=== PATIENT | female | born 1975 | race Caucasian/White ===

== ENCOUNTER 2018-06-20 10:44 | Inpatient (IN) | payer MEDICARE, MEDICAID ==
[~2018-06-20] VITALS: Ht 154.9 cm; Wt 64.7 kg
[~2018-06-20 10:44] MED LIST: AFRIN MENTHOL S15 ML NS; AMOXICILLIN 50500 MG PO; APAP500 PO; AUGMENTIN 875875 MG PO; AZITHROMYCIN 2250 MG; BACTRIM DS TAB1 EACH PO; BENTYL20 MG PO; CLEOCIN HCL300 MG PO; COLACE100 MG PO; DIFLUCAN200 MG PO; DOXYCYCLINE 10100 M1 PO; FLEXERIL PO; GAS RELIEF 8080 MG PO; MEDROL4 MG; MINOCIN100 MG PO; NORCO 5-325 TA1 EACH PO; OMNICEF; OXECTA5 MG PO; OXYBUTYNIN TRANSDERM; ROCEPHIN 11 GM/100 M IV; TUMS PO; TUMS200 MG PO; UNASYN 3 GM VIAL3 G1 IV; UNICOMPLEX M TA1 TA1 PO; VICODIN 5-5001 EACH PO; ZOFRAN4 MG PO
[2018-06-20 10:45] VITALS: BP 140/86
[2018-06-20] MEDS ORDERED: EXCEDRIN CAPLE1 EACH PO (10:51)
[2018-06-20 11:27] LABS: ABSOLUTE BASOPHILS 0.1 thou/uL (0.0-0.2); ABSOLUTE EOSINOPHILS 0.1 thou/uL (0.0-0.7); ABSOLUTE LYMPHOCYTES 2.4 thou/uL (0.8-5.3); ABSOLUTE MONOCYTES 0.4 thou/uL (0.0-1.2); ABSOLUTE NEUTROPHILS 6.2 thou/uL (1.6-8.1); BASOPHILS 1.1 %; EOSINOPHILS 0.7 %; HEMATOCRIT 38.7 % (37.0-47.0); HEMOGLOBIN 12.6 gm/dL (12.0-15.0); LYMPHOCYTES 26.2 %; MCH 25.6 pg (26.0-34.0); MCHC 32.5 g/dL (28.0-37.0); MCV 78.8 fL (80.0-100.0); MONOCYTES 4.4 %; MPV 7.3 fl. (7.2-11.1); NUCLEATED RBCS 0 /100WBC; PLATELET COUNT* 418 thou/uL (150-400); POLYS 67.6 %; RBC 4.91 mil/uL (4.20-5.00); RDW-CV 17.6 % (10.5-14.5); WBC 9.1 thou/uL (4.0-11.0)
[2018-06-20 11:36] LABS: CREATININE 0.5 mg/dL (0.6-1.3); POTASSIUM 3.7 mmol/L (3.5-5.1)
[2018-06-20 11:40] LABS: ALBUMIN 3.3 g/dL (3.4-5.0); TOTAL BILIRUBIN 0.3 mg/dL (<0.1-1.0); TOTAL PROTEIN 7.8 g/dL (6.4-8.2)
[2018-06-20 12:49] LABS: URINE BILIRUBIN NEGATIVE (Negative); URINE BLOOD 3+ (Negative); URINE CLARITY CLOUDY; URINE COLOR YELLOW; URINE GLUCOSE-RANDOM NEGATIVE (Negative); URINE KETONES NEGATIVE (Negative); URINE LEUKOCYTES 3+ (Negative); URINE NITRITE NEGATIVE (Negative); URINE PROTEIN NEGATIVE (Negative); URINE SPECIFIC GRAVITY <= 1.005 (1.005-1.030); URINE UROBILINOGEN 0.2 E.U./dl (0.2-1.0)
[2018-06-20 12:56] LABS: CASTS None Seen /LPF (None Seen); CRYSTALS None Seen /LPF (None Seen); SQUAMOUS NONE SEEN /LPF (0-3); URINE RBC >20 Many /HPF (0-2); URINE WBC >25 Many /HPF (0-5)
[2018-06-20 12:57] LABS: BACTERIA 1-9 Few /HPF (None Seen); YEAST Present (None Seen)
[2018-06-20 13:46] VITALS: BP 139/77
[2018-06-20 15:08] VITALS: BP 138/78
[2018-06-20 16:00] VITALS: BP 150/79
--- NOTE | 2018-06-20 16:19 | NUR ---
PATIENT ADMITTED FROM ER TO ROOM 103. ALERT AND ORIENTED. FAMILY AT BEDSIDE, VERY SUPPORTIVE. PHOTO TAKEN OF LEFT ISCHIUM WOUND PER PROTOCOL. PATIENT TURN Q2, WEDGES AND PILLOW UTILIZED. IVF AND SCHED ABX INFUSED ORDERED. PRN HYDROCODONE GIVEN FOR ABD PAIN, PATIENT TAKES PILLS CRUSHED. INCONTINENT OF URINE. FALL RISK PROTOCOL IN PLACE. CALL LIGHT WITHIN REACH, WILL CONTINUE TO MONITOR.
[2018-06-20 21:00] VITALS: BP 114/57
--- NOTE | 2018-06-21 05:51 | NUR ---
PATIENT SLEPT MOST OF THE NIGHT. IV FLUIDS CONTINUE TO INFUSE AT 100 ML/HR. IV VANC WAS GIVEN ORDERED. PATIENT HAS BEEN NPO SINCE MIDNIGHT FOR PROCEDURE TODAY. WILL CONTINUE TO MONITOR.
[2018-06-21 08:00] VITALS: BP 125/63
[2018-06-21 11:11] VITALS: BP 125/63
--- NOTE | 2018-06-21 11:49 | NUR ---
Nutrition: Pt assessed for pressure ulcer on Lt ischium. Pt is paraplegic, h/o pressure ulcers. Usually eats well. Currently NPO for procedure today. Admitted with UTI and renal stones. Wt in 2016 was 180#. Today's wt is 142#. Unsure of wt hx. Will follow wt trends while in hospital Labs: Na 134, BG 139, alb 3.3. Pt is at Low to Mild risk at this time.
--- NOTE | 2018-06-21 14:00 | NUR ---
VISITED WITH PT. SHE WAS ALERT AND ORIENTED. KNOWN FROM PREVIOUS ADMISSION IN 2016. SHE SAID SHE HAS NOT BEEN IN HOSPITAL SINCE THEN. SHE CONTINUES TO LIVE WITH HER MOM AND SON. THEY ARE HER CARE GIVERS. SHE WOULD QUALIFY FOR CAREGIVERS THROUGH HER MEDICAID BUT DECLINED OFFER FOR INFORMATION LAST TIME. SHE IS PARAPLEGIC FOR MANY YEARS. WAS ABLE TO TRANSFER OUT OF BED BUT FX LEG WHILE TURNING IN BED SEVERAL YEARS AGO. SAID SHE IS NOW BEDBOUND. SHE HAD A LIFT BUT SAID IT 'BENT HER IN HALF LIKE A TACO.' SEE NOTES FROM . SHE IS WANTING FULLY ELECTRIC RAEGAN LIFT. MEDICAID DOES NOT PAY FOR FULLY ELECTRIC BUT COULD RECEIVE SEMI ELECTRIC LIFT. IS ALSO WANTING A LOW AIR LOSS MATTRESS. HER WC IS 9 YRS OLD. ALSO SAID SHE NEEDS SOMETHING WRITTEN TO [facility] TRANSPORTATION TO GET QUALIFIED TO RECEIVE TRANSPORTATION TO AND FROM [facility]. HER PCP WILL NOT WRITE THIS UNLESS SHE SEES HIM IN OFFICE BUT SHE CANNOT GET TO OFFICE SHE DOES NOT HAVE TRANSPORTATION. CM WILL ATTEMPT TO ASSIST WITH SOME OF THESE ISSUES.
--- NOTE | 2018-06-21 15:20 | NUR ---
WOUND CARE NOTE: CONSULT RECEIVED FOR LEFT ISCHIUM WOUND. PATIENT CURRENTLY OFF UNIT, WILL ATTEMPT TO ASSESS TOMORROW.
[2018-06-21 16:15] VITALS: BP 127/59
--- NOTE | 2018-06-21 16:39 | NUR ---
PATIENT NPO ALL MORNING FOR CYSTO WITH RIGHT STENT PLACEMENT THIS AFTERNOON. PATIENT RETURNED TO ROOM AT 1625. VITALS STABLE. PATIENT C/O THROAT BEING VERY SORE. IVF CONTINUES INFUSING, SCHED ABX GIVEN ORDERED. REG DIET. WOUND CARE CONSULTED WILL SEE TOMORROW PATIENT WAS OFF UNIT ALL AFTERNOON. PATIENT REFUSED MRI TO BE DONE TODAY, MRI NOTIFIED AND WILL DO TOMORROW.
[2018-06-21 20:00] VITALS: BP 118/62
[2018-06-21 23:59] VITALS: BP 95/52
[2018-06-22 04:12] VITALS: BP 102/59
--- NOTE | 2018-06-22 04:57 | NUR ---
ASSESSMENT COMPLETE. PT GIVEN PRN PAIN MEDICATION ONCE WITH RELIEF REPORTED. PT ABLE TO SLEEP THROUGH THE NIGHT WITHOUT ANY CONCERNS. PT IS ON ROOM AIR WITH ADEQUATE SATS. PT REPORTS SORE THROAT, SPRAY GIVEN PRN. PT TAKES MEDS CRUSHED. PT HAS PEREZ IN PLACE. PT HAS IV FLUIDS INFUSING. DRESSING TO WOUND INTACT. PT IS Q2 TURN FOR SKIN INTEGRITY. SEE ASSESSMENT AND VITALS FOR OTHER DETAILS. CALL LIGHT WITHIN REACH, WILL CONTINUE PLAN OF CARE
--- NOTE | 2018-06-22 07:31 | OP ---
[address] [address] OPERATIVE REPORT Name: BETHEL MAHONEY Room: [address] IN .R.#: [id number] Admission: 06/20/18 Attend Phys: Isidro Roe Discharge: Date of : 71 Report #: [id number] THIS REPORT FOR: //name// CC: Alyssia Morrow DATE OF SERVICE: 06/21/2018 INDICATION FOR PROCEDURE: The patient is a 43-year-old female who is paraplegic, who was admitted through the Emergency Department with fever, chills, abdominal pain. She was diagnosed with a febrile urinary tract infection, associated with a large right ureteropelvic junction calculus. She presents today for cystoscopy with right double-J stent placement to allow drainage of her right kidney while the antibiotics are treating the infection to allow this urinary tract infection to clear. She will then require formal stone treatment at a later date. PREOPERATIVE DIAGNOSIS: Febrile urinary tract infection associated with a right ureteropelvic junction calculus. POSTOPERATIVE DIAGNOSIS: Febrile urinary tract infection associated with a right ureteropelvic junction calculus. PROCEDURE: Cystoscopy, right double-J stent placement. SURGEON: Luis Miguel Romero MD ANESTHESIA: General. COMPLICATIONS: None. ESTIMATED BLOOD LOSS: None. DESCRIPTION OF PROCEDURE: The patient was consented for the above procedure, given broad-spectrum IV antibiotics preoperatively. She was given general anesthetic, placed in the dorsal lithotomy position. She was prepped and draped in a sterile fashion over the genitalia. Upon examination, the patient had a decubitus ulcer in her right buttock. Externally, the genitalia was unremarkable. Cystoscopy was performed with the 21-Dutch sheath and 30 degree lens. This revealed a urethra that was open at rest. A moderate to severely trabeculated bladder was noted with moderate erythema on the posterior bladder wall. The ureteral orifices were in the proper position. The stone was easily seen on fluoroscopy. Based on that point, the 0.035 floppy-tipped guidewire was passed up the right ureter, past the stone and into the right renal pelvis. Next, a 4.8 x 26 double-J stent was passed over the wire with good curl noted in the renal pelvis and in the bladder after removing the wire. [place] [address] OPERATIVE REPORT Name: BETHEL MAHONEY Room: [address]#: [id number] Admission: 06/20/18 Attend Phys: Isidro Roe Discharge: Date of : 71 Report #: [id number] with fluoroscopy and cystoscopy. Once the stent was placed, the scope was removed. A Francois catheter was replaced and clear urine drained. She was awakened and sent to recovery room where she remained in stable condition. We will leave her on IV and p.o. antibiotics for 7-10 days prior to performing a stone procedure. <ELECTRONICALLY SIGNED> By: Luis Miguel Romero MD 06/22/18 0731 [id number] Mabel Romero MD /nt
[2018-06-22 08:20] LABS: HEMATOCRIT 33.3 % (37.0-47.0); HEMOGLOBIN 10.7 gm/dL (12.0-15.0); MCH 25.7 pg (26.0-34.0); MCHC 32.2 g/dL (28.0-37.0); MCV 79.7 fL (80.0-100.0); MPV 6.9 fl. (7.2-11.1); RBC 4.18 mil/uL (4.20-5.00); RDW-CV 17.2 % (10.5-14.5); WBC 6.4 thou/uL (4.0-11.0)
[2018-06-22 08:31] LABS: ALBUMIN 2.7 g/dL (3.4-5.0); CALCIUM 7.8 mg/dL (8.5-10.1); CREATININE 0.4 mg/dL (0.6-1.3); MAGNESIUM 1.8 mg/dL (1.8-2.4); PHOSPHORUS* 3.7 mg/dL (2.5-4.9); POTASSIUM 3.2 mmol/L (3.5-5.1)
[2018-06-22 08:35] VITALS: BP 114/59
--- NOTE | 2018-06-22 12:50 | CON ---
[address] [address] CONSULTATION Name: BETHEL MAHONEY Room: [address] IN .R.#: [id number] Admission: 06/20/18 Attend Phys: Isidro Roe Discharge: Date of : 71 Report #: [id number] THIS REPORT FOR: //name// CC: Alyssia Morrow DATE OF SERVICE: 06/21/2018 INFECTIOUS DISEASE CONSULTATION ATTENDING PHYSICIAN: Dr. Morrow. REASON FOR EVALUATION: Sepsis as a complication of obstructive uropathy and complicated urinary tract infection, also has chronic wound overlying the left ischial site. HISTORY OF PRESENT ILLNESS: This is a 43-year-old well known to myself. She has longstanding paraplegia as a result of spinal cord tumor who has several admissions over the years with infectious related complications, has chronic left ischial wound that tends to have a waxing and waning course and has healed at times only to break down later, generally a serosanguineous type discharge, currently sinus tract. It has been there roughly 8 months. She did present with severe nausea, abdominal pain, low back pain and pressure, had some low-grade temperature elevations as well. On evaluation, she was found to have bilateral renal stones and urinalysis suggests an overt infection. She was scheduled to undergo operative intervention with stenting, has been started on empiric antibiotics with ceftriaxone and vancomycin. She is not encephalopathic. She is in moderate distress. ALLERGIES: MORPHINE, QUINOLONES, MINOCYCLINE, TRAMADOL, UNASYN. CURRENT MEDICATIONS: Include ceftriaxone, vancomycin, hydromorphone, ondansetron, hydrocodone. PAST MEDICAL HISTORY: As described above, paraplegia secondary to spinal cord tumor, bilateral lower extremity lymphedema, previous cholecystectomy, left ankle osteomyelitis. SOCIAL HISTORY: Former smoker. No ethanol. FAMILY HISTORY: Noncontributory. REVIEW OF SYSTEMS: As above. Denies significant pulmonary-related complaints. PHYSICAL EXAMINATION: GENERAL: She appears chronically ill, undernourished[place] [address] CONSULTATION Name: MARUBETHEL F Room: [address]#: [id number] Admission: 06/20/18 Attend Phys: Isidro Roe Discharge: Date of : 71 Report #: [id number] VITAL SIGNS: Temperature 98.1, pulse 98, respirations 18, blood pressure 125/63. SKIN: Warm. SKIN: Warm and dry. HEENT: Otherwise, unremarkable. NECK: Supple. LUNGS: Diminished breath sounds. HEART: Regular. Borderline tachycardic. I do not appreciate a murmur. ABDOMEN: Soft, mild distention. There are no overt peritoneal signs. I do not appreciate any CVA tenderness. GENITOURINARY: Deferred. RECTAL: Deferred. LABORATORY DATA: Blood cultures sterile thus far. Sed rate of 30. Lactic acid 1.8. CT abdomen and pelvis, large stone in the right renal pelvis with some possible wall thickening of the pelvis and proximal ureter suggesting chronic inflammatory change. She has a stone in the calyx, left kidney shows a small mid region stone as well. CBC: White count of 9.1, H and H 12.6 and 38.7, platelets of 418. Electrolytes: Sodium 134, potassium 3.7, chloride 98, bicarbonate is 22, anion gap of 14, BUN and creatinine 5 and 0.5, with a glucose of 139. Albumin is 3.3, total protein 7.8, estimated GFR of 133. ASSESSMENT AND PLAN: Complicated urinary sepsis as a complication of urinary tract obstructive uropathy. We will continue empiric antimicrobial therapy. Agree with surgical intervention. I think this is certainly likely the source as evidenced by the chronic left ischial ulcer. The evidence is mixed about a deep infection such as osteomyelitis. We will continue wound care. We may need to have Surgery evaluate possible excision of the sinus tract pattern. Continue wound care including packing and offloading. <ELECTRONICALLY SIGNED> By: Milton Gandhi MD 06/22/18 1250 [id number] Gandhi MD /nt
[2018-06-22 16:00] VITALS: BP 133/61
--- NOTE | 2018-06-22 16:00 | NUR ---
CM SPOKE TO DR MANJARREZ AND SHE IS RECOMMENDING LTAC FOR THE PATIENT AT D/C AND WOULD LIKE TO KNOW IF SHE WOULD QUALIFY, AND PATIENT INFORMS THAT SHE IS OPEN TO THIS. CM SPOKE TO JACKIE WITH [facility] TO INFORM OF THE REFERRAL AND FAXED THE PATIENTS CLINICAL INFO. CM AWAITING A RETURN CALL TO DISCUSS IF PATIENT QUAILIFIES. CM WILL REMAIN AVAILABLE TO ASSIST AND FOLLOW NEEDED.
--- NOTE | 2018-06-22 16:12 | NUR ---
PATIENT TURNED Q2. IVF AND SCHED ABX INFUSED ORDERED. PATIENT TO HAVE ONE TIME GENTAMICIN DOSE AGAIN THIS SHIFT. PO FLUCONAZOLE STARTED THIS SHIFT. POTASSIUM REPLACED FOR LEVEL OF 3.2, REDRAW AT 1930. PATIENT HAD MRI THIS AM, DR. MANJARREZ NOTIFIED OF RESULTS, SURGERY CONSULTED AND SAW PATIENT. NO NEW ORDERS RECEIVED AT THIS TIME. WOUND CARE HERE THIS AM AND DRESSING CHANGED TO LEFT ISCHIUM.
--- NOTE | 2018-06-22 16:41 | NUR ---
WOUND CARE NOTE: CONSULT RECEIVED FOR SACRAL WOUND. PATIENT PRESENTS WITH A STAGE 4 PRESSURE ULCER TO HER LEFT ISCHIAL TUBEROSITY. WOUND MEASURES 0.8X1X3.8 WITH A TUNNEL AT 11 O'CLOCK 6.5CM. JUDD-WOUND MACERATED. CLEANSED WOUND WITH WOUND CLEANSER, PATTED DRY. WOUND IS DRAINING SEROUS DRAINAGE. WOUND BED DIFFICULT TO SEE SINCE OPENING IS FAIRLY SMALL. APPEARS THAT IT IS RED AND MOIST. PACKED WITH 1/2" RIBBON GAUZE, SKIN PREPPED. COVERED WITH BORDERED GAUZE. BELIEVE PATIENT HAS VAGINAL YEAST INFECTION. PERINEAL AREA IS RED, RAW, BLEEDING. APPLIED Z GUARD. PHYSICIAN NOTIFIED. NOTICED DRY, THICKENED, YELLOW/BLACK SKIN TO RIGHT FOOT. AFTER CLOSER INSPECTION, NOTICED DRAINAGE. CLEANSED AREA AND LARGE FLAKES OF DRY SKIN CAME OFF REVEALING A WOUND TO THE DORSAL ASPECT OF HER FOOT EXTENDING TO HER TOES. PATIENT THAT THE AREA WILL HEAL, THEN COME BACK. STATES THAT THEY LOTION HER FEET UP REALLY WELL AND THE DRY FLAKEY SKIN COMES OFF. CLEANSED WOUND. APPLIED OPTIFOAM AG AND SECURED WITH A ROLL GAUZE. NOTIFIED PHYSICIAN OF FINDINGS AND NEW ORDERS OBTAINED. EDUCATED PATIENT ON FINDINGS AND DRESSING SELECTIONS, COMMUNICATED UNDERSTANDING. EDUCATED PATIENT ON GETTING HER A MATTHIAS MATTRESS TO ASSIST WITH MOISTURE CONTROL, JUDD-WOUND, BUTTOCKS, PERINEAL AREA EXTREMELY MACERATED. I BELIEVE FROM VAGINAL AND WOUND DRAINAGE. RECOMMEND TURN Q2 HOURS, KEEP OFF WOUND LIMIT LAYERS OF LINEN UNDER PATIENT PODIATRY CONSULT-TOENAILS, FOOT WOUND
--- NOTE | 2018-06-22 17:32 | NUR ---
PT. IS MOTIVATED TO GET OOB AND INTO A W/C. WAITING ON CLEARANCE PER DR. MANJARREZ TO SEE IF PT. CAN GET OOB DUE TO PT. HAVE A STAGE FOUR ISCHIUM WOUND AND SAYS GAYLE. LE TURN PURPLE AND BLACK WHEN IN A DEPENDENT POSITION DUE TO LYMPHEDEMA. RECOMMEND THAT PT. GET A LIFT AGAIN AND HAVE TRAINING AT HOME WITH EITHER A CAREGIVER AND/OR HOME HEALTH O.T/P.T. PT. HAS LOSS STRENGTH FROM BEING BEDBOUND THE PAST 2 YEARS. ALSO PT. SAYS SHE HAS A W/C BUT IT IS FROM THE EARLY 1999'S. RECOMMEND A W/C WITH ROHO CUSHION AND ELEVATING LEG RESTS WHEN PT. IS APPROPRIATE TO SIT UP IN A W/C. PT. ALSO WOULD BENEFIT FROM A LOW AIR LOSS MATTRESS.
[2018-06-23 00:40] VITALS: BP 132/59
--- NOTE | 2018-06-23 06:27 | NUR ---
PATIENT SLEPT PART OF THE NIGHT. IV WENT BAD NURSING LEGAL ADVISER STARTED ANOTHER ONE WENT TO HOOK PATIENT BACK UP TO FLUIDS THAT IV HAD ALREADY CLOTTED OFF. PATIENT REFUSED TO HAVE ANOTHER ONE PLACED AND IS WANTING A PICC LINE. PATIENT IS ALSO REFUSING TO HAVE SURGERY TODAY AND WOULD LIKE TO TALK TO THE DOCTORS. WILL CONTINUE TO MONITOR.
[2018-06-23 09:30] VITALS: BP 128/65
[2018-06-23 12:05] LABS: HEMATOCRIT 34.3 % (37.0-47.0); HEMOGLOBIN 11.2 gm/dL (12.0-15.0); MCH 25.6 pg (26.0-34.0); MCHC 32.5 g/dL (28.0-37.0); MCV 78.8 fL (80.0-100.0); MPV 7.1 fl. (7.2-11.1); RBC 4.35 mil/uL (4.20-5.00); RDW-CV 17.1 % (10.5-14.5); WBC 8.2 thou/uL (4.0-11.0)
[2018-06-23 12:17] LABS: ALBUMIN 2.7 g/dL (3.4-5.0); CALCIUM 8.8 mg/dL (8.5-10.1); CREATININE 0.4 mg/dL (0.6-1.3); MAGNESIUM 1.9 mg/dL (1.8-2.4); POTASSIUM 3.6 mmol/L (3.5-5.1); TOTAL BILIRUBIN 0.3 mg/dL (<0.1-1.0)
--- NOTE | 2018-06-23 12:26 | NUR ---
CM SPOKE TO THE PATIENT TO DISCUSS DISCHARGE PLANNING NEEDS AND LTAC AT D/C. PATIENT INFORMS THAT SHE IS OPEN TO LTAC AT D/C, BUT IS 'CONCERNED WITH HOW FAR AWAY IT IS'. PATIENT WOULD LIKE TO SPEAK TO HER FAMILY ABOUT IT BEFORE MAKING A DECISION. CM ALSO INFORMED THE PATIENT THAT CM CONTACTED [facility] TO DISCUSS TRANSPORATION AND THEY INFOM THAT THERE IS NO ISSUE AND THE PATIENT COVERED FOR TRANSPORTATION'. CM CONTACTED [facility] TO DISCUSS DME REFERRAL FOR ELECTRIC RAEGAN LIFT AND LOW AIR LOSS MATTRESS. CM TO DISCUSS NEEDED PROGRESS NOTE FROM DR MANJARREZ TO ASSIST IN ACQUIRING DME APPROVAL. CM WILL REMAIN AVAILABLE TO ASSIST AND FOLLOW NEEDED.
--- NOTE | 2018-06-23 13:13 | NUR ---
RIGHT BASILIC VESSEL ACCESSED FOR SINGLE LUMEN PICC LINE. LINE PRE-TRIMMED TO 37CM BUT UNABLE TO CANNULATE BASILIC VESSEL. BASILIC VESSEL DEEP AND TORTUROUS WITH FIBRIN SHEATH-LIKE COATING. NEEDLE WITH DRAWN AND PRESSURE HELD FOR 3 MINUTES. RIGHT CEPHALIC VESSEL ASSESSED BUT FOUND TO BE PARTIALLY CLOTTED WITH FIBRIN-LIKE SHEATH NOTED. PROCEDURE TERMINATED AND ULTRASOUND REPOSITIONED TO LEFT SIDE. LEFT BASILIC VESSEL ACCESSED FOR SINGLE LUMEN 4 QATARI PICC LINE. LINE PRE-TRIMMED TO 41CM AND ADVANCED TO THE ZERO TERESITA WITH NO RESISTANCE MET. UPPER ARM CIRCUMFERENCE ABOVE INSERTINO STIE = 10 3/4". GOOD BRISK BLOOD RETURN NOTED, LINE FLUSHES FREELY. SHERLOCK AND 3CG CONFIRMATION OF TIP TERMINATION AT CAVOATRIAL JUNCTION. STYLET REMOVED, SITE DRESSED AND REPORT GIVEN TO HEIDI SHAW.
--- NOTE | 2018-06-23 16:36 | NUR ---
ASSUMED CARE OF PATIENT AFTER MORNING REPORT. ALERT AND ORIENTED X4. ASSESSMENT COMPLETED AND CHARTED. VSS ON ROOM AIR. PATIENT HAS HAD NO COMPLAINTS OF NAUSEA OR SOA. PAIN HAS BEEN MANAGED WITH MEDICATION. PATIENT REFUSED TO HAVE SURGERY TODAY TO DEBRIDE THE STAGE 4 ULCER ON HER LEFT ISCHIUM, STATES THAT SHE WOULD PREFER TO HAVE A FEW DAYS ON ANTIBIOTICS BEFORE HAVING THIS DONE. PATIENTS PERIPHERAL ACCESS CLOTTED OFF AT TWO SITES. PICC LINE ORDERED AND INSERTED THIS AM. FLUIDS AND ANTIBIOTICS INFUSED ORDERED. RESTING COMFORTABLY IN BED AT THIS TIME. HOURLY ROUNDS MAINTAINED, CALL LIGHT WITHIN REACH, NURSING WILL CONTINUE TO MONITOR.
[2018-06-23 18:20] VITALS: BP 134/79
[2018-06-23 21:45] VITALS: BP 135/90
[2018-06-24 05:26] LABS: HEMOGLOBIN 10.6 gm/dL (12.0-15.0); MCH 25.6 pg (26.0-34.0); MCV 79.9 fL (80.0-100.0); MPV 6.8 fl. (7.2-11.1); RBC 4.13 mil/uL (4.20-5.00); RDW-CV 17.5 % (10.5-14.5); WBC 6.5 thou/uL (4.0-11.0)
--- NOTE | 2018-06-24 05:49 | NUR ---
PATIENT HAS REMAINED ALERT AND ORIENTED X 4 THROUGHOUT THE SHIFT AND RESTING QUIETLY ON HOURLY ROUNDS. TURNED TO BACK AND TO RIGHT. DID NOT ALLOW FOR Q2H TURNS WHILE SLEEPING. WOUND CARE TO LEFT BUTTOCKS ULCER, RIGHT FOOT ULCER AND PERINEUM CARE COMPLETED AT HS. IVF'S AND ANTBIOTICS PER ORDERS. TEMP 99.2 AT HS. PHENERGAN ORDER RECEIVED FOR HEADACHE AT PATIENT REQUEST. SHE HAD RECEIVED A DOSE EARLIER IN THE DAY TO GOOD EFFECT BUT THAT HAD BEEN A ONE TIME ORDER. DID RECEIVE TWO DOSES OVERNIGHT, ALSO TO GOOD EFFECT. CONTINUE TO MONITOR.
[2018-06-24 06:25] LABS: ALBUMIN 2.4 g/dL (3.4-5.0); CALCIUM 8.3 mg/dL (8.5-10.1); CREATININE 0.4 mg/dL (0.6-1.3); MAGNESIUM 1.9 mg/dL (1.8-2.4); POTASSIUM 3.7 mmol/L (3.5-5.1); TOTAL BILIRUBIN 0.1 mg/dL (<0.1-1.0); TOTAL PROTEIN 6.4 g/dL (6.4-8.2)
[2018-06-24 09:48] VITALS: BP 130/86
[2018-06-24 16:07] VITALS: BP 140/84
--- NOTE | 2018-06-24 16:33 | NUR ---
SPOKE WITH REP AT [place] [employer]. DISCUSSED PT.HAVING TO COME TO WOUND CARE CENTER,, ETC. BY STRETCHER VAN. FORM FAXED TO . PUT ON FRONT OF CHART. TO SIGN FOR MEDICAL NECESSITY AND DOCUMENT NEED FOR STRETCHER VAN. FORM NEEDS TO BE FAXED BACK TO [place] [employer]. NUMBER ON FORM. SPOKE WITH [facility]. SHE SAID SHE DID RECEIVE ORDERS FOR LIFT AND LOW AIR LOSS MATTRESS. FAXED DOCUMENTATION FROM [facility] [employer] FOR THIS DME. TOLD [facility]NO DISCHARGE DATE UNKNOWN AT THIS TIME.
--- NOTE | 2018-06-24 17:09 | NUR ---
ASSUMED CARE OF PATIENT AFTER MORNING REPORT AT APPROX 0720. ALERT AND ORIENTED X4. ASSESSMENT COMPLETED AND CHARTED. VSS ON ROOM AIR. NO COMPLAINTS OF SOA THIS SHIFT. PAIN AND NAUSEA HAVE BEEN MANAGED WITH MEDICATION. FLUIDS AND ANTIBIOTICS IN FUSED ORDERED. PATIENT WORKED WITH OT TODAY AND DID WELL GETTING UP TO THE EDGE OF THE BED AND SITTING. Q2 TURNS MAINTAINED THROUGHOUT SHIFT. ABDOMINAL BINDER AND TUBIGRIPS APPLIED TO BILATERAL LOWER EXTRMEITIES BY OT FOR THERAPY TODAY. PATIENT RESTING COMFORTABLY IN BED AT THIS TIME. HOURLY ROUNDS MAINTAINED, CALL LIGHT WITHIN REACH, NURSING WILL CONTINUE TO MONITOR.
[2018-06-24 22:00] VITALS: BP 146/80
--- NOTE | 2018-06-25 04:41 | NUR ---
PATIENT HAS REMAINED ALERT AND ORIENTED X 4 THROUGHOUT THE SHIFT AND RESTING AT INTERVALS ON HOURLY ROUNDS. WOUND CARE COMPLETED AT HS. PATIENT TURNED SEVERAL TIMES BUT DID REFUSE Q2H TURNS. REMAINS ON SPECIALTY BED. CRITICAL VANCOMYCIN LEVEL AT HS. PHYSICIAN AND PHARMACY NOTIFIED. DOSAGE CHANGES PER PHARMACY. MEDICATED FOR VARIOUS STATED DISCOMFORTS. PHERERGAN FOR HEADACHES AND HYDROCODONE FOR BACK AND STOMACH PAIN. VITAL SIGNS STABLE. AFEBRILE. CONTINUE TO MONITOR.
[2018-06-25 06:42] LABS: URINE BILIRUBIN NEGATIVE (Negative); URINE BLOOD 2+ (Negative); URINE CLARITY CLEAR; URINE COLOR YELLOW; URINE GLUCOSE-RANDOM NEGATIVE (Negative); URINE KETONES NEGATIVE (Negative); URINE LEUKOCYTES-REFLEX 1+ (Negative); URINE NITRITE-REFLEX NEGATIVE (Negative); URINE PROTEIN NEGATIVE (Negative); URINE SPECIFIC GRAVITY 1.015 (1.005-1.030); URINE UROBILINOGEN 0.2 E.U./dl (0.2-1.0)
[2018-06-25 07:37] LABS: MUCUS 4-6 Moderate strn/LPF (None Seen); SQUAMOUS 0-3 Few /LPF (0-3); TRANSITIONAL EPITHEL CELL 4-10 Moderate /LPF (None Seen)
[2018-06-25 07:38] LABS: BACTERIA-REFLEX 1-9 Few /HPF (None Seen); CASTS None Seen /LPF (None Seen); CRYSTALS None Seen /LPF (None Seen); URINE RBC 3-10 Few /HPF (0-2); URINE WBC-REFLEX >25 Many /HPF (0-5)
[2018-06-25 08:05] VITALS: BP 139/92
[2018-06-25 17:07] VITALS: BP 139/83
--- NOTE | 2018-06-25 18:42 | NUR ---
ALERT AND ORIENTED X4. Q2 TURNS HAVE BEEN OFFERED THROUGHOUT SHIFT, WITH MULTIPLE REFUSALS. SPECIALTY BED IN PLACE. PAIN BEING MANAGED WITH PO AND IV MEDICATION. DENIES NAUSEA. IV IS PATENT AND INFUSING. DRESSINGS ON FOOT AND ISCHEUM HAVE BEEN CHANGED THIS SHIFT. C/D/I. VSS ON ROOM AIR. HOURLY ROUNDS HAVE BEEN MAINTAINED THROUGHOUT SHIFT. CALL LIGHT IS WITHIN REACH. NURSING WILL CONTINUE TO MONITOR.
[2018-06-25 19:25] VITALS: BP 132/73
[2018-06-26 01:02] VITALS: BP 148/60
--- NOTE | 2018-06-26 04:50 | NUR ---
PATIENT REMAINS ALERT AND ORIENTED X4 THROUGHOUT SHIFT. VITAL SIGNS STABLE ON ROOM AIR. SINGLE LUMEN PICC PATENT IN THE LEFT UPPER ARM INFUSING AT 100 ML/HR PER ORDERS. PAIN MANAGED WITH PO MEDICATION. NAUSEA MANAGED WITH IV MEDICATION. DRESSING TO WOUNDS CLEAN, DRY AND INTACT. PEREZ IN PLACE AND PATENT DRAINING LIGHT YELLOW URINE. PATIENT REMAINS ON BEDREST ON LOW AIRLOSS MATTRESS. ASSISTED TO REPOSITION EVERY TWO HOURS. RESTING COMFORTABLY THROUGHOUT THE NIGHT. BED ALARM IN PLACE. CALL LIGHT WITHIN REACH. WILL CALL FOR ASSISTANCE.
[2018-06-26 05:34] VITALS: BP 154/55
[2018-06-26 07:25] VITALS: BP 128/78
[2018-06-26 15:37] VITALS: BP 134/93
--- NOTE | 2018-06-26 17:10 | NUR ---
PT ALERT AND ORIENTED X 4. IVF INFUSING @ 100 MLS/HR IN SINGLE LUMEN PICC IN LEFT UPPER ARM. PT MAINTAINS ON BED REST. TURNED Q 2. PT ON ALTERNATING AIR LOSS SPECIALTY MATTRESS. PEREZ CATHETER IN PLACE DRAINING CLEAR YELLOW URINE. DR. MARTINEZ PODIATRY ADDRESSED BILAT FOOT WOUNDS @ 12:30. DRESSING ON LEFT ISCHIUM CHANGED AND PICTURES OBTAINED FOR ALL WOUNDS. JUDD-ANAL AREA RED AND EXCORIATED- Z ZACHARY BARRIER CREAM APPLIED. VS STABLE. HOURLY CHECKS MAINTAINED. CALL LIGHT WITHIN REACH. NURSING WILL CONTINUE TO MONITOR.
[2018-06-26 20:00] VITALS: BP 139/79
[2018-06-27 04:26] LABS: HEMOGLOBIN 9.7 gm/dL (12.0-15.0); MCH 25.7 pg (26.0-34.0); MCHC 32.3 g/dL (28.0-37.0); MCV 79.6 fL (80.0-100.0); MPV 7.4 fl. (7.2-11.1); RBC 3.76 mil/uL (4.20-5.00); RDW-CV 17.8 % (10.5-14.5); WBC 5.2 thou/uL (4.0-11.0)
[2018-06-27 04:40] VITALS: BP 156/53
[2018-06-27 05:27] LABS: ALBUMIN 2.3 g/dL (3.4-5.0); CALCIUM 8.4 mg/dL (8.5-10.1); CREATININE 0.5 mg/dL (0.6-1.3); MAGNESIUM 2.1 mg/dL (1.8-2.4); POTASSIUM 3.2 mmol/L (3.5-5.1); TOTAL BILIRUBIN 0.2 mg/dL (<0.1-1.0); TOTAL PROTEIN 6.2 g/dL (6.4-8.2)
--- NOTE | 2018-06-27 07:00 | NUR ---
PATIENT RESTED IN BED, NO ACUTE CHANGES. PATINET DID NOT SHOW SIGNS OF DISTRESS. PATIENT TURNED Q 2 HOURS, FALL PRECAUTIONS IN PLACE, CALL LIGHT WITH IN REACH, HOURLY ROUNDING OBSERVED, BED ALARM ON. PATIENT DRESSING IS DRY AND INTACT.
--- NOTE | 2018-06-27 07:24 | NUR ---
PATIENT HAD BOWEL MOVEMENT.
[2018-06-27 08:00] VITALS: BP 123/69
--- NOTE | 2018-06-27 15:02 | NUR ---
SPOKE WITH [facility]. PT.WOULD ONLY QUALIFY FOR LTAC IF SHE HAD 3 NIGHTS IN ICU OR TELEMETRY. ONLY LOCATION FOR [facility] IN [facility]. SHE WOULD QUALIFY FOR SNF BUT PT.WANTS TO GO HOME. SHE IS AGREEABLE TO HOME HEALTH. SHE HAS DONE IV ANTIBIOTICS BEFORE AT HOME. CM TO FOLLOW. FORM FOR MEDICA[employer] TO AUTH A STRETCHER VAN, FOR PT.TO COME TO WOUND CLINIC, IN FRONT OF CHART. NEEDS TO SIGN.
[2018-06-27 16:00] VITALS: BP 158/101
--- NOTE | 2018-06-27 18:39 | NUR ---
PATIENT HAS BEEN A/O X 4 THIS SHIFT. MEDICATED FOR PAIN X 1 WITH RELIEF NOTED. DRESSING TO LEFT ISCHIUM CHANGED THIS EVENING. DRESSING TO RIGHT FOOT INTACT. PICC LINE PATENT, IV FLUIDS CONTINUE TO INFUSE. ANTIBIOTICS CHANGED PER DR CROWDER. PEREZ CATHETER PATENT AND DRAINING. PATIENT REPOSITIONED EVERY 2 HOURS. HEELS ELEVATED. PATIENT CONTINUES ON LOW AIRLOSS MATTRESS. HOURLY ROUNDING COMPLETE. CALL LIGHT WITHIN REACH. WILL CONTINUE WITH PLAN OF CARE.
[2018-06-27 19:45] VITALS: BP 138/79
--- NOTE | 2018-06-28 04:47 | NUR ---
PATIENT REMAINS ALERT AND ORIENTED X4 THROUGHOUT SHIFT. VITAL SIGNS STABLE ON ROOM AIR. PICC LINE IN PLACE IN LEFT UPPER ARM INFUSING FLUIDS AT 100 ML/HR PER ORDERS. DRESSING TO WOUNDS C/D/I. NURSING ENCOURAGED PATIENT TO REPOSITION EVERY TWO HOURS. PATIENT DECLINES REPOSITIONING AT TIMES. TOLERATING DIET. PAIN MANAGED WITH PO MEDIATION. POTASSIUM REPLACED AND LAB REDRAWN. LEGS ELEVATED. PATIENT REQUESTS MEDICATIONS TO BE CRUSHED. HOURLY ROUNDING COMPLETE. FALL PRECAUTIONS IN PACE. NURSING WILL CONTINUE TO MONITOR.
[2018-06-28 08:45] VITALS: BP 145/82
--- NOTE | 2018-06-28 09:30 | NUR ---
PATIENT'S DRESSING TO LEFT ISCHIAL TUBEROSITY CAHNGED AT THIS TIME BY DR DAS. PATIENT INCONTINENT OF STOOL, JUDD-CARE PROVIDED AND Z GUARD APPLIED TO COCCYX. WILL CONTINUE WITH PLAN OF CARE.
--- NOTE | 2018-06-28 10:08 | NUR ---
ATTEMPTED TO SEE PT. FOR TX SESSION AT 0959 ON THIS DATE, PT. REQUESTED OT TO COME BACK IN ONE HOUR. DISCUSSED PLAN FOR TODAY'S SESSION WITH PT. AND AGREED TO RETURN IN ABOUT 1 HOUR.
--- NOTE | 2018-06-28 16:20 | NUR ---
I have reviewed the documentation by HEIDI MCMULLEN from 06/28/18 to 06/28/18 and I concur with it. ART, DANIELLE
[2018-06-28 16:30] VITALS: BP 131/70
--- NOTE | 2018-06-28 17:08 | NUR ---
PATIENT HAS BEEN A/O X 4 THIS SHIFT. MEDICATED FOR PAIN THIS AM WITH RELIEF. IV FLUIDS CONTINUE TO INFUSE VIA LEFT UPPER ARM PICC LINE. IV ANTIBIOTICS CONTINUE. SURGERY RECONSULTED AND ASSESSED PATIENT. DR DAS CHANGED LEFT ISCHIAL TUBEROSITY DRESSING THIS AM. INCONTINENT OF STOOL, JUDD-CARE PROVIDED. PEREZ PATENT AND DRAINING. RIGHT FOOT DRESSING CHANGED, HEELS ELEVATED. PATIENT REPOSITIONED EVERY 2 HOURS THIS SHIFT. PATIENT UPDATED ON PLAN OF CARE AND NEW ORDERS. HOURLY ROUNDING COMPLETED. CALL LIGHT WITHIN REACH. WILL CONTINUE WITH PLAN OF CARE.
[2018-06-28 21:30] VITALS: BP 121/61; BP 140/96
--- NOTE | 2018-06-29 04:54 | NUR ---
PATIENT HAS REMAINED ALERT AND ORIENTED X 4 THROUGHOUT THE SHIFT AND RESTING QUIETLY ON HOURLY ROUNDS. RECEIVED PAIN MEDICATION FOR LEFT BUTTOCKS DISCOMFORT TO GOOD EFFECT. TURNED Q2-3 HOURS. REMAINS ON SPECIALTY BED. DRESSING TO LEFT BUTTOCKS AND RIGHT FOOT INTACT. PERINEUM REMAINS WITH DERMATITIS. OINTMENT PROVIDED WITH PAD CHANGE AT HS. PATIENT ALSO HAS STARTED MENSES. VITAL SIGNS STABLE. CONTINUE TO MONITOR.
[2018-06-29 07:45] VITALS: BP 130/80
--- NOTE | 2018-06-29 13:04 | CON ---
[address] [address] CONSULTATION Name: BETEHL MAHONEY Room: [address] IN M.R.#: [id number] Admission: 06/20/18 Attend Phys: Isidro Roe Discharge: Date of : 71 Report #: [id number] THIS REPORT FOR: //name// CC: Alyssia Morrow DATE OF SERVICE: 06/26/2018 CHIEF COMPLAINT: The patient known to me for prior foot wounds. 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 She relates pain in the right first through fifth toes with direct pressure; otherwise, they are pain-free. She has a wound to the right dorsal foot of unknown etiology, which has demonstrated progressive wound healing. She is on parenteral vancomycin for urosepsis, status post urologic intervention. PHYSICAL EXAMINATION: Superficial ulcer to the right dorsal foot, extending from the base of the second, third and fourth toes. This demonstrated significant healing over the last several days, with nearly resolved inflammation at this point. There is no priti cellulitis or signs of soft tissue infection. The wound area roughly measures 3.0 x 2.0 cm, but there are islands of epithelialization within that wound area. There are no exposed deep structures. The foot is very edematous due to her quadriplegia. Toenails are severely dystrophic without paronychia. She has abundant dry skin to the plantar feet, without inflammation or drainage. She has faintly palpable dorsalis pedis and posterior tibial pulses bilaterally. IMPRESSION: Paraplegia from spinal cord tumor, nephrolithiasis; decubitus ulceration, left ischium and urinary tract infection. PLAN: I manually mechanically debrided her toenails x 10. I performed an open wound debridement to the right dorsal foot to remove slough from the wound bed. No bleeding was achieved. This was not an excisional wound. The level of debridement was at the dermis of the skin. The wound and feet were cleansed and Aquacel Ag was placed to the wound bed, covered with 4 x 4 and Kerlix gauze. She is on an air mattress for offloading. I will have her follow up at [facility] with another physician who can evaluate her ischial wound as well as the foot concomitantly. I have ordered right foot x-rays to evaluate for fracture or subluxation. There are no signs of gangrene or infection of the toes, so no surgical amputation or intervention [place] [address] CONSULTATION Name: BETHEL MAHONEY Room: [address] IN .R.#: [id number] Admission: 06/20/18 Attend Phys: Isidro Roe Discharge: Date of : 71 Report #: [id number] recommend just continuing offloading to the foot to minimize discomfort. No surgery is indicated. <ELECTRONICALLY SIGNED> By: Christofer Yang DPM 06/29/18 1304 1226 [id number] Yang DPM /nt
[2018-06-29 15:43] VITALS: BP 142/87
--- NOTE | 2018-06-29 15:53 | NUR ---
POLYSILICON PREPARATION WORKER SPOKE TO CONTACTED [facility] TO INFORM OF NEW REFERRAL FOR IV ABT INFUSION, AND FAXED PATIENTS CLINICAL INFO. [facility] TO F/U WITH CM TO INFORM OF COVERAGE AND BENEFITS STATUS. CM WILL REMAIN AVAILABLE TO ASSIST AND FOLLOW NEEDED.
--- NOTE | 2018-06-29 16:23 | NUR ---
FAXED MEDICAL NECESSITY FORM FOR [facility] TO [place] [employer]ICA[employer]. WAS SIGNED BY . SPOKE WITH PT. ABOUT POSSIBLE DISCHARGE SOON. SHE WAS AGREEABLE. SHE DECLINED SNF. SHE SAID SHE HAS ALWAYS GONE HOME. SHE CHOSE [facility] FOR IV ANTIBIOTICS AND [facility] FOR HH. SHE HAS USED BOTH BEFORE. CM SPOKE WITH CASSANDRA. SHE SAID DOCUMENTATION THAT WAS SENT TO THEM FROM DOES QUALIFY PT.FOR LOW AIRLOSS MATTRESS AND SEMI ELECTRIC LIFT. SHE JUST NEEDS TO KNOW THE DATE OF DISCHARGE AND SHE WILL HAVE EQUIPMENT DELIVERED.
--- NOTE | 2018-06-29 17:03 | NUR ---
PATIENT HAS BEEN A/O X 4 THIS SHIFT. MEDICATED FOR PAIN X 2 TODAY WITH PARTIAL RELIEF. PATIENT REPOSITIIONED EVERY 2 HOURS AND HEELS ELEVATED. PEREZ PATENT AND DRAINING. PATIENT CONTINUES ON IV FLUIDS AND ANTIBIOTICS. PATIENT'S DRESSING CHANGED THIS AFTERNOON TO LEFT ISCHIUM. HOURLY ROUDING COMPLETED. CALL LIGHT WITHIN REACH. WILL CONTINUE WITH PLAN OF CARE.
[2018-06-30 00:08] VITALS: BP 151/84
[2018-06-30 04:48] LABS: ABSOLUTE BASOPHILS 0.1 thou/uL (0.0-0.2); ABSOLUTE EOSINOPHILS 0.2 thou/uL (0.0-0.7); ABSOLUTE LYMPHOCYTES 1.9 thou/uL (0.8-5.3); ABSOLUTE MONOCYTES 0.4 thou/uL (0.0-1.2); ABSOLUTE NEUTROPHILS 4.5 thou/uL (1.6-8.1); BASOPHILS 0.9 %; EOSINOPHILS 3.1 %; HEMATOCRIT 31.2 % (37.0-47.0); HEMOGLOBIN 10.2 gm/dL (12.0-15.0); LYMPHOCYTES 26.4 %; MCH 25.8 pg (26.0-34.0); MCHC 32.7 g/dL (28.0-37.0); MCV 78.8 fL (80.0-100.0); MONOCYTES 5.2 %; MPV 7.1 fl. (7.2-11.1); NUCLEATED RBCS 0 /100WBC; PLATELET COUNT* 311 thou/uL (150-400); POLYS 64.4 %; RBC 3.96 mil/uL (4.20-5.00); RDW-CV 17.4 % (10.5-14.5)
[2018-06-30 05:09] LABS: ALBUMIN 2.6 g/dL (3.4-5.0); CALCIUM 8.4 mg/dL (8.5-10.1); CREATININE 0.4 mg/dL (0.6-1.3); POTASSIUM 3.9 mmol/L (3.5-5.1); TOTAL BILIRUBIN 0.1 mg/dL (<0.1-1.0); TOTAL PROTEIN 6.7 g/dL (6.4-8.2)
--- NOTE | 2018-06-30 05:34 | NUR ---
ASSESSMENT COMPLETE. PT SLEPT MOST OF THE NIGHT. PRN PAIN MEDICATION GIVEN NEEDED. PT IS ON ROOM AIR. Q2 TURN FOR WOUNDS. PT HAS IV FLUIDS INFUSING. DRESSING TO BUTTOCK WOUND CHANGED THIS MORNING. PT TAKES MEDS CRUSHED WITH WATER. PT HAS PEREZ IN PLACE. PT IS INCONT OF STOOL. SEE ASSESSMENT AND VITALS FOR OTHER DETAILS. CALL LIGHT WITHIN REACH, WILL CONTINUE PLAN OF CARE
--- NOTE | 2018-06-30 08:47 | NUR ---
PER [facility], PT.'S IV MED THAT SHE IS ON NOW WOULD BE $1.25 PER WEEK AND SUPPLIES ARE COVERED AT 100%. WILL UPDATE HIM WITH DISCHARGE DATE WHEN KNOWN AND/OR IF DRUG CHANGES. CM WILL INFORM PT.
[2018-06-30 09:00] VITALS: BP 116/69
--- NOTE | 2018-06-30 11:27 | NUR ---
SPOKE WITH CASSANDRA [phone]. ASKED FOR DELIVERY OF EQUIPMENT (LOW AIR LOSS MATTRESS AND SEMI ELECTRIC RAEGAN LIFT.) ON WEDNESDAY. SHE SAID THAT SHOULD NOT BE A PROBLEM. SHE WILL CALL PT.'S MOTHER TO DISCUSS DELIVERY TIME. PT.WAS SLEEPING WHEN CM LOOKED IN ON HER. DID NOT AWAKEN. WILL LET HER KNOW COST OF IVAB TOMORROW. TO RECONSULT UROLOGY FOR STENT REMOVAL TOMORROW.
[2018-06-30 16:00] VITALS: BP 138/86
--- NOTE | 2018-06-30 16:29 | NUR ---
PATIENT IS ALERT AND ORIENTED TODAY VERY PLEASANT. PATIENT HAS SURGERY SCHEDULED WITH DR ONEIL ON Wednesday AT 1230 TO HAVE UROLOGIC PROCEDURE. PER ID, HOSPITALIST AND UROLOGY IT IS OKAY FOR PATIENT TO DISCHARGE TO HOME TOMORROW AND COME BACK TO THE HOSPITAL ON JUL 05 FOR SURGERY.
--- NOTE | 2018-06-30 17:12 | NUR ---
PATIENT IS ALERT AND ORIENTED TODAY, VERY PLEASANT. SOME COMPLAINTS OF PAIN THIS AFTERNOON, THAT IS CONTROLLED WITH ORAL PAIN MEDICATIONS. VITAL SIGNS STABLE ON ROOM AIR. FREQUENT TURNS AND LOW AIR LOSS MATRESS IS IN PLACE. PATIENT IS READY TO BE DISCHARGED TO HOME FROM A MEDICAL STAND POINT, PATIENT IS SOMEWHAT ANXIOUS SINCE IT IS HARD FOR TRANSPORTATION. PATIENT IS SCHEDULED FOR SURGERY ON FOR A UROLOGY PROCEDURE. FAMILY HAS BEEN AT BEDSIDE THIS AFTERNOON. FLUIDS RUNNING IN PICC LINE IN LEFT UPPER ARM. DRESSING WAS CHANGED TODAY. CALL LIGHT IS IN REACH, WILL CONTINUE TO MONITOR.
[2018-06-30 20:15] VITALS: BP 149/80
--- NOTE | 2018-07-01 05:42 | NUR ---
PATIENT REMAINS ALERT AND ORIENTED X4 THROUGHOUT SHIFT. VITAL SIGNS STABLE ON ROOM AIR. PICC LINE PATENT IN THE LEFT UPPER ARM INFUSING AT 100 ML/HR PER ORDERS. PAIN MANAGED WITH PO MEDICATION. DENIES NAUSEA. ASSISTED AND ENCOURAGED TO REPOSITION EVERY TWO HOURS. DRESSING TO WOUNDS CLEAN, DRY AND INTACT. ASSESSMENT COMPLETE CHARTED. RESTING COMFORABLY THROUGHOUT SHIFT. BED ALARM IN PLACE. CALL LIGHT WITHN REACH. NURSING WILL CONTINUE TO MONITOR.
[2018-07-01 08:00] VITALS: BP 128/76
--- NOTE | 2018-07-01 15:05 | NUR ---
DISCUSSED WITH . NO DISCHARGE PLANNED FOR OVER WEEKEND. FAXED ORDERS FROM TO [facility] FOR IV ROCEPHIN/LABS WHILE ON TX. DME SHOULD BE DELIVERED TO HOME TODAY. CONTACTED [facility] (MEDICAID TRANSPORTATION) SPOKE WITH DRY MILL WORKER. SHE SAID THEY DID RECEIVE AUTH FORM FOR [facility] TRANSPORTATION. PT.AUTH'D TO GO BY [facility] NOW. TO HAVE STENT REMOVAL BY UROLOGY ON WEDNESDAY.
[2018-07-01 17:37] VITALS: BP 120/68
[2018-07-01 17:38] VITALS: BP 113/56
--- NOTE | 2018-07-01 18:57 | NUR ---
PATIENT PROGRESSING TOWARDS GOALS. TOLERATING HER DIET WELL WITHOUT NAUSEA OR VOMITING. PAIN CONTROLLED WITH PRN PAIN MEDICATIONS. WOUND DRESSINGS CHANGED. REPOSITIONED FOR COMFORT. INCONTINENT OF BOWEL X1 THIS SHIFT. PEREZ DRAINING CLEAR YELLOW URINE TO DEPENDENT DRAIN. TOLERATED THERAPY WELL THIS AFTERNOON, SHE WAS ABLE TO SIT UP THE EDGE OF THE BED WITH ASSIST. HOURLY ROUNDING CHARTED. BED ALARM ON. CALL LIGHT WITHIN REACH. WILL CONTINUE TO MONITOR.
[2018-07-01 20:00] VITALS: BP 147/68
[2018-07-02 04:00] VITALS: BP 140/71
--- NOTE | 2018-07-02 05:51 | NUR ---
ASSUMED CARE OF PATIENT AT 1900 THE PATIENT REMAINS MEDSURG STATUS NOT MONITORED ON TELEPACK O2SAT MAINTAINED ON RA CONTINUES TO BE BEDREST THE ROUTINE REGIMEN CONTINUES TO BE EFFECTIVE FOR SX MANAGEMENT PRN PAIN DURING SHIFT PATIENT REFUSING TURNS AND PERICARE INTERMITTENTLY AT 0200 AND 0400 STAATING SHE WANTED TO SLEEP THE REASON FOR THE REFUSAL SAFETY INTERVENTIONS CONTINUE BED LOWERED WHEELS LOCKED CALL LIGHT IN REACH SIDE RAILS UP REPORT TO BE GIVEN TO ONCROMMEL SHAW
[2018-07-02 07:30] VITALS: BP 138/77
--- NOTE | 2018-07-02 14:57 | NUR ---
PATIENT TRANSFERRING TO [facility] ROOM 115. REPORT GIVEN TO ZURDO SHAW. ALL THE PATIENTS BELONGINGS ARE PACKED AND TRANSFERRING WITH PATIENT.
--- NOTE | 2018-07-02 15:24 | NUR ---
PT TRASNFERRED TO [facility]. PT STATED THEY HAD PAIN RELIEF FROM THE HYDROCODONE RECEIVED BEFORE TRANSFER. PT ASSESSED AND NO NEW FINDINGS NOTED. PT HAS CALL LIGHT IN REACH AND BED ALARM ON. PT DENIED ANY NEEDS AT THIS TIME. WILL CONTINUE TO MONITOR.
[2018-07-02 16:20] VITALS: BP 133/76
--- NOTE | 2018-07-02 17:44 | NUR ---
PT TRANSFERRED TO [facility] WITH UTI AND LEFT ISHIUM WOUND. PT HAS A LEFT BUTTOCK ULCER WITH TUNNELING. AND A RIGHT FOOT ULCER. WOUND CLEANSER AND PAT DRY. PACK WITH 1/2 RIBBON GAUZE AND COVER WITH BORDER GAUZE DAILY AND PRN OF THE L ISHIUM WOUND. SILVER FOAM AND KERLEX TO THE RIGHT FOOT WOUND 3/WEEK, LAST COMPLETED 07/01/18. PT IS A Q2 TURN AND ON A SPECIAL AIR MATRESS. PT IS INCONTINENT OF STOOL, LAST BM TODAY. PEREZ CATHETER IN PLACE DUE TO RETENTION FROM PARAPLEGIA. PARAPLEGIA DUE TO ABSCESS ON SPINAL CORD. PT HAS A SINGLE LUMEN PICC IN THE LEFT UPPER ARM. FLUIDS INFUSING OVER 100ML.HR. PT HAD AN MRI COMPLETED OF THE LEFT HIP AND SHOWED OSTEOMYELITIS. PT IS SCHEDULED FOR A STENT REMOVAL AND LITHOTRIPSY ON 07/05/18. BED ALARM ON AND CALL LIGHT IN REACH. WILL CONTINUE TO MONITOR.
--- NOTE | 2018-07-02 18:03 | NUR ---
NURSING DOCUMENTATION BY ZURDO Palmer RN REVIEWED
[2018-07-02 20:30] VITALS: BP 132/81
--- NOTE | 2018-07-03 04:49 | NUR ---
PATIENT HAS REMAINED ALERT AND ORIENTED X 4 THROUGHOUT THE SHIFT AND RESTING QUIETLY ON HOURLY ROUNDS. AWAKE ON LAPTOP UNTIL 2346. AT THAT TIME AGREED TO TURN. LARGE BM WITH JUDD-CARE COMPLETED. PATIENT HAS REFUSED EACH REQUEST SINCE THAT TIME TONIGHT TO BE TURNED. DRESSING DRY AND INTACT TO LEFT BUTTOCKS AND RIGHT FOOT. VITAL SIGNS STABLE. IVF'S PER ORDERS. MEDICATED X 1 FOR PAIN TO GOOD EFFECT. REMAINS ON LOW AIR LOSS MATTRESS. CONTINUE TO MONITOR.
[2018-07-03 09:20] VITALS: BP 136/68
[2018-07-03 12:02] VITALS: BP 144/69
[2018-07-03 15:36] VITALS: BP 139/82
--- NOTE | 2018-07-03 17:08 | NUR ---
PT IS ALERT AND ORIENTED. PT C/O PAIN, HYDROCODONE GIVEN-PAIN RELIEVED. PT HAS A LEFT SINGLE LUMEN UPPER ARM PICC. FLUIDS INFUSING AND ABX ORDERED. WOUNDS OF LEFT BUTTOCKS CLEANED ORDERED, PACKED, PICTURES TAKEN, AND DRESSED ORDERED. RIGHT FOOT DRESSING CHANGED, WOUND CLEANED, AND PICTURES TAKEN. PT IS CURRENTLY ON THEIR MENSES. PT ICONTINENT OF STOOL. PEREZ CATHETER IN PLACE. CALL LIGHT IN REACH. BED ALARM ON. WILL COTNINUE TO MONITOR.
[2018-07-03 22:00] VITALS: BP 153/95
[2018-07-04 00:42] VITALS: BP 137/71
[2018-07-04 05:39] LABS: HEMATOCRIT 30.3 % (37.0-47.0); HEMOGLOBIN 9.7 gm/dL (12.0-15.0); MCH 25.6 pg (26.0-34.0); MCHC 32.1 g/dL (28.0-37.0); MCV 79.7 fL (80.0-100.0); MPV 7.5 fl. (7.2-11.1); RBC 3.8 mil/uL (4.20-5.00); RDW-CV 17.4 % (10.5-14.5); WBC 6.3 thou/uL (4.0-11.0)
[2018-07-04 05:55] LABS: APTT 24.7 Seconds (25.0-31.3); INR 0.9; PROTIME 9.4 Seconds (9.20-11.50)
[2018-07-04 06:01] LABS: ALBUMIN 2.7 g/dL (3.4-5.0); CALCIUM 8.3 mg/dL (8.5-10.1); CREATININE 0.4 mg/dL (0.6-1.3); POTASSIUM 4.1 mmol/L (3.5-5.1); TOTAL BILIRUBIN 0.1 mg/dL (<0.1-1.0); TOTAL PROTEIN 6.3 g/dL (6.4-8.2)
--- NOTE | 2018-07-04 08:08 | NUR ---
ALERT AND ORIENTED X4. PO PAIN MEDICATION GIVEN X1 AND HELPFUL FOR WOUND PAIN. DRESSING REMAIN CLEAN AND DRY ON BUTTOCK AND FOOT. PEREZ CATHETER PATENT WITH CLEAR YELLOW URINE. REMAINS ON SPECIALTY BED. CALL LIGHT WITHIN REACH
[2018-07-04 08:30] VITALS: BP 147/76
[2018-07-04 16:00] VITALS: BP 126/54
--- NOTE | 2018-07-04 19:35 | NUR ---
PT ALERT AND ORIENTED X 4. PARAPLEGIC. USES A SPECIALTY BED. RECIEVED PAIN MEDS-NORCO X 2 DOSES. DRESSING CHANGE COMPLETED. PT TURNED EVERY [address] PL[address]. IVF INFUSING @ 80 MLS/HR. PT TO BE NPO AFTER MIDNIGHT. VS STABLE. HOURLY ROUNDS MAINTAINED. CALL LIGHT WITHIN REACH. NURSING TO CONTINUE TO MONITOR.
[2018-07-04 19:48] VITALS: BP 136/67
--- NOTE | 2018-07-05 05:20 | NUR ---
ASSESSMENT COMPLETE. PT SLEPT GOOD THROUGH THE NIGHT. PRN PAIN MEDICATION GIVEN ONCE. PT TURNED FOR SKIN INTEGRITY. PT IS ON ROOM AIR WITH ADEQUATE SATS. DRESSING TO WOUNDS INTACT. PT DENIES N/V. PT HAS BEEN NPO SINCE MIDNIGHT FOR PROCEDURE TODAY. PT TAKES MEDS CRUSHED. PT HAS LEFT UPPER ARM PICC WITH FLUIDS INFUSING. PEREZ IN PLACE. PT INCONT OF STOOL ONCE DURING THE NIGHT. SEE ASSESSMENT AND VITALS FOR OTHER DETAILS. CALL LIGHT WITHIN REACH. WILL CONTINUE PLAN OF CARE
[2018-07-05 08:00] VITALS: BP 138/77
[2018-07-05 10:55] VITALS: BP 138/77
[2018-07-05 12:21] VITALS: BP 135/96
--- NOTE | 2018-07-05 18:58 | NUR ---
PT ALERT AND ORIENTED X 4. PICC LINE IN PLACE LEFT UPPER ARM. PARAPLEGIC. PT UP WITH OT TO SIT AT SIDE OF BED THIS AM. PEREZ IN PLACE. PT HAD PROCEDURE OF CYSTO-STENT. PT RECIEVED IV AND PO MEDICATION FOR PAIN RELIEF. HOURLY ROUNDS MAINTAINED. PT ENCOURAGED TO TURN Q 2. PT WILL USE CALL LIGHT FOR ASSISTANCE. CALL LIGHT WITHIN REACH. NURSING WILL CONTINUE TO MONITOR.
[2018-07-05 19:40] VITALS: BP 130/80
[2018-07-05 23:37] VITALS: BP 107/44
[2018-07-06 04:20] VITALS: BP 119/62
--- NOTE | 2018-07-06 05:11 | NUR ---
ASSESSMENT COMPLETE. PT GIVEN PRN PAIN MEDICATION ONCE OVERNIGHT. PT HAS PEREZ IN PLACE, URINE BLOOD TINGED AT THIS TIME WITH ADEQAUTE OUTPUT. DRESSINGS TO WOUNDS C/D/I. PT HAS IV FLUIDS INFUSING. PT Q2 TURN. SEE ASSESSMENT AND VITALS FOR OTHER DETAILS. CALL LIGHT WITHIN REACH, WILL CONTINUE PLAN OF CARE
[2018-07-06] MEDS ORDERED: HYDROCODON-ACE1 EAC7 PO (10:14)
[2018-07-06 11:25] VITALS: BP 119/62
--- NOTE | 2018-07-06 13:00 | NUR ---
PT.NOT WANTING TO DISCHARGE TODAY. EXPLAINED ALL DR.S ARE SIGNING OFF. SHE STILL WANTS TO SPEAK WITH . CM NOTIFIED [facility] OF DISCHARGE. FAXED ORDERS TO HIM AND TOLD HIM FIRST DOSE AT HOME DUE TOMORROW AM-0900. SPOKE WITH MANJINDER/MOHIT. PT.NEEDING RN/PT/OT/BATH AID AND SW AT HOME. FAXED H&P,OP REPORTS, ORDERS AND DISCHARGE SUMMARY TO HER. THEY WILL SEE PT.AT 0900 FOR FIRST HOME IVAB. APPT MADE AT [facility] FOR [facility].18 TO SEE AND . [facility] SPOKE WITH AND HE SAID HE WAS FINE WITH SEEING HER. MADE DISCHARGE APPT.WITH [facility]ICA[facility] FOR TODAY. THEY CAN PICK PT.UP FROM [phone]. TRIP #[id number]. ALSO MADE APPT.FOR AT 0900 FOR [facility]. PT.TO BE HERE AT 0845 FOR REGISTRATION. TRIP #[id number]. SHE CAN HAVE ONE PERSON RIDE WITH HER. [facility] TO CALL WHEN FINISHED WITH APPT.AND [facility] WILL COME TO TAKE HER HOME. ALSO GAVE INFORMATION THAT STRETCHERS HEAD WILL HEED TO BE RAISED TO FIT IN ELEVATOR. THEY WILL PICK HER UP 7:15-7:30. THEY REQUEST 24 HR NOTICE IF TIME NEEDS CHANGED OR TRIP CANCELLED.
--- NOTE | 2018-07-06 13:51 | NUR ---
ENTERED PT.'S ROOM AT 1343. PT.'S BROTHER BECAME UPSET STATING NO ONE WAS ADDRESSING HIS SISTER'S PROBLEMS. HE TOLD THIS O.T. THAT HE WAS GOING TO "FUCKING ROOSEVELT THIS PLACE AND GET HIS INCOME TAX ADVISOR" AND TO "FUCKING GO GET SOMEONE IN HERE" HE SLAMS HIS FIST REPEATEDLY IN HIS HAND. O.T. ABLE TO GET LEO, DIRECTOR TRANSLATION IN THE ROOM TO ADDRESS PT.'S CONCERNS RE: DISCHARGE TODAY.
[2018-07-06 15:40] VITALS: BP 140/68
--- NOTE | 2018-07-06 16:00 | NUR ---
CALLED [facility] TO RESCHEDULE [facility] FOR TODAY FOR DISCHARGE HOME. THEY SAID TRIP HAD NEVER BEEN CANCELLED IN SYSTEM BUT HAD TO CHANGE FIRER LOCOMOTIVE CRANE TIME TO 1730. VALERIA STARK INFORMED. ALL INFORMATION REVIEWED WITH PT.REGARDING HOME HEALTH AND UPCOMING APPTS.
[2018-07-06 17:00] VITALS: BP 119/62
[2018-07-06] MEDS ORDERED: LEVSIN0.125 MG SUBLING (17:00)
--- NOTE | 2018-07-06 17:46 | NUR ---
PATIENT HAS BEEN ALERT AND ORIENTED TODAY, PLEASANT BUT VERY ANXIOUS ABOUT GOING HOME. CASE MANAGEMENT, NURSE HYDRAULIC BILLET MAKER, PROVIDERS ALL EXPLAINED THAT PATIENT IS MEDICALLY STABLE TO GO HOME. VITAL SIGNS HAVE BEEN STABLE ON ROOM AIR. DRESSING CHANGED TODAY AND WOUND CLEANED AND REPACKED. PATIENT IS BEING DISCHARGED TO HOME, WITH MANY APPOINTMENTS AND TRANSPORTATION SET UP ALREADY. DISCHARGE INSTRUCTIONS GIVEN AND QUESTIONS ANSWERED FOR PATIENT, WAITING ON TRANPORTATION TO ARRIVE TO TAKE PATIENT HOME. WILL MONITOR UNTIL PATIENT LEAVES.
[2018-07-06 18:04] VITALS: BP 119/62
--- NOTE | 2018-07-16 12:08 | OP ---
[address] [address] OPERATIVE REPORT Name: BETHEL MAHONEY Room: [address] M.R.#: [id number] Admission: 06/20/18 Attend Phys: Isidro Roe Discharge: 07/06/18 Date of : 71 Report #: [id number] THIS REPORT FOR: //name// CC: Alyssia Morrow DATE OF SERVICE: 07/05/2018 INDICATION FOR PROCEDURE: The patient is a 43-year-old female who is paraplegic, who had a right double-J stent placed 10 days ago secondary to a large 2 cm right renal pelvic stone associated with a febrile urinary tract infection. She has a host of other medical problems as well, but she has received a full course of antibiotics. Her infection has cleared and she presents today for ureteroscopic stone extraction. PREOPERATIVE DIAGNOSIS: Large right renal pelvic calculus. POSTOPERATIVE DIAGNOSIS: Large right renal pelvic calculus. PROCEDURE: Cystoscopy, stent exchange, right ureteroscopic stone extraction with holmium laser lithotripsy (extensive) due to stone size of 2 cm. SURGEON: Luis Miguel Romero MD. ANESTHESIA: General. COMPLICATIONS: None. ESTIMATED BLOOD LOSS: Minimal. PROCEDURE IN DETAIL: The patient was consented for the above procedure. She was given broad spectrum IV antibiotics preoperatively. She was given general anesthetic, placed in the dorsal lithotomy position. She was prepped and draped in usual sterile fashion over the genitalia. Cystoscopy was performed with a 21-Thai sheath and 30-degree lens, which revealed a right double-J stent in the proper position. The stone was easily seen on fluoroscopy. grasping forceps were used to grasp the tip of the stent, which was brought out through the urethral meatus. Next, a 0.035 floppy-tipped guidewire was passed up to stent and up into the right renal pelvis under fluoroscopic guidance without difficulty. The stent was removed leaving the guidewire in place. Next, a 11/13 Thai ureteral access sheath was passed over the wire under fluoroscopic guidance up to the mid ureter without difficulty. The trocar and wire were removed leaving the sheath in place. The flexible ureteroscope was used to perform ureteroscopy without difficulty. This revealed a very large renal pelvic stone. This stone was then fragmented with a 200 micron holmium laser. This was an extensive fragmentation due to the large [place] [address] OPERATIVE REPORT Name: BETHEL MAHONEY Room: [address]#: [id number] Admission: 06/20/18 Attend Phys: Isidro Roe Discharge: 07/06/18 Date of : 71 Report #: [id number] essentially shaved away the surface of the stone to break this stone up into small fragments as possible and totally for the majority of the stone rather I was able to shave away the stone and just create small passable pieces; however, as the stone got smaller, became mobile and then I had to break it up and try up at into upper pole beto and try to break it into manageable size pieces. An extensive treatment was performed. I tried to find every large fragment that I could, but the burden of stone was so large that it was hard to say if there were any really large pieces left behind. I do not suspect that there is, but visualization was fairly poor. After completely fragmenting the stone, I elected to halt the procedure. The ureteroscope was removed leaving the access sheath in place. The guidewire was passed back up the access sheath under fluoroscopic guidance. Access sheath was removed leaving the guidewire in place. Next, a new 4.8 x 26 double-J stent was passed over the wire with a good curl noted in the renal pelvis and in the bladder after removing the wire. This was confirmed with fluoroscopy and cystoscopy. Francois catheter was replaced, bladder was drained. The patient tolerated the procedure very well, was awakened and sent to recovery room where she remained in stable condition. We will leave the stent in for several more weeks, repeat some x-rays after she has passed a large volume of fragments and see if the stent can be removed. <ELECTRONICALLY SIGNED> By: Luis Miguel Romero MD 07/16/18 1208 1502 1921Djutsine Romero MD /nt
== END 2018-07-06 18:04 | disposition home health service (06) | DRG 853 ==
LOC: M.ERS 10:44 → M.ORTHSURG 13:10 → M.TBA-ER 13:10 → M.ORTHSURG 13:26 → M.2W 06-29 18:52 → M.ORTHSURG 07-02 14:31
PROVIDERS: Internal Medicine; Specialist; ADMIT Internal Medicine
DX: A41.9 Sepsis, unspecified organism (principal); L89.224 Pressure ulcer of left hip, stage 4; L89.324 Pressure ulcer of left buttock, stage 4; G82.50 Quadriplegia, unspecified; N20.2 Calculus of kidney with calculus of ureter; N39.0 Urinary tract infection, site not specified; N13.8 Other obstructive and reflux uropathy; M86.8X8 Other osteomyelitis, other site; Z90.49 Acquired absence of other specified parts of digestive tract; Z88.6 Allergy status to analgesic agent; Z88.1 Allergy status to other antibiotic agents; Z88.8 Allergy status to other drugs, medicaments and biological substances; Z87.891 Personal history of nicotine dependence; D33.4 Benign neoplasm of spinal cord; N31.9 Neuromuscular dysfunction of bladder, unspecified; B36.8 Other specified superficial mycoses; G43.909 Migraine, unspecified, not intractable, without status migrainosus; T14.8XXA Other injury of unspecified body region, initial encounter; X58.XXXA Exposure to other specified factors, initial encounter; Y93.89 Activity, other specified; Y92.89 Other specified places as the place of occurrence of the external cause; Y99.8 Other external cause status

== ENCOUNTER 2018-07-18 17:02 | Inpatient (IN) | payer MEDICARE, MEDICAID ==
[~2018-07-18] VITALS: Ht 157.5 cm; Wt 70.8 kg
[~2018-07-18 17:02] MED LIST changes: +EXCEDRIN CAPLE1 EACH PO; +HYDROCODON-ACE1 EAC7 PO; +LEVSIN0.125 MG SUBLING
[2018-07-18 17:04] VITALS: BP 133/75
[2018-07-18] MEDS ORDERED: PEPTO-BISMOL262 M1 PO (17:11)
[2018-07-18] MEDS ORDERED: KEFLEX250 MG IVPB (17:12)
[2018-07-18 17:34] LABS: ABSOLUTE BASOPHILS 0.1 thou/uL (0.0-0.2); ABSOLUTE EOSINOPHILS 0.1 thou/uL (0.0-0.7); ABSOLUTE LYMPHOCYTES 1.5 thou/uL (0.8-5.3); ABSOLUTE MONOCYTES 0.8 thou/uL (0.0-1.2); ABSOLUTE NEUTROPHILS 8.4 thou/uL (1.6-8.1); BASOPHILS 0.8 %; EOSINOPHILS 1.2 %; HEMATOCRIT 30.4 % (37.0-47.0); HEMOGLOBIN 9.7 gm/dL (12.0-15.0); LYMPHOCYTES 14.1 %; MCH 24.1 pg (26.0-34.0); MCHC 31.8 g/dL (28.0-37.0); MCV 75.7 fL (80.0-100.0); MONOCYTES 6.9 %; MPV 7.6 fl. (7.2-11.1); NUCLEATED RBCS 0 /100WBC; PLATELET COUNT* 351 thou/uL (150-400); RBC 4.02 mil/uL (4.20-5.00); RDW-CV 16.9 % (10.5-14.5)
[2018-07-18 17:46] LABS: CALCIUM 8.5 mg/dL (8.5-10.1); CREATININE 0.6 mg/dL (0.6-1.3)
[2018-07-18 17:47] LABS: APTT 27.1 Seconds (25.0-31.3); PROTIME 10.6 Seconds (9.20-11.50)
[2018-07-18 17:48] LABS: POTASSIUM 2.7 mmol/L (3.5-5.1)
[2018-07-18 18:04] LABS: ALBUMIN 2.9 g/dL (3.4-5.0); TOTAL BILIRUBIN 0.2 mg/dL (<0.1-1.0); TOTAL PROTEIN 7.1 g/dL (6.4-8.2)
[2018-07-18 18:34] LABS: URINE BILIRUBIN NEGATIVE (Negative); URINE BLOOD 3+ (Negative); URINE CLARITY CLOUDY; URINE COLOR YELLOW; URINE GLUCOSE-RANDOM NEGATIVE (Negative); URINE KETONES NEGATIVE (Negative); URINE LEUKOCYTES-REFLEX 2+ (Negative); URINE NITRITE-REFLEX NEGATIVE (Negative); URINE PROTEIN 2+ (Negative); URINE SPECIFIC GRAVITY <= 1.005 (1.005-1.030); URINE UROBILINOGEN 0.2 E.U./dl (0.2-1.0)
[2018-07-18 18:54] LABS: URINE WBC-REFLEX >25 Many /HPF (0-5); YEAST-REFLEX Present (None Seen)
[2018-07-18 18:55] LABS: BACTERIA-REFLEX 1-9 Few /HPF (None Seen); HYALINE CASTS 0-3 Few /LPF (None Seen); MUCUS 0-3 Light strn/LPF (None Seen)
[2018-07-18 18:56] LABS: CRYSTALS None Seen /LPF (None Seen); SQUAMOUS 0-3 Few /LPF (0-3)
[2018-07-18 21:21] VITALS: BP 126/66
[2018-07-19] VITALS (7 sets, daily range): BP systolic 113–121; BP diastolic 57–64
[2018-07-19 05:38] LABS: HEMATOCRIT 27.2 % (37.0-47.0); HEMOGLOBIN 8.6 gm/dL (12.0-15.0); MCH 24.2 pg (26.0-34.0); MCHC 31.7 g/dL (28.0-37.0); MCV 76.3 fL (80.0-100.0); MPV 7.8 fl. (7.2-11.1); RBC 3.56 mil/uL (4.20-5.00); RDW-CV 17.5 % (10.5-14.5); WBC 8.7 thou/uL (4.0-11.0)
[2018-07-19 05:54] LABS: ALBUMIN 2.4 g/dL (3.4-5.0); CALCIUM 7.6 mg/dL (8.5-10.1); CREATININE 0.6 mg/dL (0.6-1.3); POTASSIUM 3.1 mmol/L (3.5-5.1); TOTAL BILIRUBIN 0.2 mg/dL (<0.1-1.0)
--- NOTE | 2018-07-19 13:03 | EKG ---
[place] [address] ELECTROCARDIOGRAM REPORT Name: BETHEL MAHONEY Room: [address] ADM IN M.R.#: [id number] Admission: 07/18/18 Attend Phys: Isidro Roe Discharge: Date of : 71 Report #: [id number] THIS REPORT FOR: //name// [facility] ED Test Date: 2018-07-18 Test Time: 17:14:38 Pat Name: BETHEL MAHONEY Department: Room: [address] Gender: F Garage Mechanic: Estela SINCLAIR : 1975 Requested By: Arline Garcia Order Number: [id number] Sterling MD: Mike Pacheco Measurements Intervals [place] Rate: 114 P: 38 FL: 152 QRS: -1 QRSD: 91 T: 15 QT: 368 QTc: 507 Interpretive Statements Sinus tachycardia Borderline T abnormalities, diffuse leads Prolonged QT interval Compared to ECG 09/27/2016 08:52:36 Prolonged QT interval now present Sinus rhythm no longer present T-wave abnormality still present Electronically Signed On 07-19-2018 13:03:18 CDT by Mike Pacheco [email or web address] <ELECTRONICALLY SIGNED> By: Mike Pacheco MD, FAC 07/19/18 1303 1714 1714 Mike Pacheco MD, FAC /EPI
[2018-07-20] VITALS: BP 127/64
[2018-07-20 04:00] VITALS: BP 118/55
[2018-07-20 05:14] LABS: HEMATOCRIT 25.2 % (37.0-47.0); MCH 24.4 pg (26.0-34.0); MCHC 31.7 g/dL (28.0-37.0); MCV 77.2 fL (80.0-100.0); MPV 8.1 fl. (7.2-11.1); RBC 3.27 mil/uL (4.20-5.00); RDW-CV 17.4 % (10.5-14.5); WBC 8.8 thou/uL (4.0-11.0)
[2018-07-20 05:28] LABS: CALCIUM 7.7 mg/dL (8.5-10.1); CREATININE 0.6 mg/dL (0.6-1.3); MAGNESIUM 1.5 mg/dL (1.8-2.4); POTASSIUM 3.6 mmol/L (3.5-5.1)
[2018-07-20 07:44] VITALS: BP 134/58
[2018-07-20 11:18] VITALS: BP 125/54
--- NOTE | 2018-07-20 11:48 | CON ---
[address] [address] CONSULTATION Name: BETHEL MAHONEY Room: [address] IN M.R.#: [id number] Admission: 07/18/18 Attend Phys: Isidro Roe Discharge: Date of : 71 Report #: [id number] THIS REPORT FOR: //name// CC: Alyssia Morrow DATE OF SERVICE: 07/19/2018 INFECTIOUS DISEASE CONSULTATION ATTENDING PHYSICIAN: Dr. Morrow. REASON FOR EVALUATION: Complicated urinary tract infection with obstructive uropathy, complicated by early sepsis. HISTORY OF PRESENT ILLNESS: Chart reviewed, the patient examined. This is a 43-year-old woman, known to myself, has paraplegia due to spinal cord tumor that has been complicated by decubitus ulcers and also current issues with infectious complications including complicated urinary tract infections. She has had obstructive uropathy due to ureterolithiasis. She was hospitalized last month and underwent ureteral stent placement and treated urinary tract infection. Also concern about osteomyelitis, although that wound has been stable. She had been discharged on antibiotics over the course of the last week or so and increasingly feeling worse, fevers. She does have abdominal-related discomfort. She describes it as band-like over the course of her lower abdomen. She presented to the Emergency Room, was noted to have temperature elevations in excess of 101 degrees Fahrenheit with chills, diffuse myalgias. CT shows ongoing issues with right-sided hydronephrosis and hydroureter, question of dysfunctional stenting on that side. There is some evidence of inflammation. Urinalysis did show marked pyuria. Lactic acid was elevated at 2.2. Initial reading of the blood cultures is sterile thus far. She is empirically placed on cefepime. She is not encephalopathic. She appears ill, but not toxic. ALLERGIES: PENICILLIN, SULFA, MORPHINE, QUINOLONES, TRAMADOL AND MINOCYCLINE. CURRENT MEDICATIONS: Include enoxaparin, cefepime, hydromorphone, p.r.n. analgesics and antiemetics. PAST MEDICAL HISTORY: As described above, history of paraplegia that has been complicated by recurrent decubitus ulcers, now currently involving the left ischial site and recurrent urinary tract infections. SOCIAL HISTORY: Former smoker. No ethanol. FAMILY HISTORY: [place] [address] CONSULTATION Name: BETHEL MAHONEY Room: [address]#: [id number] Admission: 07/18/18 Attend Phys: Isidro Roe Discharge: Date of : 71 Report #: [id number] REVIEW OF SYSTEMS: As above. PHYSICAL EXAMINATION: GENERAL: She appears ill, not overtly toxic. She is not encephalopathic. She is in moderate distress secondary to the abdominal-related pain. VITAL SIGNS: Temperature 99.1, pulse 114, respirations 16 and blood pressure 119/64. SKIN: Warm, dry. NECK: Supple. LUNGS: Diminished breath sounds. HEART: Tachycardic, regular. I do not appreciate a murmur. ABDOMEN: Soft. There are no peritoneal signs. GENITOURINARY: Deferred. RECTAL: Deferred. LABORATORY DATA: CBC: White count 11.0, H and H 9.7 and 30.4 and platelets of 351,000. Electrolytes: Sodium 137, potassium 2.7, chloride 101, bicarbonate 25, BUN and creatinine 10 and 0.6. LFTs normal. Albumin of 2.9. Total protein 7.1. Chest x-ray, no acute process. CT of abdomen and pelvis, as described above. ASSESSMENT AND PLAN: Complicated urinary tract infection with obstructive uropathy. At this point, we will continue broad-spectrum empiric therapy. Ceftin should give us reasonable coverage. She has multiple hypersensitivities and perhaps adverse drug effects of various antibiotic classes. We will have to monitor her on the cefepime, but I think ultimately will need some sort of intervention to relieve the obstruction. At this point, I think the ischial decubitus ulcer is fairly stable; certainly a difficult situation. <ELECTRONICALLY SIGNED> By: Milton Gandhi MD 07/20/18 1148 1218 [id number] Gandhi MD /nt
[2018-07-20 20:00] VITALS: BP 133/64
[2018-07-21] VITALS: BP 120/66
[2018-07-21 04:00] VITALS: BP 106/54
[2018-07-21 05:06] LABS: HEMATOCRIT 25.4 % (37.0-47.0); HEMOGLOBIN 8.1 gm/dL (12.0-15.0); MCH 24.4 pg (26.0-34.0); MCHC 31.9 g/dL (28.0-37.0); MCV 76.5 fL (80.0-100.0); MPV 8.1 fl. (7.2-11.1); RBC 3.32 mil/uL (4.20-5.00); RDW-CV 17.3 % (10.5-14.5); WBC 6.9 thou/uL (4.0-11.0)
[2018-07-21 05:35] LABS: CREATININE 0.5 mg/dL (0.6-1.3); MAGNESIUM 2.4 mg/dL (1.8-2.4); POTASSIUM 3.6 mmol/L (3.5-5.1)
[2018-07-21 07:40] VITALS: BP 118/49
[2018-07-21 12:00] VITALS: BP 120/62
[2018-07-21 16:00] VITALS: BP 116/55
[2018-07-21 19:55] VITALS: BP 120/69
[2018-07-22] VITALS: BP 131/74
[2018-07-22 04:00] VITALS: BP 131/57
[2018-07-22 04:58] LABS: CALCIUM 8.1 mg/dL (8.5-10.1); CREATININE 0.5 mg/dL (0.6-1.3); POTASSIUM 3.6 mmol/L (3.5-5.1)
[2018-07-22 08:20] VITALS: BP 115/48
[2018-07-22 11:58] VITALS: BP 123/54
[2018-07-22 15:42] VITALS: BP 114/51
[2018-07-22 19:15] VITALS: BP 113/55
[2018-07-23 00:09] VITALS: BP 132/73
[2018-07-23 04:50] VITALS: BP 131/76
[2018-07-23 07:48] VITALS: BP 133/45
[2018-07-23 12:00] VITALS: BP 127/62
[2018-07-23 15:45] VITALS: BP 122/65
[2018-07-23 20:24] VITALS: BP 138/69
[2018-07-24 00:42] VITALS: BP 126/67
[2018-07-24 04:20] VITALS: BP 130/61
[2018-07-24 04:53] LABS: HEMOGLOBIN 7.8 gm/dL (12.0-15.0); MCH 23.6 pg (26.0-34.0); MCHC 31.3 g/dL (28.0-37.0); MCV 75.4 fL (80.0-100.0); MPV 7.5 fl. (7.2-11.1); RBC 3.31 mil/uL (4.20-5.00); RDW-CV 17.8 % (10.5-14.5); WBC 6.1 thou/uL (4.0-11.0)
[2018-07-24 05:08] LABS: ALBUMIN 2.2 g/dL (3.4-5.0); CALCIUM 8.2 mg/dL (8.5-10.1); CREATININE 0.4 mg/dL (0.6-1.3); MAGNESIUM 1.9 mg/dL (1.8-2.4); POTASSIUM 3.5 mmol/L (3.5-5.1); TOTAL BILIRUBIN 0.1 mg/dL (<0.1-1.0); TOTAL PROTEIN 6.3 g/dL (6.4-8.2)
[2018-07-24 08:05] VITALS: BP 124/60
[2018-07-24 12:00] VITALS: BP 111/52
[2018-07-24 15:54] VITALS: BP 137/77
[2018-07-24 20:03] VITALS: BP 129/73
[2018-07-25] VITALS: BP 135/56
[2018-07-25 04:00] VITALS: BP 125/65
[2018-07-25 05:18] LABS: HEMATOCRIT 25.3 % (37.0-47.0); MCH 23.9 pg (26.0-34.0); MCHC 31.5 g/dL (28.0-37.0); MPV 7.4 fl. (7.2-11.1); RBC 3.33 mil/uL (4.20-5.00); RDW-CV 17.7 % (10.5-14.5); WBC 6.7 thou/uL (4.0-11.0)
[2018-07-25 05:56] LABS: ALBUMIN 2.3 g/dL (3.4-5.0); CREATININE 0.5 mg/dL (0.6-1.3); MAGNESIUM 1.8 mg/dL (1.8-2.4); POTASSIUM 3.5 mmol/L (3.5-5.1); TOTAL BILIRUBIN 0.2 mg/dL (<0.1-1.0); TOTAL PROTEIN 6.4 g/dL (6.4-8.2)
[2018-07-25 08:30] VITALS: BP 141/85
[2018-07-25 12:23] VITALS: BP 140/62
[2018-07-25 15:18] VITALS: BP 139/73
[2018-07-25 20:10] VITALS: BP 143/73
[2018-07-26] VITALS: BP 131/62
[2018-07-26 04:00] VITALS: BP 129/61
[2018-07-26 09:30] VITALS: BP 109/41
[2018-07-26 15:48] VITALS: BP 120/54
[2018-07-26 20:00] VITALS: BP 129/64
[2018-07-26 23:46] VITALS: BP 131/72
[2018-07-27 05:10] LABS: ABSOLUTE BASOPHILS 0.1 thou/uL (0.0-0.2); ABSOLUTE EOSINOPHILS 0.3 thou/uL (0.0-0.7); ABSOLUTE LYMPHOCYTES 1.6 thou/uL (0.8-5.3); ABSOLUTE MONOCYTES 0.4 thou/uL (0.0-1.2); ABSOLUTE NEUTROPHILS 3.7 thou/uL (1.6-8.1); BASOPHILS 1.2 %; EOSINOPHILS 4.2 %; HEMOGLOBIN 8.2 gm/dL (12.0-15.0); LYMPHOCYTES 26.9 %; MCHC 31.8 g/dL (28.0-37.0); MCV 75.6 fL (80.0-100.0); MONOCYTES 6.2 %; MPV 7.3 fl. (7.2-11.1); NUCLEATED RBCS 0 /100WBC; PLATELET COUNT* 399 thou/uL (150-400); POLYS 61.5 %; RBC 3.44 mil/uL (4.20-5.00); RDW-CV 18.1 % (10.5-14.5); WBC 6.1 thou/uL (4.0-11.0)
[2018-07-27 05:20] LABS: ALBUMIN 2.4 g/dL (3.4-5.0); CALCIUM 9.1 mg/dL (8.5-10.1); CREATININE 0.5 mg/dL (0.6-1.3); POTASSIUM 3.8 mmol/L (3.5-5.1); TOTAL BILIRUBIN 0.1 mg/dL (<0.1-1.0); TOTAL PROTEIN 6.6 g/dL (6.4-8.2)
[2018-07-27 08:00] VITALS: BP 131/72
[2018-07-27 15:25] VITALS: BP 134/65
[2018-07-27 20:00] VITALS: BP 130/75
[2018-07-27 23:51] VITALS: BP 133/64
[2018-07-28 08:00] VITALS: BP 131/75
[2018-07-28 11:21] VITALS: BP 131/75
[2018-07-28 12:02] VITALS: BP 125/57
[2018-07-28 13:55] VITALS: BP 135/58
[2018-07-29] VITALS: BP 137/83
[2018-07-29 04:00] VITALS: BP 121/71
[2018-07-29 04:35] LABS: ABSOLUTE LYMPHOCYTES 1.2 thou/uL (0.8-5.3); ABSOLUTE MONOCYTES 0.3 thou/uL (0.0-1.2); ABSOLUTE NEUTROPHILS 5.2 thou/uL (1.6-8.1); BASOPHILS 0.3 %; HEMATOCRIT 27.1 % (37.0-47.0); HEMOGLOBIN 8.6 gm/dL (12.0-15.0); LYMPHOCYTES 18.2 %; MCH 23.8 pg (26.0-34.0); MCHC 31.6 g/dL (28.0-37.0); MCV 75.5 fL (80.0-100.0); MONOCYTES 3.8 %; MPV 7.3 fl. (7.2-11.1); NUCLEATED RBCS 0 /100WBC; POLYS 77.7 %; RBC 3.59 mil/uL (4.20-5.00); RDW-CV 18.3 % (10.5-14.5); WBC 6.7 thou/uL (4.0-11.0)
[2018-07-29 04:53] LABS: ALBUMIN 2.7 g/dL (3.4-5.0); CALCIUM 8.3 mg/dL (8.5-10.1); CREATININE 0.4 mg/dL (0.6-1.3); POTASSIUM 4.5 mmol/L (3.5-5.1); TOTAL BILIRUBIN 0.2 mg/dL (<0.1-1.0); TOTAL PROTEIN 6.5 g/dL (6.4-8.2)
[2018-07-29 05:01] LABS: PLATELET COUNT* 492 thou/uL (150-400)
[2018-07-29 08:55] VITALS: BP 122/79
[2018-07-29 15:15] VITALS: BP 115/50
[2018-07-29 20:00] VITALS: BP 117/53
[2018-07-30 05:49] LABS: ABSOLUTE BASOPHILS 0.1 thou/uL (0.0-0.2); ABSOLUTE EOSINOPHILS 0.1 thou/uL (0.0-0.7); ABSOLUTE LYMPHOCYTES 2.5 thou/uL (0.8-5.3); ABSOLUTE MONOCYTES 0.4 thou/uL (0.0-1.2); ABSOLUTE NEUTROPHILS 3.1 thou/uL (1.6-8.1); BASOPHILS 1.1 %; HEMATOCRIT 27.2 % (37.0-47.0); HEMOGLOBIN 8.4 gm/dL (12.0-15.0); LYMPHOCYTES 41.4 %; MCV 77.2 fL (80.0-100.0); MONOCYTES 5.9 %; MPV 7.2 fl. (7.2-11.1); NUCLEATED RBCS 0 /100WBC; POLYS 50.6 %; RBC 3.52 mil/uL (4.20-5.00); RDW-CV 18.2 % (10.5-14.5)
[2018-07-30 05:50] LABS: PLATELET COUNT* 393 thou/uL (150-400)
[2018-07-30 05:57] LABS: ALBUMIN 2.6 g/dL (3.4-5.0); CALCIUM 8.7 mg/dL (8.5-10.1); CREATININE 0.5 mg/dL (0.6-1.3); TOTAL BILIRUBIN 0.1 mg/dL (<0.1-1.0); TOTAL PROTEIN 6.8 g/dL (6.4-8.2)
[2018-07-30 07:50] VITALS: BP 134/76
[2018-07-30 16:55] VITALS: BP 97/69
[2018-07-30 20:00] VITALS: BP 126/68
[2018-07-31 09:00] VITALS: BP 149/72
[2018-07-31 16:34] VITALS: BP 136/63
[2018-07-31 20:20] VITALS: BP 133/62
[2018-08-01 07:59] LABS: HEMATOCRIT 27.7 % (37.0-47.0); HEMOGLOBIN 8.7 gm/dL (12.0-15.0); MCH 23.6 pg (26.0-34.0); MCHC 31.6 g/dL (28.0-37.0); MCV 74.7 fL (80.0-100.0); MPV 7.8 fl. (7.2-11.1); RBC 3.71 mil/uL (4.20-5.00); RDW-CV 18.6 % (10.5-14.5); WBC 5.7 thou/uL (4.0-11.0)
[2018-08-01 08:00] VITALS: BP 126/62
--- NOTE | 2018-08-01 08:05 | OP ---
[address] [address] OPERATIVE REPORT Name: BETHEL MAHONEY Room: [address] IN .R.#: [id number] Admission: 07/18/18 Attend Phys: Isidro Roe Discharge: Date of : 71 Report #: [id number] THIS REPORT FOR: //name// CC: Alyssia Morrow DATE OF SERVICE: 07/28/2018 PREOPERATIVE DIAGNOSIS: Left gluteal decubitus ulcer with tracking to the bone. POSTOPERATIVE DIAGNOSIS: Left gluteal decubitus ulcer with tracking to the bone. OPERATIVE PROCEDURE: Wide local excisional debridement down to and into bone length 8 cm, width 2.8 cm and depth 4.5 cm. ANESTHESIA: General endotracheal with 0.5% Marcaine infiltrated into the wound site. OPERATIVE FINDINGS: Exposed bone with evidence of early osteomyelitis. Bone cultures were obtained. OPERATIVE PROCEDURE: The patient was placed under general endotracheal anesthesia, placed in a prone position and the patient's gluteal folds and the surrounding skin was carefully prepped and draped in a sterile fashion. A timeout was taken. Antibiotics were administered. I began by infiltrating around the operative site with 0.5% Marcaine, a total of 10 mL of Marcaine were used at the initial site. I used a lacrimal probe to see the direction of the tract of the small pores opening in the patient's left gluteal fold. Once I had marked that site using a #10 scalpel blade, I made an incision in the direction of the marking pen and used cautery to dissect down into the subcutaneous fat, fascia, muscle down to the area of the opening of the sinus tract. Using 2 rakes to expose the underlying tissues, I extended my incision approximately 2 cm medially and was able to expose the area of exposed bone. I then used a rongeur to biopsy the bone. Two pieces were sent for culture. I then took a fresh #10 scalpel blade to abrade the mucosal surface cyst that had developed along the sinus tract to get healthy bleeding. I then carefully used cautery to control the bleeding site. I then injected another 10 mL of Marcaine around the incision site and I then took a string piece of sponge back foam and a large piece of elliptical foam cut it to size of the wound, packed it into the wound and placed careful approximating tape and placed under negative pressure to 125 mmHg with the wound VAC ending the operative procedure. Estimated blood loss 10 mL. Sponge and instrument counts were correct. Specimen [place] [address] OPERATIVE REPORT Name: BETHEL MAHONEY Room: [address] IN [facility]#: [id number] Admission: 07/18/18 Attend Phys: Isidro Roe Discharge: Date of : 71 Report #: [id number] analysis. The patient was extubated, returned to the recovery room. She remained stable throughout the course of the operation. <ELECTRONICALLY SIGNED> By: Antonieta Zeng MD 08/01/18 0805 1256 [id number] Zeng MD /nt
[2018-08-01 08:12] LABS: ALBUMIN 2.7 g/dL (3.4-5.0); CALCIUM 8.4 mg/dL (8.5-10.1); CREATININE 0.4 mg/dL (0.6-1.3); MAGNESIUM 1.7 mg/dL (1.8-2.4); POTASSIUM 3.9 mmol/L (3.5-5.1); TOTAL BILIRUBIN 0.2 mg/dL (<0.1-1.0); TOTAL PROTEIN 6.9 g/dL (6.4-8.2)
[2018-08-01 16:00] VITALS: BP 128/63
[2018-08-02] VITALS: BP 136/63
[2018-08-02 08:45] VITALS: BP 136/59
[2018-08-02 15:00] VITALS: BP 123/75
[2018-08-02 23:47] VITALS: BP 116/71
[2018-08-03 08:30] VITALS: BP 142/61
[2018-08-03] MEDS ORDERED: DULCOLAX5 MG PO (11:54)
[2018-08-03] MEDS ORDERED: FLEXERIL PO (11:55)
[2018-08-03] MEDS ORDERED: LEVSIN0.125 MG SUBLING (11:55)
[2018-08-03] MEDS ORDERED: ENOXAPARIN40 MG/0.1 SUBQ (11:56)
[2018-08-03] MEDS ORDERED: MELATONIN5 M1 PO (11:57)
[2018-08-03] MEDS ORDERED: TUMS PO (11:59)
[2018-08-03] MEDS ORDERED: PERCOCET PO (11:59)
[2018-08-03] MEDS ORDERED: TYLENOL EXTRA500 MG PO (12:00)
[2018-08-03] MEDS ORDERED: ZOFRAN IV (12:01)
[2018-08-03 12:03] VITALS: BP 142/61
[2018-08-03] MEDS ORDERED: MAXIPIME 1 GM/D51 G1 IVPB (12:27)
[2018-08-03 16:00] VITALS: BP 131/65
--- NOTE | 2018-08-11 13:42 | H ---
[place] [address] HISTORY AND PHYSICAL Name: BETHEL MAHONEY Room: [address] IN .R.#: [id number] Admission: 07/18/18 Attend Phys: Isidro Roe Discharge: 08/03/18 Date of : 71 Report #: [id number] THIS REPORT FOR: //name// CC: Alyssia Morrow DATE OF SERVICE: 07/18/2018 CHIEF COMPLAINT: Left buttock pressure ulcer. HISTORY OF PRESENT ILLNESS: This is a pleasant 43-year-old woman who has been admitted for urinary tract infection with obstructive uropathy and sepsis. She has a history of paraplegia due to a spinal cord tumor. She has had a left buttock pressure ulcer for the past 8 months, she says. She says that she has been told that this should not be touched. They have been packing this wound with dry gauze. PAST MEDICAL HISTORY: Paraplegia, past history of pressure ulcers of the buttocks, urinary tract infections, nephrolithiasis. PAST SURGICAL HISTORY: She has had surgery for a spinal cord tumor. SOCIAL HISTORY: No tobacco or alcohol use. ALLERGIES: PENICILLIN, SULFA, MORPHINE. MEDICATIONS: She is currently on vancomycin, Lovenox, hydromorphone, cefepime, promethazine, Benadryl, Dulcolax, ketorolac, and hydrocodone. REVIEW OF SYSTEMS: Twelve-point review of systems negative except for as listed in HPI. PHYSICAL EXAMINATION: VITAL SIGNS: Temperature 36.6, pulse 99, blood pressure 131/57. GENERAL: She is awake, alert, in no acute distress. HEENT: Extraocular movements are intact. Sclerae without icterus. NECK: Supple. CARDIOVASCULAR: Regular rate and rhythm. CHEST: Fair movement bilaterally. ABDOMEN: Soft, nondistended. GENITOURINARY: Examination of the left buttock demonstrates a left ischial tuberosity pressure ulcer, stage 4. There is a small 0.5 cm opening. This is draining cloudy fluid. EXTREMITIES: Without clubbing or cyanosis. ASSESSMENT AND PLAN: This is a 43-year-old woman with [place] [address] HISTORY AND PHYSICAL Name: BETHEL MAHONEY Room: [address]#: [id number] Admission: 07/18/18 Attend Phys: Isidro Roe Discharge: 08/03/18 Date of : 71 Report #: [id number] ulcer of the left buttocks. CT scan of the abdomen and pelvis demonstrates underlying osteomyelitis. My recommendation is that she undergo wide debridement of this area. This wound will never heal as long as there is skin overlying the wound with a small little hole. Debridement would allow also to get bone for bone cultures to direct antibiotic therapy. She is reluctant to undergo any surgical procedures right now and would prefer to be seen at the [facility]. I think that is a reasonable option if we can get her into wound care fairly quickly. In the meantime, continue packing with gauze daily. She will see Dr. Antonieta Zeng in the [facility]. Thank you for asking me to take part in the care of this patient. <ELECTRONICALLY SIGNED> By: Juan Morillo MD 08/11/18 1342 0637 [id number] Morillo MD /nt
== END 2018-08-03 16:46 | DRG 853 ==
LOC: M.ERS 17:02 → M.2W 19:27 → M.TBA-ER 19:27 → M.2W 21:59 → M.3W 07-28 14:13
PROVIDERS: Family Medicine; Internal Medicine; Internal Medicine Gastroenterology; Nurse Practitioner Family; Personal Emergency Response Attendant; ADMIT Internal Medicine
PROC: 0TP98DZ Removal of Intraluminal Device from Ureter, Via Natural or Artificial Opening Endoscopic (ICD-10-PCS; principal; 2018-07-22)
PROC: 0QB30ZZ Excision of Left Pelvic Bone, Open Approach (ICD-10-PCS; 2018-07-28)
DX: A41.9 Sepsis, unspecified organism (principal); L89.324 Pressure ulcer of left buttock, stage 4; E43 Unspecified severe protein-calorie malnutrition; N12 Tubulo-interstitial nephritis, not specified as acute or chronic; G82.20 Paraplegia, unspecified; M86.8X8 Other osteomyelitis, other site; N20.0 Calculus of kidney; N28.89 Other specified disorders of kidney and ureter; N13.9 Obstructive and reflux uropathy, unspecified; R19.7 Diarrhea, unspecified; T36.95XA Adverse effect of unspecified systemic antibiotic, initial encounter; B37.9 Candidiasis, unspecified; F17.210 Nicotine dependence, cigarettes, uncomplicated; E87.6 Hypokalemia; Z68.28 Body mass index [BMI] 28.0-28.9, adult; Z90.49 Acquired absence of other specified parts of digestive tract; Z88.0 Allergy status to penicillin; Z88.1 Allergy status to other antibiotic agents; Z88.2 Allergy status to sulfonamides; Z88.8 Allergy status to other drugs, medicaments and biological substances; Y92.89 Other specified places as the place of occurrence of the external cause; Z88.5 Allergy status to narcotic agent; D49.9 Neoplasm of unspecified behavior of unspecified site

== ENCOUNTER → 2018-08-24 | Outpatient (CLI) | payer MEDICARE, MEDICAID ==
[~2018-08-24] MED LIST changes: +DULCOLAX5 MG PO; +ENOXAPARIN40 MG/0.1 SUBQ; +KEFLEX250 MG IVPB; +MAXIPIME 1 GM/D51 G1 IVPB; +MELATONIN5 M1 PO; +PEPTO-BISMOL262 M1 PO; +PERCOCET PO; +TYLENOL EXTRA500 MG PO; +ZOFRAN IV
== END ==
LOC: M.CT 10:33
DX: M16.11 Unilateral primary osteoarthritis, right hip (principal); M86.9 Osteomyelitis, unspecified

== ENCOUNTER 2018-09-15 23:55 | Inpatient (IN) | payer MEDICARE, MEDICAID ==
[~2018-09-15] VITALS: Ht 157.5 cm; Wt 66.7 kg
--- NOTE | ~2018-09-15 | CON ---
[address] [address] CONSULTATION Name: BETHEL MAHONEY Room: [address] IN .R.#: [id number] Admission: 09/16/18 Attend Phys: Karri Wong MD Discharge: Date of : 71 Report #: [id number] THIS REPORT FOR: //name// CC: [facility] physician/PCP Karri Wong HISTORY OF PRESENT ILLNESS: This is a pleasant 43-year-old female with past medical history significant for spinal cord tumor resulting in paraplegia, recurrent nephrolithiasis with ureteral stones, left-sided ischial wound with osteomyelitis who initially presented to the hospital for evaluation and treatment of the nephrolithiasis. The GI Service has been consulted for evaluation of chronic constipation. The patient reports she has had worsening of her baseline chronic constipation for the last four months. She reports having 1 bowel movement every 2-3 days, that after she takes MiraLax. She denies any significant abdominal pain, nausea, vomiting, diarrhea. The patient does report abdominal distention. The patient had a colonoscopy performed [address] Tyson and this colonoscopy was unremarkable. A repeat colonoscopy was recommended in 10 years' time at that time. PAST MEDICAL HISTORY: As mentioned above. The patient has a history of osteomyelitis of the left ischium. PAST SURGICAL HISTORY: The patient has history of cholecystectomy, multiple ureteral stents placed and wound debridement of the left ischial osteomyelitis. SOCIAL HISTORY: The patient denies smoking, alcohol or recreational drug use. FAMILY HISTORY: There is no family history of colorectal cancer. PHYSICAL EXAMINATION: GENERAL: The patient is alert, awake and oriented x 3. HEENT: Pupils are equal, round, reactive to light and accommodation. Mucous membranes are moist. LUNGS: Clear to auscultation. CARDIOVASCULAR: Rate and rhythm regular, S1, S2 present. ABDOMEN: Soft. Poor abdominal wall tone. No guarding or rigidity. Bowel sounds present. EXTREMITIES: Bilateral pitting edema in both lower extremities. The patient has no muscle movement below the level of abdomen. SKIN: Warm and dry. VITAL SIGNS: Temperature 36.7, pulse rate 76, respirations 19, blood pressure 106/70. DIAGNOSTIC DATA: CT abdomen and pelvis performed demonstrates prominent common bile duct with prior cholecystectomy. No focal hepatic masses, normal spleen, surgically absent gallbladder, normal pancreas, [place] [address] CONSULTATION Name: BETHEL MAHONEY Room: [address]#: [id number] Admission: 09/16/18 Attend Phys: Karri Wong MD Discharge: Date of : 71 Report #: [id number] ASSESSMENT AND PLAN: This is a pleasant 43-year-old female with history of spinal cord tumor with paraplegia, left ischial osteomyelitis and multiple ureteral stones who initially presented for evaluation and treatment of the ureteral stones. The GI Service has been consulted for management of chronic constipation. I would place the patient to start with on MiraLax daily. Obviously, we want to avoid diarrhea because there is a left ischial osteomyelitis and soiling and contamination of this area must be avoided at all costs. Since she is on narcotics, I would also recommend Movantik, but this can be done as outpatient. Since the patient had a colonoscopy [address] was relatively unremarkable, endoscopic evaluation is not warranted at this time. Small intestinal bacterial overgrowth. This is a possibility in this patient. I will place her on Flagyl 100 mg t.i.d. for 15 days for management of the above. By: 1413 [id number] Landry MD /nt
[2018-09-15 23:55] VITALS: BP 116/78
[2018-09-16 00:27] LABS: ABSOLUTE BASOPHILS 0.1 thou/uL (0.0-0.2); ABSOLUTE EOSINOPHILS 0.2 thou/uL (0.0-0.7); ABSOLUTE LYMPHOCYTES 2.4 thou/uL (0.8-5.3); ABSOLUTE MONOCYTES 0.5 thou/uL (0.0-1.2); ABSOLUTE NEUTROPHILS 6.4 thou/uL (1.6-8.1); BASOPHILS 0.7 %; EOSINOPHILS 2.5 %; HEMATOCRIT 27.9 % (37.0-47.0); HEMOGLOBIN 8.3 gm/dL (12.0-15.0); LYMPHOCYTES 25.2 %; MCH 19.4 pg (26.0-34.0); MCHC 29.8 g/dL (28.0-37.0); MCV 65.1 fL (80.0-100.0); MONOCYTES 4.9 %; MPV 7.3 fl. (7.2-11.1); NUCLEATED RBCS 0 /100WBC; PLATELET COUNT* 427 thou/uL (150-400); POLYS 66.7 %; RBC 4.28 mil/uL (4.20-5.00); RDW-CV 19.5 % (10.5-14.5); WBC 9.6 thou/uL (4.0-11.0)
[2018-09-16 00:30] LABS: ANION GAP 13 mmol/L (7-16); BUN 7 mg/dL (7-18); CALCIUM 9.8 mg/dL (8.5-10.1); CHLORIDE 100 mmol/L (98-107); CO2 25 mmol/L (21-32); CREATININE 0.4 mg/dL (0.6-1.3); GLUCOSE 162 mg/dL (70-99); POTASSIUM 3.7 mmol/L (3.5-5.1); SODIUM 138 mmol/L (136-145)
[2018-09-16 00:32] LABS: APTT 24.4 Seconds (25.0-31.3)
[2018-09-16 00:42] LABS: ALBUMIN 3.4 g/dL (3.4-5.0); ALKALINE PHOSPHATASE 110 U/L (46-116); LIPASE 139 U/L (73-393); SGOT 13 U/L (15-37); SGPT 22 U/L (30-65); TOTAL BILIRUBIN 0.2 mg/dL (<0.1-1.0); TOTAL PROTEIN 7.3 g/dL (6.4-8.2); TROPONIN-I LEVEL <0.06 ng/mL (<0.06)
[2018-09-16 01:35] LABS: URINE BILIRUBIN NEGATIVE (Negative); URINE BLOOD TRACE (Negative); URINE CLARITY CLEAR; URINE COLOR YELLOW; URINE GLUCOSE-RANDOM NEGATIVE (Negative); URINE KETONES NEGATIVE (Negative); URINE NITRITE-REFLEX NEGATIVE (Negative); URINE PROTEIN NEGATIVE (Negative); URINE UROBILINOGEN 0.2 E.U./dl (0.2-1.0)
[2018-09-16 01:36] LABS: URINE LEUKOCYTES-REFLEX 2+ (Negative)
[2018-09-16 01:46] LABS: BACTERIA-REFLEX >30 Many /HPF (None Seen); CASTS None Seen /LPF (None Seen); CRYSTALS None Seen /LPF (None Seen); MUCUS 4-6 Moderate strn/LPF (None Seen); SQUAMOUS 0-3 Few /LPF (0-3); URINE RBC 3-10 Few /HPF (0-2); URINE WBC-REFLEX >25 Many /HPF (0-5); WBC CLUMPS Few (None Seen); YEAST-REFLEX Present (None Seen)
[2018-09-16 01:48] LABS: HYPOCHROMASIA 2+; MICROCYTES 2+; POLYCHROMASIA 1+; TEARDROPS Occasional
[2018-09-16 01:49] LABS: OVALOCYTES Occasional; SCHISTOCYTES Occasional
[2018-09-16 02:36] VITALS: BP 126/59
[2018-09-16 03:30] VITALS: BP 113/58
[2018-09-16 08:12] VITALS: BP 118/58
--- NOTE | 2018-09-16 12:27 | EKG ---
[place] [address] ELECTROCARDIOGRAM REPORT Name: BETHEL MAHONEY Room: [address] ADM IN .R.#: [id number] Admission: 09/16/18 Attend Phys: Karri Wong MD Discharge: Date of : 71 Report #: [id number] THIS REPORT FOR: //name// [facility] ED Test Date: 2018-09-16 Test Time: 00:35:02 Pat Name: BETHEL MARU Department: Room: [facility] Gender: Ship'S Captain: SHAISTA : 1975 Requested By: Angel Amaro Order Number: [id number] MD: Luis Miguel Ledesma Measurements Intervals [place] Rate: 106 P: 28 [place]: 154 QRS: 5 QRSD: 85 T: 29 QT: 353 QTc: 469 Interpretive Statements Sinus tachycardia Baseline wander in lead(s) V4 Compared to ECG 07/18/2018 17:14:38 T-wave abnormality no longer present Prolonged QT interval no longer present Electronically Signed On 09-16-2018 12:27:30 ROLL MILL OPERATOR by Luis Miguel Ledesma [email or web address] <ELECTRONICALLY SIGNED> By: Luis Miguel Ledesma MD, FACC 09/16/18 1227 0035 0035 Luis Miguel Ledesma MD, [facility] /EPI
[2018-09-16 15:53] VITALS: BP 120/78
[2018-09-16 19:50] VITALS: BP 116/60
[2018-09-17 04:59] LABS: HEMATOCRIT 22.5 % (37.0-47.0); MCHC 30.7 g/dL (28.0-37.0); MCV 65.2 fL (80.0-100.0); MPV 7.4 fl. (7.2-11.1); RBC 3.44 mil/uL (4.20-5.00); RDW-CV 19.1 % (10.5-14.5); WBC 7.1 thou/uL (4.0-11.0)
[2018-09-17 05:06] LABS: HEMOGLOBIN 6.9 gm/dL (12.0-15.0)
[2018-09-17 05:08] LABS: CALCIUM 8.4 mg/dL (8.5-10.1); CREATININE 0.3 mg/dL (0.6-1.3); POTASSIUM 3.3 mmol/L (3.5-5.1)
[2018-09-17 07:53] LABS: HEMATOCRIT 24.5 % (37.0-47.0); HEMOGLOBIN 7.4 gm/dL (12.0-15.0)
[2018-09-17 16:00] VITALS: BP 116/58
[2018-09-17 21:00] VITALS: BP 115/58
[2018-09-18] VITALS: BP 131/81
[2018-09-18 04:00] VITALS: BP 114/71
[2018-09-18 08:00] VITALS: BP 112/58
[2018-09-18 10:23] LABS: HEMATOCRIT 24.3 % (37.0-47.0); HEMOGLOBIN 7.5 gm/dL (12.0-15.0); MCHC 30.7 g/dL (28.0-37.0); MCV 65.2 fL (80.0-100.0); MPV 7.2 fl. (7.2-11.1); RBC 3.73 mil/uL (4.20-5.00); RDW-CV 19.2 % (10.5-14.5); WBC 7.1 thou/uL (4.0-11.0)
[2018-09-18 10:31] LABS: CALCIUM 8.9 mg/dL (8.5-10.1); CREATININE 0.3 mg/dL (0.6-1.3); POTASSIUM 3.8 mmol/L (3.5-5.1)
[2018-09-18 16:00] VITALS: BP 113/48
[2018-09-18 22:30] VITALS: BP 115/67
[2018-09-19] VITALS (7 sets, daily range): BP systolic 109–121; BP diastolic 47–73
--- NOTE | 2018-09-19 10:27 | OP ---
[facility] [address] [place] [address] OPERATIVE REPORT Name: BETHEL MAHONEY Room: [address] IN M.R.#: [id number] Admission: 09/16/18 Attend Phys: Karri Wong MD Discharge: Date of : 71 Report #: [id number] THIS REPORT FOR: //name// CC: [facility] physician/PCP Karri Wong DATE OF SERVICE: 09/19/2018 PREOPERATIVE DIAGNOSES: Left ureteral calculus and urinary tract infection. POSTOPERATIVE DIAGNOSES: Left ureteral calculus and urinary tract infection. PROCEDURE: Cystoscopy, left retrograde pyelogram, left ureteral stent. SURGEON: Salvatore Rucker M.D. ANESTHESIA: General. ESTIMATED BLOOD LOSS: None. DRAINS: A 6 x 28 left ureteral stent, 16-Salvadorean Francois. SPECIMENS: None. COMPLICATIONS: None. INDICATIONS: This is a 43-year-old female with a left ureteral calculus that has not passed with conservative management. Cultures are preliminarily growing yeast in her urine. Alternatives for management have been discussed and I recommended that she undergo cystoscopy with left retrograde pyelogram and left ureteral stent placement with deferral of definitive stone management until her UTI has cleared. Risks of procedure were explained including but not limited to bleeding, infection, anesthesia, cardiopulmonary and vascular events, injuries to urethra, bladder, ureter, possible inability to bypass obstruction, stent discomfort. We also discussed the need for followup regarding definitive stone management after treatment of her UTI. She voices understanding of all this and wants to proceed. DESCRIPTION OF PROCEDURE: The patient was on perioperative Rocephin. She was also given a dose of Diflucan due to the yeast in the urine. After induction of general anesthesia, she was positioned, prepped and draped in the lithotomy position. A timeout procedure was performed. Fluoroscopic examination is consistent with a vague density in the expected region of the left proximal ureter compatible with her recent imaging studies. Cystourethroscopy was performed. The urethra is normal. There is mild inflammation along the posterior wall of the bladder consistent with an indwelling Francois catheter, [place] [address] OPERATIVE REPORT Name: BETHEL MAHONEY Room: [address] IN [facility].#: [id number] Admission: 09/16/18 Attend Phys: Karri Wong MD Discharge: Date of : 71 Report #: [id number] which is in place to help divert urine from a decubitus ulcer. There are no discrete bladder lesions. The ureteral orifices are orthotopic. No blood is seen from either. A 5-Salvadorean ureteral catheter was used to perform a left retrograde pyelogram, which reveals a filling defect in the proximal ureter. Contrast fills the renal pelvis nicely and it is within normal limits. A Sensor wire was advanced with fluoroscopic guidance past the stone and into the left renal pelvis. This was used for placement of a 6 x 28 left ureteral stent with good position confirmed in the renal pelvis fluoroscopically and in the bladder visually. Drainage from the stent was clear. The bladder was left partially filled and the scope was removed. Lidocaine jelly was given per urethra. A new 16-Salvadorean Francois catheter was placed. The patient tolerated the procedure well and was taken to the recovery room in stable condition. Again, plan will be to defer definitive stone management until adequate treatment of her UTI. We will request further identification of the yeast noted on culture and continue Diflucan for now. <ELECTRONICALLY SIGNED> By: Salvatore Rucker MD 09/19/18 1027 0954 [id number] Rucker MD /nt
[2018-09-19 10:40] LABS: ABSOLUTE BASOPHILS 0.1 thou/uL (0.0-0.2); ABSOLUTE EOSINOPHILS 0.3 thou/uL (0.0-0.7); ABSOLUTE LYMPHOCYTES 1.5 thou/uL (0.8-5.3); ABSOLUTE MONOCYTES 0.3 thou/uL (0.0-1.2); ABSOLUTE NEUTROPHILS 5.3 thou/uL (1.6-8.1); BASOPHILS 1.3 %; EOSINOPHILS 3.7 %; HEMATOCRIT 23.6 % (37.0-47.0); HEMOGLOBIN 7.1 gm/dL (12.0-15.0); LYMPHOCYTES 20.3 %; MCH 19.7 pg (26.0-34.0); MCHC 30.1 g/dL (28.0-37.0); MCV 65.6 fL (80.0-100.0); MONOCYTES 4.1 %; MPV 8.6 fl. (7.2-11.1); NUCLEATED RBCS 0 /100WBC; POLYS 70.6 %; RBC 3.59 mil/uL (4.20-5.00); RDW-CV 19.3 % (10.5-14.5); WBC 7.6 thou/uL (4.0-11.0)
[2018-09-19 11:04] LABS: ALBUMIN 2.8 g/dL (3.4-5.0); CALCIUM 8.6 mg/dL (8.5-10.1); CREATININE 0.2 mg/dL (0.6-1.3); POTASSIUM 3.6 mmol/L (3.5-5.1); TOTAL BILIRUBIN 0.1 mg/dL (<0.1-1.0)
[2018-09-19 11:10] LABS: PLATELET COUNT* 175 thou/uL (150-400)
[2018-09-20] VITALS: BP 119/75
[2018-09-20 08:00] VITALS: BP 115/59
[2018-09-20 16:20] VITALS: BP 118/52
[2018-09-20 21:00] VITALS: BP 128/72
[2018-09-21 06:45] LABS: HEMATOCRIT 26.7 % (37.0-47.0); HEMOGLOBIN 8.1 gm/dL (12.0-15.0); MCH 20.6 pg (26.0-34.0); MCHC 30.2 g/dL (28.0-37.0); MCV 68.3 fL (80.0-100.0); MPV 7.4 fl. (7.2-11.1); RBC 3.92 mil/uL (4.20-5.00); RDW-CV 19.5 % (10.5-14.5); WBC 7.5 thou/uL (4.0-11.0)
[2018-09-21 06:56] LABS: POTASSIUM 3.1 mmol/L (3.5-5.1)
[2018-09-21 07:05] LABS: CALCIUM 8.7 mg/dL (8.5-10.1); CREATININE 0.4 mg/dL (0.6-1.3)
[2018-09-21 07:30] VITALS: BP 118/63
[2018-09-21 15:40] VITALS: BP 119/67
[2018-09-21 20:00] VITALS: BP 120/62
[2018-09-22 08:00] VITALS: BP 120/62
[2018-09-22 10:04] LABS: CALCIUM 9.1 mg/dL (8.5-10.1); CREATININE 0.3 mg/dL (0.6-1.3); MAGNESIUM 1.9 mg/dL (1.8-2.4); POTASSIUM 3.9 mmol/L (3.5-5.1)
[2018-09-22 16:00] VITALS: BP 108/65
[2018-09-22 21:00] VITALS: BP 114/62
[2018-09-23 08:00] VITALS: BP 114/62
[2018-09-23 16:00] VITALS: BP 107/55
[2018-09-24] VITALS: BP 132/68
[2018-09-24 08:00] VITALS: BP 126/70
[2018-09-24 16:00] VITALS: BP 155/71
[2018-09-25 01:28] VITALS: BP 116/53
[2018-09-25 05:05] VITALS: BP 106/70
[2018-09-25 07:51] LABS: URINE BILIRUBIN NEGATIVE (Negative); URINE BLOOD TRACE (Negative); URINE CLARITY CLOUDY; URINE COLOR YELLOW; URINE GLUCOSE-RANDOM NEGATIVE (Negative); URINE KETONES NEGATIVE (Negative); URINE LEUKOCYTES-REFLEX 1+ (Negative); URINE NITRITE-REFLEX NEGATIVE (Negative); URINE PROTEIN TRACE (Negative); URINE UROBILINOGEN 0.2 E.U./dl (0.2-1.0)
[2018-09-25 08:00] LABS: SQUAMOUS 4-10 Moderate /LPF (0-3)
[2018-09-25 08:01] LABS: WBC CLUMPS Few (None Seen)
[2018-09-25 08:02] LABS: URINE WBC-REFLEX 6-15 Few /HPF (0-5)
[2018-09-25 08:04] LABS: URINE RBC 3-10 Few /HPF (0-2)
[2018-09-25 08:09] LABS: BACTERIA-REFLEX >30 Many /HPF (None Seen)
[2018-09-25 08:10] LABS: CASTS None Seen /LPF (None Seen); CRYSTALS None Seen /LPF (None Seen); MUCUS 0-3 Light strn/LPF (None Seen)
[2018-09-25 08:11] LABS: AMORPHOUS URATES Many /LPF (None Seen); YEAST-REFLEX Present (None Seen)
[2018-09-25 16:15] VITALS: BP 120/66
[2018-09-25 20:30] VITALS: BP 118/66
[2018-09-26 09:15] VITALS: BP 118/68
[2018-09-26 14:37] LABS: ABSOLUTE EOSINOPHILS 0.3 thou/uL (0.0-0.7); ABSOLUTE MONOCYTES 0.4 thou/uL (0.0-1.2); ABSOLUTE NEUTROPHILS 4.9 thou/uL (1.6-8.1); BASOPHILS 0.5 %; EOSINOPHILS 3.7 %; HEMATOCRIT 29.2 % (37.0-47.0); LYMPHOCYTES 26.5 %; MCH 21.6 pg (26.0-34.0); MCHC 30.8 g/dL (28.0-37.0); MCV 70.1 fL (80.0-100.0); MONOCYTES 5.5 %; MPV 7.9 fl. (7.2-11.1); NUCLEATED RBCS 0 /100WBC; PLATELET COUNT* 359 thou/uL (150-400); POLYS 63.8 %; RBC 4.17 mil/uL (4.20-5.00); RDW-CV 26.6 % (10.5-14.5); WBC 7.7 thou/uL (4.0-11.0)
[2018-09-26 14:53] LABS: ALBUMIN 3.3 g/dL (3.4-5.0); CALCIUM 9.5 mg/dL (8.5-10.1); CREATININE 0.4 mg/dL (0.6-1.3); POTASSIUM 4.6 mmol/L (3.5-5.1); TOTAL BILIRUBIN 0.2 mg/dL (<0.1-1.0); TOTAL PROTEIN 6.8 g/dL (6.4-8.2)
[2018-09-26 15:14] LABS: PLATELET ESTIMATE ADEQUATE
[2018-09-26 15:17] LABS: ANISOCYTOSIS 2+; MICROCYTES 1+
[2018-09-26 15:53] LABS: SGOT 27.6 U/L (15-37)
[2018-09-26 16:36] VITALS: BP 112/70
[2018-09-27 00:02] VITALS: BP 148/68
[2018-09-27 08:00] VITALS: BP 106/69
[2018-09-27] MEDS ORDERED: ANUSOL-HC25 MG RECTAL ×3 (15:13→15:18)
[2018-09-27] MEDS ORDERED: DIFLUCAN200 MG PO (15:23)
[2018-09-27] MEDS ORDERED: FLEXERIL PO (15:27)
[2018-09-27] MEDS ORDERED: FLOMAX0.4 MG PO (15:29)
[2018-09-27] MEDS ORDERED: LEVSIN0.125 MG SUBLING (15:32)
[2018-09-27] MEDS ORDERED: FLAGYL500 M1 PO (15:40)
[2018-09-27] MEDS ORDERED: MIRALAX17 GM PO (15:41)
[2018-09-27] MEDS ORDERED: NYSTATIN 100,0015 G1 TOP (15:46)
[2018-09-27] MEDS ORDERED: PROTONIX40 M1 PO (15:48)
[2018-09-27] MEDS ORDERED: TUMS PO (15:49)
[2018-09-27 16:14] VITALS: BP 106/69
[2018-09-27] MEDS ORDERED: OXYCODONE HCL15 MG PO ×2 (16:33→16:35)
[2018-09-27 17:00] VITALS: BP 106/69
== END 2018-09-27 16:43 | DRG 659 ==
LOC: M.ERS 23:55 → M.ORTHSURG 09-16 01:39 → M.TBA-ER 09-16 01:39 → M.ORTHSURG 09-16 02:45 → M.3W 09-21 16:34
PROVIDERS: Family Medicine; Internal Medicine; ADMIT Internal Medicine
PROC: 02HV33Z Insertion of Infusion Device into Superior Vena Cava, Percutaneous Approach (ICD-10-PCS; principal; 2018-09-16)
PROC: 0T778DZ Dilation of Left Ureter with Intraluminal Device, Via Natural or Artificial Opening Endoscopic (ICD-10-PCS; 2018-09-19)
PROC: BT1F1ZZ Fluoroscopy of Left Kidney, Ureter and Bladder using Low Osmolar Contrast (ICD-10-PCS; 2018-09-19)
DX: N13.6 Pyonephrosis (principal); L89.154 Pressure ulcer of sacral region, stage 4; E44.0 Moderate protein-calorie malnutrition; G82.20 Paraplegia, unspecified; M46.28 Osteomyelitis of vertebra, sacral and sacrococcygeal region; D50.9 Iron deficiency anemia, unspecified; E87.6 Hypokalemia; R32 Unspecified urinary incontinence; K42.9 Umbilical hernia without obstruction or gangrene; K59.09 Other constipation; Z90.49 Acquired absence of other specified parts of digestive tract; Z87.442 Personal history of urinary calculi; Z79.1 Long term (current) use of non-steroidal anti-inflammatories (NSAID); Z79.899 Other long term (current) drug therapy; Z88.2 Allergy status to sulfonamides; Z88.1 Allergy status to other antibiotic agents; Z68.26 Body mass index [BMI] 26.0-26.9, adult; Z88.0 Allergy status to penicillin; Z88.5 Allergy status to narcotic agent; Z88.8 Allergy status to other drugs, medicaments and biological substances; Z87.891 Personal history of nicotine dependence

== ENCOUNTER 2018-09-27 14:58 | Inpatient (IN) | payer MEDICARE, MEDICAID ==
[~2018-09-27] VITALS: Ht 157.5 cm; Wt 64.4 kg
[2018-09-27] MEDS ORDERED: ANUSOL-HC25 MG RECTAL ×3 (15:13→15:18)
[2018-09-27] MEDS ORDERED: DIFLUCAN200 MG PO (15:23)
[2018-09-27] MEDS ORDERED: FLEXERIL PO (15:27)
[2018-09-27] MEDS ORDERED: FLOMAX0.4 MG PO (15:29)
[2018-09-27] MEDS ORDERED: LEVSIN0.125 MG SUBLING (15:32)
[2018-09-27] MEDS ORDERED: FLAGYL500 M1 PO (15:40)
[2018-09-27] MEDS ORDERED: MIRALAX17 GM PO (15:41)
[2018-09-27] MEDS ORDERED: NYSTATIN 100,0015 G1 TOP (15:46)
[2018-09-27] MEDS ORDERED: PROTONIX40 M1 PO (15:48)
[2018-09-27] MEDS ORDERED: TUMS PO (15:49)
[2018-09-27] MEDS ORDERED: OXYCODONE HCL15 MG PO ×2 (16:33→16:35)
[2018-09-27 17:37] VITALS: BP 114/49
--- NOTE | 2018-09-28 01:25 | NUR ---
ADMITTED A 43 YEAR OLD W/ DEBILITY/PARAPHLEGIA/UTI & SEPSIS. CAME TO REHAB @ 1659 ON HER LOW AIR LOSS BED.ASSUMED CARE @ 1914-09/27-. CALLED @ THIS TIME TO ASSIST TO TURN ON HER BACK @ 1914.HOB UP.HEELS OFF BED. WOUND VAC IN PLACE & PATENT.PEREZ CATHETER DRAINING WELL.WANTS ONLY SIDERAILS X2 UP.SEE PAIN MANAGEMENTS @ 2021 & 45.REFUSED HS DOSES MIRALAX & COLACE. LAST BM 09/26-WEDNESDAY.SMALL BM ONLY.REQUESTED DUL SUP & GIVEN @ 2129.WANTS TO STAY ON HER RIGHT SIDE WHEN SUP GIVEN.ON HOURLY ROUNDS.
--- NOTE | 2018-09-28 02:09 | NUR ---
CRUSHES FLAGYL TABLET & TAKEN W/ SODA FOLLOWED W/ CHEESE CRACKERS W/ PEANUT BUTTER.PRN MYLANTA 30 ML GIVEN @ 2310-PER PT'S REQUEST FOR INDIGESTION.INC. LARGE,SOFT UNFORMED STOOLS @ 0030.JUDD CARE GIVEN 2ND TIME.PRN FLEXERIL 10 MG ORAL GIVEN @ 0043-PER PT'S REQUEST.QUIET @ 0100.UNCOMFORTABLE ON HER LOW AIR LOSS BED.PER PATIENT-YURIY STALLINGS TOLD HER IT'S HER DISCRETION IF SHE WANTS TO TRANSFER TO REGULAR BED.NURSING MANAGER DATABASE INFORMED OF PLAN. TRANSFERED TO REGULAR BED W/ 3 PERSONS.TURNED TO LEFT SIDE @ 0200.
[2018-09-28 04:15] VITALS: BP 116/63
--- NOTE | 2018-09-28 05:29 | NUR ---
SLEPT SINCE 0230.AWAKENED TO TURN @ 0400.JUDD CARE #3 GIVEN @ 0400.GROINS & LABIAS-PINK.ANTI-FUNGAL CREAM APPLIED AFTER JUDD CARE @ 0400.C/O SORE THROAT.WARM TEA GIVEN @ 0400.PICTURE TAKEN ULCER ANTERIOR RIGHT FOOT @ 0430.SEE 3RD PAIN MANAGEMENT W/ OXYIR 15 MG ORAL @ 0447 & TYLENOL 2 TABS @ 0450.TYLENOL CRUSHED & TAKEN BY PATIENT FOLLOWED W/ SODA.REFUSED HS SNACK. PICC LINE FLUSHES GOOD & HAS GOOD BLOOD RETURN.
[2018-09-28 06:41] LABS: HEMATOCRIT 29.7 % (37.0-47.0); HEMOGLOBIN 9.2 gm/dL (12.0-15.0); MCH 21.6 pg (26.0-34.0); MCHC 30.9 g/dL (28.0-37.0); MCV 70.1 fL (80.0-100.0); MPV 8.1 fl. (7.2-11.1); RBC 4.23 mil/uL (4.20-5.00); RDW-CV 27.5 % (10.5-14.5); WBC 7.3 thou/uL (4.0-11.0)
[2018-09-28 07:00] LABS: CREATININE 0.4 mg/dL (0.6-1.3)
[2018-09-28 08:00] VITALS: BP 115/62
--- NOTE | 2018-09-28 10:37 | NUR ---
WOUND CARE NOTE: CONSULT RECEIVED FOR WOUND VAC TO LEFT BUTTOX PATIENT WELL KNOWN TO ME FROM INPATIENT HOSPITAL STAY. CONTINUES TO HAVE A STAGE 4 PRESSURE ULCER TO THE LEFT ISCHIAL TUBEROSITY. WOUND MEASURES 3X1X3. FISSURES REMAIN TO DISTAL AND PROXIMAL JUDD-AREA, HEALING. JUDD-WOUND WITH MACERATION. CLEANSED WOUND, PHOTOGRAPHED WOUND. SKIN PREP APPLIED TO JUDD-WOUND. APPLIED BLACK FOAM INTO WOUND BED. DRAPED, BRIDGED TO OFFLOAD. GOOD SEAL OBTAINED AT 150MMHG. PATIENT TOLERATED DRESSING WELL. THIS AM PATIENT'S RN NOTIFIED ME THAT THE PATIENT STATED THAT SHE WAS TOLD THAT SHE COULD USE THE MATTHIAS MATTRESS AT HER DISCRESSION. SPOKE WITH PATIENT ABOUT THIS AND SHE SAID THAT THE MATTRESS KEEPS BOTTOMING OUT AND SHE IS ON THE BAR. STATES SHE HAS HAD 3 DIFFERENT MATTHIAS MATTRESSES, BUT THEY HAVE ALL DONE THE SAME THING. PATIENT IS CURRENTLY ON OUR HOSPITAL BED, BUT EDUCATE PATIENT THAT SHE WILL NEED A SPECIALTY BED TO HELP WITH THE MICROCLIMATE. PATIENT COMMUNICATES UNDERSTANDING, BUT STATES THE OTHER BED IS UNCOMFORTABLE AND SHE CANNOT SLEEP IN IT. SPOKE WITH GLEN. P500 MATTRESS IS ANOTHER OPTION. THIS WAS ORDERED IN HOPES IT WILL WORK BETTER FOR PATIENT. INQUIRED ON HOW PATIENT WAS DOING ON EATING. PATIENT STATES THERE IS SO MANY PEOPLE THAT COME IN AND OUT THAT SHE HASN'T BEEN ABLE TO EAT MUCH IN THE MORNINGS. INQUIRED IF SHE TYPICALLY STAYED UP LATE AND SLEPT IN OR GOT UP EARLY IN THE MORNINGS. PATIENT STATED SHE JUST LETS HER BODY TELL HER WHEN SHE NEEDS TO SLEEP. INFORMED PATIENT THAT ON REHAB IT WOULD BE BUSY WITH THERAPY COMING IN AND OUT. RECOMMEND WAFFLE CUSHION/ROHO CUSHION WHEN IN CHAIRS TURN Q2 HOURS-KEEP OFF WOUND MATTHIAS MATTRESS-P500 ORDERED ENCOURAGE GOOD NUTRTION/HYDRATION LIMIT HOB <30 DEGREES
--- NOTE | 2018-09-28 10:42 | NUR ---
Nutrition: Pt admitted to Rehab with debility/paraplegia. Wound VAC on Lt ischium. +BM. Ensure t.i.d. Ate 70% of dinner last NOC. Albumin 3.3, prealb 17.7. BG 206. Wt stable, 149#. Continue Ensure t.i.d. for added protein. Low risk at this time.
--- NOTE | 2018-09-28 16:16 | NUR ---
SW completed initial assessment. Pt alert, oriented. Pt lives at home with her mother and son support. Team conference held today and Dr Reveles, PAUL, and med student Jordan met with pt to review team conference summary and plan for pt to dc home on Wednesday. Pt expressed that she was upset with a plan to dc on Wednesday and wanted to have more time in therapies. Team explained to pt that pt was refusing parts of therapy and pt would not be meeting requirements to stay on rehab unit if she was not agreeing to every task presented to her during therapies; especially dressing (pt needs to bring in clothes and agree to wear clothes) and then slide board transfer with clothes on. Pt also to go to dining room for meals and be on a sitting schedule. SW mentioned family training and pt said she wanted to be able to do things on her own bc she said her family would not help her but then said that her mom would be the one using the lift to help with transfers. Pt said she would discuss with her family; SW to attempt to contact family as well. SW to begin process for custom wc and hospital bed for pt to have updated DME as needed. SW to continue to follow to assist with safe dc planning.
--- NOTE | 2018-09-28 17:59 | NUR ---
ASSUMED CARE AT 0730 PATIENT ALERT/ORIENTED, SOME RESISTANCE TO CARES TODAY, DOES NOT FULLY UNDERSTAND THE EXPECTATIONS OF REHAB, WHEN TRYING TO EXPLAIN OUR DAILY ROUTINES SHE GETS DEFENSIVE, ASKS "HOW MANY TIMES DO I HAVE TO BE JERKED AROUND IN THE LIFT?", STATES ITS HER RIGHT TO REFUSE TO GO TO THE DINING ROOM TO EAT LUNCH AND DINNER, AGAIN EXPLAINS TO HER THAT IS PART OF THERAPY SHE JUST ROLLS HER EYES AT THIS NURSE. HOURLY ROUNDING COMPLETED, BED CHAIR ALARMS IN PLACE, CALL LIGHT IN REACH. DID GO TO DINING ROOM FOR DINNER
[2018-09-28 19:50] VITALS: BP 128/65
--- NOTE | 2018-09-28 21:25 | NUR ---
IN BED VISITING WITH MOTHER AND TWO MALE VISITORS. PRN TYLENOL GIVEN FOR COMPLAINT OF PAIN RATED "8" IN ABDOMEN, RIGHT HIP AND WOUND. PATIENT TAKES MEDICATION CRUSHED. DIDN'T WANT MEDICATION MIXED WITH APPLESAUCE. FUSSY, MANIPULATIVE AND CHILDISH BEHAVIOR EXHIBITED AT TIMES. PEREZ TO DEPENDENT DRAINAGE WITH YELLOW URINE. WOUND VAC TO LEFT BUTTOCK INTACT.
--- NOTE | 2018-09-29 05:54 | NUR ---
SLEPT SOUNDLY BETWEEN ABOUT 2125 AND 0020. INCONTINENT OF SOFT UNFORMED BM. ASSISTED WITH JUDD CARE. ASSISTED TO LEFT SIDE PER PATIENT'S REQUEST. PATIENT STAYED UP FOR ABOUT A HOUR AND HAD MORE STOOL. PATIENT DID OWN JUDD CARE. OXY IR GIVEN AT 0222 WITH RELIEF. PATIENT WAS UP FOR A LITTLE WHILE LONGER AND THEN WENT BACK TO SLEEP. HOURLY ROUNDING IN PROGRESS.
[2018-09-29 07:36] VITALS: BP 108/45
--- NOTE | 2018-09-29 17:00 | NUR ---
SW called and left a message early this morning with pt mother about pt possible to dc home tomorrow and offered family training. Pt nurse informed SW later that pt had discussed pt mom had expressed not being able to care for pt at home at this state and that pt would need to go to SNF. Pt nurse said she let pt know to discuss with pt mom not to worry and that pt would most likely be able to continue to remain in therapies since therapies and nursing had reported that pt was doing better with her participation and complied with requirements set forth from Dr Reveles and the rehab team. SW discussed need for wound vac order basic information with dc sr. merchandise planner prior to knowledge of whether or not pt would have more time on rehab or not. RN CM also helped begin process again (original wound vac order from when pt was on ortho was not on rehab chart and wound care nurse Sheeba stated that the wound measurements and info would be different now anyway). PAUL was informed that [facility] would need at least a day to be able to process and provide wound vac; Dr Reveles was not available to complete form at this time but will complete in time now since decision was made that pt would be able to remain on rehab unit and team would reassess pt length of stay during team conference next Wednesday. PAUL spoke with pt to provide updated information and provided encouragement to continue working and making efforts wi therapies and nursing. SW to continue to follow to assist with safe dc planning; wc, wound vac, updated hospital bed? (pt had one already through [facility] [place]), HH, family training, transportation.
--- NOTE | 2018-09-29 18:49 | NUR ---
ASSUMED CARE AT 0730 PATIENT ALERT/ORIENTED, PAIN MEDS GIVEN REQUESTEDD, UP WITH RAEGAN LIFT TO W/C, PARTICIPATED IN ALL THERAPIES TODAY, PATIENT PLEASANT THIS SHIFT, TO DINING ROOM FOR MEALS. HOURLY ROUNDING COMPLETED, BED/CHAIR ALARMS IN PLACE, CALL LIGHT IN REACH, POSITION CHANGE EVERY 2 HOURS.
[2018-09-29 20:00] VITALS: BP 110/58
--- NOTE | 2018-09-30 05:38 | NUR ---
ASSUMED CARES AT 1920. ALERT AND ORIENTED. PLEASANT. ALREADY IN BED. C/O CONGESTION AND ASKING FOR "HALLS COUGH DROPS AND VICKS VAPOR RUB" IN ADDITION TO HAVING THROAT SPRAY AND LOZENGES AT BEDSIDE. PSEUDOPHEDRINE GIVEN. OFFERED WARM COMPRESS. ENCOURAGED FLUIDS. PT REFUSES ANY TYPE OF NASAL SPRAY. PEREZ CATHETER DD HEIDI URINE. WOUND VAC AT 150 MMHG TO LEFT ISCHIAL TUBEROSITY. PICC APOLINAR FLUSHING WITH GOOD BLOOD RETURN. PAIN MEDS GIVEN NEEDED FOR WOUND AND STOMACH PAIN. SMALLER PILLS WERE TAKEN WHOLE BUT WANTED MED/LARGE PILLS CRUSHED. PT NEEDED ASSIST WITH TURNING ONTO SIDES IN BED. SLEPT LITTLE OFF AND ON. USING CALL LIGHT APPROPRIATELY. WILL CONTINUE TO MONITOR.
[2018-09-30 08:07] VITALS: BP 114/55
--- NOTE | 2018-09-30 18:17 | NUR ---
PT HAS PARTICIPATED WITH THERAPIES AND TRANSFERRS TO W/C WITH USE OF RAEGAN LIFT AND STAYS UP 1 1/2 HOUR AND HAS EATEN LUNCH AND SUPPER IN DINNINGROOM. PRN FOR PAIN GIVEN WITH GOOD EFFECT TODAY. WOUND VAC CHANGED TODAY BY YURIY WOUND NURSE AND DRESSING APPLIED TO TOP OF RT. FOOT. DRESSING TO PICC LINE OF LT UPPER ARM CHANGED THIS EVENING. P-T HAS BEEN PLESANT ,ALERT AND ORIENTATED. PEREZ TO DD WITH CLEAR YELLOW URINE.
[2018-09-30 19:00] VITALS: BP 111/61
--- NOTE | 2018-10-01 06:38 | NUR ---
PATIENT HAS SLEPT WELL THROUGHOUT THE NIGHT. VSS ON RA. PAIN MEDICATIONS GIVEN ORDERED AND CHARTED. ASSESSMENT CHARTED. PATIENT TURNED EVERY 2HRS AND PRN. SINGLE LUMEN PICC IN LEFT UPPER ARM-SALINE LOCKED. PEREZ TO DEPENDENT DRAINAGE WITH DARK YELLOW URINE OUTPUT WITH SLIGHT PINK TINGE. PATIENT INSTRUCTED TO USE CALL LIGHT WHEN NEEDING ASSISTANCE. HOURLY ROUNDS MADE. WILL CONTINUE WITH PLAN OF CARE AND NURSING TO MONITOR.
[2018-10-01 08:02] VITALS: BP 116/59
[2018-10-01 09:11] VITALS: BP 116/59
--- NOTE | 2018-10-01 17:57 | NUR ---
ASSUMED CARE AT 0730 PATIENT ALERT/ORIENTED, PAIN MEDS GIVEN THIS SHIFT FOR WOUND/BACK PAIN WITH FAIR RELIEF, UP WITH RAEGAN LIFT TO W/C. PARTICIPATED IN ALL THERAPIES TODAY, TO DINING ROOM FOR MEALS. HOURLY ROUNDING COMPLETED, BED/CHAIR ALARMS IN PLACE, CALL LIGHT IN REACH.
[2018-10-01 20:00] VITALS: BP 103/51
[2018-10-01 21:39] LABS: URINE BILIRUBIN NEGATIVE (Negative); URINE BLOOD 3+ (Negative); URINE CLARITY SL CLOUDY; URINE COLOR YELLOW; URINE GLUCOSE-RANDOM NEGATIVE (Negative); URINE KETONES NEGATIVE (Negative); URINE LEUKOCYTES-REFLEX 2+ (Negative); URINE NITRITE-REFLEX NEGATIVE (Negative); URINE PROTEIN 1+ (Negative); URINE UROBILINOGEN 0.2 E.U./dl (0.2-1.0)
[2018-10-01 21:50] LABS: URINE WBC-REFLEX 6-15 Few /HPF (0-5)
[2018-10-01 21:51] LABS: CASTS None Seen /LPF (None Seen); SQUAMOUS 4-10 Moderate /LPF (0-3)
[2018-10-01 21:52] LABS: BACTERIA-REFLEX 1-9 Few /HPF (None Seen); CRYSTALS None Seen /LPF (None Seen); MUCUS None Seen strn/LPF (None Seen); YEAST-REFLEX Present (None Seen)
[2018-10-01 21:53] LABS: URINE RBC >20 Many /HPF (0-2)
[2018-10-02 05:10] VITALS: BP 127/39
--- NOTE | 2018-10-02 07:35 | NUR ---
Alert and oriented x 4. She is a paraplegic. UA was sent down to lab. She was saying she had pain in her stomach and the wound, she has a pressure wound with a woundvac to left ischium and it's intact and draining at 150. She hadn't had a BM in 2 days and she did take some metamucil at about 2300 last evening. She had oxycodone 30 mg x 2 this shift the last at 2350 with flexeril. At 0500 she began screamimg and saying she had chest pain and couldn't breathe. Her heartrate has been elevated all this shift but it was high at 130-150's. EKG was obtained at this time and it showed sinus tachycardia. Also portable Xrays for chest and abdomen were ordered. Lungs sound clear this shift but may have some slight congestion at bronchial area. She said she had blood tinged sputum, she was having nausea and spitting but blood was not observed by this nurse. Dr Reveles and Cristhian notified of patient's nausea and heartrate and distended abdomen, orders were recieved. She is more relaxed at this time and less nauseated.
[2018-10-02 08:04] VITALS: BP 121/63
--- NOTE | 2018-10-02 15:41 | EKG ---
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
[2018-10-02 18:06] LABS: URINE BILIRUBIN NEGATIVE (Negative); URINE BLOOD 3+ (Negative); URINE CLARITY CLEAR; URINE COLOR YELLOW; URINE GLUCOSE-RANDOM NEGATIVE (Negative); URINE KETONES NEGATIVE (Negative); URINE LEUKOCYTES-REFLEX 1+ (Negative); URINE NITRITE-REFLEX NEGATIVE (Negative); URINE PROTEIN 1+ (Negative); URINE UROBILINOGEN 0.2 E.U./dl (0.2-1.0)
[2018-10-02 18:14] LABS: MUCUS None Seen strn/LPF (None Seen); SQUAMOUS >10 Many /LPF (0-3)
[2018-10-02 18:15] LABS: BACTERIA-REFLEX 1-9 Few /HPF (None Seen); CASTS None Seen /LPF (None Seen); CRYSTALS None Seen /LPF (None Seen); URINE RBC >20 Many /HPF (0-2); URINE WBC-REFLEX 6-15 Few /HPF (0-5)
--- NOTE | 2018-10-02 18:25 | NUR ---
ASSUMED CARE AT 0730. PATIENT ALERT/ORIENTED, VERY ANXIOUS TODAY DUE TO "NOT FEELING GOOD", ALL TEST ARE COMING BACK NEGATIVE, BUT PATIENT FEELS LIKE WE ARE DOING NOTHING FOR HER. SHE WANTED TO KNOW WHY WE WOULDN'T DO A SCOPE AND I SAID THAT IF THAT WERE TO HAPPEN SHE WOULD HAVE TO GO BACK TO THE ACUTE SIDE AND THAT WOULD NOT GUARANTEE HER A PLACE TO COME BACK TO REHAB. PLUS ALL THE TESTS ARE NOT SHOWING ANY BLOCKAGE. SHE STATES WHEN SHE SWALLOWS IT FEELS LIKE ITS "GRATING IN HER STOMACH". SHE HAS HAD NO VOMITING THIS SHIFT, HAS SLEPT MOST OF THE DAY, DID NOT GET HER UP DUE TO HER CONDITION, BUT DID TELL HER SHE WOULD HAVE TO PARTICIPATE IN THERAPIES TOMORROW OR POSSIBLY GO BACK TO ACUTE, DR CASTELLANOS ORDERED PEREZ TO BE CHANGED WITH NEW UA COLLECTED WHICH WAS COMPLETED, PATIENT TO TAKE ALL STOOL MEDICATION, PATIENT DID TAKE ALL BUT CANNOT SWALLOW DOCUSATE CAPSULE SO GAVE BISACODYL EARLY PER PATIENT REQUEST. PATIENT DID HAVE A MODERATE LOOSE BROWN STOOL, STATES FEELING A LITTLE BETTER. TOOK ONLY ONE PAIN PILL THIS SHIFT. WOUND VAC DRESSING LOOSE AND REINFORCED.
[2018-10-02 19:54] VITALS: BP 131/63
--- NOTE | 2018-10-03 05:28 | NUR ---
Alert and oriented x 4. She has been upset this shift. She states she still has abdominal pain and distention and that it's not being addressed by the physician. I did explain that they did xrays and that nothing adverse was observed. She did say but you saw my stomach in the morning which it was distended and firm in the am yesterday. This shift her abdomen is round but soft and has bowel sounds x 4. She hasn't had nausea. Meds given to help alieviate abdominal discomfort so that she can rest were given. She has been awake all of this shift. Right hip has a red area close to where she had a previous pressure ulcer,picture was taken and placed in chart. It has improved this shift. This am she refused oral protonix will pass on that she would like it given by IV. Blood return has been observed with PICC line flushes but this am unable to get enough return for a sample for lab. Lab was notified. Will continue to observe.
[2018-10-03 07:05] LABS: HEMATOCRIT 31.2 % (37.0-47.0); HEMOGLOBIN 9.4 gm/dL (12.0-15.0); MCH 21.6 pg (26.0-34.0); MCHC 30.3 g/dL (28.0-37.0); MCV 71.3 fL (80.0-100.0); MPV 7.8 fl. (7.2-11.1); RBC 4.37 mil/uL (4.20-5.00); RDW-CV 28.2 % (10.5-14.5); WBC 5.5 thou/uL (4.0-11.0)
[2018-10-03 07:19] LABS: ALBUMIN 3.1 g/dL (3.4-5.0); CALCIUM 8.8 mg/dL (8.5-10.1); CREATININE 0.4 mg/dL (0.6-1.3); MAGNESIUM 2.2 mg/dL (1.8-2.4); POTASSIUM 3.7 mmol/L (3.5-5.1); TOTAL BILIRUBIN 0.2 mg/dL (<0.1-1.0); TOTAL PROTEIN 6.5 g/dL (6.4-8.2)
[2018-10-03 07:31] VITALS: BP 107/48
--- NOTE | 2018-10-03 10:26 | NUR ---
PAUL received confirmation of wound vac order and wound vac was delivered to rehab unit; PAUL discussed with Sheeba Giles who is now aware of the home wound vac's arrival. SW faxed referral info for custom wc evaluation to [facility]. SW to continue to follow to assist with safe dc planning.
--- NOTE | 2018-10-03 15:37 | NUR ---
WOUND CARE NOTE: REASSESSMENT OF LEFT ISCHIAL TUBEROSITY WOUND. WOUND VAC DRESSING SKILLED NURSING OFF, SEAL STILL HOLDING PER WOUND VAC, BUT APPEARS TO HAVE SEALED IN THE BRIDGE AND HAVE A FALSE SEAL. REMOVED DRESSING. JUDD-WOUND LATERALLY WITH DENUDED SKIN FROM MOISTURE. JUDD-WOUND MACERATED. WOUND BED EDGES ARE YELLOW, MOIST. WOUND BED CENTER RED, MOIST. BELIEVE MOISTURE IS THE MAJOR COMPONENT OF HER JUDD-WOUND COMPROMISE. WOUND MEASURES 3.5X1.3X2.5. CLEANSED JUDD-WOUND AND WOUND WITH WOUND CLEANSER, PATTED DRY. SKIN PREP APPLIED TO JUDD-WOUND. CUT BLACK FOAM TO FIT WOUND BED. DRAPED, BRIDGED TO OFFLOAD. GOOD SEAL OBTAINED AT 150MMHG. ASSESSED RIGHT HIP. BLANCHABLE REDNESS. PATIENT ADMITS TO HAVING PAIN. REEDUCATED PATIENT ON IMPORTANCE OF TURNING FREQUENTLY AND NOT STAYING ON RIGHT SIDE. COMMUNICATED UNDERSTANDING AND IS NOW ON HER BACK WITH HER HOB FLAT. ENCOURAGED HER TO INCREASE HER PROTEIN AND WITH THAT TO ENSURE HER FLUID INTAKE IS ADEQUATE. PATIENT COMMUNICATED UNDERSTANDING TO ALL. SPOKE WITH HER REGARDING WHO COULD HELP HER AT HOME TROUBLESHOOT THE WOUND VAC. SHE SAID HER MOM WOULDN'T HELP HER AND SHE SAID SHE DIDN'T WANT HER SON TO HELP BECAUSE OF THE LOCATION. PATIENT STATES SHE DOESN'T HAVE ANY FRIENDS THAT COULD HELP HER. HOME WOUND VAC MAY NOT BE IDEAL FOR HER AT HOME BECAUSE NO ONE WILL BE ABLE TO ASSIST HER IF IT FAILS AT HOME, PATIENT MAY NEED AN ALTERNATIVE DRESSING FOR HOME USE. SPOKE WITH NURSE AND SHEEP BONER REGARDING THIS. RECOMMEND ENCOURAGE PROTEIN INTAKE ENCOURAGE TURNS, SHOULD NOT STAY ON HER RIGHT SIDE FOLLOW UP IN WOUND CENTER
--- NOTE | 2018-10-03 18:01 | NUR ---
PT HAS PARTICIPATED WITH THERAPIES AND TURNS SELF AND TRANSFERRS WITH USE OF RAEGAN LIFT AND LIMITS TIME UP DUE TO DECUBE ON BUTTOX. DRESSING CHANGED THIS AFTERNOON BY WOUND NURSE. PT REMINDED TO TURN AND REPOSITION SELF FREQUENTLY.PEREZ TO DD WITH GOOD OUTPUT. PT EATS MEALS IN DINNINGROOM AND HAS FAIR DIET AND DRINKS BOOST BETWEEN MEALS. PT DID HAVE LARGE SOFT FORMED BM WHILE IN SHOWER.PT REMAINS ALERT AND ORIENTATED.
[2018-10-03 20:00] VITALS: BP 108/59
--- NOTE | 2018-10-04 05:19 | NUR ---
ASSUMED CARES AT 1920. ALERT AND ORIENTED. PLEASANT BUT CAN GET EASILY WORRIED ABOUT THINGS. C/O PAIN TO BUTTOCK WOUND AND ABD. PAIN MEDS GIVEN. WANTS CERTAIN PILLS CRUSHED AND OTHERS WHOLE. ALSO C/O BURNING "DOWN THERE". PT AGREEABLE TO TAKE PYRIDIUM. PEREZ CATHETER DD HEIDI URINE. PICC APOLINAR FLUSHING WITH GOOD BLOOD RETURN. EDGES OF DRESSING TO WOUND ROLLING IN AND SO WAS REINFORCED WITH TEGADERM. PT TURNED THROUGHOUT THE NIGHT WHEN AGREEABLE. WANTED TO BE ABLE TO GET SLEEP. SLEPT SOME OFF AND ON. CALL LIGHT IN REACH.
[2018-10-04 07:53] VITALS: BP 106/59
--- NOTE | 2018-10-04 07:57 | CON ---
[address] [address] CONSULTATION Name: BETHEL MAHONEY Room: [address] IN M.R.#: [id number] Admission: 09/27/18 Attend Phys: Antonieta Reveles DO Discharge: Date of : 71 Report #: [id number] THIS REPORT FOR: //name// CC: FAM physician/PCP Antonieta Reveles DATE OF SERVICE: 10/03/2018 INFECTIOUS DISEASE CONSULTATION ATTENDING PHYSICIAN: Antonieta Reveles DO. REASON FOR EVALUATION: Complicated urinary tract infection, also has a sacral decubitus ulcer. HISTORY OF PRESENT ILLNESS: Chart reviewed, the patient examined. This is a 43-year-old female, known to myself, was seen in the hospital in July of this year. She has paraplegia due to a spinal cord tumor. She has ongoing issues as related to the sequelae with decubitus ulcers and also recurrent urinary tract infections with obstructive uropathy or urolithiasis. She has undergone more than one stent placement, most recently on 09/19/2018, with replacement of left ureteral stent. She has ongoing issues with proximal calculus. She had been hospitalized on several occasions, often with a clinical picture of sepsis, including June and July of this year and more recently, this September admission; had gram negatives and now more recently, yeast. She has been on broad-spectrum therapy at times. In addition to the complicated urinary tract infection, she has a sacral decubitus ulcer that clinically and radiographically suggests probable chronic osteomyelitis and had been in a acute long-term care facility from which she was getting treatment. She was referred back due to chronic abdominal pain, but this has been evaluated without a clear diagnosis. She has a history of pneumonitis, although she denies any particular dyspnea at this point. She is currently on fluconazole as well as metronidazole. ALLERGIES: LISTED TO PENICILLIN, SULFA, MORPHINE, QUINOLONES, TRAMADOL AND MINOCYCLINE, MANY WHICH ARE MORE TYPICAL OF ADVERSE DRUG EFFECTS. CURRENT MEDICATIONS: Include docusate sodium, phenazopyridine, , promethazine, lorazepam, psyllium, , polyethylene glycol, pseudoephedrine, fluconazole, acetaminophen, pantoprazole, oxycodone, nystatin, hydrocortisone rectally, bisacodyl, cyclobenzaprine, hyoscyamine, melatonin and ondansetron. PAST MEDICAL HISTORY: As noted above, lower extremity venous stasis, lymphedema, paraplegic due to spinal cord tumor, obstructive uropathy with renal ureterolithiasis and chronic osteomyelitis involving [place] [address] CONSULTATION Name: BETHEL MAHONEY Room: [address] IN [facility].#: [id number] Admission: 09/27/18 Attend Phys: Antonieta Reveles DO Discharge: Date of : 71 Report #: [id number] SOCIAL HISTORY: Former smoker. No ethanol. No illicit drug use. FAMILY HISTORY: Noncontributory. REVIEW OF SYSTEMS: A 10-point review of systems is otherwise unrevealing, with the exception of the above noted in the history of present illness. PHYSICAL EXAMINATION: GENERAL: She is in xwdzjwrc-eq-unwwoy distress. She is moving her head back and forth, which she describes is a response to pain attributable to lower abdominal site. She is chronically in moderate distress. VITAL SIGNS: Temperature 98.4, pulse 101, respirations 16 and blood pressure 107/48. SKIN: Warm, dry. HEENT: Extraocular muscles intact. No oral lesions. NECK: Supple. LUNGS: Generally are clear to auscultation. HEART: Regular rate and rhythm, without murmur. ABDOMEN: Mildly distended and soft. There are no peritoneal signs. There is some tenderness in the lower quadrants. GENITOURINARY: Deferred. RECTAL: Deferred. LABORATORY DATA: Most recent electrolytes, sodium 140, potassium 3.7, chloride 103, bicarbonate is 29, anion gap of 8, BUN and creatinine 6 and 0.4 and glucose of 151. LFTs are unremarkable. Albumin of 3.1. Total protein is 6.5. Estimated GFR 173. CBC: White count of 5.5, H and H 9.4 and 31.2 and platelets of 334,000. Abdominal x-ray showed left nephroureteral stent, 3-mm calculus adjacent to the proximal aspect of the stent. There is a 3-mm calculus in the pelvis as well. Urinalysis; 6-15 white cells, greater than 20 red cells, 1-9 bacteria and evidence of yeast microscopically. ASSESSMENT AND PLAN: Obstructive uropathy secondary to ureteral stone. At this point, the plan, I guess, is to hopefully pass is we will discuss with Urology whether this is particularly driving the abdominal pain; it seems less likely to me. We will await most recent culture results. Secondly, abdominal pain, which is her more urgent complaint at this point, it is not clear as to the etiology. We will discuss with GI whether she would be a candidate for endoscopy at this point. Thirdly, chronic ischial wound, perhaps complicated by chronic osteomyelitis. Review of culture results of the site dating back 2 years was Serratia; more recent culture of July of this year was sterile. I think there is certainly a question as to if she does indeed have chronic osteo. Most recent CT abdomen and pelvis roughly 2 weeks ago did show the bilateral lateral lithiasis; left-sided hydronephrosis secondary to a calculus, proximal left ureter; unchanged left penetrating ulcer of the ischium, which extends to the bone, describing signs consistent with chronic osteomyelitis. If that is the [address] [place] [address] CONSULTATION Name: BETHEL MAHONEY Room: [address] IN .R.#: [id number] Admission: 09/27/18 Attend Phys: Antonieta Reveles DO Discharge: Date of : 71 Report #: [id number] case, it is a surgical disease and we will discuss with Dr. Wong. I am not entirely sure what the general approach the wound was at the acute long-term care facility. She is clearly undernourished, which she attributes to poor appetite and the ongoing abdominal-related pain. Certainly, we will try to improve that situation and continue wound care and offloading the site as well. <ELECTRONICALLY SIGNED> By: Milton Gandhi MD 10/04/18 0757 [id number] Gandhi MD /nt
--- NOTE | 2018-10-04 13:59 | PLAN ---
[address] [address] REHAB UNIT PLAN OF CARE Name: BETHEL MAHONEY Room: [address] IN [facility].#: [id number] Admission: 09/27/18 Attend Phys: Antonieta Reveles DO Discharge: Date of : 71 Report #: [id number] THIS REPORT FOR: //name// CC: [facility] physician/PCP Antonieta Reveles HISTORY OF PRESENT ILLNESS: This is a 43-year-old female admitted to inpatient rehabilitation to facilitate safe discharge home, status post acute hospitalization on 09/16/2018. She has paraplegia, longstanding, 25+ years. She also has a stage 4 pressure ulcer to the coccyx with negative pressure wound therapy, being changed on Wednesday, Wednesday and Wednesday, recently had a sharp debridement. She is now admitted to inpatient rehabilitation to facilitate safe discharge to the home setting. Previous level of function was bed bound. Current level of function has continued to be bedbound. She is making attempts to Torres to the wheelchair at moderate assistance, otherwise dependent. She has mild impairment of comprehension, expression, social interaction, and problem solving. She also has poor memory. She does have a Francois in place. Estimated length of stay is 12-14 days given participation and not refusing therapies. Medical prognosis is fair. Rehabilitation prognosis is fair provided the patient participates in therapies and move above her current baseline of bed bound. Physical Therapy will work with the patient 60-90 minutes per day, 5 days per week, working on upper and lower body strength, balance, coordination, navigation, knowing that she is paraplegic. Occupational Therapy will work with the patient 60-90 minutes per day, 5 days per week, working on upper and lower body strength, balance, coordination, navigation, bathing, dressing, and toileting as well as bowel program. Speech and Language Pathology will work with the patient 60-90 minutes per day, 5 days per week, working on comprehension, expression, social interaction, problem solving and memory. This is an overall plan of care, may change from time to time, we will team weekly and make changes to plan of care as needed. <ELECTRONICALLY SIGNED> By: Antonieta Reveles DO 10/04/18 1359 1353 [id number] Reveles DO /nt
--- NOTE | 2018-10-04 15:57 | NUR ---
WOUND CARE NOTE: WOUND VAC CAME DISLODGED. SPOKE WITH REHAB PHYSICIAN ABOUT CONCERNS THAT NO ONE WILL BE ABLE TO ASSIST PATIENT AT HOME WITH WOUND VAC. THAT PATIENT STATED HER MOTHER STATED SHE WOULD NOT HELP WITH IT AND THAT SHE DIDN'T WANT HER SON DOWN THERE. ALSO SPOKE WITH PHYSICIAN ON ISSUES WITH WOUND VAC NOT ADHERING APPROPRIATELY. PLANS MADE TO ASSESS PATIENT TOGETHER TOMORROW. APPLIED ZINC OXIDE TO JUDD-WOUND. NO TUNNELS NOTED. JUDD-WOUND LOOKS IMPROVED. EDUCATED PATIENT THAT WE WOULD ATTEMPT TO REPLACE VAC TOMORROW, COMMUNICATED UNDERSTANDING. PATIENT DESIRES NEW WOUND VAC MACHINE, BUT AGAIN EDUCATED THAT THE MACHINE IS FUNCTIONING APPROPRIATELY. THAT UNFORTUNATELY BECAUSE THE BRIDGE IS SO LONG, THAT IT IS SEALING ITSELF OFF. AGAIN PATIENT QUESTIONS WHY THE A WOUND FROM THE WOUND CENTER HASN'T BEEN BY TO SEE HER. EDUCATED HER THAT THE REHAB PHYSICIAN AND I WERE WORKING TOGETHER TO CARE FOR HER WOUND.
--- NOTE | 2018-10-04 17:59 | NUR ---
PT HAS BEEN UP TO W/C PER RAEGAN LIFT FOR MEALS AND THERAPY. WOUND VAC HAS COME OFF THIS AFTERNOON AND IS LEFT OFF PER WITH DECUB PACKED WITH DRAW JER AND ABD PLACED WITH PAPER TAPE TO GOOD SKIN. WOUND NURSE AWARE AND WILL REEVALUATE WITH TOMORROW.OTHER REDDENED AREA WITH CREAM APPLIED BY WOUND NURSE TO PROMOTE DRYING OF AREA. NYSTANTIN POWDER TO REDDENED JUDD AREA AND RT.HIP.PT ASSISTED WITH TURNING Q 1-2 HOURS WHEN IN BED.IV ANTIBIOTIC STARTED PER TODAY TO LT UPPER ARM PICC PER PUMP.PT ALERT AND ORIENTATED BUT ANXIOUS ABOUT SLOW HEALING OF DECUB AND ASKS MANY OF THE SAME QUESTIONS TO DIFFERENT STAFF.PT REASSURED AREA IS HEALING BUT IT WILL BE SLOW. GOOD FLUID INTAKE AND NUTRITION ENCOURAGED. PEREZ TO DD WITH CLEAR ORANGE URINE FROM HAVING TAKEN PYRIDIUM LAST NIGHT.PT DENIES ANY FURTHER BURNING OF URETHRA.CULTURE OF LT HIP WOUND OBTAINED AND SENT TO LAB.PRN FOR PAIN GIVEN THIS AFTERNOON WITH GOOD EFFECT.
[2018-10-04 19:58] VITALS: BP 105/57
--- NOTE | 2018-10-04 21:55 | NUR ---
ASSUMED CARE AT 1920. PT HAD LARGE LIQUID SOFT STOOL INCONTINENCE. RN ASSISTED WITH ALL CARES AND CHANGING. WOUND TO LEFT BUTTOCK WAS REPACKED AND ABD APPLIED. WOUND VAC REMAINS OFF AT THIS TIME.
--- NOTE | 2018-10-05 04:56 | NUR ---
ALERT AND ORIENTED. PLEASANT. C/O LEFT BUTTOCK WOUND AND ABD PAIN. PAIN MEDS GIVEN PER REQUEST. MED-LARGER PILLS CRUSHED AND SMALL TAKEN WHOLE. PEREZ CATHETER DD ORANGE/HEIDI URINE. LUE PICC FLUSHING WITH BLOOD RETURN. TURNED DURING THE NIGHT WHEN AGREEABLE. SLEPT SOME. CALL LIGHT IN REACH.
[2018-10-05 07:30] VITALS: BP 104/57
--- NOTE | 2018-10-05 15:41 | NUR ---
SW and med varsha Ortega met with pt to review team conference summary and plan for pt to remain on rehab unit one more week with team to reteam next Wednesday. Pt was pleased with the news to reteam and agreeable to continue therapies. SW mentioned challenges with wound vac care at home and pt understanding. SW to continue to follow to assist with safe dc planning; may anticipate SNF needed vs home with family due to medical care needed and continued rehab needed...SW to address with pt to discuss preferences and referrals as needed.
--- NOTE | 2018-10-05 19:31 | NUR ---
ASSUMED CARE AT 0730 PATIENT ALERT/ORIENTED, PAIN MEDS GIVEN X2 THIS SHIFT, FLEXERIL GIVEN X1. UP WITH RAEGAN LIFT, PARTICIPATED IN ALL THERAPIES TODAY. DID REFUSE TO GET UP FOR DINNER. WOUND VAC CHANGED BY YURIY WOUND NURSE TODAY, INTACT AT THIS POINT. HOURLY ROUNDING COMPLETED. BED/CHAIR ALARMS IN PLACE, TURN Q 2 HOURS.
[2018-10-05 20:06] VITALS: BP 115/60
--- NOTE | 2018-10-06 05:18 | NUR ---
ASSUMED CARES AT 1920. ALERT AND ORIENTED. PLEASANT. C/O CONGESTION DURING THE NIGHT. SUDAFED GIVEN. TAKES SMALL PILLS WHOLE AND OTHERS CRUSHED. PAIN MEDS GIVEN FOR WOUND AND ABD PAIN. PICC LUE FLUSHING WITH GOOD BLOOD RETURN. WOUND VAC IN PLACE TO LEFT BUTTOCK. PT TURNED THROUGHOUT THE NIGHT WHEN AGREEABLE. CALL LIGHT IN REACH.
[2018-10-06 09:32] VITALS: BP 106/56
[2018-10-06 20:00] VITALS: BP 105/59
--- NOTE | 2018-10-06 23:21 | NUR ---
ASSUMED CARE AT 1930. PATIENT RESTING IN BED. TAKES PILLS WHOLE WITH WATER. ALERT AND ORIENTED. PATIENT TURNS AT TIMES, BUT REFUSES SOME TURNS DESPITE EDUCATION. LUE PICC LINE FLUSHES WELL, DRESSING C/D/I. WOUND VAC DRESSING C/D/I. THERE WAS A SMALL AREA OF THE DRESSING THAT LOOKED LIKE THE EDGES WERE ROLLING, TEGADERM APPLIED TO AREA WITH IMPROVEMENT IN WOUND VAC NOTED. HAS SMALL AREA ON RT HIP THAT IS PINK AND BLANCHABLE. MOISTURE BARRIER APPLIED. WANTED TO LIE TO HAVE HER RT SIDE OFF THE BED, AND WAS LYING ON LEFT SIDE. THE WOUND VAC STARTED BEEPING FOR LEAK, PATIENT REFUSED TO LIE IN A POSITION OTHER THAN ON HER BACK. WANTED PILLOWS UNDER HER LEGS TO ELEVATE THEM, AND WAS PLACING THE HOB UP SO SHE COULD REACH THEM. CONCERNED ABOUT HAVING DIARRHEA, ONE CHUX UNDER PATIENT. HOURLY ROUNDS CONTINUE. BED ALARM ON. CALL LITE IN REACH.
--- NOTE | 2018-10-07 05:20 | NUR ---
SLEPT SOME OF THE NIGHT. AWAKENED FOR IVPB. WOUND VAC ALARMING LEAK, AREA FOUND AND TEGADERM APPLIED TO EDGE AND LEAK STOPPED. PATIENT ON LEFT SIDE DESPITE EDUCATION NEEDING TO CHANGE POSITION MORE OFTEN. HAS REFUSED MANY OFFERS TO CHANGE POSITION. MOISTURE BARRIER APPLIED TO RT BUTTOCK PINK AREA. VOICE MAIL LEFT ON WOUND CARE NURSE PHONE TO UPDATE. MEDICATED FOR PAIN, SEE MAR. PICC LINE FLUSHES WELL, IVPB INFUSING AT PRESENT. HOURLY ROUNDS CONTINUE. CALL LITE IN REACH. BED ALARM ON.
[2018-10-07 08:05] VITALS: BP 87/45
[2018-10-07 08:30] VITALS: BP 116/61
--- NOTE | 2018-10-07 18:07 | NUR ---
ASSUMED CARE AT 0730 PATIENT ALERT/ORIENTED, PAIN MEDS GIVEN X2 THIS SHIFT FOR ABDOMEN/WOUND PAIN, UP WITH RAEGAN LIFT TO W/C, BED/CHAIR ALARMS IN PLACE, PICC TO APOLINAR WITH IV ANTIBIOTICS INFUSING WITH NO DIFFICULTY. HOURLY ROUNDING COMPLETED, PARTICIPATED IN THERAPIES TODAY. YURIY WOUND NURSE CHANGED WOUND VAC DRESSING TODAY. PICC LINE DRESSING WAS CHANGED TODAY.
[2018-10-07 20:37] VITALS: BP 109/54
--- NOTE | 2018-10-08 01:26 | NUR ---
ASSUMED CARE @ 1934-10/07-WEDNESDAY.AWAKE IN BED ON HER RIGHT SIDE.ISOLATION OBSERVED.ON LOW AIR LOSS BED.PEREZ CATHETER-PATENT.WOUND VAC-WORKING.HEELS OFF BED @ 1934.BED ALARM ON WHILE IN BED.SEE PAIN MANAGEMENT @ 2135.LEFT HIP-PINK. ANTI FUNGAL CREAM APPLIED @ 2199 PER PT'S REQUEST.ON HOURLY ROUNDS.SOAKER HIDES DOING ODD HOUR ROUNDS.SEE POSITION CHANGE CHARTING BY SOAKER HIDES Q 2 HOURS-EVEN HOURS.
--- NOTE | 2018-10-08 05:43 | NUR ---
SLEPT LATE SINCE 0000-10/08-SAT & SLEPT GOOD ALL NIGHT.CALLED @ [employer]LARGE SOFT UNFORMED STOOLS.JUDD CARE DONE.Z GUARD PASTE APPLIED TO PINK PERINEAL AREAS AFTER JUDD CARE.SEE 2ND PAIN MANAGEMENT @ 4208.PICC LINE HAS GOOD BLOOD RETURN @ 0450 & FLUSHES GOOD.REFUSED HS SNACK.
[2018-10-08 08:00] VITALS: BP 108/47
[2018-10-08 20:00] VITALS: BP 117/49
--- NOTE | 2018-10-09 01:33 | NUR ---
ASSUMED CARE @ 1919-10/08-SAT.AWAKE IN BED ON HER BACK W/ HOB UP ON HER PHONE @ THIS TIME.ISOLATION OBSERVED.ON LOW AIR LOSS BED.WOUND VAC-PATENT.PEREZ CATHETER IN PLACE & DRAINING.HEELS OFF BED ALREADY @ 1919.NOTED LEFT HEEL- PINK.PATIENT CLAIMS LEFT HEEL-PINK FROM SITTING IN W/C.BED ALARM PUT ON @ 1919.SEE PAIN MANAGEMENT @ 2151.ON HOURLY ROUNDS.BARTENDER MANAGER DOING ODD HOUR ROUNDS. SEE POSITION CHANGE CHARTING BY BARTENDER MANAGER Q 2 HOURS-EVEN HOURS.
[2018-10-09 06:09] LABS: ALBUMIN 2.9 g/dL (3.4-5.0); CALCIUM 9.3 mg/dL (8.5-10.1); CREATININE 0.4 mg/dL (0.6-1.3); TOTAL BILIRUBIN 0.1 mg/dL (<0.1-1.0); TOTAL PROTEIN 6.5 g/dL (6.4-8.2)
--- NOTE | 2018-10-09 07:25 | NUR ---
REFUSED HS SNACK.PICC LINE HAS GOOD BLOOD RETURN @ 0525 & FLUSHES GOOD.SLEPT LATE SINCE 250 BUT SLEPT GOOD AFTER.SEE 2ND PAIN MANAGEMENT @ 0206.PRN FLEXERIL 10 MG ORAL GIVEN @ 0208-PER PT'S REQUEST W/ OXY IR.
[2018-10-09 07:49] LABS: HEMATOCRIT 29.6 % (37.0-47.0); HEMOGLOBIN 9.3 gm/dL (12.0-15.0); MCH 22.9 pg (26.0-34.0); MCHC 31.4 g/dL (28.0-37.0); MCV 72.9 fL (80.0-100.0); MPV 7.9 fl. (7.2-11.1); NUCLEATED RBCS 0 /100WBC; PLATELET COUNT* 311 thou/uL (150-400); RBC 4.06 mil/uL (4.20-5.00); RDW-CV 28.2 % (10.5-14.5); WBC 4.8 thou/uL (4.0-11.0)
[2018-10-09 07:50] VITALS: BP 104/48
[2018-10-09 08:54] LABS: ABSOLUTE EOSINOPHILS 0.2 thou/uL (0.0-0.7); ABSOLUTE LYMPHOCYTES 1.2 thou/uL (0.8-5.3); ABSOLUTE MONOCYTES 0.3 thou/uL (0.0-1.2); ABSOLUTE NEUTROPHILS 3.1 thou/uL (1.6-8.1); BASOPHILS 0.9 %; EOSINOPHILS 3.7 %; LYMPHOCYTES 24.6 %; MONOCYTES 6.3 %; POLYS 64.5 %
[2018-10-09 08:59] LABS: ANISOCYTOSIS 3+; MICROCYTES 2+; PLATELET ESTIMATE ADEQUATE
[2018-10-09 09:00] LABS: OVALOCYTES 1+; TEARDROPS 1+
--- NOTE | 2018-10-09 18:08 | NUR ---
AM ASSESSMENT AND VITAL SIGNS COMPLETED DOCUMENTED. PT STAYED IN BED ALL DAY PER HER REQUEST, TURN/ REPOSITION AT LEAST EVERY TWO HOURS, LOW AIR LOSS MATTRESS. WOUND VAC TO LEFT HIP REMAINS INTACT WITH CONTINUOUS SUCTION. IV ABX CONTINUE, DRESSING TO APOLINAR PICC IS C/D/I. PRN PAIN MEDICATION GIVEN TWICE THIS SHIFT. FALL PRECAUTIONS AND HOURLY ROUNDING CONTINUE.
[2018-10-09 20:00] VITALS: BP 124/55
--- NOTE | 2018-10-10 00:53 | NUR ---
ASSUMED CARE @ 1924-10/09-WEDNESDAY.AWAKE IN BED ON HER RIGHT SIDE WRITING ON HER JOURNAL.ON LOW AIR LOSS BED.ISOLATION OBSERVED.PEREZ CATHETER PATENT.WOUND VAC-WORKING.BED ALARM PUT ON @ 1924.FOUND PATIENT CRYING @ 2099.TALKED W/ PATIENT & ASKED IF SHE WANTS TO TALK ABOUT IT.CLAIMS SHE HAS BEEN IN HOSPITAL SINCE JUNE & MAKES HER FEEL DOWN.CONSENTED FOR RN TO PRAY FOR HER.SEE FIRST PAIN MANAGEMENT @ 2110.PRN FLEXERIL GIVEN ORAL @ 2200-PER PT'S REQUEST.ON HOURLY ROUNDS.SUPERVISOR HAND SILVERING DOING ODD HOUR ROUNDS.SEE POSITION CHANGE CHARTING Q 2 HOURS-EVEN HOURS CHARTED BY SUPERVISOR HAND SILVERING.SEE PAIN MANAGEMENT @ 2256 FOR FRONTAL HEAD- ACHE @ 2257.
--- NOTE | 2018-10-10 05:39 | NUR ---
SLEPT LATE SINCE 0000-10/10-WEDNESDAY.SLEPT GOOD ALL NIGHT.PICC LINE HAS GOOD BLOOD RETURN @ 0500 & FLUSHES GOOD.SEE 2ND PAIN MANAGEMENT @ 0220.TOOK ALL ENSURE HS SNACK.
[2018-10-10 07:42] VITALS: BP 105/46
--- NOTE | 2018-10-10 15:05 | NUR ---
WOUND NURSE: PATIENT SEEN FOR WOUND VAC DRESSING CHANGE TO WOUND ON RIGHT ISCHIUM. MEASURES 3.2 X 1.0 X 2.5 CM AND CONTAINS 2.5 CM UNDERMINING FROM 12 TO 12 O'CLOCK. THERER IS PINK GRANULATION TISSUE IN THE WOUND BED, AND BONE IS NOT WELL COVERED. THERE IS MODERATE AMOUNT OF SEROUSANGUINOUS DRAINAGE NOTED. THERE IS SIGNIFICANT AMOUNT OF PERIWOUND EXCORIATION NOTED. REMOVED DRESSING AND CLEANSED WITH SOAP AND WATER, RINSED WITH WATER, THEN PATTED DRY. APPLIED SKIN PREP TO INTACT PERIWOUND TISSUE AND PLACED GRANUFOAM INTO THE WOUND, THEN COVERED WITH TRANSPARENT DRESSING AND BRIDGED TRACK PAD AWAY FROM WOUND AND PLACED ON TOP OF UPPER LEG. VAC SETTINGS ARE: 150MMHG CONTINUOUS NEGATIVE PRESSURE. THIS WAS TOLERATED WELL BY THE PATIENT.
--- NOTE | 2018-10-10 17:35 | NUR ---
ASSUMMED CARE OF PT AT 0730, PT ALERT AND ORIENTED, TRANSFERS PER RAEGAN LIFT, TURNS WELL IN BED BUT NEEDS ENCOURAGEMENT TO TURN, PT COMPLAINS OF PAIN IN RIGHT HIP AND BUTTOCK, MEDICATED PER ORDER, DENIES NAUSEA, LEFT HEEL PINK, KEPT ELEVATED THIS SHIFT, PROPELS WHEELCHAIR WELL, ISOLATION PRECAUTIONS MAINTAINED, NO BM THIS SHIFT, PT REQUESTED MOM, GIVEN X 1, PT REFUSED TO EAT MEALS IN DININGROOM, PARTICIPATED IN ALL THERAPIES, WD VAC CHANGED PER WD CARE NURSE, HOURLY ROUNDING COMPLETED, ASSESSMENT COMPLETE, WILL CONTINUE TO MONITOR.
[2018-10-10 20:00] VITALS: BP 110/61
--- NOTE | 2018-10-11 00:20 | NUR ---
ASSUMED CARE AT 1930. PATIENT RESTING IN BED. ON ISOLATION FOR MRSA. TAKES MOST PILLS WHOLE WITH WATER, EXCEPT PROBIOTIC WHICH SHE CRUSHES AND CONSUMES THE POWDER. PICC LINE FLUSHES WELL, IVBP INFUSING WELL. REFUSES TO BE TURNED AT TIMES, OTHER TIMES REQUESTS TO BE TURNED, DESPITE EDUCATION. RT HIP PINK, BUT IMPROVING, MOISTURE BARRIER APPLIED. WOUND VAC AT 150 MM HG, FUNCTIONING WELL. TOOK ENSURE AT HS. MEDICATED FOR PAIN WITH GOOD RELIEF. HEELS OFFLOADED ON PILLOWS. HOURLY ROUNDS CONTINUE. BED ALARM ON. CALL LITE IN REACH.
--- NOTE | 2018-10-11 05:13 | NUR ---
SLEPT OFF AND ON THROUGH NIGHT. MEDICATED FOR PAIN, SEE MAR. PICC LINE FLUSHES WELL, CURRENTLY IVPB INFUSING. ASSISTED WITH TURNS, REFUSED SOME TURNS DESPITE EDUCATION. HAS HAD HEELS ELEVATED AT TIMES. HOURLY ROUNDS CONTINUE. BED ALARM ON. CALL LITE IN REACH. RETURNED TO SLEEP AFTER MOST RECENT IVPB STARTED. PEREZ DRAINING HEIDI URINE. WOUND VAC CONTINUES TO BE AT 150 MM HG SUCTION. NO C/O MAX. HOURLY ROUNDS CONTINUE. BED ALARM ON. CALL LITE IN REACH.
[2018-10-11 08:26] VITALS: BP 119/64
--- NOTE | 2018-10-11 14:10 | NUR ---
SW called and spoke with pt mother [employer] in preparation for team conference on Wednesday. Pt mother concerned for pt dc plan and wants pt to receive best care possible upon dc for pt to be able to continue recovery from wounds and infections. Pt mother suggested maybe OGNR but was still concerned as to whether or not they would be able to provide the needed care. SW to send referrals as needed. SW to fax PT and Dr Reveles's progress notes to [facility] regarding need for custom wc. SW to continue to follow to assist with safe dc planning.
--- NOTE | 2018-10-11 18:39 | NUR ---
ASSUMMED CARE OF PT AT 0730, PT ALERT, WEEPY MUCH OF SHIFT, VERY CONCERNED REGARDING MRSA, STATES "I AM GOING TO FROM THIS", PT REASSURED BUT CONTINUED WITH CONCERNS ALL SHIFT, UROLOGY HERE AND SCHEDULED STENT AND STONE REMOVAL FOR AM BUT PT REFUSED TO HAVE SURGERY, ALSO REFUSED TO HAVE URINE CULTURE DONE FROM CATHETER UNTIL WOUND VAC IS BACK ON HER WOUND,VERY UNREALISTIC ABOUT HER MRSA AND THINKS IT WILL GET INTO ALL HER BODY CAVATIES, PT HAS NOT HAD BM FOR 4 DAYS, INSTRUCTED PT SHE NEEDED TO TAKE MEDICATIONS, HYPOACTIVE BOWEL SOUNDS AND SOME DISTENSION, PT REFUSED MOM, SUPP UNTIL WOUND VAC REATTACHED TOMORROW, WOUND VAC REMOVED SURGEON HERE TO LOOK AT WOUND, SURGEON FELT WD LOOKED GD AND NO NEED FOR SURGERY AT THIS TIME, PT COMPLAINED OF PAIN, MEDICATED PER ORDER, PEREZ PATENET AND DRAINING HEIDI URINE, PARTICIPATED IN ALL THERAPIES, HOURLY ROUNDING COMPLETED, ASSESSMENT COMPLETE, WILL CONTINUE TO MONITOR.
[2018-10-11 20:00] VITALS: BP 129/78
--- NOTE | 2018-10-12 06:37 | NUR ---
ASSUMED PT CARE AT 1930. PT ALERT AND ORIENTED X4, POLITE AND COOPERATIVE WITH CARES. PT IN BED AT SHIFT CHANGE. ON CONTACT PRECAUTIONS FOR MRSA. PT QUIET AND DID NOT VOICE CONCERNS RE MRSA SHE DID ON DAY SHIFT, HOWEVER, PT VERY EXACTING WITH CARES. PT TAKES PILLS WHOLE WITH WATER EXCEPT PROBIOTIC WHICH SHE CONSUMES CRUSHED. PICC LINE FLUSHES EASILY, ANTIBIOTICS INFUSED X2. PRN OXY X3 FOR PAIN AND FLEXERIL ONCE THIS SHIFT. PT REFUSED SOME TURNS DESPITE EDUCATION. NO STOOL THIS SHIFT, PT REFUSES ANY BOWEL MEDICATIONS UNTIL WOUND VAC IS REPLACED TODAY. PT WOULD NOT ALLOW URINE TO BE DRAWN FROM PEREZ FOR URINE CULTURE UNTIL WOUND VAC REPLACED. PEREZ PATENT AND DRAINING HEIDI URINE. PT USES CALL LIGHT APPROPRIATELY, CALL LIGHT AND FREQUENTLY USED ITEMS WITHIN REACH. HOURLY ROUNDING COMPLETED.
[2018-10-12 08:17] VITALS: BP 101/53
--- NOTE | 2018-10-12 14:50 | NUR ---
WOUND CARE NOTE: DRESSING CHANGE PATIENT WAS SEEN WITH REHAB PHYSICIAN. WOUND LOOKING IMPROVED. JUDD-WOUND IMPROVING, BUT IS MACERATED. FISSURE DISTAL TO THE WOUND HAS HEALED. PROXIMAL FISSURE WITH NEW EPITHELIUM. PLAN IS TO PLACE WOUND VAC ON HOLD AT THIS TIME TO HELP JUDD-WOUND DRY OUT. CLEANSED WOUND, PATTED DRY. APPLIED DRAWTEX INTO WOUND BED. APLLIED SKIN PREP. COVERED WITH BORDERED FOAM. PATIENT TOLERATED DRESSING CHANGE WELL. EDUCATED PATIENT ON PLAN, COMMUNICATED UNDERSTANDING. SPOKE OF OPTIONS OF REDUCING THE NUMBER OF LAYERS OF LINEN/INCONTINENCE AIDS UNDER HER. PATIENT DESIRES TO WEAR BRIEF WHEN OUT OF BED FOR MODESTY AND FEELS THAT SHE NEEDS TO USE THE CHUX WHEN OUT OF BED TOO INCASE THE BRIEF DOES NOT CATCH EVERYTHING. PATIENT STATES SHE IS EATING WELL, TRYING TO DRINK THE NUTRITIONAL SUPPLEMENTS. WILL REASSESS WEDNESDAY
--- NOTE | 2018-10-12 16:20 | NUR ---
PAUL and Dr Reveles met with pt to review team conference summary and plan for pt to dc on Wednesday. Pt understanding of plan and agreed that she would think about her options and the team's recommendations for pt to dc to surgery on Wednesday and then to SNF; pt still will state to Dr Reveles that she will consider SNF and then when SW discusses SNF options with pt, pt says that she will not go to SNF. PAUL did not contact pt mother at request of pt to speak only through pt. SW to continue to follow to assist with safe dc planning.
--- NOTE | 2018-10-12 17:43 | NUR ---
ASSUMED CARE AT 0730 PATIENT ALERT/ORIENTED, PAIN MEDS GIVEN X1 THIS SHIFT FOR FAIR RELIEF, UP WITH SLIDE BOARD THIS AM AND RAEGAN LIFT THIS AFTERNOON TO W/C FOR THERAPIES, PUT DID STAY UP IN CHAIR FOR DINNER THIS EVENING, IV ANTIBIOTICS INFUSING TO [facility] PICC WITH NO DIFFICULTIES. PARTICIPATED IN ALL THERAPIES TODAY, BED/CHAIR ALARMS IN PLACE, CALL LIGHT IN REACH, HOURLY ROUNDING COMPLETED. WOUND NURSE AND DR ROMEO LOOKED AT BUTTOCKS WOUND, WILL LEAVE WOUND VAC OFF TILL WEDNESDAY AND REEVALUATE AT THAT TIME
[2018-10-12 20:00] VITALS: BP 106/50
--- NOTE | 2018-10-13 00:46 | NUR ---
ASSUMED CARE AT 1930. PATIENT RESTING IN BED. ABLE TO TURN PARTWAY SIDE TO SIDE, ASSISTED WITH TURNS. TAKES PILLS WHOLE EXCEPT FOR PROBIOTIC THAT IS CRUSHED AND SHE TAKES IT ALONE FOLLOWING WITH [employer]. RT HIP PINK, MOISTURE BARRIER APPLIED. LT HIP DRESSING C/D/I. APOLINAR PICC LINE FLUSHES WELL. LEGS ELEVATED WHEN SHE ALLOWS. C/O CONSTIPATION. GIVEN DULCOLAX SUPPOSITORY. AWAITING RESULTS. ON CONTACT PRECAUTIONS FOR MRSA. REFUSES SOME TURNS DESPITE EDUCATION. MEDICATED FOR PAIN ONCE. HOURLY ROUNDS CONTINUE. BED ALARM ON. CALL LITE IN REACH.
--- NOTE | 2018-10-13 03:08 | NUR ---
GIVEN SUPPOSITORY AT HS. SEE MAR. NO RESULTS OF YET. LYING ON RT SIDE BECAUSE SHE FEELS IF SHE IS LYING ON LT SIDE SHE WILL GET STOOL IN HER WOUND BECAUSE IT DOES NOT HAVE A WOUND VAC ATTACHED. EDUCATION GIVEN ABOUT NEEDING THE CHANGE POSITIONS, BUT PATIENT REFUSES TO TURN. WILL CONTINUE TO MONITOR.
--- NOTE | 2018-10-13 05:55 | NUR ---
SLEPT OFF AND ON THROUGH THE NIGHT. REFUSED TO TURN FOR A WHILE BECAUSE SHE WAS CONCERNED THAT SHE WOULD HAVE RESULTS FROM HER LAXATIVE AND IT WOULD GET INTOT HER DRESSING. SHE LATER DID TURN TO HER BACK. ASSISTED WITH TURNS DOCUMENTED. DRESSING TO LT HIP C/D/I. PICC LINE FLUSHING WELL. HOURLY ROUNDS CONTINUE. BED ALARM ON. CALL LITE IN REACH.
[2018-10-13 07:00] VITALS: BP 108/52
[2018-10-13 08:00] VITALS: BP 108/52
--- NOTE | 2018-10-13 17:41 | NUR ---
ASSUMED CARE AT 0730 PATIENT ALERT/ORIENTED, PAIN MEDS GIVEN X2 THIS SHIFT, UP WITH SLIDE BOARD TO AND FROM BED THIS SHIFT, PATIENT IS ABLE TO DO 90% OF WORK. DID PARTICIPATE IN ALL THERAPIES TODAY, MRI OF PELVIC AREA COMPLETED TODAY. HOURLY ROUNDING COMPLETED, BED/CHAIR ALARMS IN PLACE, CALL LIGHT IN REACH. DRESSING TO LEFT BUTTOCKS CLEAN/DRY/INTACT. POSITION CHANGES COMPLETED, WHEN NOT UP WITH THERAPY
[2018-10-13 20:15] VITALS: BP 124/62
--- NOTE | 2018-10-14 05:32 | NUR ---
ASSUMED CARES AT 1920. ALERT AND ORIENTED. PLEASANT. ALREADY IN BED. ON CONTACT ISOLATION. C/O PAIN TO WOUND AND RIGHT HIP. PAIN MEDS GIVEN. TAKES PILLS SOME WHOLE AND SOME CRUSHED. PICC APOLINAR FLUSHES BUT NO BLOOD RETURN. LAB NOTIFIED FOR LAB DRAW. PT REQUESTED SUPPOSITORY AND SO THIS WAS GIVEN. HAD GOOD RESULTS OF SMALL/MOD SOFT STOOLS X 3. NURSING DID ALL CARES. DRESSING TO WOUND ON BUTTOCK CHANGED X 1 DUE TO BEING SOILED. SMALL AMOUNT OF SEROUS DRAINAGE NOTED TO OLD DRESSING. PEREZ CATHETER DD HEIDI URINE. PT TURNED THROUGHOUT THE NIGHT WHEN AGREEABLE. SLEPT LITTLE OFF AND ON.
[2018-10-14 05:49] LABS: HEMATOCRIT 31.9 % (37.0-47.0); HEMOGLOBIN 9.8 gm/dL (12.0-15.0); MCH 22.3 pg (26.0-34.0); MCHC 30.8 g/dL (28.0-37.0); MCV 72.6 fL (80.0-100.0); MPV 7.6 fl. (7.2-11.1); RBC 4.4 mil/uL (4.20-5.00); RDW-CV 27.4 % (10.5-14.5)
[2018-10-14 06:07] LABS: ALBUMIN 2.9 g/dL (3.4-5.0); CREATININE 0.4 mg/dL (0.6-1.3); MAGNESIUM 1.8 mg/dL (1.8-2.4); POTASSIUM 3.9 mmol/L (3.5-5.1); TOTAL BILIRUBIN 0.2 mg/dL (<0.1-1.0); TOTAL PROTEIN 6.7 g/dL (6.4-8.2)
[2018-10-14 08:00] VITALS: BP 108/54
--- NOTE | 2018-10-14 16:15 | NUR ---
PAUL met with pt to discuss safe dc planning and preparation for dc plan after surgery Wednesday. Pt says she now understands need for SNF and is in agreement with SNF placement but pt says she only wants [facility]. PAUL sent referral to [facility] and will continue to follow to assist with safe dc planning/placement after surgery Wednesday.
--- NOTE | 2018-10-14 18:27 | NUR ---
PT HAS BEEN PLEASANT AND COOPERATIVE TODAY. WOUND VAC WAS REAPPLIED THIS AM BY SQUADRON WORKER. AT 1415 THE LEAK ALARM STARTED. THE LOWER PART OF THE DRAPE AND APPROXIMATELY 3 INCHES OF THE FOAM TRACK WERE PULLED AWAY FROM THE SKIN. REPAIR TO THE DRESSING ACHIEVED A PROPER SEAL AND CONTINUOUS SUCTION.
[2018-10-14 20:10] VITALS: BP 109/52
--- NOTE | 2018-10-15 01:28 | NUR ---
ASSUMED CARES AT 1920. APOLINAR SINGLE PICC CONTINUED WITH NO BLOOD RETURN AND NOW EVEN MORE RESISTANCE TO FLUSHING. PICC DECLOTTING PROTOCOL INTITIATED. CATHFLO ADMINISTERED BY DICK SHAW AT 2220. PICC ASSESSED EVERY 30 MIN BUT FINALLY ABLE TO GET GOOD BLOOD RETURN AT 0100 WITH FLUSHING IMPROVED. PICC DRESSING CHANGED WELL. WILL CONTINUE TO MONITOR.
--- NOTE | 2018-10-15 05:00 | NUR ---
ALERT AND ORIENTED. PLEASANT. C/O PAIN TO WOUND. PAIN MEDS WERE GIVEN. REMAINS ON CONTACT ISOLATION. WOUND VAC TO LEFT BUTTOCK INTACT. PEREZ CATHETER DD HEIDI URINE. PT TURNED WHEN AGREEABLE. SLEPT LITTLE. ALL NEEDS MET. CALL LIGHT IN REACH.
[2018-10-15 08:00] VITALS: BP 92/40
--- NOTE | 2018-10-15 17:56 | NUR ---
ASSUMED CARE AT 0730 PATIENT ALERT/ORIENTED, PAIN MEDS GIVEN X1 THIS SHIFT WITH FAIR RELIEF, WOUND VAC REINFORCED DUE TO EDGES COMING LOOSE. DID NOT GET OUT OF BED TODAY, BUT DID WORK WITH THERAPIES IN BED. NEW RASH NOTED TODAY, NEW ORDRES FOR BENADRYL INITIATED, HOURLY ROUNDING COMPLETED, BED ALARMS IN PLACE, CALL LIGHT IN REACH. TO BE READMITTED TO ACUTE TOMORROW FOR SURGERY ON WEDNESDAY MORNING.
[2018-10-15 20:11] VITALS: BP 110/65
[2018-10-16 01:21] VITALS: BP 110/65
--- NOTE | 2018-10-16 05:32 | NUR ---
ASSUMED PT CARE AT 1930. PT ALERT AND ORIENTED X4, POLITE AND COOPERATIVE WITH CARES. ON CONTACT ISOLATION FOR MRSA. WOUND VAC TO LEFT BUTTOCK INTACT. PEREZ CATHETER TO DD, DRAINING HEIDI URINE. PT TURNED WHEN SHE WOULD ALLOW. ORAL BENEDRYL AND BENEDRYL CREAM TO RASH ON ALL EXTREMITIES. PER PT BENEDRYL DID NOT HELP ITCHING, BUT REDNESS OF RASH HAS DECREASED OVERNIGHT. PICC TO LEFT UPPER ARM FLUSHES EASILY, ANTIBIOTICS INFUSED X2. PT UP MOST OF THE NIGHT, ON THE PHONE HAVING LIBERTARIAN ON THE OTHER END GOOGLE HER SYMPTOMS. PT IS TO BE READMITTED TO ACUTE TODAY FOR SURGERY ON WEDNESDAY MORNING. BED ALARM ON FOR SAFETY. USES CALL LIGHT APPROPRIATELY. CALL LIGHT AND FREQENTLY USED ITEMS WITHIN REACH. HOURLY ROUNDING IN PROGRESS, WILL CONTINUE TO MONITOR.
[2018-10-16 08:42] VITALS: BP 104/51
[2018-10-16] MEDS ORDERED: ACIDOPHILUS1 EAC4 PO (12:49)
[2018-10-16] MEDS ORDERED: CEFEPIME 22 GM/100 M IVPB (12:52)
[2018-10-16] MEDS ORDERED: VANCO 1.251.25 GM/25 IVPB (12:53)
[2018-10-16] MEDS ORDERED: BENADRYL ITCH28.3 G1 TOP (12:54)
[2018-10-16] MEDS ORDERED: MAG-AL PLUS SUS30 ML PO (12:56)
[2018-10-16] MEDS ORDERED: THROAT LOZENGE1 EACH PO (12:57)
[2018-10-16] MEDS ORDERED: NYAMYC15 GM TOP (12:58)
[2018-10-16] MEDS ORDERED: PHENAZOPYRIDIN200 M2 PO (12:59)
[2018-10-16] MEDS ORDERED: CHLORASEPTIC177 ML PO (13:00)
[2018-10-16] MEDS ORDERED: SUDAFED 12 HOU120 MG PO (13:01)
[2018-10-16 13:02] VITALS: BP 110/65
--- NOTE | 2018-10-16 18:05 | NUR ---
RECIEVED REPORT FROM VALERIA CARRILLO ON REHAB. PT TO TRANSFER TO ROOM 117 FOR PROCEDURE TOMORROW. WILL SEND TIARRA UP TO HELP TRANSFER PATIENT TO FLOOR THIS SHIFT. WILL SITUATE PATIENT WHEN THEY ARRIVE.
--- NOTE | 2018-10-16 18:27 | NUR ---
PATIENT D/C FROM UNIT AND IS AN ADMIT TO ACUTE SIDE FOR SURGERY IN THE AM. REPORT CALLED TO JOINT/ORTHO FLOOR, PATIENT WILL BE GOING TO ROOM 116. ALL BELONGINGS SENT WITH PATIENT AND PATIENT TRANSFERED VIA BED TO UNIT, ALL BELONGING SENT WITH PATIENT
[2018-10-17] MEDS ORDERED: OXYCODONE HCL15 MG PO (12:04)
[2018-10-17] MEDS ORDERED: FLEXERIL PO (12:04)
== END 2018-10-16 18:29 | disposition short-term general hospital (02) | DRG 949 ==
LOC: M.REH 14:58
PROVIDERS: Family Medicine; Internal Medicine; ADMIT Physical Medicine & Rehabilitation
DX: Z51.89 Encounter for other specified aftercare (principal); L89.154 Pressure ulcer of sacral region, stage 4; G82.20 Paraplegia, unspecified; N13.6 Pyonephrosis; D49.7 Neoplasm of unspecified behavior of endocrine glands and other parts of nervous system; Z96.0 Presence of urogenital implants; D64.9 Anemia, unspecified; K59.09 Other constipation; R53.81 Other malaise; Z90.49 Acquired absence of other specified parts of digestive tract; Z87.442 Personal history of urinary calculi; Z88.1 Allergy status to other antibiotic agents; Z88.0 Allergy status to penicillin; Z88.2 Allergy status to sulfonamides; Z88.8 Allergy status to other drugs, medicaments and biological substances; Z88.6 Allergy status to analgesic agent; Z87.01 Personal history of pneumonia (recurrent); Z79.899 Other long term (current) drug therapy; Z87.891 Personal history of nicotine dependence; Z91.14 Patient's other noncompliance with medication regimen

== ENCOUNTER 2018-10-16 17:09 | Inpatient (IN) | payer MEDICARE, MEDICAID ==
[~2018-10-16] VITALS: Ht 157.5 cm; Wt 64.4 kg
[~2018-10-16 17:09] MED LIST changes: +ACIDOPHILUS1 EAC4 PO; +ANUSOL-HC25 MG RECTAL; +BENADRYL ITCH28.3 G1 TOP; +CEFEPIME 22 GM/100 M IVPB; +CHLORASEPTIC177 ML PO; +FLAGYL500 M1 PO; +FLOMAX0.4 MG PO; +MAG-AL PLUS SUS30 ML PO; +MIRALAX17 GM PO; +NYAMYC15 GM TOP; +NYSTATIN 100,0015 G1 TOP; +OXYCODONE HCL15 MG PO; +PHENAZOPYRIDIN200 M2 PO; +PROTONIX40 M1 PO; +SUDAFED 12 HOU120 MG PO; +THROAT LOZENGE1 EACH PO; +VANCO 1.251.25 GM/25 IVPB
[2018-10-16 19:00] VITALS: BP 128/78
[2018-10-17 02:30] VITALS: BP 119/61
[2018-10-17 06:00] VITALS: BP 117/72; BP 119/61
[2018-10-17 10:30] VITALS: BP 113/74
[2018-10-17] MEDS ORDERED: OXYCODONE HCL15 MG PO (12:04)
[2018-10-17] MEDS ORDERED: FLEXERIL PO (12:04)
[2018-10-17 16:00] VITALS: BP 120/68
[2018-10-17 21:00] VITALS: BP 108/58
[2018-10-18] VITALS: BP 122/56
[2018-10-18 04:00] VITALS: BP 111/56
[2018-10-18 08:30] VITALS: BP 106/66
[2018-10-18 20:00] VITALS: BP 97/53
[2018-10-19 09:00] VITALS: BP 111/52
[2018-10-19 15:49] VITALS: BP 108/63
[2018-10-19 20:00] VITALS: BP 104/62
[2018-10-20 05:30] LABS: ABSOLUTE BASOPHILS 0.1 thou/uL (0.0-0.2); ABSOLUTE EOSINOPHILS 0.2 thou/uL (0.0-0.7); ABSOLUTE LYMPHOCYTES 1.3 thou/uL (0.8-5.3); ABSOLUTE MONOCYTES 0.3 thou/uL (0.0-1.2); BASOPHILS 0.9 %; EOSINOPHILS 2.3 %; HEMATOCRIT 32.2 % (37.0-47.0); HEMOGLOBIN 9.9 gm/dL (12.0-15.0); LYMPHOCYTES 19.4 %; MCH 22.5 pg (26.0-34.0); MCHC 30.9 g/dL (28.0-37.0); MCV 72.9 fL (80.0-100.0); MONOCYTES 4.8 %; NUCLEATED RBCS 0 /100WBC; PLATELET COUNT* 292 thou/uL (150-400); POLYS 72.6 %; RBC 4.41 mil/uL (4.20-5.00); RDW-CV 26.5 % (10.5-14.5); WBC 6.9 thou/uL (4.0-11.0)
[2018-10-20 05:50] LABS: CREATININE 0.4 mg/dL (0.6-1.3); POTASSIUM 4.1 mmol/L (3.5-5.1); TOTAL BILIRUBIN 0.2 mg/dL (<0.1-1.0); TOTAL PROTEIN 6.7 g/dL (6.4-8.2)
[2018-10-20 06:21] LABS: ANISOCYTOSIS 2+; HYPOCHROMASIA 1+; MICROCYTES 1+; OVALOCYTES 2+
[2018-10-20 08:30] VITALS: BP 111/57
[2018-10-20 17:20] VITALS: BP 111/59
[2018-10-20 20:00] VITALS: BP 133/59
[2018-10-21 09:30] VITALS: BP 115/52
[2018-10-21 12:33] VITALS: BP 104/45
[2018-10-21 17:08] VITALS: BP 110/52
[2018-10-21 20:00] VITALS: BP 122/53
[2018-10-22 05:30] VITALS: BP 116/63
[2018-10-22 08:35] VITALS: BP 110/63
[2018-10-22 16:00] VITALS: BP 119/56
[2018-10-22 20:00] VITALS: BP 106/51
[2018-10-23 09:25] VITALS: BP 128/78
[2018-10-23 17:21] VITALS: BP 120/56
[2018-10-23 20:00] VITALS: BP 117/59
[2018-10-24 08:15] VITALS: BP 119/66
[2018-10-24 16:00] VITALS: BP 118/64
[2018-10-24 20:40] VITALS: BP 128/80
[2018-10-25 08:52] VITALS: BP 105/64
[2018-10-25 15:54] VITALS: BP 110/58
[2018-10-26] VITALS: BP 114/60
[2018-10-26 07:45] VITALS: BP 103/47
--- NOTE | 2018-10-26 08:50 | OP ---
[address] [address] OPERATIVE REPORT Name: BETHEL MAHONEY Room: [address] IN M.R.#: [id number] Admission: 10/16/18 Attend Phys: Theo Chen Discharge: Date of : 71 Report #: [id number] THIS REPORT FOR: //name// CC: [facility] physician/PCP Santhosh Cadet DATE OF SERVICE: 10/17/2018 PREOPERATIVE DIAGNOSIS: Left renal calculus. POSTOPERATIVE DIAGNOSIS: Left renal calculus. PROCEDURES PERFORMED: 1. Cystoscopy with left ureteral stent exchange. 2. Left ureteroscopy with laser lithotripsy. 3. Stone retrieval. 4. Left retrograde pyelogram. SURGEON: Hernán Tesfaye M.D. ANESTHESIA: General endotracheal. BRIEF HISTORY: The patient is a 43-year-old female who presented to [facility] approximately 1 month ago and was found to have a 5 mm left proximal ureteral stone. She underwent cystoscopy with left ureteral stent placement and treatment of her existing UTI. Repeat urine culture on 10/13/2018 was negative. She presents today for definitive stone intervention. She is scheduled for cystoscopy with left ureteral stent exchange, left ureteroscopy with laser lithotripsy, and stone retrieval. The risks of the procedure including the risks of bleeding, infection, damage to surrounding structures, need for additional procedures, and anesthetic risks were discussed with the patient and she wished to proceed. PROCEDURE IN DETAIL: The risks and benefits of surgery were discussed with the patient and she wished to proceed. Informed consent was obtained and the patient was transferred to the Operating Room where she was laid supine on the operating room table. After the administration of appropriate general endotracheal anesthesia, the patient's Francois catheter was removed. Her genitalia were prepped and draped in the usual sterile fashion. She had previously received empiric antibiotics. A timeout was then performed to ensure correct patient and procedure. At this time, a 22-Mozambican cystoscope sheath with a 30-degree lens was lubricated and advanced through the urethra and into the bladder. The cystoscope was disarticulated and the bladder was drained. Cystoscopy was performed and revealed a stent emanating from her left ureteral orifice. The stent was grasped and pulled to the patient's urethral meatus. A 0.038 ZIPwire was advanced through the lumen of the [place] [address] OPERATIVE REPORT Name: BETHEL MAHONEY Room: [address]#: [id number] Admission: 10/16/18 Attend Phys: Theo Chen Discharge: Date of : 71 Report #: [id number] coil within the left collecting system. The stent was removed and inspected. It was found to be completely intact. At this time, a 10-Mozambican dual lumen catheter was advanced over the wire and into the distal ureter. A retrograde pyelogram was performed by injecting contrast through the second lumen of the catheter. Contrast opacified a normal appearing mid and proximal ureter as well as a decompressed left collecting system. The patient's calculus appeared to be located within an upper pole beto. A 0.035 sensor wire was then advanced through the second lumen of the dual lumen catheter. The ZIPwire was clamped to the drape as a safety wire. An 09/13 navigator ureteral access sheath was advanced over the sensor wire under fluoroscopic guidance into the ureter without difficulty. The wire and inner cannula were removed. A flexible ureteroscope was advanced through the access sheath and into the kidney. renoscopy was performed, inspected each of the patient's calices. The patient's stone was located within an upper pole beto. The stone was spiculated and quite irregular. A 200 micron laser fiber was advanced through the ureteroscope and laser lithotripsy was performed on the stone. The stone was very friable and fragmented readily into multiple smaller pieces. A 0 tip nitinol basket was used to grasp and remove the larger of the stone fragments. Once all basketable stone fragments had been removed, there was only dust and fine debris left. Each of the patient's calices was inspected one final time and there were no additional calculi identified. The ureteroscope was withdrawn, the length of the ureter from the UPJ towards the UVJ, withdrawing the access sheath concomitantly. Prior to withdrawing the ureteroscope entirely, a retrograde pyelogram was repeated. This demonstrated patency and integrity of the ureter and collecting system and delineated the collecting system for stent placement. A 4.8 x 26 double-J ureteral stent was advanced over the safety wire and into position. The wire was withdrawn, deploying the stent. A good coil of the stent was identified within the left renal pelvis under fluoroscopy and a good coil of the stent was identified under direct vision with the cystoscope within the bladder. The cystoscope was removed. The patient's urethra was anesthetized with 2% lidocaine jelly. A 16-Mozambican Francois catheter was advanced into the bladder without difficulty and the balloon was inflated with 10 mL of sterile water. The patient was returned to a supine position, awakened from anesthesia, and transferred to the postoperative care unit in stable condition. The patient tolerated the procedure well. COMPLICATIONS: None. ESTIMATED BLOOD LOSS: None. IV FLUIDS: Crystalloid. DRAINS: 1. Left 4.8 x 26 double-J ureteral stent. 2. A 16-[place] [address] OPERATIVE REPORT Name: BETHEL MAHONEY Room: [address] [place] .R.#: [id number] Admission: 10/16/18 Attend Phys: Theo Chen Discharge: Date of : 71 Report #: [id number] SPECIMENS: Right renal calculus fragments. FINDINGS: 1. Existing left ureteral stent removed and intact. 2. Left ureteroscopy demonstrating a spiculated, irregular left upper pole calyceal calculus, fragmented with laser lithotripsy and removed. 3. New left 4.8 x 26 double-J ureteral stent in good position by fluoroscopy and direct vision. <ELECTRONICALLY SIGNED> By: Hernán Tesfaye MD 10/26/18 0850 [id number] Tesfaye MD /nt
[2018-10-26 15:41] VITALS: BP 103/47
[2018-10-26] MEDS ORDERED: DIFLUCAN200 MG PO (15:50)
[2018-10-26] MEDS ORDERED: PHENERGAN 25 MG25 M1 PO (15:53)
[2018-10-26] MEDS ORDERED: ONDANSETRON HCL4 M2 PO (15:55)
[2018-10-26 17:04] VITALS: BP 128/79
[2018-10-27 12:05] LABS: STONE CA OXALATE DIHYDRATE 70 % (()); STONE CA OXALATE MONOHYDRATE 20 % (()); STONE CALCIUM PHOSPHATE 10 % (()); STONE COLOR Tan (()); STONE COMMENT Note: (())
== END 2018-10-26 17:22 | DRG 659 ==
LOC: M.ORTHSURG 17:09 → M.3W 10-22 14:49
PROVIDERS: Specialist; ADMIT Internal Medicine
PROC: 0TP98DZ Removal of Intraluminal Device from Ureter, Via Natural or Artificial Opening Endoscopic (ICD-10-PCS; principal; 2018-10-17)
PROC: BT1F1ZZ Fluoroscopy of Left Kidney, Ureter and Bladder using Low Osmolar Contrast (ICD-10-PCS; principal; 2018-10-17)
PROC: 0TC48ZZ Extirpation of Matter from Left Kidney Pelvis, Via Natural or Artificial Opening Endoscopic (ICD-10-PCS; principal; 2018-10-17)
PROC: 0T778DZ Dilation of Left Ureter with Intraluminal Device, Via Natural or Artificial Opening Endoscopic (ICD-10-PCS; principal; 2018-10-17)
DX: N13.6 Pyonephrosis (principal); L89.324 Pressure ulcer of left buttock, stage 4; G82.20 Paraplegia, unspecified; K52.1 Toxic gastroenteritis and colitis; D62 Acute posthemorrhagic anemia; K59.09 Other constipation; J02.9 Acute pharyngitis, unspecified; B95.62 Methicillin resistant Staphylococcus aureus infection as the cause of diseases classified elsewhere; T36.8X5A Adverse effect of other systemic antibiotics, initial encounter; Z88.0 Allergy status to penicillin; Z88.2 Allergy status to sulfonamides; Z88.6 Allergy status to analgesic agent; Z88.1 Allergy status to other antibiotic agents; Z88.8 Allergy status to other drugs, medicaments and biological substances; Z91.14 Patient's other noncompliance with medication regimen; Z87.891 Personal history of nicotine dependence; Z90.49 Acquired absence of other specified parts of digestive tract; Y92.89 Other specified places as the place of occurrence of the external cause; Z87.81 Personal history of (healed) traumatic fracture

== ENCOUNTER → 2018-10-31 | Outpatient (CLI) | payer MEDICARE, MEDICAID ==
[~2018-10-31] MED LIST changes: +ONDANSETRON HCL4 M2 PO; +PHENERGAN 25 MG25 M1 PO
== END ==
LOC: M.WC 02:02
DX: L89.324 Pressure ulcer of left buttock, stage 4 (principal); L89.212 Pressure ulcer of right hip, stage 2; L89.892 Pressure ulcer of other site, stage 2; L89.312 Pressure ulcer of right buttock, stage 2; M86.8X8 Other osteomyelitis, other site; I96 Gangrene, not elsewhere classified; I89.0 Lymphedema, not elsewhere classified; G82.20 Paraplegia, unspecified; K21.9 Gastro-esophageal reflux disease without esophagitis; M81.0 Age-related osteoporosis without current pathological fracture; F41.9 Anxiety disorder, unspecified; Z87.891 Personal history of nicotine dependence

== ENCOUNTER → 2018-11-07 | Outpatient (CLI) | payer MEDICARE, MEDICAID ==
--- NOTE | 2018-11-09 11:48 | CON ---
[address] [address] CONSULTATION Name: BETHEL MAHONEY Room: [facility] KYLEPoonam Morris#: [id number] Admission: 11/07/18 Attend Phys: Antonieta Zeng MD Discharge: Date of : 71 Report #: [id number] THIS REPORT FOR: //name// CC: Alyssia Zeng DATE OF SERVICE: 11/07/2018 ATTENDING PHYSICIAN: Dr. Antonieta Zeng. HISTORY OF PRESENT ILLNESS: The patient returns today in followup to the outpatient area of [facility] for ongoing treatment for left chronic ischial ulceration. This was complicated by deep seated infection. She has completed roughly 4-1/2 weeks of parenteral therapy with vancomycin due to culture proven oxacillin-resistant Staphylococcus aureus. She generally has been doing fairly well, has been utilizing a wound VAC, although there is some question about its efficacy in terms of maintaining its pressure. PHYSICAL EXAMINATION: The wound appears to be some macerated at the margins. On probing, there is no evidence of exposed bone at this point. There is tissue overlying and the overall degree of depth is slightly less at about 2.5 cm. ASSESSMENT AND PLAN: Chronic left ischial ulcer as a result of pressure. We will continue the parenteral therapy at least 1 additional week. I did discuss with Dr. Zeng who will do a culture at that point, would be approaching 6 weeks total and decide about extending the therapy at that point. She is to optimize her nutritional status, offload the site. We have decided to remove the wound VAC at this point and pack the wound and see how she does clinically. <ELECTRONICALLY SIGNED> By: Milton Gandhi MD 11/09/18 1148 [id number] Gandhi MD /nt
== END ==
LOC: M.WC 00:57
DX: L89.212 Pressure ulcer of right hip, stage 2 (principal); L89.324 Pressure ulcer of left buttock, stage 4; L89.892 Pressure ulcer of other site, stage 2; I96 Gangrene, not elsewhere classified; M86.8X8 Other osteomyelitis, other site; I89.0 Lymphedema, not elsewhere classified; G82.20 Paraplegia, unspecified; M81.0 Age-related osteoporosis without current pathological fracture; Z87.891 Personal history of nicotine dependence

== ENCOUNTER → 2018-11-14 | Outpatient (CLI) | payer MEDICARE, MEDICAID ==
--- NOTE | 2018-11-16 11:42 | CON ---
[address] [address] CONSULTATION Name: BETHEL MAHONEY Room: [facility] KYLEPoonam Morris#: [id number] Admission: 11/14/18 Attend Phys: Antonieta Zeng MD Discharge: Date of : 71 Report #: [id number] THIS REPORT FOR: //name// CC: Alyssia Zeng DATE OF SERVICE: 11/14/2018 ATTENDING PHYSICIAN: Dr. Antonieta Zeng. HISTORY OF PRESENT ILLNESS: She is here today for chronic left ischial wound, probable osteomyelitis involving the distal aspect of the ischium. She returns in followup ongoing wound care. She has been utilizing wound VAC that is unable to maintain and seal. She is continued and treated with packing. It is notably slightly less deep than before. On examination and probing, there is no exposed bone. Overall degree of inflammation around the surface of the wound margin is mild to moderate. There is some degree of yeast overgrowth, I believe. On questioning, she denies any systemic illness. She has completed roughly 6 weeks of parenteral therapy with vancomycin. Labs: She has slightly elevated sed rate above the normal, otherwise unrevealing. ASSESSMENT AND PLAN: Chronic osteomyelitis of the left ischium. We will continue the vancomycin for additional few days while we await culture results. In the event of lack of methicillin-resistant Staphylococcus aureus, likely discontinue antibiotics. If it is isolated from the site, consider oral therapy at that point. Continue to offload the site, optimize nutritional status. <ELECTRONICALLY SIGNED> By: Milton Gandhi MD 11/16/18 1142 1631 [id number] Gandhi MD /nt
== END ==
LOC: M.WC 03:21
DX: L89.324 Pressure ulcer of left buttock, stage 4 (principal); A49.02 Methicillin resistant Staphylococcus aureus infection, unspecified site; G82.20 Paraplegia, unspecified; I89.0 Lymphedema, not elsewhere classified; I96 Gangrene, not elsewhere classified; M86.8X8 Other osteomyelitis, other site; M81.0 Age-related osteoporosis without current pathological fracture; Z87.891 Personal history of nicotine dependence

== ENCOUNTER → 2018-11-21 | Outpatient (CLI) | payer MEDICARE, MEDICAID ==
[~2018-11-21] MED LIST changes: +AUGMENTIN 875-1 EACH PO
--- NOTE | 2018-11-23 12:15 | CON ---
[address] [address] CONSULTATION Name: MARUBETHEL F Room: [facility] KYLEPoonam Vera.#: [id number] Admission: 11/21/18 Attend Phys: Antonieta Zeng MD Discharge: Date of : 71 Report #: [id number] THIS REPORT FOR: //name// CC: Alyssia Zeng DATE OF SERVICE: 11/21/2018 She was seen in [facility]. ATTENDING PHYSICIAN: Dr. Antonieta Zeng. REASON FOR EVALUATION: Chronic ulceration involving the left ischial site, complicated by deep seated infection with culture proven MRSA. HISTORY OF PRESENT ILLNESS: The patient returns in followup for ongoing wound care. She has completed roughly 6 weeks of parenteral therapy with vancomycin. The wound overall has shown progression towards healing with some loss of depth, is probed by Dr. Zeng who felt there is no palpable bone. Overall degree of inflammation is mild. It is notable that a tissue culture last visit with scant growth of MRSA. Chronic ulceration complicated by an infection. At this point, it is difficult to ascertain whether this is indeed true infection or colonization. I think given her overall clinical picture, will be aggressive transition to oral antibiotics with trimethoprim sulfamethoxazole based on susceptibilities, which she has tolerated in the past generally although there was some concern about diarrhea, which we will monitor closely. We will see her back in one week. To try to maintain the PICC line in the interim. <ELECTRONICALLY SIGNED> By: Milton Gandhi MD 11/23/18 0852 [id number] Gandhi MD /nt
== END ==
LOC: M.WC 04:35
DX: L89.324 Pressure ulcer of left buttock, stage 4 (principal); I89.0 Lymphedema, not elsewhere classified; I96 Gangrene, not elsewhere classified; G82.20 Paraplegia, unspecified; M86.8X8 Other osteomyelitis, other site; M81.0 Age-related osteoporosis without current pathological fracture; Z87.891 Personal history of nicotine dependence

== ENCOUNTER → 2018-11-25 | Outpatient (CLI) | payer MEDICARE, MEDICAID | END | disposition home or self-care (01) | LOC: M.SUR 06:43 → EDSTATUS 14:27 | DX: Z46.6 Encounter for fitting and adjustment of urinary device (principal); Z87.442 Personal history of urinary calculi; Z98.890 Other specified postprocedural states; Z88.2 Allergy status to sulfonamides; Z88.8 Allergy status to other drugs, medicaments and biological substances; Z79.899 Other long term (current) drug therapy; Z79.891 Long term (current) use of opiate analgesic ==

== ENCOUNTER → 2018-11-28 | Outpatient (CLI) | payer MEDICARE, MEDICAID ==
--- NOTE | 2018-11-30 11:43 | CON ---
[address] [address] CONSULTATION Name: BETHEL MAHONEY Room: [facility] TERELL Morris#: [id number] Admission: 11/28/18 Attend Phys: Antonieta Zeng MD Discharge: Date of : 71 Report #: [id number] THIS REPORT FOR: //name// CC: Alyssia Zeng DATE OF SERVICE: 11/28/2018 INFECTIOUS DISEASE CONSULTATION ATTENDING PHYSICIAN: Dr. Antonieta Zeng. HISTORY OF PRESENT ILLNESS: The patient returns today in followup for ongoing treatment of chronic left ischial wound and had an extended course of several months that has been complicated by MRSA-related deep-seated infection. She received multiple weeks of parenteral therapy and followed up by oral. She states she has had some low-grade temperature elevations, did have a urinalysis done at the facility; she stated they deemed that infection. She does have a variable appetite, in part, does not like the food. She has had a wound VAC removed due to, I suspect, it was not working properly. PHYSICAL EXAMINATION: On examination, the superficial aspect at the margins of the wound shows some mild skin changes, suggest possible overgrowth of Jessica. On probing, there is no exposed bone. Measurements are somewhat difficult to ascertain. ASSESSMENT AND PLAN: Deep infection associated with the left ischial. There is no evidence for osteomyelitis at this point. We will extend the antibiotics. Recent culture had scant growth of MRSA from a tissue biopsy. At this point will go ahead and remove the PICC line. This was done without complication. The patient tolerated the procedure well. We plan to continue the trimethoprim and sulfamethoxazole and see her back in 1 week. Continue efforts to offload and she was encouraged to, despite of food which she deems not palatable, hopefully, she will increase her caloric-protein intake. <ELECTRONICALLY SIGNED> By: Milton Gandhi MD 11/30/18 1143 1754 [id number] Gandhi MD /nt
== END ==
LOC: M.WC 00:18
DX: L89.324 Pressure ulcer of left buttock, stage 4 (principal); I89.0 Lymphedema, not elsewhere classified; I96 Gangrene, not elsewhere classified; G82.20 Paraplegia, unspecified; M86.8X8 Other osteomyelitis, other site; M81.0 Age-related osteoporosis without current pathological fracture; Z87.891 Personal history of nicotine dependence

== ENCOUNTER → 2018-12-09 | Outpatient (CLI) | payer MEDICARE, MEDICAID ==
--- NOTE | ~2018-12-09 | CON ---
[address] [address] CONSULTATION Name: MARUBETHEL F Room: [facility] TERELL Morris#: [id number] Admission: 12/09/18 Attend Phys: Antonieta Zeng MD Discharge: Date of : 71 Report #: [id number] THIS REPORT FOR: //name// CC: Alyssia Zeng DATE OF SERVICE: 12/09/2018 ATTENDING PHYSICIAN: Dr. Zeng. REASON FOR EVALUATION: Chronic ulceration, decubitus overlying the left ischial site, going on for several months. Most recent culture did have a growth of oxacillin-resistant Staph aureus. She has been on Bactrim after a length course of parenteral therapy with vancomycin. At this point, there is no evidence of osteomyelitis. She did have quite a bit of inflammation superficially last week that on examination has improved. The wound still is roughly 2 cm in depth, although there is no evidence of exposed bone or hard tissue. She does admit to some intermittent fevers, which she is concerned about her long indwelling Francois catheter as cause of complicated urinary tract infection. Reportedly, this was tested and otherwise not confirmed to be a urinary tract infection, and she states her appetite has been variable. She has had ongoing abdominal related pain and discomfort for last several months. Evaluation thus far has been unrevealing. It is notable she has a ureteral stone that was dealt with by Urology did not resolve her abdominal related complaints. Chronic left ischial wound. At this point, I think we will extend the Bactrim. She is having weekly labs drawn, drawn today and those results are unavailable. Continue wound care as prescribed by Dr. Zeng. We will see her in followup in the next 1-2 weeks. By: [id number] Gandhi MD /nt
== END ==
LOC: M.WC 12-05 09:00
DX: L89.324 Pressure ulcer of left buttock, stage 4 (principal); I89.0 Lymphedema, not elsewhere classified; I96 Gangrene, not elsewhere classified; G82.20 Paraplegia, unspecified; K21.9 Gastro-esophageal reflux disease without esophagitis; M86.8X8 Other osteomyelitis, other site; M81.0 Age-related osteoporosis without current pathological fracture; F41.9 Anxiety disorder, unspecified; F32.9 Major depressive disorder, single episode, unspecified; Z87.891 Personal history of nicotine dependence

== ENCOUNTER → 2018-12-19 | Outpatient (CLI) | payer MEDICARE, MEDICAID ==
[2018-12-19 11:08] LABS: URINE BILIRUBIN NEGATIVE (Negative); URINE BLOOD TRACE (Negative); URINE CLARITY CLEAR; URINE COLOR YELLOW; URINE GLUCOSE-RANDOM NEGATIVE (Negative); URINE KETONES NEGATIVE (Negative); URINE LEUKOCYTES 3+ (Negative); URINE NITRITE NEGATIVE (Negative); URINE PROTEIN NEGATIVE (Negative); URINE UROBILINOGEN 0.2 E.U./dl (0.2-1.0)
[2018-12-19 12:00] LABS: SQUAMOUS 0-3 Few /LPF (0-3)
[2018-12-19 12:02] LABS: URINE RBC 0-2 Rare /HPF (0-2)
[2018-12-19 12:04] LABS: CRYSTALS None Seen /LPF (None Seen); YEAST Present (None Seen)
[2018-12-19 12:05] LABS: HYALINE CASTS 0-3 Few /LPF (None Seen); MUCUS 0-3 Light strn/LPF (None Seen)
--- NOTE | 2018-12-21 11:26 | CON ---
[address] [address] CONSULTATION Name: BETHEL MAHONEY Room: [facility] TERELL Vera.#: [id number] Admission: 12/19/18 Attend Phys: Antonieta Zeng MD Discharge: Date of : 71 Report #: [id number] THIS REPORT FOR: //name// CC: Alyssia Zeng DATE OF SERVICE: 12/19/2018 INFECTIOUS DISEASE CONSULTATION FOLLOWUP She is seen at outpatient wound care center. ATTENDING PHYSICIAN: Dr. Osmani Luna She is here for followup of chronic ulceration involving her left ischial decubitus ulcer, has been secondarily infected with oxacillin-resistant Staphylococcus aureus. She had received an extended course of parenteral therapy. This was transitioned to Bactrim. On examination, the wound appears to be stable. There is overall less surface inflammation noted. She does have degree of pain associated with manipulation and specifically debriding of the wound per Dr. Luna. There is a degree of undermining as well. On questioning, she is really not eating well. States her appetite is diminished. She has continuous efforts to offload, not clear if there is some adverse drug effect with the trimethoprim and sulfamethoxazole she is on. She notes she has had the chronic abdominal pain and associated nausea prior to initiation of the antibiotic. Chronic left ischial wound. Did discuss with Dr. Luna. We will reculture the site. I am concerned there is an adverse drug effect related to the Bactrim, I think she has hampered her healing by her less than adequate nutritional status and p.o. intake. She has high degree of anxiety. Apparently her days per the facility have come to an end, she must be discharged home, she feels she cannot get the necessary care there. Discussed with staff at the wound care and will explore her options. I do worry she may go home and have to be readmitted to the hospital, possibly due to an infectious complication. We will follow but I will see her in 1 week at the wound care, will go ahead and order some continuing labs as well. <ELECTRONICALLY SIGNED> By: Milton Gandhi MD 12/21/18 1126 [id number] Gandhi MD /nt
== END ==
LOC: M.WC 01:11
PROVIDERS: Specialist
DX: L89.324 Pressure ulcer of left buttock, stage 4 (principal); L89.312 Pressure ulcer of right buttock, stage 2; G82.20 Paraplegia, unspecified; I89.0 Lymphedema, not elsewhere classified; I96 Gangrene, not elsewhere classified; M86.8X8 Other osteomyelitis, other site; M81.0 Age-related osteoporosis without current pathological fracture; R52 Pain, unspecified; F41.9 Anxiety disorder, unspecified; F32.9 Major depressive disorder, single episode, unspecified; Z87.891 Personal history of nicotine dependence

== ENCOUNTER → 2019-02-13 | Outpatient (CLI) | payer MEDICARE, MEDICAID ==
--- NOTE | 2019-02-14 07:54 | CON ---
[address] [address] CONSULTATION Name: BETHEL MAHONEY Room: [facility] TERELL Morris#: [id number] Admission: 02/13/19 Attend Phys: Antonieta Zeng MD Discharge: Date of : 71 Report #: [id number] THIS REPORT FOR: //name// CC: Alyssia Zeng DATE OF SERVICE: 02/13/2019 INFECTIOUS DISEASE CONSULTATION REASON FOR REFERRAL: For bilateral ischial wounds, chronic osteomyelitis involving the left site. HISTORY OF PRESENT ILLNESS: The patient returns in followup. She has been seen at the [facility] and hospitalized several occasions, last few months. Apparently, in the interim since we last saw her in mid December, she had been hospitalized in two hospitals and one institution, she currently resides. She is now progressive tissue injury involving the right ischial site, left site still has 3-4 cm of depth, it does communicate with bone at this point, it had been evaluated including culture, which apparently revealed Enterobacter per her description, been on parenteral therapy and then transferred to the long-term facility with trimethoprim sulfamethoxazole. She is quite distraught. She describes lots of low grade temperature elevations. She had a sort of hepatitis been quite variable. ALLERGIES: CIPRO, CLINDAMYCIN, MINOCYCLINE, MORPHINE, TRAMADOL AND UNASYN. CURRENT MEDICATIONS: Include acetaminophen, alprazolam, Bactrim-DS, Biotene, buspirone, cyclobenzaprine, duloxetine, enoxaparin, Humalog, hydroxyzine, miconazole, montelukast, ondansetron, oxycodone, pantoprazole, Relistor, simethicone. PAST MEDICAL HISTORY: As noted above, paraplegia due to spinal cord tumor, history of lower extremity lymphedema, multiple surgeries, chronic indwelling bladder catheter, renal lithiasis with stenting, osteomyelitis of the left ischium, previous cholecystectomy. SOCIAL HISTORY: Former smoker. No ethanol. FAMILY HISTORY: Noncontributory. REVIEW OF SYSTEMS: Had some intermittent GI distress and anorexia. Significant pulmonary-related complaints, otherwise unremarkable 10-point review of systems. PHYSICAL EXAMINATION: GENERAL: She is quite distraught. She feels she is getting worse, [place] [address] CONSULTATION Name: BETHEL MAHONEY Room: [facility]#: [id number] Admission: 02/13/19 Attend Phys: Antonieta Zeng MD Discharge: Date of : 71 Report #: [id number] admitted. VITAL SIGNS: Stable. She is afebrile, blood pressure is 146 systolic. HEENT: Normocephalic. Extraocular muscles intact. NECK: Supple. LUNGS: Breathing is nonlabored. EXTREMITIES: Ischial sites on the left, does probe to bone. There is a marked amount of superficial inflammation, suspect secondary to soiling and perhaps a lesser extent offloading of that site. She does have new wound on the right ischial with adherent eschar. There is moderate degree of inflammation at that site as well and has had catheter in place. ASSESSMENT AND PLAN: Chronic osteomyelitis, left ischium, discussed with Dr. Zeng. He does plan on doing a diverting colostomy. At that point, we will debride the ischium, which I think she will benefit from, will get repeat cultures, path report. Based on those results and limitation due to hypersensitivities, will likely do parenteral antimicrobial therapy. Secondly is very concerned about this primary diagnosis of diabetes mellitus. We will check hemoglobin A1c. It may simply be hyperglycemia based on the presence of infection, discussed with the patient's family. <ELECTRONICALLY SIGNED> By: Milton Gandhi MD 02/14/19 0754 1203 [id number] Gandhi MD /nt
== END ==
LOC: M.WC 07:56
DX: L89.324 Pressure ulcer of left buttock, stage 4 (principal); L89.310 Pressure ulcer of right buttock, unstageable; I89.0 Lymphedema, not elsewhere classified; I96 Gangrene, not elsewhere classified; M86.8X8 Other osteomyelitis, other site; M81.0 Age-related osteoporosis without current pathological fracture; G82.20 Paraplegia, unspecified; Z87.891 Personal history of nicotine dependence

== ENCOUNTER 2019-02-22 10:12 | Inpatient (IN) | payer MEDICARE, MEDICAID ==
[~2019-02-22] VITALS: Ht 157.5 cm; Wt 65.8 kg
[~2019-02-22 10:12] MED LIST changes: +BIOTENE1000 ML MUCOUS MEM; +BUSPIRONE HCL10 MG PO; +DULOXETINE HCL60 MG PO; +HUMALOG100 UNIT/1 SUBQ; +HYDROXYZINE HCL25 M1 PO; +SINGULAIR 10 MG10 M1 PO; +VANCO 1 GR1 GM/250 M IVPB; +XANAX 0.5 MG0.5 MG PO
[2019-02-22 11:57] LABS: HEMATOCRIT 40.2 % (37.0-47.0); MCH 24.6 pg (26.0-34.0); MCHC 32.2 g/dL (28.0-37.0); MCV 76.4 fL (80.0-100.0); MPV 6.9 fl. (7.2-11.1); RBC 5.27 mil/uL (4.20-5.00); RDW-CV 20.4 % (10.5-14.5); WBC 7.3 thou/uL (4.0-11.0)
[2019-02-22 12:09] LABS: ALBUMIN 3.7 g/dL (3.4-5.0); CALCIUM 9.1 mg/dL (8.5-10.1); CREATININE 0.5 mg/dL (0.6-1.3); POTASSIUM 3.4 mmol/L (3.5-5.1); TOTAL BILIRUBIN 0.3 mg/dL (<0.1-1.0); TOTAL PROTEIN 7.5 g/dL (6.4-8.2)
[2019-02-22 12:15] VITALS: BP 108/69
--- NOTE | 2019-02-22 15:23 | H ---
[place] [address] HISTORY AND PHYSICAL Name: BETHEL MAHONEY Room: [place] [address] ADM IN .R.#: [id number] Admission: 02/22/19 Attend Phys: Antonieta Zeng MD Discharge: Date of : 71 Report #: [id number] THIS REPORT FOR: //name// CC: Alyssia Zeng ADMITTING DIAGNOSES: Chronic bilateral ischial wounds with left-sided ischial osteomyelitis and chronic pressure ulcers of the buttocks region. HISTORY OF PRESENT ILLNESS: This is a patient well known to me with a prior history of spinal cord tumor, leaving her with paralysis; history of lower extremity lymphedema; chronic indwelling catheters; kidney stones; osteomyelitis of the left ischium and gallbladder disease. She is a patient of the wound care center where she has had chronic repeated visits for pressure ulcers on the ischium, mainly on the left, which went down to the bone. She is status post a debridement of that area in 07/2018. Those wounds never healed. The wound tunnels to the ischium, and she has ongoing soilage from urine and stool from that site, so she is being prepared for an elective diverting colostomy with these debridements of the ischium. CURRENT MEDICATIONS: Include Tylenol, Bactrim, Biotene, cyclobenzaprine, duloxetine, miconazole powder, Zofran, oxycodone, pantoprazole, Relistor and simethicone. SOCIAL HISTORY: She is a former smoker, but does not use alcohol. REVIEW OF SYSTEMS: She denied any respiratory problems or intermittent abdominal pain or anorexia. PHYSICAL EXAMINATION: GENERAL: She is an anxious female. HEAD, EYES, EARS, NOSE AND THROAT: Unremarkable. NECK: Supple, with no masses. LUNGS: Clear. ABDOMEN: Soft, with healed scars from a prior cholecystectomy. Francois catheter in place. No hernias appreciated on her buttocks. On the left ischium side, there is a small opening wound that tunnels deep to the ischium. There is a small excoriated skin on the right hip area with dry necrotic skin. EXTREMITIES: With some mild pitting edema. LABORATORY DATA: Pending. IMPRESSION AND PLAN: Chronic osteomyelitis, left ischium. We will plan to do a re-debridement down to bone and place a wound VAC there with advanced tissue products. The right hip will be debrided subcutaneously as well. Apply Aquacel dressings to that side. I will then place the patient in a supine position and proceed to do an open diverting colostomy. [place] [address] HISTORY AND PHYSICAL Name: BETHEL MAHONEY Room: [address] IN [facility].#: [id number] Admission: 02/22/19 Attend Phys: Antonieta Zeng MD Discharge: Date of : 71 Report #: [id number] surgeries were outlined to the patient. Her questions were answered. She understands and wishes to proceed with surgical treatment. She will be given preoperative antibiotics. <ELECTRONICALLY SIGNED> By: Antonieta Zeng MD 02/22/19 1523 1256 [id number] Zeng MD /nt
[2019-02-22 17:39] VITALS: BP 101/44
[2019-02-23] VITALS: BP 112/50
[2019-02-23 04:00] VITALS: BP 100/42
[2019-02-23 04:33] LABS: HEMATOCRIT 34.9 % (37.0-47.0); HEMOGLOBIN 11.4 gm/dL (12.0-15.0); MCH 25.2 pg (26.0-34.0); MCHC 32.8 g/dL (28.0-37.0); MCV 76.6 fL (80.0-100.0); MPV 7.2 fl. (7.2-11.1); RBC 4.55 mil/uL (4.20-5.00); WBC 6.5 thou/uL (4.0-11.0)
[2019-02-23 04:52] LABS: CALCIUM 8.1 mg/dL (8.5-10.1); CREATININE 0.4 mg/dL (0.6-1.3); MAGNESIUM 1.7 mg/dL (1.8-2.4); POTASSIUM 3.8 mmol/L (3.5-5.1); TOTAL BILIRUBIN 0.4 mg/dL (<0.1-1.0); TOTAL PROTEIN 6.3 g/dL (6.4-8.2)
--- NOTE | 2019-02-23 07:32 | OP ---
[address] [address] OPERATIVE REPORT Name: BETHEL MAHONEY Room: [address] IN .R.#: [id number] Admission: 02/22/19 Attend Phys: Antonieta Zeng MD Discharge: Date of : 71 Report #: [id number] THIS REPORT FOR: //name// CC: Antonieta Stevens DATE OF SERVICE: 02/22/2019 PREOPERATIVE DIAGNOSES: Chronic osteomyelitis of the left ischium and gluteus pressure ulcer with a right unstageable gluteal ulcer, stool incontinence. POSTOPERATIVE DIAGNOSES: Chronic osteomyelitis of the left ischium and gluteus pressure ulcer with a right unstageable gluteal ulcer, stool incontinence. OPERATIVE PROCEDURE: Excisional debridement to bone, 4 cm x 1.5 cm x 2 cm, left gluteus pressure ulcer; excisional debridement to muscle, 4 cm x 4.5 cm, right gluteus pressure ulcer; placement of AmnioFill 500 mg to the left and right pressure ulcers; placement of wound VAC to left gluteus ulcer; laparotomy and diverting colostomy and placement of disposable negative pressure wound therapy, JIMBO incisional wound VAC. ANESTHESIA: General endotracheal. OPERATIVE FINDINGS: Tunneling left gluteal ulcer upon debridement down to bone, which was debrided back and bone cultures taken. The right gluteus ulcer had necrotic skin and underneath it, necrosed down to muscle. Scarring from the laparotomy from a previous laparoscopic cholecystectomy. OPERATIVE PROCEDURE: The patient was placed under general endotracheal anesthesia, placed in a prone position with Francois catheter in place. The left and right gluteal, ischial ulcer was removed. There was a tremendous amount of excoriating skin from incontinent and the rectum and both gluteal wounds were prepped and draped in a sterile fashion. A timeout was taken. IV Ancef and gentamicin was administered. I began by debriding the right gluteus pressure ulcer using pickups and a #10 scalpel blade, sharp dissection down into the subcutaneous tissue down to and including muscle, skin and necrotic tissue was debrided. Once wound was sharply debrided, the measurements were 4.5 cm x 0.3 cm in depth. I then directed my attention to the left pressure ulcer. I stuck a Q-tip to define the path of the opening to the end skin and then took a #10 scalpel blade and made an elliptical incision through that tunneling tract and opened that area, so the measurement of the wound now measured 4 cm in length. I sharply debrided with pickups down to the exposed skin, bone and took a bone culture, then controlled bleeding with cautery and pressure. I then mixed the AmnioFill 500 grams and saline to make a slurry and placed that slurry into the cavity of that wound covering the bone and the surrounding tissues. I then placed a small Vaseline impregnated gauze over that slurry and [place] [address] OPERATIVE REPORT Name: BETHEL MAHONEY Room: [address] IN [facility].#: [id number] Admission: 02/22/19 Attend Phys: Antonieta Zeng MD Discharge: Date of : 71 Report #: [id number] VAC sponge to cover that space and sealed it securely. The other wound, I took the remaining slurry and placed it in the right gluteal ulcer and covered it with an OptiLock silver impregnated padded bandage. Both wounds were sealed. I then changed gowns and gloves. The patient was turned onto her back into a supine position and the abdomen was carefully prepped and draped in a sterile fashion. A midline incision was placed just below the level of the umbilicus and approximately 10 cm in length, dissection with cautery through the subcutaneous tissue down to the anterior abdominal wall through the abdominal wall into the peritoneal cavity was accomplished. I locally explored the wound and found the uterus to be normal with normal ovaries. She had a normal appearing sigmoid colon with no diverticular disease, some epiploic fat around it. I mobilized the bend of the sigmoid colon and dissected up the line of Toldt to create length. I then transected the mid portion of the sigmoid colon by first scoring the mesentery and then placing a contour across the mid sigmoid colon and firing it. Then using ligature, I dissected the mesentery to create a length to the proximal descending colon and sigmoid colon to straighten it so that I can bring it out as an ostomy. The distal sigmoid colon had two 2-0 Prolene sutures placed at its mesenteric and antimesenteric borders for identification for future surgery and placed back down into the lower abdomen. I irrigated the abdomen. I then removed lap sponges that were placed to expose the sigmoid colon and I then picked a site just parallel to the umbilicus laterally and grasped the skin with a Rody and made a slicing move to create a perfect circular opening of approximately 3.5 cm. I then cauterized the subcutaneous fat and dissected with a mosquito down to the anterior abdominal wall from above the skin. Made a cruciate incision with a cautery and then a blunt dissection. I was able to pass 2 fingers through that site and then putting a Rebecca through that stoma opening. I grasped the proximal sigmoid colon and threaded into that stoma site with good fit and good rotation to not kink. Once that was accomplished, again I was able to inspect the bowel for any ongoing bleeding. I then placed the omentum that was covering the bowel down across the small bowel and began closure. Closure of the midline laparotomy was accomplished with a running 1 looped PDS sutures and then the skin was closed with david. A 10 x 20 disposable negative pressure wound therapy incisional wound VAC, JIMBO, was placed in the wound and placed on negative pressure with good seal. I then matured the colostomy in a Herlinda fashion by opening the staple line and again placing sutures through the edges of the ostomy opening through a portion of the serosa and then mucosa of the sigmoid colon and placed it at the 12 o'clock, 3 o'clock, 6 o'clock, and 9 o'clock position and then several sutures in between maturing a good solid pouching colostomy. I then placed the colostomy bag over after fitting it in place. Estimated blood loss was 20 mL. Of note, I [place] [address] OPERATIVE REPORT Name: BETHEL MAHONEY Room: [address]#: [id number] Admission: 02/22/19 Attend Phys: Antonieta Zeng MD Discharge: Date of : 71 Report #: [id number] around the incision site and the ostomy site. Sponge and instrument counts were correct. The patient was extubated, returned to recovery in stable condition. <ELECTRONICALLY SIGNED> By: Antonieta Zeng MD 02/23/19 0732 1522 [id number] Alberto Zeng MD /nt
[2019-02-23 08:05] VITALS: BP 114/55
--- NOTE | 2019-02-23 11:26 | CON ---
[address] [address] CONSULTATION Name: MARUBETHEL F Room: [address] [place].#: [id number] Admission: 02/22/19 Attend Phys: Antonieta Zeng MD Discharge: Date of : 71 Report #: [id number] THIS REPORT FOR: //name// CC: Antonieta Stevens DATE OF SERVICE: 02/22/2019 INFECTIOUS DISEASE CONSULTATION ATTENDING PHYSICIAN: Dr. Antonieta Zegn REASON FOR EVALUATION: Chronic osteomyelitis involving the left ischium in the setting of a chronic nonhealing wound. HISTORY OF PRESENT ILLNESS: Chart reviewed, patient examined. This is a 44-year-old well known to myself with paraplegia due to a spinal cord tumor, chronic ischial decubitus ulcers, left being worse than the right. This extends down to the bone. She has also history of obstructive uropathy due to the renal stones, who has been following Dr. Zeng as an outpatient in the wound care center and lack of healing the wound. She noted issues with soiling, therefore was admitted semi-electively to undergo diverting colostomy and also debridement including bone on the left, culture was collected. She is seen postoperatively. Does have a history of MRSA, was started on vancomycin and gentamicin. ALLERGIES: SULFA, MORPHINE, CLINDAMYCIN, CIPRO, TRAMADOL, MINOCYCLINE. MEDICATIONS: Current medicines include pantoprazole, duloxetine, enoxaparin, buspirone, , alprazolam, cyclobenzaprine, hydroxyzine, vancomycin, ondansetron, lorazepam, and oxycodone. PAST MEDICAL HISTORY: History of paraplegia due to spinal cord tumor, sequelae of complicated urinary tract infection, obstructive uropathy with kidney stones requiring stenting previously, chronic decubitus ulcers most prominent at the left ischial site, history of previous cholecystectomy, has lymphedema of the lower extremities. SOCIAL HISTORY: Former smoker. No ethanol, no illicit drug use. FAMILY HISTORY: Noncontributory. REVIEW OF SYSTEMS: Otherwise unremarkable. Denies any recent fevers. Appetite has been fair, this is somewhat variable. Denies significant pulmonary or gastrointestinal related complaints. PHYSICAL EXAMINATION: [place] [address] CONSULTATION Name: BETHEL MAHONEY Room: [address]#: [id number] Admission: 02/22/19 Attend Phys: Antonieta Zeng MD Discharge: Date of : 71 Report #: [id number] GENERAL: She is lethargic at this point. She is postoperative. Does admit to moderate degree of pain and discomfort. Appears fairly well nourished. VITAL SIGNS: Temperature 98.3, pulse 101, respirations 16, blood pressure 108/69. SKIN: Warm, dry, no rashes. HEENT: Normocephalic. Extraocular muscles intact. NECK: Supple. LUNGS: Diminished, otherwise clear breath sounds. HEART: Regular. Borderline tachycardic. I do not appreciate a murmur. ABDOMEN: Soft. Does have the ostomy in place in the left lower quadrant. There is no disruption of the operative site culture recent debridement. LABORATORY AND DIAGNOSTIC DATA: Preop lab: White count 7.3, H and H 13.0 and 40.2, platelets of 277. Electrolytes: Sodium 141, potassium 3.4, chloride 102, bicarb is 28, anion gap of 11, BUN and creatinine 7 and 0.5, glucose of 118. LFTs unremarkable exception of alk phos elevated at 159. Albumin of 3.7, total protein 7.5. Estimated GFR of 133. ASSESSMENT: Chronic osteomyelitis involving the left ischium, status post bone debridement with culture collected in progress. We will continue empiric antimicrobial therapy, previous history of methicillin-resistant Staphylococcus aureus from that site, most recently in November. We will monitor expectantly and encourage incentive spirometry, optimize her nutritional status. She tends to have adverse drug effects including anorexia. Continue efforts to offload as per Dr. Zeng. <ELECTRONICALLY SIGNED> By: Milton Gandhi MD 02/23/19 1126 1634 [id number] Gandhi MD /nt
[2019-02-23 16:19] VITALS: BP 124/74
[2019-02-23 20:00] VITALS: BP 128/78
[2019-02-23 22:06] LABS: GLYCOHEMOGLOBIN (HGB A1C) 6.3 % (4.8-5.6)
[2019-02-24 04:00] VITALS: BP 109/53
[2019-02-24 05:31] LABS: HEMATOCRIT 32.5 % (37.0-47.0); HEMOGLOBIN 10.7 gm/dL (12.0-15.0); MCH 25.3 pg (26.0-34.0); MCHC 32.8 g/dL (28.0-37.0); MCV 76.9 fL (80.0-100.0); MPV 6.7 fl. (7.2-11.1); RBC 4.22 mil/uL (4.20-5.00); RDW-CV 19.7 % (10.5-14.5); WBC 5.3 thou/uL (4.0-11.0)
[2019-02-24 05:50] LABS: ALBUMIN 2.9 g/dL (3.4-5.0); CALCIUM 8.6 mg/dL (8.5-10.1); CREATININE 0.4 mg/dL (0.6-1.3); MAGNESIUM 1.9 mg/dL (1.8-2.4); POTASSIUM 3.7 mmol/L (3.5-5.1); TOTAL BILIRUBIN 0.2 mg/dL (<0.1-1.0); TOTAL PROTEIN 6.3 g/dL (6.4-8.2)
[2019-02-24 07:55] VITALS: BP 122/60
[2019-02-24 11:30] VITALS: BP 135/58
[2019-02-24 15:20] VITALS: BP 126/76
[2019-02-25] VITALS: BP 128/63
[2019-02-25 04:00] VITALS: BP 109/59
[2019-02-25 09:45] VITALS: BP 111/61
[2019-02-25 13:25] VITALS: BP 125/62
[2019-02-25 20:00] VITALS: BP 115/78
[2019-02-26] VITALS: BP 123/70
[2019-02-26 04:23] LABS: ABSOLUTE BASOPHILS 0.1 thou/uL (0.0-0.2); ABSOLUTE EOSINOPHILS 0.4 thou/uL (0.0-0.7); ABSOLUTE LYMPHOCYTES 2.3 thou/uL (0.8-5.3); ABSOLUTE MONOCYTES 0.4 thou/uL (0.0-1.2); BASOPHILS 0.7 %; EOSINOPHILS 5.2 %; HEMATOCRIT 35.4 % (37.0-47.0); HEMOGLOBIN 11.5 gm/dL (12.0-15.0); LYMPHOCYTES 31.9 %; MCH 24.8 pg (26.0-34.0); MCHC 32.4 g/dL (28.0-37.0); MCV 76.7 fL (80.0-100.0); MONOCYTES 6.3 %; MPV 7.4 fl. (7.2-11.1); NUCLEATED RBCS 0 /100WBC; PLATELET COUNT* 262 thou/uL (150-400); POLYS 55.9 %; RBC 4.62 mil/uL (4.20-5.00); RDW-CV 19.8 % (10.5-14.5); WBC 7.2 thou/uL (4.0-11.0)
[2019-02-26 04:46] LABS: % SATURATION 8 % (20-39); IRON 17 ug/dL (50-175)
[2019-02-26 04:47] LABS: CALCIUM 9.4 mg/dL (8.5-10.1); CREATININE 0.5 mg/dL (0.6-1.3); MAGNESIUM 1.4 mg/dL (1.8-2.4); POTASSIUM 3.5 mmol/L (3.5-5.1)
[2019-02-26 08:00] VITALS: BP 111/63
[2019-02-26 12:00] VITALS: BP 127/71
[2019-02-26 16:39] VITALS: BP 109/65
[2019-02-26 19:47] VITALS: BP 118/78
[2019-02-27 05:40] LABS: CREATININE 0.5 mg/dL (0.6-1.3); MAGNESIUM 1.7 mg/dL (1.8-2.4); POTASSIUM 3.5 mmol/L (3.5-5.1)
[2019-02-27 08:30] VITALS: BP 116/56
[2019-02-27 15:34] VITALS: BP 106/67
[2019-02-28 00:32] VITALS: BP 119/62
[2019-02-28 04:30] VITALS: BP 156/66
[2019-02-28 04:48] LABS: CALCIUM 8.3 mg/dL (8.5-10.1); CREATININE 0.5 mg/dL (0.6-1.3); POTASSIUM 3.5 mmol/L (3.5-5.1)
[2019-02-28 09:29] VITALS: BP 121/56
[2019-02-28 16:43] VITALS: BP 113/57
[2019-02-28 20:00] VITALS: BP 120/59
[2019-03-01] VITALS: BP 110/62
[2019-03-01 07:50] VITALS: BP 123/71
[2019-03-01] MEDS ORDERED: AUGMENTIN 875-1 EACH PO (14:28)
[2019-03-01] MEDS ORDERED: PERCOCET 10-321 EACH PO (14:33)
[2019-03-01 14:44] VITALS: BP 123/71
[2019-03-01 16:33] VITALS: BP 141/72
[2019-03-01 20:30] VITALS: BP 122/56
[2019-03-02 08:45] VITALS: BP 105/66
[2019-03-02 10:29] VITALS: BP 123/71
== END 2019-03-02 11:00 | DRG 628 ==
LOC: M.PRE 10:12 → M.3W 11:37 → M.TBA 11:37 → M.PRE 13:24 → M.3W 16:23
PROVIDERS: Family Medicine; Surgery; ADMIT Internal Medicine
PROC: 0QB30ZZ Excision of Left Pelvic Bone, Open Approach (ICD-10-PCS; principal; 2019-02-22)
PROC: 0DQN0ZZ Repair Sigmoid Colon, Open Approach (ICD-10-PCS; principal; 2019-02-22)
PROC: 0KBN0ZZ Excision of Right Hip Muscle, Open Approach (ICD-10-PCS; principal; 2019-02-22)
PROC: 2W1PX6Z Compression of Left Upper Leg using Pressure Dressing (ICD-10-PCS; 2019-02-22)
DX: E11.69 Type 2 diabetes mellitus with other specified complication (principal); L89.324 Pressure ulcer of left buttock, stage 4; L89.314 Pressure ulcer of right buttock, stage 4; M86.8X8 Other osteomyelitis, other site; G82.20 Paraplegia, unspecified; D49.7 Neoplasm of unspecified behavior of endocrine glands and other parts of nervous system; K59.09 Other constipation; E11.65 Type 2 diabetes mellitus with hyperglycemia; I95.9 Hypotension, unspecified; K04.7 Periapical abscess without sinus; D63.8 Anemia in other chronic diseases classified elsewhere; D50.9 Iron deficiency anemia, unspecified; E83.42 Hypomagnesemia; Z87.891 Personal history of nicotine dependence; Z87.442 Personal history of urinary calculi; Z90.49 Acquired absence of other specified parts of digestive tract; Z86.14 Personal history of Methicillin resistant Staphylococcus aureus infection; Z88.6 Allergy status to analgesic agent; Z88.1 Allergy status to other antibiotic agents; Z88.8 Allergy status to other drugs, medicaments and biological substances; Z79.899 Other long term (current) drug therapy

== ENCOUNTER → 2019-03-06 | Outpatient (CLI) | payer MEDICARE, MEDICAID ==
[~2019-03-06] MED LIST changes: +PERCOCET 10-321 EACH PO
--- NOTE | 2019-03-08 11:53 | CON ---
[address] [address] CONSULTATION Name: MARUBETHEL F Room: [facility].#: [id number] Admission: 03/06/19 Attend Phys: Antonieta Zeng MD Discharge: Date of : 71 Report #: [id number] THIS REPORT FOR: //name// CC: Alyssia Stevens DATE OF SERVICE: 03/06/2019 INFECTIOUS DISEASE CONSULTATION AND FOLLOWUP ATTENDING PHYSICIAN: Antonieta Zeng M.D. HISTORY OF PRESENT ILLNESS: She is seen in the outpatient Wound Care Center at [place], [place]. The patient returns today in followup of ongoing issues of left ischial chronic ulceration, complicated by chronic osteomyelitis. She is post bone debridement. She has multiple complaints, primarily related to her living situation. She is not having significant discomfort associated with either the ostomy site, which was new recently, to serve as a diversion over the wound site. It is not clear if she has had any recent fevers. Appetite has been variable, perhaps attributed to not liking the food. She denies any significant pulmonary or gastrointestinal-related complaints at this point. PHYSICAL EXAMINATION: On examination, she has bilateral ischial wounds with chronic site on the left. It appears to be generally clear, with Dr. Zeng present. On probing, there was no evidence of exposed bone at this point. The surface has quite significant inflammatory eruption, consistent with related to the wound dressing and lack of offloading. The right side has a more superficial wound that has moderate amount of debris and fibrin noted at the base, likely stage 2-3. Again, there is no hard tissue exposed. ASSESSMENT AND PLAN: Chronic osteomyelitis with recent bone biopsy with sterile culture. We will continue the current approach with systemic parenteral antibiotics utilizing vancomycin for at least additional couple of weeks. Check weekly labs. Continue wound care as prescribed by Dr. Zeng, offloading the site and skin care. She was encouraged to optimize her nutritional status. Secondly, the multiple complaints she has, I did notify the director case management, who will come and speak with her. She needs ostomy bags in the short term. <ELECTRONICALLY SIGNED> By: Milton Gandhi MD 03/08/19 1153 1148 [id number] Gandhi MD /nt
== END ==
LOC: M.WC 02:04
DX: T81.89XD Other complications of procedures, not elsewhere classified, subsequent encounter (principal); L89.210 Pressure ulcer of right hip, unstageable; L89.224 Pressure ulcer of left hip, stage 4; L89.152 Pressure ulcer of sacral region, stage 2; L89.324 Pressure ulcer of left buttock, stage 4; L89.310 Pressure ulcer of right buttock, unstageable; I89.0 Lymphedema, not elsewhere classified; I96 Gangrene, not elsewhere classified; M86.8X8 Other osteomyelitis, other site; M81.0 Age-related osteoporosis without current pathological fracture; Z87.891 Personal history of nicotine dependence; Y83.8 Other surgical procedures as the cause of abnormal reaction of the patient, or of later complication, without mention of misadventure at the time of the procedure

== ENCOUNTER → 2019-03-13 | Outpatient (CLI) | payer MEDICARE, MEDICAID | LOC: M.WC 00:55 | DX: L89.210 Pressure ulcer of right hip, unstageable (principal); L89.224 Pressure ulcer of left hip, stage 4; L89.152 Pressure ulcer of sacral region, stage 2; L89.324 Pressure ulcer of left buttock, stage 4; L89.310 Pressure ulcer of right buttock, unstageable; I89.0 Lymphedema, not elsewhere classified; M86.8X8 Other osteomyelitis, other site; I96 Gangrene, not elsewhere classified; G82.20 Paraplegia, unspecified; M81.0 Age-related osteoporosis without current pathological fracture; Z87.891 Personal history of nicotine dependence ==

== ENCOUNTER → 2019-03-20 | Outpatient (CLI) | payer MEDICARE, MEDICAID ==
--- NOTE | 2019-03-21 11:31 | CON ---
[address] [address] CONSULTATION Name: MARUBETHEL F Room: [facility] TERELL Morris#: [id number] Admission: 03/20/19 Attend Phys: Antonieta Zeng MD Discharge: Date of : 71 Report #: [id number] THIS REPORT FOR: //name// CC: Antonieta Stevens DATE OF SERVICE: 03/20/2019 LOCATION: Wound care center. ATTENDING PHYSICIAN: Dr. Antonieta Zeng. REASON FOR EVALUATION: Bilateral ischial wounds with chronic osteomyelitis involving the left side. HISTORY OF PRESENT ILLNESS: Chart reviewed, the patient examined. The patient returns today in followup at the wound care center for ongoing wound care. She has been in a facility. She has received roughly 5 weeks of parenteral antimicrobial therapy to this point with vancomycin for chronic osteomyelitis. It is notable operative cultures were sterile; however, previous to that she had oxacillin-resistant Staph aureus, had been on a chronic suppressive regimen. She showed evidence of healing on both sides, on the left particular the depth is roughly 0.5 cm less. On examination, there is no probing to bone at this point, appears to be generally healthy within the wound bed, does have a degree of erythrodermic type rash on the surface, but there is some question of her Francois leaking causing some maceration. On the right side, the wound is seed cleaner operator than previous, although there is noted some odor and some greenish drainage. This was sent for culture by Dr. Zeng. ASSESSMENT AND PLAN: Chronic osteomyelitis. Discussed with Dr. Zeng, will extend the antibiotic therapy at least additional 2 weeks. Again, check weekly labs. Continue offloading. Try to optimize her nutritional status. Wound care per Dr. Zeng. <ELECTRONICALLY SIGNED> By: Milton Gandhi MD 03/21/19 1131 1013 [id number] Gandhi MD /nt
== END ==
LOC: M.WC 01:20
DX: L89.213 Pressure ulcer of right hip, stage 3 (principal); L89.324 Pressure ulcer of left buttock, stage 4; L89.310 Pressure ulcer of right buttock, unstageable; I89.0 Lymphedema, not elsewhere classified; M86.8X8 Other osteomyelitis, other site; I96 Gangrene, not elsewhere classified; G82.20 Paraplegia, unspecified; M81.0 Age-related osteoporosis without current pathological fracture; Z87.891 Personal history of nicotine dependence

== ENCOUNTER → 2019-04-03 | Outpatient (CLI) | payer MEDICARE, MEDICAID ==
--- NOTE | 2019-04-05 11:57 | CON ---
[address] [address] CONSULTATION Name: BETHEL MAHONEY Room: [facility] TERELL Morris#: [id number] Admission: 04/03/19 Attend Phys: Antonieta Zeng MD Discharge: Date of : 71 Report #: [id number] THIS REPORT FOR: //name// CC: Antonieta Stevens DATE OF SERVICE: 04/04/2019 ATTENDING PHYSICIAN: Dr. Antonieta Zeng. The patient is here today in follow up bilateral ischial chronic ulcerations. Likely, he had chronic osteomyelitis involving the left side, undergoing wound care, seen roughly 2 weeks ago. Generally, she is making some improvement in terms of dimensions of the wounds. Left side no longer shows exposed bone. Recent culture with growth of Pseudomonas aeruginosa was cruz susceptible. Had been on previous treatment for MRSA with vancomycin. She continues to have difficulty eating and some degree offloading. Denies any recent fevers. Appetite is fair. No pulmonary or gastrointestinal-related complaints of note. Chronic wounds complicated by infection. We will adjust therapy. Continue cefepime 2 g IV q. 12 hours additional couple of weeks. Wound care as prescribed. She is strongly encouraged to try to eat in spite of her difficulties with not liking the food. Certainly, nutrition, I believe is playing a role in both poor healing we have and the lack thereof, may be ultimately better. Continue weekly labs. We will see her back in 2 weeks. <ELECTRONICALLY SIGNED> By: Milton Gandhi MD 04/05/19 1157 1124 [id number] Valery Gandhi MD /nt
== END ==
LOC: M.WC 01:11
DX: L89.213 Pressure ulcer of right hip, stage 3 (principal); L89.224 Pressure ulcer of left hip, stage 4; L89.324 Pressure ulcer of left buttock, stage 4; L89.310 Pressure ulcer of right buttock, unstageable; I89.0 Lymphedema, not elsewhere classified; I96 Gangrene, not elsewhere classified; M86.8X8 Other osteomyelitis, other site; G82.20 Paraplegia, unspecified; M81.0 Age-related osteoporosis without current pathological fracture; Z87.891 Personal history of nicotine dependence

== ENCOUNTER → 2019-04-24 | Outpatient (CLI) | payer MEDICARE, MEDICAID ==
--- NOTE | 2019-04-25 07:43 | CON ---
[address] [address] CONSULTATION Name: MARUBETHEL Echevarria Room: [facility] KYLE IsidroLesley.#: [id number] Admission: 04/24/19 Attend Phys: Antonieta Zeng MD Discharge: Date of : 71 Report #: [id number] THIS REPORT FOR: //name// CC: Antonieta Stevens DATE OF SERVICE: 04/24/2019 INFECTIOUS DISEASE CONSULTATION ATTENDING PHYSICIAN: Antonieta Zeng MD HISTORY OF PRESENT ILLNESS: She is here for followup of bilateral ischial wounds. One of concerns from infectious standpoint is on the left side, she had chronic osteomyelitis. She has been on parenteral therapy for a number of weeks. Clinically, she has been fairly stable. Denies significant discomfort. She notes she intermittently has low-grade temperature elevations. It is notable she has an indwelling Francois catheter. Her appetite has been only fair. On exam, per Dr. Zeng, there is no palpable or exposed bone on the left side. The wounds generally appear fairly clean. There is some certainly sreekanth-wound inflammatory eruption that suggests may be consistent with dermatitis, perhaps with a component of yeast. After discussion with Dr. Zeng, we will pursue Urology evaluation. At this point, she may benefit from suprapubic catheter. It is certainly unclear whether she still has continued leakage at the site. This is certainly contributing to her rash and perhaps a decreased rate of healing. Continue the cefepime. It is clear that she is not able to offload without assistance given her paraplegia. Again, overall level of nutrition is probably inadequate as well. Try to work at the margins to improve her overall likelihood of healing. <ELECTRONICALLY SIGNED> By: Milton Gandhi MD 04/25/19 0743 1121 00Milton Gandhi MD /nt
== END ==
LOC: M.WC 04-17 00:32
DX: L89.213 Pressure ulcer of right hip, stage 3 (principal); L89.224 Pressure ulcer of left hip, stage 4; L89.324 Pressure ulcer of left buttock, stage 4; L89.310 Pressure ulcer of right buttock, unstageable; I89.0 Lymphedema, not elsewhere classified; I96 Gangrene, not elsewhere classified; G82.20 Paraplegia, unspecified; M86.8X8 Other osteomyelitis, other site; M81.0 Age-related osteoporosis without current pathological fracture; Z87.891 Personal history of nicotine dependence

== ENCOUNTER → 2019-05-22 | Outpatient (CLI) | payer MEDICARE, MEDICAID | LOC: M.WC 05:00 | DX: L89.324 Pressure ulcer of left buttock, stage 4 (principal); L89.313 Pressure ulcer of right buttock, stage 3; M86.8X8 Other osteomyelitis, other site; I96 Gangrene, not elsewhere classified; I89.0 Lymphedema, not elsewhere classified; G82.20 Paraplegia, unspecified; M81.0 Age-related osteoporosis without current pathological fracture; Z87.891 Personal history of nicotine dependence ==

== ENCOUNTER → 2019-06-01 | Outpatient (CLI) | payer MEDICARE, MEDICAID | LOC: M.WC 05:11 | DX: L89.324 Pressure ulcer of left buttock, stage 4 (principal); L89.314 Pressure ulcer of right buttock, stage 4; I89.0 Lymphedema, not elsewhere classified; I96 Gangrene, not elsewhere classified; M86.8X8 Other osteomyelitis, other site; M81.0 Age-related osteoporosis without current pathological fracture; G82.20 Paraplegia, unspecified; F41.9 Anxiety disorder, unspecified; F32.9 Major depressive disorder, single episode, unspecified; Z87.891 Personal history of nicotine dependence ==

== ENCOUNTER → 2019-06-12 | Outpatient (CLI) | payer MEDICARE, MEDICAID ==
--- NOTE | 2019-06-14 12:22 | CON ---
[address] [address] CONSULTATION Name: MARUBETHEL F Room: [facility] KYLEPoonam Morris#: [id number] Admission: 06/12/19 Attend Phys: Antonieta Zeng MD Discharge: Date of : 71 Report #: [id number] THIS REPORT FOR: //name// CC: Antonieta Stevens DATE OF SERVICE: 06/12/2019 ATTENDING PHYSICIAN: Antonieta Zeng MD REASON FOR EVALUATION: Bilateral ischial wounds, the left with evidence of a deep infection historically. HISTORY OF PRESENT ILLNESS: The patient is here for follow up having been off the antibiotics. For the last 2-3 weeks, she notes no fevers. She does admit to not eating well for a variety of reasons. On examination, the wounds actually appear to be overall decreased in size including the depths. I inspected them with Dr. Zeng. There is very little surface inflammation. There is no exposed bone, per his evaluation. There is no odor, no drainage. Overall, they appear to be fairly benign. ASSESSMENT AND PLAN: Bilateral ischial ulcers. At this point, has been off antibiotics. Did have a repeat culture at some point with growth of vancomycin-resistant enterococcus. She is currently on a 10-day course with linezolid. I think it is reasonable to continue that to completion, I would not extend it necessarily. I do not think there is any benefit to culturing at this point given the lack of inflammatory signs or suggestion of ongoing infection. I strongly encouraged her to improve her overall nutritional status by eating including protein. We will see her in 2 weeks. <ELECTRONICALLY SIGNED> By: Milton Gandhi MD 06/14/19 1222 0944 [id number] Gandhi MD /nt
== END ==
LOC: M.WC 04:55
DX: T81.89XA Other complications of procedures, not elsewhere classified, initial encounter (principal); L89.324 Pressure ulcer of left buttock, stage 4; L89.314 Pressure ulcer of right buttock, stage 4; I89.0 Lymphedema, not elsewhere classified; I96 Gangrene, not elsewhere classified; M86.8X8 Other osteomyelitis, other site; G82.20 Paraplegia, unspecified; M81.0 Age-related osteoporosis without current pathological fracture; Z87.891 Personal history of nicotine dependence; Y92.89 Other specified places as the place of occurrence of the external cause; Y83.8 Other surgical procedures as the cause of abnormal reaction of the patient, or of later complication, without mention of misadventure at the time of the procedure

== ENCOUNTER → 2019-06-30 | Outpatient (CLI) | payer MEDICARE, MEDICAID ==
--- NOTE | 2019-07-03 07:46 | CON ---
[address] [address] CONSULTATION Name: BETHEL MAHONEY Room: [facility] Chuy.#: [id number] Admission: 06/30/19 Attend Phys: Osmani Luna, Discharge: Date of : 71 Report #: [id number] THIS REPORT FOR: //name// CC: Osmani Stevens DATE OF SERVICE: 06/30/2019 INFECTIOUS DISEASE CONSULTATION ATTENDING PHYSICIAN: Dr. Luna. HISTORY OF PRESENT ILLNESS: Here for followup of bilateral ischial ulcerations, it has been ongoing and osteomyelitis, at one point has been on extended period of antimicrobial therapy. Generally, she feels satisfactory. She does have some sweats from time to time and temperature elevations approaching 99. She does have an indwelling catheter that has recently been cultured with growth of Escherichia coli that is moderately resistant, had been on trimethoprim and sulfamethoxazole, which is in vitro resistant to the evaluation of the wounds. They actually appear improved. There is overall decrease in the inflammatory eruption noted at the margins. There are decreased overall dimensions. There is no palpable or visual bone or ability to probe to bone by either wound. Bilateral ischial wounds. At this point, would continue wound care per Dr. Luna. Based on susceptibilities and her known history of adverse drug effects/hypersensitivities to antibiotics very limited in terms of oral options. She does have a PICC line in. We will give abbreviated course of ceftriaxone for which it is in vitro susceptible of 5 days. We will see her back in 2 weeks. <ELECTRONICALLY SIGNED> By: Milton Gandhi MD 07/03/19 0746 1044 [id number] Gandhi MD /nt
== END ==
LOC: M.WC 06-26 07:23
DX: L89.213 Pressure ulcer of right hip, stage 3 (principal); L89.224 Pressure ulcer of left hip, stage 4; L89.324 Pressure ulcer of left buttock, stage 4; L89.314 Pressure ulcer of right buttock, stage 4; I96 Gangrene, not elsewhere classified; I89.0 Lymphedema, not elsewhere classified; G82.20 Paraplegia, unspecified; K21.9 Gastro-esophageal reflux disease without esophagitis; M86.8X8 Other osteomyelitis, other site; M81.0 Age-related osteoporosis without current pathological fracture; F41.9 Anxiety disorder, unspecified; F32.9 Major depressive disorder, single episode, unspecified; Z87.891 Personal history of nicotine dependence

== ENCOUNTER → 2019-07-10 | Outpatient (CLI) | payer MEDICARE, MEDICAID ==
--- NOTE | 2019-07-11 07:33 | CON ---
[address] [address] CONSULTATION Name: MARUBETHEL F Room: [facility] TERELL Vera.#: [id number] Admission: 07/10/19 Attend Phys: Antonieta Zeng MD Discharge: Date of : 71 Report #: [id number] THIS REPORT FOR: //name// CC: Antonieta Stevens DATE OF SERVICE: 07/10/2019 ATTENDING PHYSICIAN: Antonieta Zeng MD The patient returns in followup, bilateral ischial ulcerations, also has chronic indwelling Francois catheter. She was last seen 2 weeks ago. At that point, it was felt to have a urinary tract infection, was treated with ceftriaxone for roughly 5 days. She clinically has improved over the course of last visit. On examination, the wounds are significantly better. Between the two of them, 20-50% diminishment in size. Overall appearance with superficially as much improved and in terms of the surrounding margins is significant less inflammation. Does admit to some generalized sweats. She has not had fevers. Appetite has still been somewhat variable as is her p.o. intake. She is not encephalopathic. Bilateral ischial ulcerations. Did review cultures. She had scant growth of multiple resistant Acinetobacter, but clinically the wounds are improved. I do not think there is evidence of infection at this point. I had a lengthy discussion with her. She is concerned that we will go ahead and remove the PICC line, due to the risks and benefits, a decision of leaving it in. Continue wound care as prescribed by Dr. Zeng. He is going to pursue urology evaluation for possible suprapubic catheter. We will see her in 2 weeks. <ELECTRONICALLY SIGNED> By: Milton Gandhi MD 07/11/19 0733 1113 [id number] Gandhi MD /nt
== END ==
LOC: M.WC 05:12
DX: L89.324 Pressure ulcer of left buttock, stage 4 (principal); L89.313 Pressure ulcer of right buttock, stage 3; I89.0 Lymphedema, not elsewhere classified; I96 Gangrene, not elsewhere classified; M81.0 Age-related osteoporosis without current pathological fracture; M86.8X8 Other osteomyelitis, other site; G82.20 Paraplegia, unspecified; Z87.891 Personal history of nicotine dependence

== ENCOUNTER → 2019-07-17 | Outpatient (CLI) | payer MEDICARE, MEDICAID | LOC: M.WC 01:58 | DX: L89.324 Pressure ulcer of left buttock, stage 4 (principal); L89.213 Pressure ulcer of right hip, stage 3; I89.0 Lymphedema, not elsewhere classified; M86.8X8 Other osteomyelitis, other site; I96 Gangrene, not elsewhere classified; G82.21 Paraplegia, complete; M81.0 Age-related osteoporosis without current pathological fracture; Z87.891 Personal history of nicotine dependence ==

== ENCOUNTER → 2019-07-24 | Outpatient (CLI) | payer MEDICARE, MEDICAID ==
[2019-07-24 10:29] LABS: ABSOLUTE BASOPHILS 0.1 thou/uL (0.0-0.2); ABSOLUTE EOSINOPHILS 0.4 thou/uL (0.0-0.7); ABSOLUTE LYMPHOCYTES 2.2 thou/uL (0.8-5.3); ABSOLUTE MONOCYTES 0.4 thou/uL (0.0-1.2); ABSOLUTE NEUTROPHILS 4.2 thou/uL (1.6-8.1); BASOPHILS 0.9 %; HEMATOCRIT 36.7 % (37.0-47.0); HEMOGLOBIN 12.5 gm/dL (12.0-15.0); LYMPHOCYTES 30.1 %; MCV 82.4 fL (80.0-100.0); MONOCYTES 5.2 %; MPV 7.3 fl. (7.2-11.1); NUCLEATED RBCS 0 /100WBC; PLATELET COUNT* 337 thou/uL (150-400); POLYS 58.8 %; RBC 4.46 mil/uL (4.20-5.00); RDW-CV 14.5 % (10.5-14.5); WBC 7.2 thou/uL (4.0-11.0)
[2019-07-24 10:40] LABS: CALCIUM 9.6 mg/dL (8.5-10.1); CREATININE 0.4 mg/dL (0.6-1.3); POTASSIUM 3.6 mmol/L (3.5-5.1)
[2019-07-24 10:44] LABS: ALBUMIN 3.4 g/dL (3.4-5.0); TOTAL BILIRUBIN 0.2 mg/dL (<0.1-1.0); TOTAL PROTEIN 7.5 g/dL (6.4-8.2)
[2019-07-24 10:55] LABS: PREALBUMIN 24.7 mg/dL (18.0-35.7)
[2019-07-24 11:33] LABS: ESR (SEDRATE) 35 mm/hr (0-20)
[2019-07-24 23:08] LABS: GLYCOHEMOGLOBIN (HGB A1C) 5.8 % (4.8-5.6)
--- NOTE | 2019-07-25 07:20 | CON ---
[address] [address] CONSULTATION Name: MARUBETHEL Wlae Room: [facility] Alexandra#: [id number] Admission: 07/24/19 Attend Phys: Antonieta Zeng MD Discharge: Date of : 71 Report #: [id number] THIS REPORT FOR: //name// CC: Antonieta Stevens DATE OF SERVICE: 07/24/2019 ATTENDING PHYSICIAN: Antonieta Zeng MD REASON FOR EVALUATION: Bilateral ischial chronic ulcerations, one point likely chronic osteomyelitis involving the left that seems to have resolved. HISTORY OF PRESENT ILLNESS: She has multiple complaints describes as abdominal pain and some dark tarry stools. It is notable she is on supplemental iron. She has a long-standing indwelling Francois catheter. She does describe some feeling warm and sweats. PHYSICAL EXAMINATION: SKIN: On examination, the wounds actually appear fairly stable. She has been off antibiotics now for at least a few weeks. The superficial aspect to the wounds has some mild cutaneous erythema. ASSESSMENT AND PLAN: Chronic bilateral ischial wounds. At this point, we would not start antibiotics. We will check some labs including CBC, CMP, prealbumin, sed rate, hemoglobin A1c as well as urinalysis, possible culture. We will plan on seeing her back in 1 week. <ELECTRONICALLY SIGNED> By: Milton Gandhi MD 07/25/19 0720 1114 [id number] Gandhi MD /selvin
== END ==
LOC: M.WC 04:50
PROVIDERS: Specialist
DX: L89.324 Pressure ulcer of left buttock, stage 4 (principal); L89.213 Pressure ulcer of right hip, stage 3; I89.0 Lymphedema, not elsewhere classified; I96 Gangrene, not elsewhere classified; E11.69 Type 2 diabetes mellitus with other specified complication; M86.8X8 Other osteomyelitis, other site; G82.20 Paraplegia, unspecified; M81.0 Age-related osteoporosis without current pathological fracture; Z87.891 Personal history of nicotine dependence

== ENCOUNTER → 2019-07-31 | Outpatient (CLI) | payer MEDICARE, MEDICAID ==
[~2019-07-31] MED LIST changes: +ADVIL LIQUI-GE200 MG PO; +AMOXICILLIN500 M1 PO; +CEFDINIR300 MG PO; +FLORANEX TABLE1 EACH PO; +FRUIT C-100100 MG PO; +GLUCAGON EMERGEN1 MG SUBQ; +GLUCOSE4 GM PO; +METFORMIN HCL500 M3 PO; +NOVOLOG FL100 UNIT/M SUBQ; +OMEPRAZOLE40 MG PO; +OXYCONTIN15 MG PO; +PERCOCET 7.5-31 EAC1 PO; +PROBIOTIC1 EAC7 PO; +SLOW FE142 MG PO; +SUPER THERAVIT1 EACH PO; +VITAMIN C120 G1 PO
--- NOTE | 2019-08-02 11:59 | CON ---
[address] [address] CONSULTATION Name: MARUBETHEL F Room: [facility] KYLEPoonam Vera.#: [id number] Admission: 07/31/19 Attend Phys: Antonieta Zeng MD Discharge: Date of : 71 Report #: [id number] THIS REPORT FOR: //name// CC: Antonieta Stevens DATE OF SERVICE: 07/31/2019 INFECTIOUS DISEASE CONSULTATION ATTENDING PHYSICIAN: Dr. Antonieta Zeng. REASON FOR EVALUATION: Ongoing issues of chronic ulceration involving the bilateral ischial sites. At this point, she is on no systemic antibiotics or utilizing topical antimicrobials in association with the dressings. She continues to be concerned about lack of healing of the wounds. Review of labs interestingly shows prealbumin and albumin within normal range, is not anemic. White count is normal. She denies any recent fevers. Appetite has been fair. She does note there is some difficulty in maintaining offloading at the facility. I did inspect the sites with Dr. Zeng. Overall, the degree of inflammation is fairly mild at least superficially. There is no purulence, no odor. Some concern about left side having probable bone. ASSESSMENT AND PLAN: Chronic ischial wounds. At this point, I do not think there is a need to culture the sites. We will continue with local therapy. Continue to encourage offloading, optimize her nutritional status. We will be mindful of any deterioration in her wounds and/or overall clinical picture, likely will need additional antimicrobials. She also has ongoing issues with chronic indwelling Francois with recurrent urinary tract infections as well. At this point, she appears to be relatively stable. <ELECTRONICALLY SIGNED> By: Milton Gandhi MD 08/02/19 1159 1003 [id number] Gandhi MD /nt
== END ==
LOC: M.WC 08:40
DX: E11.622 Type 2 diabetes mellitus with other skin ulcer (principal); L89.324 Pressure ulcer of left buttock, stage 4; L98.412 Non-pressure chronic ulcer of buttock with fat layer exposed; L89.213 Pressure ulcer of right hip, stage 3; L98.492 Non-pressure chronic ulcer of skin of other sites with fat layer exposed; I89.0 Lymphedema, not elsewhere classified; E11.52 Type 2 diabetes mellitus with diabetic peripheral angiopathy with gangrene; I96 Gangrene, not elsewhere classified; E11.69 Type 2 diabetes mellitus with other specified complication; M86.8X8 Other osteomyelitis, other site; G82.21 Paraplegia, complete; M81.0 Age-related osteoporosis without current pathological fracture; Z87.891 Personal history of nicotine dependence

== ENCOUNTER → 2019-08-07 | Outpatient (CLI) | payer MEDICARE, MEDICAID ==
--- NOTE | 2019-08-08 08:02 | CON ---
[address] [address] CONSULTATION Name: BETHEL MAHONEY Room: [facility] TERELL Morris#: [id number] Admission: 08/07/19 Attend Phys: Antonieta Zeng MD Discharge: Date of : 71 Report #: [id number] THIS REPORT FOR: //name// CC: Antonieta Stevens DATE OF SERVICE: 08/07/2019 INFECTIOUS DISEASE CONSULTATION AND FOLLOWUP HISTORY OF PRESENT ILLNESS: The patient returns in followup for ongoing chronic bilateral ischial ulcers. She notes she has been very frustrated. She is lack of healing, although measurements appeared to be similar to previous. Did discuss appetite is somewhat variable as her p.o. intake due to food being somewhat unpalatable at times, also ongoing issues with offloading. On evaluation with Dr. Zeng, he did debride this site. There is no exposed bone at this point, is fairly bland, they do bleed although not excessively, so superficially, there is only mild degree of inflammation. ASSESSMENT AND PLAN: Chronic ischial ulcers. At this point, favor topical therapy with wound dressings. We will see her intermittently as Dr. Zeng sees her. <ELECTRONICALLY SIGNED> By: Milton Gandhi MD 08/08/19 0802 0952 [id number] Gandhi MD /nt
== END ==
LOC: M.WC 05:07
DX: E11.622 Type 2 diabetes mellitus with other skin ulcer (principal); L89.324 Pressure ulcer of left buttock, stage 4; L98.412 Non-pressure chronic ulcer of buttock with fat layer exposed; L89.213 Pressure ulcer of right hip, stage 3; L98.492 Non-pressure chronic ulcer of skin of other sites with fat layer exposed; I89.0 Lymphedema, not elsewhere classified; E11.52 Type 2 diabetes mellitus with diabetic peripheral angiopathy with gangrene; I96 Gangrene, not elsewhere classified; E11.69 Type 2 diabetes mellitus with other specified complication; M86.8X8 Other osteomyelitis, other site; G82.20 Paraplegia, unspecified; M81.0 Age-related osteoporosis without current pathological fracture; Z87.891 Personal history of nicotine dependence

== ENCOUNTER 2019-08-11 00:03 | Inpatient (IN) | payer MEDICARE, MEDICAID ==
[~2019-08-11] VITALS: Ht 157.5 cm; Wt 76.6 kg
[~2019-08-11 00:03] MED LIST changes: -ADVIL LIQUI-GE200 MG PO; -AMOXICILLIN500 M1 PO; -CEFDINIR300 MG PO; -FLORANEX TABLE1 EACH PO; -FRUIT C-100100 MG PO; -GLUCAGON EMERGEN1 MG SUBQ; -GLUCOSE4 GM PO; -METFORMIN HCL500 M3 PO; -NOVOLOG FL100 UNIT/M SUBQ; -OMEPRAZOLE40 MG PO; -OXYCONTIN15 MG PO; -PERCOCET 7.5-31 EAC1 PO; -PROBIOTIC1 EAC7 PO; -SLOW FE142 MG PO; -SUPER THERAVIT1 EACH PO; -VITAMIN C120 G1 PO
[2019-08-11 00:13] VITALS: BP 150/69
[2019-08-11] MEDS ORDERED: ADVIL LIQUI-GE200 MG PO (00:27)
[2019-08-11] MEDS ORDERED: METFORMIN HCL500 M3 PO (00:27)
[2019-08-11 00:28] LABS: ABSOLUTE BASOPHILS 0.1 thou/uL (0.0-0.2); ABSOLUTE EOSINOPHILS 0.1 thou/uL (0.0-0.7); ABSOLUTE LYMPHOCYTES 1.6 thou/uL (0.8-5.3); ABSOLUTE MONOCYTES 0.5 thou/uL (0.0-1.2); ABSOLUTE NEUTROPHILS 9.4 thou/uL (1.6-8.1); BASOPHILS 0.5 %; EOSINOPHILS 1.1 %; HEMATOCRIT 38.6 % (37.0-47.0); HEMOGLOBIN 12.9 gm/dL (12.0-15.0); LYMPHOCYTES 13.9 %; MCH 26.7 pg (26.0-34.0); MCHC 33.4 g/dL (28.0-37.0); MPV 7.4 fl. (7.2-11.1); NUCLEATED RBCS 0 /100WBC; PLATELET COUNT* 305 thou/uL (150-400); POLYS 80.5 %; RBC 4.82 mil/uL (4.20-5.00); RDW-CV 14.7 % (10.5-14.5); WBC 11.7 thou/uL (4.0-11.0)
[2019-08-11] MEDS ORDERED: NOVOLOG FL100 UNIT/M SUBQ (00:31)
[2019-08-11] MEDS ORDERED: OMEPRAZOLE40 MG PO (00:33)
[2019-08-11] MEDS ORDERED: PERCOCET 7.5-31 EAC1 PO (00:34)
[2019-08-11 00:36] LABS: URINE BILIRUBIN NEGATIVE (Negative); URINE BLOOD 3+ (Negative); URINE CLARITY CLOUDY; URINE COLOR YELLOW; URINE GLUCOSE-RANDOM NEGATIVE (Negative); URINE KETONES 1+ (Negative); URINE PROTEIN 2+ (Negative); URINE UROBILINOGEN 0.2 E.U./dl (0.2-1.0)
[2019-08-11] MEDS ORDERED: GLUCAGON EMERGEN1 MG SUBQ (00:36)
[2019-08-11] MEDS ORDERED: GLUCOSE4 GM PO (00:37)
[2019-08-11] MEDS ORDERED: SLOW FE142 MG PO (00:37)
[2019-08-11] MEDS ORDERED: SUPER THERAVIT1 EACH PO (00:37)
[2019-08-11 00:38] LABS: APTT 28.9 Seconds (25.0-31.3); INR 0.9; PROTIME 9.4 Seconds (9.20-11.50)
[2019-08-11] MEDS ORDERED: PROBIOTIC1 EAC7 PO (00:38)
[2019-08-11 00:39] LABS: CALCIUM 9.6 mg/dL (8.5-10.1); CREATININE 0.5 mg/dL (0.6-1.3); POTASSIUM 4.4 mmol/L (3.5-5.1)
[2019-08-11] MEDS ORDERED: FRUIT C-100100 MG PO (00:39)
[2019-08-11 00:40] LABS: URINE LEUKOCYTES-REFLEX 3+ (Negative); URINE NITRITE-REFLEX POSITIVE (Negative)
[2019-08-11 00:41] LABS: BACTERIA-REFLEX >30 Many /HPF (None Seen); CASTS None Seen /LPF (None Seen); CRYSTALS None Seen /LPF (None Seen); MUCUS 4-6 Moderate strn/LPF (None Seen); SQUAMOUS 0-3 Few /LPF (0-3); URINE WBC-REFLEX >25 Many /HPF (0-5); WBC CLUMPS Few (None Seen)
[2019-08-11 00:50] LABS: ALBUMIN 3.4 g/dL (3.4-5.0); TOTAL BILIRUBIN 0.2 mg/dL (<0.1-1.0); TOTAL PROTEIN 7.2 g/dL (6.4-8.2)
[2019-08-11 01:47] VITALS: BP 130/68
[2019-08-11 04:02] LABS: MAGNESIUM 1.7 mg/dL (1.8-2.4); PHOSPHORUS* 2.7 mg/dL (2.5-4.9)
--- NOTE | 2019-08-11 05:51 | NUR ---
RECEIVED PT FROM ED PER CART AT APPROX 0200 ACCOMPANIED BY DAVIS SHAW. PT IS AWAKE AND ORIENTED X4. VSS ON ROOM AIR. CONFLICT RESOLUTION PROFESSIONAL IN PLACE TRACING ST. PT IS PARAPLEGIC FROM WAIST DOWN. ADMISSION ASSESSMENT DONE AND CHARTED. PT C/O SACRAL PAIN AND HEAD ACHE PARTIALLY RELIEVED BY PAIN MEDS GIVEN PER DEC. IV FLUID AND IV ANTIBIOTICS GIVEN PER DEC. COLOSTOMY INTACT, PINK AND MOIST, NO OUTPUT NOTED AT THIS TIME. PEREZ CATHETER IN PLACE DRAINING TURBID HEIDI OUTPUT. PT HAS CHRONIC PRESSURE WOUNDS ON HER RT AND LEFT HIP AND RIGHT DORSAL FOOT -PICTURES TAKEN AND WILL CONSULT WOUND CARE. POSITION CHANGES DONE. ADVISED ON THE USE OF CALL LIGHT. PT CLOSELY MONITORED.
[2019-08-11 08:35] VITALS: BP 105/57
--- NOTE | 2019-08-11 08:45 | NUR ---
ASSUMED CARE AFTER REPORT APPROX 0730. A&OX4, ABLE TO EXPRESS NEEDS TO STAFF. SPECIAL POPULATION PARAPROFESSIONAL IN PLACE, ST. O2 SATS 94% RA. VS WNL. PEREZ CATHETER, CLOUDY,YELLOW URINE, DEPENDENT DRNG. COLOSTOMY BAG IN PLACE, EMPTY. STOMA BEEFY RED. PARAPLEGIC, LEGS ON PILLOWS, FREQUENT REPOSITIONING TO MAINTAIN SKIN INTEGRITY. CALL LIGHT WITHIN REACH. HOURLY ROUNDING FOR SAFETY AND PATIENT NEEDS.
--- NOTE | 2019-08-11 10:32 | NUR ---
Nutrition: Pt admitted with UTI. Assessed for chronic pressure ulcers on hips. RD ordered Israel TID to aid in wound healing. Labs: albumin 3.4, BG 158, WBC 11.7. +BM. Has colostomy. Mild risk. GOALS: >75% intake of meals and supplements, tight BG control, consider MVI use. Will follow per protocol.
[2019-08-11 12:24] VITALS: BP 110/60
--- NOTE | 2019-08-11 12:29 | NUR ---
PT SLEEPING. 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 USES HOSPITAL BED. [facility] [phone] FAX [phone]
--- NOTE | 2019-08-11 12:55 | NUR ---
WOUND CARE NOTE: CONSULT RECEIVED FOR RIGHT AND LEFT HIP WOUND, RT FOOT WOUND. RIGHT HIP: STAGE 4 PRESSURE ULCER MEASURING 0.8X0.8X2.1 WITH UNDERMINING FROM 12-3 O'CLOCK 2.5CM. JUDD-WOUND WITH INFLAMMATION. WOUND IS DRAINING SMALL AMOUNTS OF SEROUS DRAINAGE. WOUND WAS CLEANSED WITH WOUND CLEANSER, PATTED DRY. PACKED WITH A STRIP OF AQUACEL AG. APPLIED SKIN PREP. APPLIED BORDERED FOAM. LEFT ISCHIAL TUBEROSITY: STAGE 4 PRESSURE ULCER MEASURING 1.3X0.5X1.3 WITH A TUNNEL AT 9 O'CLOCK 1.3CM. JUDD-WOUND IS MACERATED WITH INFLAMMATION. WOUND IS DRAINING SMALL AMOUNTS OF SEROUS DRAINAGE. WOUND WAS CLEANSED WITH WOUND CLEANSER, PATTED DRY. PACKED WITH A STRIP OF AQUACEL AG. APPLIED SKIN PREP. APPLIED BORDERED FOAM. RIGHT FOOT: HEALING TRAMATIC WOUND. JUDD-WOUND IS DISCOLORED/ECCHYMOTIC. MULTIPLE PARTIAL THICKNESS OPENINGS THROUGHOUT THIS DISCOLORATION. APPEARS TO BE RED MOIST TISSUE. DRAINING SCANT AMOUNTS OF SEROSANGUINEOUS DRAINAGE. PATIENT WAS EDUCATED ON DIET AND REPOSITIONING FOR WOUND HEALING, COMMUNICATED UNDERSTANDING. RECOMMEND LOW AIR LOSS MATTRESS Q2 HOUR TURNING, LIMIT TIME WITH HEAD ELEVATED ENCOURAGE GOOD NUTRTION/HYDRATION FOR WOUND HEALING FOLLOW UP IN WOUND CENTER UPON DISCHARGE
[2019-08-11 15:52] VITALS: BP 113/62
--- NOTE | 2019-08-11 17:30 | NUR ---
LOW AIR LOSS MATTRESS ARRIVED AND SET UP IN ROOM 221. MOVED PATIENT FROM ROOM 227 TO ROOM 221 TO COMPLETE TRANSFER TO MATTHIAS MATTRESS IN LARGER ROOM. PATIENT'S BELONGINGS TRANSFERRED TO ROOM 221. CALL LIGHT IN REACH.
[2019-08-11 20:00] VITALS: BP 94/47
[2019-08-12 00:47] VITALS: BP 98/46
[2019-08-12 03:58] VITALS: BP 123/62
--- NOTE | 2019-08-12 04:06 | NUR ---
ASSUMED PT CARE AT APPROX 1930. PT IS AWAKE AND ORIENTED X4. VSS ON ROOM AIR. DINING HOST IN PLACE TRACING SR. ASESSMENT DONE AND CHARTED. PT IS REPOSITIONED Q2HRS. CALL LIGHT WITHIN REACH. HOURLY ROUNDOING DONE FOR PT SAFETY. WILL CONTINUE TO MONITOR PT.
[2019-08-12 07:11] LABS: HEMATOCRIT 30.6 % (37.0-47.0); MCHC 33.2 g/dL (28.0-37.0); MCV 81.5 fL (80.0-100.0); RBC 3.75 mil/uL (4.20-5.00); RDW-CV 14.4 % (10.5-14.5); WBC 4.4 thou/uL (4.0-11.0)
[2019-08-12 07:14] LABS: HEMOGLOBIN 10.2 gm/dL (12.0-15.0)
[2019-08-12 07:20] LABS: ALBUMIN 2.5 g/dL (3.4-5.0); CALCIUM 8.7 mg/dL (8.5-10.1); CREATININE 0.4 mg/dL (0.6-1.3); MAGNESIUM 2.2 mg/dL (1.8-2.4); POTASSIUM 3.6 mmol/L (3.5-5.1); TOTAL BILIRUBIN 0.2 mg/dL (<0.1-1.0)
[2019-08-12 08:00] VITALS: BP 122/61
[2019-08-12 12:15] VITALS: BP 128/65
--- NOTE | 2019-08-12 14:20 | EKG ---
[place] [address] ELECTROCARDIOGRAM REPORT Name: BETHEL MAHONEY Room: [address] ADM IN M.R.#: [id number] Admission: 08/11/19 Attend Phys: Hilda Mcpherson Discharge: Date of : 71 Report #: [id number] THIS REPORT FOR: //name// [facility] ED Test Date: 2019-08-11 Test Time: 00:08:24 Pat Name: BETHEL MAHONEY Department: Room: [facility] Gender: F Resistor Winder: RAFI : 1975 Requested By: Jesús Min Order Number: [id number] MD: Jack Calero Measurements Intervals [place] Rate: 147 P: 45 GA: 134 QRS: -2 QRSD: 70 T: QT: 307 QTc: 481 Interpretive Statements Sinus tachycardia Nonspecific T abnormalities, diffuse leads Baseline wander in lead(s) V1,V2,V4 Compared to ECG 10/02/2018 05:28:42 T-wave abnormality now present Electronically Signed On 08-12-2019 14:20:15 CDT by Jack Calero [email or web address] <ELECTRONICALLY SIGNED> By: Jeet Calero MD, [facility] 08/12/19 1420 Jeet Calero MD, [facility] /EPI
--- NOTE | 2019-08-12 16:35 | NUR ---
PT A/O. TELE TRACKING SR AND ALL VSS ON ROOM AIR. DENIES CP, SOA. Q2H TURNS, HEELS OFF LOADED. EDUCATED ON SAFETY AND PLAN OF CARE. PLEASE SEE ASSESSMENT FOR ADDITIONAL INFORMATION. WILL CONT TO MONITOR.
[2019-08-12 16:36] VITALS: BP 132/65
[2019-08-12 20:00] VITALS: BP 120/49
[2019-08-13] VITALS: BP 113/52
[2019-08-13 04:00] VITALS: BP 108/45
[2019-08-13 04:07] LABS: HEMATOCRIT 30.1 % (37.0-47.0); MCH 26.9 pg (26.0-34.0); MCHC 33.2 g/dL (28.0-37.0); MPV 6.9 fl. (7.2-11.1); RBC 3.71 mil/uL (4.20-5.00); RDW-CV 14.7 % (10.5-14.5); WBC 4.6 thou/uL (4.0-11.0)
[2019-08-13 04:41] LABS: CALCIUM 8.9 mg/dL (8.5-10.1); CREATININE 0.3 mg/dL (0.6-1.3); POTASSIUM 3.5 mmol/L (3.5-5.1)
--- NOTE | 2019-08-13 07:26 | NUR ---
Alert and oriented x 4. She has been turned every 2 hours. She takes her percocet a little later tahn what is on the emar. She has dressings to each buttocks and rt foot. The rt buttocks dressing was changed. Vitals have been stable. She has slept intermittenly.
[2019-08-13 08:00] VITALS: BP 130/77
[2019-08-13 12:55] VITALS: BP 128/80
[2019-08-13 17:45] VITALS: BP 132/78
--- NOTE | 2019-08-13 18:35 | NUR ---
PT A/O, LABILE MOOD TODAY. PT UPSET WITH FAMILY. TELE TRACKING SR AND ALL VSS ON ROOM AIR. Q2 TURNS, PEREZ TO DD. WOUND CARE CHARTED. EDUCATED ON SAFETY AND PLAN OF CARE. PLEASE SEE ASSESSMENT FOR ADDITIONAL INFORMATION. WILL CONT TO MONITOR
[2019-08-13 20:00] VITALS: BP 136/66
[2019-08-14] VITALS: BP 144/67
--- NOTE | 2019-08-14 02:43 | NUR ---
PT ALERT ORIENTED. TURN Q 2 HRS. PT CRUSHING LARGE PILLS AND TAKING WITHOUT APPLE SAUCE OR PUDDING. PEREZ WITH YELLOW. COLOSTOMY WITH BROWN OP. [place] HIP AND R FOOT DRSG INTACT. HS BLOOD GLUCOSE 151. PT REFUSED INSULIN.
[2019-08-14 04:00] VITALS: BP 128/73
--- NOTE | 2019-08-14 07:40 | CON ---
[address] [address] CONSULTATION Name: BEHTEL MAHONEY Room: [address] IN M.R.#: [id number] Admission: 08/11/19 Attend Phys: Hilda Mcpherson Discharge: Date of : 71 Report #: [id number] THIS REPORT FOR: //name// CC: Hilda Martins DATE OF SERVICE: 08/11/2019 INFECTIOUS DISEASE CONSULTATION ATTENDING PHYSICIAN: Hilda Nieves MD REASON FOR EVALUATION: Complicated urinary tract infection, early sepsis. HISTORY OF PRESENT ILLNESS: Chart reviewed, patient examined. This is a 44-year-old female known to myself, has extensive medical history given her age and has paraplegia at the T10 through T12 region, result of a spinal cord tumor dating back several years, most of her history is complicated due to that. She has had history of recurrent infections of various sites including wounds, decubitus ulcers. She has urinary tract infections. She was admitted with fevers in an excess of 102.3. She noted burning with urination. She is mildly encephalopathic. Evaluation noted unremarkable chest x-ray. Lactic acid of 2.9. Urinalysis did show marked pyuria, hematuria as well as bacteriuria. White count was borderline elevated as well. Tentatively diagnosed with a complicated urinary tract infection, likely pyelonephritis, started empirically on broad-spectrum therapy with cefepime and vancomycin. At this point, she is lucid, in rbns-ov-coaenmuy distress. ALLERGIES: LISTED TO SULFA, MORPHINE, CLINDAMYCIN, CIPROFLOXACIN, TRAMADOL, MINOCYCLINE, SULBACTAM. CURRENT MEDICATIONS: Include enoxaparin, montelukast, vancomycin, diphenhydramine, sliding scale insulin, lactobacillus, multivitamin, ferrous sulfate, duloxetine, metformin, cefepime, cyclobenzaprine, p.r.n. analgesics, and antiemetics. PAST MEDICAL HISTORY: As described above, spinal cord tumor complicated by paraplegia; chronic bilateral ischial wounds; history of osteomyelitis; diabetes mellitus; recurrent urinary tract infection, has indwelling Francois catheter; previous history of renal lithiasis with stents. SOCIAL HISTORY: Nonsmoker, no ethanol. FAMILY HISTORY: Noncontributory. REVIEW OF SYSTEMS: Denies any significant [place] [address] CONSULTATION Name: MARUBETHEL Room: [address]#: [id number] Admission: 08/11/19 Attend Phys: Hilda Mcpherson Discharge: Date of : 71 Report #: [id number] bloating and some moderate generalized discomfort. PHYSICAL EXAMINATION: GENERAL: She is alert, cooperative, appropriate. She is in xkio-at-ickpsqev distress. She is lucid. VITAL SIGNS: Temperature T-max 100.1, more recently 98.6; pulse 122; respirations 19; blood pressure 105/57. SKIN: Warm, dry. No rashes. HEENT: Normocephalic. Extraocular muscles intact. NECK: Supple. LUNGS: Generally clear to auscultation. HEART: Regular, tachycardic. I do not appreciate a murmur. ABDOMEN: Mildly distended, soft. There are no peritoneal signs. GENITOURINARY AND RECTAL: Deferred. LABORATORY DATA: Chest x-ray: No acute process. Lactic acid 2.9 and repeat was 1.5. TSH of 1.014 which is normal range. Electrolytes: Sodium 137, potassium 4.4, chloride 96, bicarbonate is 26, anion gap of 15. BUN and creatinine 15 and 0.5. Glucose of 174. Albumin of 3.4. Total protein 7.2, alkaline phosphatase borderline elevated at 133, otherwise normal liver function tests. Estimated GFR 133. Troponin less than 0.06. Urinalysis described above, 3+ leukocyte, 3+ blood, few wbc clumps, greater than 25 white cells, greater than 30 bacteria. CBC: White count 11.7, H and H 12.9 and 38.6, platelets of 305. ASSESSMENT: Complicated urinary tract infection, likely pyelonephritis, it has to be seen if she does have septicemia. We will continue broad-spectrum therapy. ____ gram negative. It is notable within the last couple months, she has had a multiple-resistant Acinetobacter from her wounds. Given that, we will give a dose of aminoglycoside as well and we will have Urology evaluate, go and image CT to exclude any obstructive process or any other intra-abdominal concerns. <ELECTRONICALLY SIGNED> By: Milton Gandhi MD 08/14/19 0740 [id number] Gandhi MD /selvin
[2019-08-14 08:40] VITALS: BP 114/52
[2019-08-14 11:30] VITALS: BP 143/68
--- NOTE | 2019-08-14 13:24 | NUR ---
Nutrition: RN spoke with RD today about pt preference of supplements. RD ordered Israel TID for wounds, and ordered Glucerna cristhian for pt preference as well. Will follow up per protocol.
--- NOTE | 2019-08-14 15:30 | NUR ---
Spoke with nurse at [facility], updated on POC. Plan is for Pt to return to [facility] at [place]. Following.
[2019-08-14 16:17] VITALS: BP 118/56
--- NOTE | 2019-08-14 16:28 | NUR ---
PATIENT TURNING SELF IN BED. DRESSINGS TO RIGHT AND LEFT HIP CHANGED PER ORDERS. IV REMAINS SL, SCHED ABX INFUSED. AWAITING URINE CULTURE SENSITIVITIES. INSTRUMENT INSPECTOR TRACING SINUS RHYTHM. PRN OXYCODONE AND IBUPROFEN GIVEN FOR HEAD AND HIP PAIN ORDERED.
[2019-08-14 20:00] VITALS: BP 130/52
[2019-08-15 00:48] VITALS: BP 136/77
--- NOTE | 2019-08-15 02:53 | NUR ---
PT ALERT ORIETNED. TURNING HERSELF AT TIMES AND SOMETIMES WITH ASSIST. ON LOW AIR LOSS MATTRESS. [place] HIP DRESSINGS D/I. R FOOT DRSG D/I. TELEMETRY SHOWS SR. TAKING OXICODONE FOR PAIN.
[2019-08-15 04:00] VITALS: BP 106/45
[2019-08-15 08:27] VITALS: BP 121/53
--- NOTE | 2019-08-15 11:10 | NUR ---
Spoke with Pt, states feeling better. Pt voiced discontentment with her LTC. CM explained that if an alternate placement is not secured prior to dc, then Pt will need to dc back to [facility] and have her LTC SW assist with finding another LTC. Pt to speak with family, and let CM know if she would like info faxed to an alternate LTC. Plan at this time continues to be for Pt to return to [facility] at [place]. Following.
[2019-08-15 11:49] VITALS: BP 141/67
--- NOTE | 2019-08-15 13:09 | NUR ---
VSS, ASSUMED CARE IN THE AM, ASSESSMENT PERFORMED AND CHARTED, FALL PRECAUTIONS IN PLACE AND CALL LIGHT IN REACH, PT IS A&O4 SHE IS PARAPLEGIC AND BED REST, PT IS TRACING SR ON THE MONITOR, STATES PAIN IN BACK/HIPS AND RATES IT 7 OUT OF 10, PT GOAL IS TO SIT UP IN BED AND OFF LOAD OF BUTT, SHE IS ON RA AND HAD COLOSTOMY BAG IN PLACE AND SHE PERFORMES SELF CARE ON IT, ALSO PEREZ IN PLACE AND IS DRAINING.
[2019-08-15 16:00] VITALS: BP 126/57
[2019-08-15 20:00] VITALS: BP 139/72
[2019-08-16] VITALS: BP 124/52
[2019-08-16 04:00] VITALS: BP 96/62
--- NOTE | 2019-08-16 05:00 | NUR ---
ASSUMED PT CARE AT APPROX 1930. PT IS AWAKE AND ORIENTED X4. VSS ON ROOM AIR. RURAL MAIL CONTRACTOR IN PLACE TRACING SR. ASSESSMENT DONE AND CHARTED. PT C/O HIP PAIN RELIEVED BY PAIN MEDS GIVEN PER DEC. PT REPOSITIONED Q2H. CALL LIGHT WITHIN REACH. FALL PRECAUTIONS IN PLACE. HOURLY ROUNDING DONE FOR PT SAFETY.
[2019-08-16 05:25] LABS: HEMATOCRIT 35.5 % (37.0-47.0); HEMOGLOBIN 11.9 gm/dL (12.0-15.0); MCH 26.8 pg (26.0-34.0); MCHC 33.6 g/dL (28.0-37.0); RBC 4.44 mil/uL (4.20-5.00); RDW-CV 14.7 % (10.5-14.5); WBC 8.1 thou/uL (4.0-11.0)
[2019-08-16 05:39] LABS: CALCIUM 9.6 mg/dL (8.5-10.1); CREATININE 0.4 mg/dL (0.6-1.3); POTASSIUM 3.5 mmol/L (3.5-5.1)
--- NOTE | 2019-08-16 07:15 | NUR ---
CHANGE OF SHIFT, BEDSIDE REPORT GIVEN PATIENT SEEN AT BEDSIDE, IN BED RSTING ASSUMED PATIENT CARE
[2019-08-16 08:00] VITALS: BP 116/69
[2019-08-16 09:45] VITALS: BP 242/84
--- NOTE | 2019-08-16 13:53 | NUR ---
Spoke with ID , plan to switch to PO abx tomorrow. Faxed updated clinical info to Pt's LTC and informed of potential dc tomorrow. placed rehab consult, Pt is LTC, so do not believe that Pt will qualify for acute rehab. CM updated restorative rehab aide of consult. Following.
[2019-08-16 17:00] VITALS: BP 107/76
--- NOTE | 2019-08-16 17:01 | NUR ---
PATIENT STATUS CHANGED TO MS PATIENT TRANSFERRED TO [facility] SENT REPORT GIVEN TO REUBEN SHAW
--- NOTE | 2019-08-16 17:45 | NUR ---
PT ARRIVED ON UNIT FROM 2W APPROX 1630. REPORT FROM KELLY SHAW. PT A&OX4 VSS NO COMPLAINTS/CONCERNS AT THIS TIME. PT ARRIVED ON BED WITH ALL PERSONAL BELONGINGS. BEDSIDE MOVED WITH PT WELL. 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 DRESSINGS TO FOOT DUE TO BE CHANGED TOMORROW PER Q3D SCHEDULE INDICATED BY KELLY SHAW. PT REQUESTS METFORMIN CRUSHED, BUT TAKES XANAX WHOLE. UA COLLECTED FROM CATHETER ONCE PT ARRIVED TO UNIT.
[2019-08-16 18:52] LABS: URINE BILIRUBIN NEGATIVE (Negative); URINE BLOOD NEGATIVE (Negative); URINE CLARITY CLEAR; URINE COLOR YELLOW; URINE GLUCOSE-RANDOM NEGATIVE (Negative); URINE KETONES NEGATIVE (Negative); URINE LEUKOCYTES-REFLEX TRACE (Negative); URINE NITRITE-REFLEX NEGATIVE (Negative); URINE PROTEIN TRACE (Negative); URINE SPECIFIC GRAVITY 1.015 (1.005-1.030); URINE UROBILINOGEN 0.2 E.U./dl (0.2-1.0)
[2019-08-16 19:01] LABS: SQUAMOUS 0-3 Few /LPF (0-3)
[2019-08-16 19:02] LABS: URINE RBC 0-2 Rare /HPF (0-2); URINE WBC-REFLEX 6-15 Few /HPF (0-5)
[2019-08-16 19:03] LABS: BACTERIA-REFLEX 1-9 Few /HPF (None Seen); MUCUS 0-3 Light strn/LPF (None Seen)
[2019-08-16 19:04] LABS: CASTS None Seen /LPF (None Seen); CRYSTALS None Seen /LPF (None Seen)
[2019-08-16 20:51] VITALS: BP 134/71
--- NOTE | 2019-08-17 05:08 | NUR ---
PATIENT SLEPT WELL DURING THIS SHIFT. PT ABLE TO REPOSITION HERSELF IN BED AT TIMES BUT CALLS FOR ASSISTANCE WITH SOME TURNS. PT WITH ANTIBIOTICS INFUSING PER DR ORDER. IV IS IN LT HAND; PATENT. PT WITH COLOSTOMY WITH BROWN DRAINAGE. PT HAS PEREZ TO DEPENDENT DRAIN WITH CLOUDY YELLOW URINE. PT REQUESTED PAIN MEDICATION; RECEIVES SCHEDULED PERCOCET. PT DENIES NEEDS AT THIS TIME. FREQUENTLY USED ITEMS AND CALL LIGHT WITHIN REACH. SIDERAILS UPX2. 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 WILL CONTINUE TO MONITOR.
[2019-08-17 09:41] VITALS: BP 107/45
[2019-08-17 15:51] VITALS: BP 118/55
--- NOTE | 2019-08-17 16:29 | NUR ---
PT IS ASSISTED WITH TURNING AND REPOSITIONING Q2 HOUR. PRN FOR PAIN GIVEN PER PT REQUEST WITH GOOD EFFECT. PT HAS PEREZ TO DD AND COLOSTOMY WITH SOFT STOOL PRESENT. IV DC'D DUE TO CLOTTING OFF AND DR. CROWDER HAS PUT PT ON PO ANTIBIOTIC. DRESSINGS TO BILAT HIPS CHANGED THIS AFTERNOON. PT REMAINS ALERT AND ORIENTATED.
[2019-08-17 20:00] VITALS: BP 124/63
--- NOTE | 2019-08-18 06:45 | NUR ---
PT ALERT AND ORIENTED. VSS ON RA. ASSESSMENT DOCUMENTED. MEDS GIVEN PER EMAR. PT SLEPT FEW HOURS THIS SHIFT. ISOLATION PRECAUTION. Q2 TURN. WOUND DRESSINGS C/D/I. PEREZ EMPTIED. PT SAYS COLOSTOMY OUTPUT HAS BEEN SAME FOR SOME DAYS. STOOL SOFTENER GIVEN. COLOSTOMY OUTPUT EMPTIED FOR MORE ACCURATE MONITORING. CALL LIGHT WITHIN REACH. HOURLY ROUNDINGS MADE. WILL CONTINUE TO MONITOR.
[2019-08-18 08:00] VITALS: BP 105/68
[2019-08-18 10:08] VITALS: BP 124/63
[2019-08-18] MEDS ORDERED: CEFDINIR300 MG PO (10:30)
--- NOTE | 2019-08-18 13:27 | NUR ---
Pt to dc to [facility] inpt rehab today.
[2019-08-18 15:27] VITALS: BP 124/63
[2019-08-18 16:00] VITALS: BP 112/59
--- NOTE | 2019-08-18 16:23 | NUR ---
ASSUMMED CARE OF PT AT 0730, PT ALERT AND ORIENTED, WOUND CARE AND PICTURES DONE TO 3 WOUNDS, PT C/O CONSTIPATION, STATES HAS NOT HAD STOOL OUT OF COLOSTOMY, MEDICATIONS GIVEN AND PATINET HAS HAD LARGE AMOUNT OF STOOL IN COLOSTOMY X 2 THIS SHIFT, PEREZ PATENT AND DRAINING HEIDI URINE, PT TURNS WELL IN BED AND REPOSTIONED EVERY 2 HOURS, COMPLAINS OF PAIN IN HIPS, MEDICATED PER ORDER, PARTICIPATED IN THERAPY EVALS TODAY, ORDERS OBTAINED FOR DISCHARGE TO REHAB, PT INFORMED OF DISCHARGE AND PT INFORMED OF DISCHARGE MEDICATION ORDERS AND THERAPY ORDERS, PT STATES UNDERSTANDING OF ORDERS, PT WILL BE DISCHARGED TO REHAB WITH SPECIALTY BED AND BELONGINGS.
[2019-09-13] MEDS ORDERED: OXYCONTIN15 MG PO (09:38)
[2019-09-13] MEDS ORDERED: VITAMIN C120 G1 PO (09:38)
== END 2019-08-18 18:41 | DRG 871 ==
LOC: M.ERS 00:03 → M.TBA-ER 01:02 → M.2W 01:02 → M.3W 08-16 17:00
PROVIDERS: Emergency Medicine Emergency Medical Services; Internal Medicine; Specialist; ADMIT Family Medicine
DX: A41.9 Sepsis, unspecified organism (principal); L89.214 Pressure ulcer of right hip, stage 4; L89.154 Pressure ulcer of sacral region, stage 4; N12 Tubulo-interstitial nephritis, not specified as acute or chronic; G82.20 Paraplegia, unspecified; E46 Unspecified protein-calorie malnutrition; G89.29 Other chronic pain; E11.9 Type 2 diabetes mellitus without complications; N20.0 Calculus of kidney; N31.9 Neuromuscular dysfunction of bladder, unspecified; Z93.3 Colostomy status; Z79.899 Other long term (current) drug therapy; Z79.4 Long term (current) use of insulin; Z79.84 Long term (current) use of oral hypoglycemic drugs; Z88.2 Allergy status to sulfonamides; Z90.49 Acquired absence of other specified parts of digestive tract; Z88.6 Allergy status to analgesic agent; Z88.8 Allergy status to other drugs, medicaments and biological substances; Z87.440 Personal history of urinary (tract) infections; Z99.3 Dependence on wheelchair; Z68.30 Body mass index [BMI] 30.0-30.9, adult

== ENCOUNTER 2019-08-18 15:59 | Inpatient (IN) | payer MEDICARE, MEDICAID ==
[~2019-08-18] VITALS: Ht 157.5 cm; Wt 76.2 kg
[~2019-08-18 15:59] MED LIST changes: +ADVIL LIQUI-GE200 MG PO; +CEFDINIR300 MG PO; +FRUIT C-100100 MG PO; +GLUCAGON EMERGEN1 MG SUBQ; +GLUCOSE4 GM PO; +METFORMIN HCL500 M3 PO; +NOVOLOG FL100 UNIT/M SUBQ; +OMEPRAZOLE40 MG PO; +PERCOCET 7.5-31 EAC1 PO; +PROBIOTIC1 EAC7 PO; +SLOW FE142 MG PO; +SUPER THERAVIT1 EACH PO
[2019-08-18 20:00] VITALS: BP 113/63
--- NOTE | 2019-08-19 01:58 | NUR ---
ASSUMED CARE AT 1930. ADMITTED TO ROOM 324 AT END OF DAYS SHIFT. HX PARAPLEGIA, PEREZ, COLOSTOMY AND HX SEPSIS, UTI AND DEBILITY. TAKES PILLS CRUSHED IF LARGE, PUTS THEM CRUSHED INTO HER MOUTH THEN FOLLOWS IT WITH CREME SODA. DOES TAKE SOME PILLS WHOLE IF THEY ARE SMALL. DRESSING TO WOUNDS C/D/I. ON SCHEDULED OXY, AND TAKES XANAX PRN. ON ISOLATION FOR MRSA AND VRE. ASSESSMENT DONE. ASSISTED WITH TURNS, DECLINES SOME TURNS. HOURLY ROUNDS CONTINUE. BED ALARM ON. CALL LITE IN REACH.
[2019-08-19 04:52] LABS: HEMATOCRIT 37.8 % (37.0-47.0); HEMOGLOBIN 12.1 gm/dL (12.0-15.0); MCH 25.9 pg (26.0-34.0); MCV 80.8 fL (80.0-100.0); MPV 7.6 fl. (7.2-11.1); RBC 4.68 mil/uL (4.20-5.00); RDW-CV 15.3 % (10.5-14.5); WBC 8.6 thou/uL (4.0-11.0)
--- NOTE | 2019-08-19 05:17 | NUR ---
RETURNED TO SLEEP AFTER LABS DRAWN. ASSISTED WITH TURN UPON REQUEST. NO FURTHER C/O PAIN. HOURLY ROUNDS CONTINUE. BED ALARM ON. CALL LITE IN REACH.
[2019-08-19 05:19] LABS: CREATININE 0.3 mg/dL (0.6-1.3); POTASSIUM 3.9 mmol/L (3.5-5.1)
[2019-08-19 10:30] VITALS: BP 135/68
--- NOTE | 2019-08-19 18:53 | NUR ---
PATIENT COOPERATIVE W/ THERAPIES TODAY, STATES THAT IF SHE DOESN'T DO THEM, SHE WILL GET KICKED OUT. SEE MAR. LOW AIR MATTRESS FUNCTIONING APPROPRIATEY. PATIENT RESTING IN BED AT THIS TIME. DENIES NEEDS CURRENTLY. CALL LIGHT IN REACH. COLOSTOMY SITE NOTED WNL. PATIENT EDUCATED ON DIABETES AND OSTOMY CARES THIS AFTERNOON. PATIENT STATES VERBALLY OF UNDERSTANDING. HRLY ROUNDS DONE. ~MelanieRN
[2019-08-19 20:00] VITALS: BP 137/77
--- NOTE | 2019-08-20 05:14 | NUR ---
ASSUMED PT CARE AT 1930. PT ALERT AND ORIENTED X4, COOPERATIVE WITH CARES. HX OF PARAPLEGIA, PEREZ, COLOSTOMY, AND DEBILITY. HX OF SEPSIS, PT ON ISOLATION FOR MRSA AND VRE. PT IS ON LOW AIR LOSS MATTRESS. TAKES LARGE PILLS CRUSHED, TAKES SMALL PILLS WHOLE. DRESSING TO WOUNDS C/D/I. TAKES PRN XANAX ONE HOUR BEFORE SCHEDULED OXY. PT VERY PARTICULAR ABOUT TIMING OF MEDS. ASSISTED WITH SOME TURNS, REFUSED OTHERS. CALL LIGHT AND FREQUENTLY USED ITEMS IN REACH. USES CALL LIGHT APPROPRIATELY. BED ALARM ON FOR SAFETY. HOURLY ROUNDING IN PROGRESS, WILL CONTINUE TO MONITOR.
[2019-08-20 08:00] VITALS: BP 161/51
[2019-08-20 12:22] LABS: URINE BILIRUBIN NEGATIVE (Negative); URINE BLOOD NEGATIVE (Negative); URINE CLARITY SL CLOUDY; URINE COLOR YELLOW; URINE GLUCOSE-RANDOM NEGATIVE (Negative); URINE KETONES NEGATIVE (Negative); URINE LEUKOCYTES-REFLEX 1+ (Negative); URINE NITRITE-REFLEX NEGATIVE (Negative); URINE PROTEIN 1+ (Negative); URINE SPECIFIC GRAVITY 1.025 (1.005-1.030); URINE UROBILINOGEN 0.2 E.U./dl (0.2-1.0)
[2019-08-20 12:33] LABS: SQUAMOUS 0-3 Few /LPF (0-3); URINE WBC-REFLEX >25 Many /HPF (0-5)
[2019-08-20 12:35] LABS: BACTERIA-REFLEX >30 Many /HPF (None Seen); MUCUS >6 Heavy strn/LPF (None Seen); URINE RBC 0-2 Rare /HPF (0-2); WBC CLUMPS Few (None Seen)
[2019-08-20 12:36] LABS: CALCIUM OXALATE 0-3 Few /LPF (None Seen); CASTS None Seen /LPF (None Seen)
[2019-08-20 12:37] LABS: YEAST-REFLEX Present (None Seen)
--- NOTE | 2019-08-20 15:53 | NUR ---
ALERT AND ORIENTED X4. PATIENT ABLE TO LET WANTS AND NEEDS BE KNOWN. PATIENT HAS CERTAIN WAYS SHE LIKES TO HAVE THINGS DONE. PATIENT PARAPLEGIC. SHE IS ABLE TO ASSIST STAFF WITH REPOSITIONG AT LEAST EVERY 2 HOURS WHILE IN BED. PATIENT REFUSED TO GET OUT OF BED TODAY. DRESSINGS CHANGED TO OPEN WOUNDS ON BILATERAL BUTTOCKS AND RIGHT FOOT ORDERED. PATIENT DID NOT CHANGE OR EMPTY COLOSTOMY TODAY SINCE THERE WAS ONLY A SMALL AMOUNT OF LOOSE BROWN STOOL IN BAG. PEREZ CATHETER PATENT WITH CLEAR YELLOW URINE. PATIENT ON SCHEDULED PAIN MEDICATION WHICH SEEMS TO HELP PATIENT REST. REMAINS ON CONTACT ISOLATION. CALL LIGHT WITHIN REACH.
--- NOTE | 2019-08-20 19:14 | NUR ---
PATIENT WAS NOTED TO HAVE IRREGULAR PULSE 88-120. NO C/O CHEST PAIN. ONLY DISCOMFORT WAS C/O SLIGHT HEADACHE. DR MOSELEY.
[2019-08-20 20:00] VITALS: BP 132/76
[2019-08-21 05:49] LABS: HEMATOCRIT 36.4 % (37.0-47.0); HEMOGLOBIN 11.8 gm/dL (12.0-15.0); MCH 26.5 pg (26.0-34.0); MCHC 32.6 g/dL (28.0-37.0); MCV 81.2 fL (80.0-100.0); MPV 7.6 fl. (7.2-11.1); RBC 4.48 mil/uL (4.20-5.00); RDW-CV 15.9 % (10.5-14.5)
[2019-08-21 06:02] LABS: CALCIUM 9.9 mg/dL (8.5-10.1); CREATININE 0.4 mg/dL (0.6-1.3); POTASSIUM 3.8 mmol/L (3.5-5.1)
--- NOTE | 2019-08-21 06:09 | NUR ---
ASSUMED PT CARE AT 1930. PT SITTING UP IN BED TALKING WITH VISITORS. PT ALERT AND ORIENTED X4, POLITE AND COOPERATIVE WITH CARES. HX OF PARAPLEGIA, PEREZ, COLOSTOMY AND DEBILITY. ON ISOLATION FOR MRSA AND VRE. PT IS ON LOW AIR LOSS MATTRESS. DRESSINGS TO WOUNDS C/D/I. REMOVED FOR WEDNESDAY PHOTOS, SOME DIFFICUTLY FINDING COMPARABLE DRESSINGS FOR REPLACEMENTS. PT PARTICULAR ABOUT TIMING OF MEDS. ASSISTED WITH SOME TURNS, REFUSED OTHERS. CALL LIGHT AND FREQUENTLY USED ITEMS IN REACH. USES CALL LIGHT APPROPRIATELY. HOURLY ROUNDING IN PROGRESS, WILL CONTINUE TO MONITOR.
[2019-08-21 08:00] VITALS: BP 102/47
--- NOTE | 2019-08-21 12:59 | NUR ---
WOUND CARE NOTE: CONSULT RECEIVED FOR CONTINUING TO MONITOR WOUNDS. PATIENT TRANSFERED TO THE REHAB UNIT. RIGHT HIP: STAGE 4 PRESSURE ULCER MEASURING 0.7X0.6X1.3 WITH A TUNNEL AT 1 O'CLOCK 2.1 CM. JUDD-WOUND WITH MACERATION AND NO INFLAMMATION. FROM WHAT I CAN ASSESS OF THE WOUND, IT IS RED AND GRANULAR. THE SIZE OF THE WOUND OPENING LIMITS THE VISIBILITY OF THE WOUND BED. NO BONE NOTED IN WOUND BED. CLEANSED WITH WOUND CLEANSER, PATTED DRY. APPLIED SKIN PREP. PACKED WITH AQUACEL AG AND COVERED WITH A BORDERED FOAM. LEFT ISCHIAL TUBEROSITY: STAGE 4 PRESSURE ULCER MEASURING 1X0.4X1.8 WITH UNDERMINING FROM 9-12 1.8CM. JUDD-WOUND WITH MACERATION AND PARTIAL THICKNESS SKIN BREAKDOWN. WOUND BED APPEARS TO BE RED, GRANULAR, BUT IS VISIBLY LIMITED DUE TO THE OPENING OF THE WOUND. NO BONE NOTED. WOUND/JUDD-WOUND WERE CLEANSED WITH WOUND CLEANSER, PATTED DRY. APPLIED SKIN-PREP TO JUDD-WOUND. PACKED ULCER WITH AQUACEL AG AND COVERED WITH BORDERED FOAM. RIGHT FOOT: CONTINUES WITH WHAT APPEARS ECCHYMOSIS, COULD JUST BE DISCOLORATION. THERE ARE TWO PINPOINT OPENINGS, ONE JUST WHERE THE 4TH METATARSAL HEAD, PLANTAR SURFACE AND ONE NEAR THE 2ND METATARSAL HEAD, PLANTAR SURFACE. CLEANSED WITH WOUND CLEANSER, PATTED DRY. APPLIED OPTIFOAM AG AND SECURED WITH A ROLL GAUZE. PATIENT TOLERATED DRESSING CHANGE WELL. WANTED THE CURRENT MEASUREMENTS WRITTEN DOWN FOR HER, THIS WAS DONE. PATIENT HAS SEVERAL CREAM SODAS SITTING AT HER BEDSIDE. INQUIRED HOW HER SUGARS ARE DOING, SHE ADMITS THAT THEY ARE HIGH. SHE STATES SHE DOESN'T KNOW WHY. EDUCATED ON THE HIGH AMOUNT OF CARBS. IN THE SODAS. PATIENT STATES SHE ONLY DRINKS HALF A BOTTLE A DAY. ENCOURAGED TO STOP DRINKING THESE AND SEE HOW HER SUGARS DO. COMMUNICATED UNDERSTANDING. RECOMMEND CONTINUE LOW AIR LOSS MATTRESS DAILY DRESSING CHANGES OF THE PRESSURE ULCERS-REMOVE AND REPLACE PACKING DAILY TURN Q2 HOURS, ENCOURAGE TO SHIFT WEIGHT WHEN IN CHAIR ENCOURAGE GOOD NUTRITION/HYDRATION TIGHT BLOOD GLUCOSE CONTROL
--- NOTE | 2019-08-21 15:56 | NUR ---
SW met with pt to complete initial assessment, introduce self, and SW role on inpt rehab. SW and pt familiar with each other from pt previous stay on [facility] and from pt previous hospitalizations. Pt lived at [facility] and SW spoke with admissions at [facility] today who informed that pt bed is still available but that her room would be different and semi private. Pt uses hospital bed. Pt has hx of [facility]. Pt awaiting completion of one form to be able to receive her customized wc from [facility]; Dr Peralta willing to sign for pt and SW to assist with completion. Pt states her goal to be able to work with therapies in her wc and pt continues to be hopeful that she would be able to dc home. SW to continue to follow to assist with safe dc planning.
--- NOTE | 2019-08-21 16:08 | NUR ---
ASSUMED CARE AT 0730. ALERT ORIENTED PLEASANT COOPERATIVE. HX OF PARAPLEGIA SEPSIS. PT. IS IN A SPECIALTY BED FOR WOUNDS TO HIPS AND RT. FOOT. RESTING ON RT. SIDE THIS A.M. PT. HAS PEREZ CATHETER TO DD BAG YELLOW URINE. HAS COLOSTOMY L SIDE ABDOMEN APPLIANCE CHANGED PER PT. AN STAFF AFTER SPILLAGE. STOOL IS SOFT LOOSE GREENISH BLACK PT. ON IRON SUPPLEMENT. PARTICIPATING IN THERAPIES. TRANSFERS WITH LIFT FROM BED TO W/C. WOUND NURSE HERE AT 1130 AND DID DRESSING CHANGES. SEE ORDERS. PT. IS ON SCHEDULED PAIN MEDS AND ANTIANXIETY MEDS. SOME MEDS TAKES WHOLE AND SOME SHE CRUSHES. PROPELLS W/C TO THERAPIES. REMAINS UP IN W/C AFTER P.T. SESSION THIS AFTERNOON. IN CONTACT ISOLATION.
[2019-08-21 19:30] VITALS: BP 129/79
--- NOTE | 2019-08-22 05:09 | NUR ---
ASSUMED PT CARE AT 1930. PT ALERT AND ORIENTED X4, POLITE AND COOPERATIVE WITH CARES. SITTING IN WHEELCHAIR AT SHIFT CHANGE, TRANSFERRED TO BED WITH RAEGAN LIFT. PT HAS HX OF PARAPLEGIA, PEREZ, COLOSTOMY, DEBILITY AND SEPSIS. PT ON LOW AIR LOSS SPECIALTY MATTRESS FOR WOUNDS TO HIPS AND RIGHT FOOT. ON CONTACT ISOLATION FOR VRE AND MRSA. PEREZ TO DD, DRAINING YELLOW URINE. COLOSTOMY TO LEFT SIDE OF ABDOMEN. DRESSING CHANGES DONE ON 08/21 BY WOUND NURSE. PT ASSISTED WITH SOME TURNS, REFUSED OTHERS. TAKES SOME MEDS WHOLE, CRUSHES OTHERS. TAKES SCHEDULED ANTI-ANXIETY AND PAIN MEDICATIONS. USES CALL LIGHT APPROPRIATELY. HOURLY ROUNDING IN PROGRESS, WILL CONTINUE TO MONITOR.
[2019-08-22 08:06] VITALS: BP 105/56
[2019-08-22 09:15] VITALS: BP 105/56
--- NOTE | 2019-08-22 17:10 | NUR ---
PATIENT ALERT AND ORIENTED X4. PATIENT IS A PARAPLEGIC AND USES A RAEGAN LIFT AND 2 ASSIST WITH TRANSFERS. . SCHEDULED PAIN MEDICATION HELPFUL WITH ABDOMEN PAIN, LEG PAIN AND BACK PAIN. REPOSITIONED EVERY 2 HOURS WHILE IN BED. SHE PARTICIPATED WITH THERAPIES TODAY. DRESSINGS DRY AND INTACT OVER BILATERAL HIPS AND RIGHT FOOT. CALL LIGHT WITHIN REACH. PROGRESSSING TOWARD DISCHARGE GOAL.
--- NOTE | 2019-08-22 17:37 | NUR ---
REMAINS ON CONTACT ISOLATION FOR MRSA AND VRE.
--- NOTE | 2019-08-22 21:20 | NUR ---
LAYING ON LEFT SIDE. DOESN'T WANT TO REPOSITION AT THIS TIME. PEREZ TO DEPENDENT DRAINAGE WITH CLEAR/YELLOW URINE. COLOSTOMY INTACT. PATIENT HAS IT COVERED WITH AN INCONTINENT PAD. CLEANSED RIGHT HIP WOUND WITH WOUND CLEANSER, PACKED WITH AG AND COVERED WITH A MEPILEX. SNACK PROVIDED. CALL LIGHT WITHIN REACH. IN CONTACT ISOLATION FOR VRE AND MRSA.
[2019-08-22 21:45] VITALS: BP 115/68
--- NOTE | 2019-08-23 05:51 | NUR ---
RESTED QUIETLY AFTER ABOUT MIDNIGHT. HAS MODERATE AMOUNT OF STOOL IN COLOSTOMY BUT DOESN'T WANT TO EMPTY IT UNTIL AFTER BREAKFAST. HOURLY ROUNDING IN PROGRESS.
[2019-08-23 08:00] VITALS: BP 114/58
[2019-08-23 10:58] VITALS: BP 114/58
--- NOTE | 2019-08-23 16:19 | NUR ---
SW and Dr Peralta met with pt to review team conference summary and plan for pt to remain on rehab unit to continue therapies and for team to reassess pt length of stay during team conference next Wednesday. Team also mentioned urology to be consulted for follow up. Pt in agreement with plan. SW called [facility] and discussed the custom wc order and [facility] explained that it's not anything that needs a signature; it is just that the billing for Medicaid system needs to show that pt is in SNF/LTC so that Medicaid would auth for pt to receive the wc. This had not happened previously bc pt was paying privately from her Medicaid/SS instead of pt SS going directly to LTC. SW to discuss with LTC SW to see if there was anything they could do in their system so that [facility] could retry for auth. SW to continue to follow to assist with safe dc planning.
--- NOTE | 2019-08-23 19:46 | NUR ---
ALERT AND ORIENTED X4. UP WITH 2 ASSIST AND RAEGAN LIFT. PARAPLEGIC. DRESSINGS CHANGED TO OPEN WOUNDS ON BILATERAL HIPS ORDERED. RIGHT FOOT DRESSING REMAINS INTACT. REMAINS IN CONTACT ISOLATION FOR MRSA AND VRE. HAS PEREZ CATHETER PATENT WITH CLEAR YELLOW URINE. COLOSTOMY PATENT WITH BROWN STOOL. CALL LIGHT WITHIN REACH.
[2019-08-23 20:00] VITALS: BP 120/62
--- NOTE | 2019-08-23 23:46 | NUR ---
ASSUMED CARE AT 1930. PATIENT WAS STILL IN W/C, SO DAY SHIFT ASSISTED WITH GETITNG PATIENT INTO BED USING RAEGAN LIFT. Liliana SEGURA RN CHANGED PATIENT'S DRESSINGS TO RT HIP AND LT ISCHIAL TUBEROSITY. PATIENT ALLOWING ASSISTANCE WITH TURNS. ASSISTED WITH EMPTYING COLOSTOMY BAG INTO GRADUATE CONTAINER. PEREZ DRAINING HEIDI URINE. BLOOD SUGAR 144. GIVEN XANAX AND PAIN MEDS ON SCHEDULE. ON ISOLATION FOR VRE AND MRSA. TALKING ON PHONE AFTER 2300. HOURLY ROUNDS CONTINUE. BED ALARM ON. CALL LITE IN REACH.
--- NOTE | 2019-08-24 05:33 | NUR ---
SLEPT AFTER ABOUT 0030. AWAKENED FOR MEDS AND TURNS. PAIN AND ANXIETY MEDS ON SCHEDULE. TAKES PILLS WITHOUT DIFF WITH CREAM SODA. PEREZ DRAINS HEIDI URINE. HOURLY ROUNDS CONTINUE. BED ALARM ON. CALL LITE IN REACH.
[2019-08-24 08:10] VITALS: BP 118/50
--- NOTE | 2019-08-24 13:53 | NUR ---
PAUL attempted to contact PAUL at [facility] to discuss particulars with pt wheelchair order and PAUL there was away at the time so PAUL left a detailed message requesting a call back. PAUL to continue to follow to assist with safe dc planning.
--- NOTE | 2019-08-24 17:52 | NUR ---
PT UP TO W/C PER RAEGAN LIFT AND IS ABLE TO PROPEL SELF IN HALLS PER W/C. PT ABLE TO ADJUST SELF IN W/C WITH OCCASIONAL ASSIST. PT TAKES SCHEDUALED PAIN MEDICATIONS WITH GOOD EFFECT.PEREZ TO DD WITH CLEAR YELLOW URINE PRESENT. PT DOES COLOSTOMY CARE AND HAS EMPTIED AND CLEANSED BAG. PT REMAINS ALERT AND ORIENTATED.
[2019-08-24 19:25] VITALS: BP 135/75
--- NOTE | 2019-08-25 05:43 | NUR ---
ASSUMED PT CARE AT 1930. PT ALERT AND ORIENTED X4, POLITE AND COOPERATIVE WITH CARES. PT SITTING UP IN WHEELCHAIR AT SHIFT CHANGE, PT TO BED USING RAEGAN LIFT AND ASSIST OF TWO. DRESSINGS AND PACKING TO PT RT HIP AND LEFT ISCHIAL TUBEROSITY CHANGED BY THIS RN WELL DRESSING TO RIGHT FOOT. PT TURNED WHEN AGREEABLE, PT ABLE TO ASSIST WITH TURNS. PT EMPTIED COLOSTOMY BAG INTO GRADUATE. PEREZ DRAINING YELLOW URINE. BLOOD SUGAR 163. PT TAKES XANAX AND PAIN MEDS ON SCHEDULE. ON ISOLATION FOR VRE AND MRSA. PT SLEPT WELL OVERNIGHT. BED ALARM ON FOR SAFETY. CALL LIGHT AND FREQUENTLY USED ITEMS IN REACH. HOURLY ROUNDING IN PROGRESS, WILL CONTINUE TO MONITOR.
[2019-08-25 08:43] VITALS: BP 106/40
--- NOTE | 2019-08-25 12:41 | NUR ---
PAUL spoke with billing office at [facility] in relation to vendor or community Medicaid for wc/[employer] to be able to receive auth from Medicaid for and [facility] attests that they have completed necessary steps but now it is up to the state to determine final approval in order for vendor to show up in system. Then when [employer] could check again on status, then they would be able to submit for auth on wc again. SW to continue to follow to assist with safe dc planning.
--- NOTE | 2019-08-25 16:41 | NUR ---
pt has participated with therapies and calls for assist as needs. dressings to bilat hips changed and to rt. foot. sandeep wraps placed to bilat feet to decrease edema and feet elevated.pain controlled with schedualed po medications.pt repositions self when in w/c and has min assist with turning when in bed. ch to dd and colostomy functioning well. pt cares for colostomy.pt remains alert and orientated.
[2019-08-25 20:00] VITALS: BP 126/75
--- NOTE | 2019-08-25 23:08 | NUR ---
ASSUMED CARE AT 1929. PATIENT IN W/C UNTIL AROUND 2144. HAD MOTHER, BROTHER AND SON VISITING UNTIL AFTER 2129. TO BED PER RAEGAN LIFT. TOLERATED WELL. REQUESTED THAT THE VAISHNAVI WRAPS BE REMOVED AROUND 2044 BECAUSE SHE THOUGHT THEY WERE TOO TIGHT. SWELLING MUCH IMPROVED. NO INDENTATIONS NOTED FROM WRAPS. HAS TWO NEW PAIRS OF COMPRESSION SOCKS AT BEDSIDE, ONE WHITE AND ANOTHER BLACK. HAD TO BE ENCOURAGED TO HAVE LEGS ELEVATED. LEGS PURPLISH IN COLOR WHEN DEPENDENT. WHEN LEGS IN NEUTRAL POSITION AFTER GOING TO BED, THEY IMMEDIATELY TURNED A NORMAL PINK COLOR. SHE ASSISTS WITH TURNING. HEELS OFFLOADED. SWALLOWS SOME PILLS, CRUSHES BIGGER ONES AND SWALLOWS THE POWDER FOLLOWED BY LIQUIDS. MEDS PER DEC. HOURLY ROUNDS CONTINUE. BED ALARM ON. CALL LITE IN REACH.
--- NOTE | 2019-08-26 05:29 | NUR ---
SLEPT AFTER 2300. AWAKENED FOR MIDNIGHT MEDS. ASSISTED WITH TURNS. PEREZ DRAINING HEIDI URINE. DRESSINGS C/D/I. COLOSTOMY DRAINING BROWN STOOL. HOURLY ROUNDS CONTINUE. BED ALARM ON. CALL LITE IN REACH.
[2019-08-26 07:31] VITALS: BP 108/46
--- NOTE | 2019-08-26 14:52 | NUR ---
ASSUMED CARE AT 0730. ALERT ORIENTED PLEASANT COOPERATIVE. HX OF PARAPLEGIA S/P SEPSIS AND UTI. RESTING IN SPECIALTY BED ON L SIDE. TAKES MEDS WHOLE AND CRUSHED. FEEDS SELF APPETITE GOOD. DRESSINGS TO HIPS D/I. RT. FOOT DRESSING D/I. COLOSTOMY PATENT WITH SOFT STOOL PRESENT. PEREZ PATENT WITH HEIDI URINE TO DD BAG. PARTICIPATING IN THERAPIES THIS A.M. 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 STATES SHE WORE OUT TODAY.
--- NOTE | 2019-08-26 19:40 | NUR ---
HOURLY ROUNDING COMPLETED.
[2019-08-26 20:30] VITALS: BP 133/68
--- NOTE | 2019-08-26 20:45 | NUR ---
AWAKENED FOR HS REASSESSMENT AND MEDICATION PASS. PEREZ TO DEPENDENT DRAINAGE WITH CLEAR/YELLOW URINE. COLOSTOMY INTACT WITH LOOSE BROWN STOOL. PATIENT TAKES MEDICATIONS CRUSHED WITH WATER. CALL LIGHT WITHIN REACH. IN CONTACT ISOLATION FOR MRSA AND VRE. CALL LIGHT WITHIN REACH.
--- NOTE | 2019-08-27 06:29 | NUR ---
RESTED SINCE ABOUT 0100. DRESSING CHANGES TO BOTH HIPS AND RIGHT FOOT DONE LAST NIGHT AT 2130. PICTURES OF WOUNDS TAKEN LAST NIGHT. HOURLY ROUNDING IN PROGRESS.
[2019-08-27 08:00] VITALS: BP 111/54
[2019-08-27 09:57] LABS: ABSOLUTE BASOPHILS 0.1 thou/uL (0.0-0.2); ABSOLUTE EOSINOPHILS 0.2 thou/uL (0.0-0.7); ABSOLUTE LYMPHOCYTES 2.1 thou/uL (0.8-5.3); ABSOLUTE MONOCYTES 0.4 thou/uL (0.0-1.2); ABSOLUTE NEUTROPHILS 2.3 thou/uL (1.6-8.1); BASOPHILS 1.1 %; EOSINOPHILS 4.7 %; LYMPHOCYTES 41.3 %; MCH 26.4 pg (26.0-34.0); MCHC 32.5 g/dL (28.0-37.0); MCV 81.3 fL (80.0-100.0); MPV 7.5 fl. (7.2-11.1); NUCLEATED RBCS 0 /100WBC; PLATELET COUNT* 311 thou/uL (150-400); POLYS 45.9 %; RBC 4.55 mil/uL (4.20-5.00); RDW-CV 15.9 % (10.5-14.5)
--- NOTE | 2019-08-27 17:45 | NUR ---
REPOSITIONED EVERY 2 HOURS IN BED. LEGS ELEVATED ON PILLOWS ABOVE HEART LEVEL. DRESSINGS DRY AND INTACT OVER WOUND AREAS. USING PO PAIN MEDICATION TO HELP WITH PAIN. COLOSTOMY CARE GIVEN TODAY. PEREZ CATHETER PATENT WITH CLEAR YELLOW URINE. PARAPLEGIC. ON SPECIAL PRESSURE RELIEF BED. CALL LIGHT WITHIN REACH. ALERT AND ORIENTED X4. BED ALARM ON.
[2019-08-27 21:00] VITALS: BP 110/48
--- NOTE | 2019-08-28 01:32 | NUR ---
ASSUMED CARE @ 1929-08/27-SUN.AWAKE IN BED.ON BED SPECIALTY.HOB UP-ON HER BACK.PATIENT ELEVATES FOOT PART OF BED ABOVE HEART LEVEL-IND.DRESSINGS CHANGED ON BOTH HIPS @ 2229.PEREZ CATHETER-PATENT.COLOSTOMY INTACT.
--- NOTE | 2019-08-28 05:18 | NUR ---
ISOLATION OBSERVED.REFUSED HS SNACK.SLEPT LATE @ 0200 BUT SLEPT GOOD.AWAKE MOST OF TIME FROM 1930- TO 99.COLOSTOMY EMPTIED ONCE @ 1999 W/ LARGE BM.
[2019-08-28 08:42] VITALS: BP 98/61
--- NOTE | 2019-08-28 15:53 | NUR ---
PT HAS PARTICIPATED WITH THERAPIES AND TRANSFERRS WITH USE OF RAEGAN LIFT. PEREZ TO DD WITH CLEAR DARK YELLOW URINE PRESENT. COLOSTOMY WITH LOOSE STOOL PRESENT,PT DOES OWN CARES.,,AND ZURDO FROM UROLOGY HAVE BEEN HERE TO SEE PT TODAY. DRESSING TO RT.FOOT CHANGED THIS AM.PT REMAINS ALERT AND ORIENTATED.
[2019-08-28 20:55] VITALS: BP 122/62
--- NOTE | 2019-08-29 01:43 | NUR ---
ASSUMED CARE @ -WEDNESDAY.SITTING IN W/C IN ROOM W/ LE'S UP.ON BED SPECIALTY.ISOLATION OBSERVED.BED ALARM PUT ON @ 1954.COLOSTOMY INTACT.PEREZ CATHETER PATENT.DRESSINGS CHANGED BOTH HIPS @ 2114 & 2119.AR @ 2054-128/MIN- REGULAR.AR CHECKED @ 54-VAHCXCQ-86/MIN-REGULAR.ON HOURLY ROUNDS.
--- NOTE | 2019-08-29 05:38 | NUR ---
SLEPT LATE @ 0200.PEREZ BAG EMPTIED 3X-1800 ML URINE.REFUSED HS SNACK BUT TAKES MEDS W/ DIET SODA.COLOSTOMY BAG EMPTIED OF GAS ONLY @ 0520.
[2019-08-29 09:00] VITALS: BP 101/51
--- NOTE | 2019-08-29 16:25 | NUR ---
PT HAS PARTICIPATED WITH THERAPIES AND CAN BE MOBILE ON UNIT PER W/C. DRESSINGS CHANGED TO BILAT HIPS WITH NO DRAINAGE NOTED.PT WEARS LIGHT COMPRESSION STOCKINGS TO BILAT LE'S SHE HAS HAD FAMILY BRING TO REDUCE PEDAL EDEMA. PEREZ TO DD AND COLOSTOMY WITH LOOSE STOOL PRESENT. PT DOES CARES FOR COLOSTOMY.PT REMAINS ALERT AND ORIENTATED.
--- NOTE | 2019-08-30 00:34 | NUR ---
ASSUMED CARE @ 1909-08/29-.AWAKE IN BED W/ HOB UP.COLOSTOMY BAG IN PLACE. ON BED SPECIALTY.WANTS ONLY SIDERAILS X2 UP.PEREZ CATHETER-PATENT.ISOLATION OBSERVED.ON SMART PHONE MOST OF TIME DURING NIGHT.[id number].[id number]-107 @ 0800. REQUESTED RN TO CHANGE RIGHT HIP DRESSING & DONE @ 5134.ON HOURLY ROUNDS.
[2019-08-30 05:12] LABS: HEMATOCRIT 36.1 % (37.0-47.0); HEMOGLOBIN 11.9 gm/dL (12.0-15.0); MCH 26.5 pg (26.0-34.0); MCHC 32.8 g/dL (28.0-37.0); MCV 80.9 fL (80.0-100.0); MPV 7.6 fl. (7.2-11.1); RBC 4.47 mil/uL (4.20-5.00); RDW-CV 15.9 % (10.5-14.5); WBC 6.5 thou/uL (4.0-11.0)
--- NOTE | 2019-08-30 05:12 | NUR ---
SLEPT LATE @ 0300 & SLEEPING GOOD.REFUSED HS SNACKS.TAKES MEDS W/ DIET ROOT BEER CREME SODA.
[2019-08-30 06:16] LABS: ALBUMIN 3.5 g/dL (3.4-5.0); CALCIUM 9.2 mg/dL (8.5-10.1); CREATININE 0.4 mg/dL (0.6-1.3); POTASSIUM 3.7 mmol/L (3.5-5.1); TOTAL BILIRUBIN 0.1 mg/dL (<0.1-1.0); TOTAL PROTEIN 7.2 g/dL (6.4-8.2)
[2019-08-30 07:35] VITALS: BP 101/48
[2019-08-30 08:45] VITALS: BP 101/48
--- NOTE | 2019-08-30 14:41 | NUR ---
AM ASSESSMENT AND VITAL SIGNS COMPLETED DOCUMENTED. PT CONTINUES TO WORK WITH ALL THERAPIES AND MAKE PROGRESS TOWARD DISCHARGE GOALS. PT HAS BEEN COOPERATIVE, SCHEDULED PAIN MANAGEMENT MEDICATIONS GIVEN. ISOLATION PRECAUTIONS OBSERVED. HOURLY ROUNDING AND FALL PRECAUTIONS.
--- NOTE | 2019-08-30 17:30 | NUR ---
PHYSICAL THERAPIST REPORTED PT HAD MADE A COMMENT DURING HER THERAPY SESSION A LONG THE LINES OF SHE RATHER BE . SUICIDE SCREENING DONE, PT DENIES HAVING ANY DESIRE OR PLAN TO END HER LIFE. PT HAS NOT MADE ANY OTHER COMMENTS OF THIS TYPE DURING HER LENGTHY HOSPITAL STAY.
[2019-08-30 20:00] VITALS: BP 122/72
--- NOTE | 2019-08-31 05:36 | NUR ---
ASSUMED PT CARE AT 1930, PT ALERT AND ORIENTED X4, POLITE AND COOPERATIVE WITH CARES. PT ON SPECIALTY BED, ONLY WANTS SIDERAILS X2. PT EMPTIED OWN COLOSTOMY BAG AT HS. PEREZ TO DD, DRAINING DARK YELLOW URINE. PT TO BED LATE BUT SLEPT WELL OVERNIGHT. ALLOWED SOME TURNS, REFUSED OTHERS. PT VERY SPECIFIC ABOUT TIMING AND COMBINATION OF MEDS. USES CALL LIGHT APPROPRIATELY. CALL LIGHT AND FREQUENTLY USED ITEMS IN REACH. HOURLY ROUNDING IN PROGRESS, WILL CONTINUE TO MONITOR.
[2019-08-31 08:00] VITALS: BP 105/50
--- NOTE | 2019-08-31 11:59 | NUR ---
ENTERED PT'S ROOM AT 1155 TO SET UP FAMILY TRAINING TIMES FOR TOMORROW. PATIENT AGREES TO HAVE FAMILY HERE BETWEEN [id number] FOR PT/OT TRAINING. PATIENT VOICES IF FAMILY IS UNABLE TO BE PRESENT FOR THESE TIMES TO COMPLETE FAMILY TRAINING, SHE WILL "GO HOME ONE WAY OR ANOTHER AND FIGURE IT OUT WHEN SHE GETS HOME."
--- NOTE | 2019-08-31 18:46 | NUR ---
AM ASSESSMENT AND VITAL SIGNS COMPLETED DOCUMENTED. NO CHANGE IN PATIENT STATUS. FALL PRECAUTIONS AND HOURLY ROUNDING CONTINUE.
[2019-08-31 20:00] VITALS: BP 142/78
--- NOTE | 2019-09-01 05:15 | NUR ---
ASSUMED PT CARE AT 1930. PT ALERT AND ORIENTED X4, POLITE AND COOPERATIVE WITH CARES. PT ON SPECIALTY BED, ONLY WANTS SIDERAILS X2. PT EMPTIED OWN COLOSTOMY BAG AT HS. PEREZ TO DD, DRAINING YELLOW URINE. DRESSING AND PACKING CHANGED TO RIGHT HIP AND LEFT ISCHIAL TUBEROSITY. PT TO BED LATE BUT SLEPT WELL OVERNIGHT. ALLOWED SOME TURNS, REFUSED OTHERS. PT VERY SPECIFIC ABOUT TIMING AND COMBINATION OF MEDS. USES CALL LIGHT APPROPRIATELY. CALL LIGHT AND FREQUENTLY USED ITEMS IN REACH. HOURLY ROUNDING IN PROGRESS, WILL CONTINUE TO MONITOR.
[2019-09-01 08:32] VITALS: BP 109/52
--- NOTE | 2019-09-01 12:11 | NUR ---
PT WAS TOLD TO INFORM HER FAMILY TO BE HERE TODAY FROM 9:30 AM THROUGH 11 FOR FAMILY TRAINING WITH THERAPIST. FAMILY ARRIVED JUST AFTER 11 AM. PT FAMILY WAS THEN ASKED TO BE HERE FOR TRAINING FROM 1:45 PM THROUGH 3 PM. FAMILY AGREED
--- NOTE | 2019-09-01 18:17 | NUR ---
PT HAS HAD PEREZ CHANGED TODAY DUE TO LEAKING WITH GOOD RESULTS. COLOSTOMY BAG AND APPLIANCE CHANGED DUE TO COMMING OFF. PT HAS RECEIVED NEW W/C AND VOICES IT IS NOT CORRECT AND HAS CALLED W/C COMPANY FOR CORRECTIONS. PT HAS STRONG UPPER BODY STRENGTH AND IS ABLE TO OFFSET WEIGHT AND REPOSITION SELF IN W/C. FAMILY HERE TODAY AND PT HAS BEEN TEARFULL AND EXPRESSES SELF TO THEM. LIFT DEVICE TEACHING GONE OVER WITH SAFETY ISSUES DISCUSSED;LOCKING BREAKS AND WATCHING THAT BARS DO NOT HIP PT.PT REMAINS ALERT AND ORIENTATED.
[2019-09-01 20:18] VITALS: BP 134/79
--- NOTE | 2019-09-02 05:25 | NUR ---
ASSUMED PT CARE AT 1930. PT ALERT AND ORIENTED X4, POLITE AND COOPERATIVE WITH CARES. PT SITTING UP IN WHEELCHAIR AT SHIFT CHANGE. PT HAS SPECIALTY BED, ONLY WANTS SIDERAILS UP X2. PT EMPTIED OWN COLOSTOMY BEFORE TRANSFER TO BED WITH RAEGAN LIFT. PEREZ TO DD, DRAINING YELLOW URINE. DRESSING AND PACKING CHANGED TO RIGHT HIP AND LEFT ISCHIAL TUBEROSITY. PT TO BED LATE BUT SLEPT WELL OVERNIGHT. ALLOWED SOME TURNS, REFUSED OTHERS. PT USES CALL LIGHT APPROPRIATELY, CALL LIGHT AND FREQUENTLY USED ITEMS IN REACH. HOURLY ROUNDING IN PROGRESS, WILL CONTINUE TO MONITOR.
[2019-09-02 07:57] VITALS: BP 120/61
--- NOTE | 2019-09-02 19:01 | NUR ---
URINE CONTINUED LEAK AROUND THE CATHETER THIS SHIFT, CATHETER CHANGED AT 1830, WILL CONTINUE TO MONITOR.
[2019-09-02 20:00] VITALS: BP 140/75
--- NOTE | 2019-09-03 06:43 | NUR ---
ASSUMED CARE AT 1930. PATIENT RESTING IN BED. ASSISTED WITH TURNS SHE ALLOWED. PATIENT SLEPT WELL THIS SHIFT. DRESSINGS CHANGED AT HS TO HIP AND ISCHIAL TUBEROSITY. TOLERATED WELL. DSSGS TO BILAT FEET C/D/I. MEDICATED PER SCHEDULED MEDS. SEE MAR. TAKES SOME PILLS WHOLE, SOME CRUSHED WITH SODA POP. PEREZ DRAINING HEIDI URINE. DID OBSERVE SOME URINARY LEAKAGE AROUND PEREZ. PLACED PAD IN JUDD AREA, NO FURTHER LEAKING NOTED. COLOSTOMY DRAINING BROWN STOOL. HOURLY ROUNDS CONTINUE. BED ALARM ON. CALL LITE IN REACH.
[2019-09-03 08:00] VITALS: BP 128/60
[2019-09-03 19:00] VITALS: BP 130/68
--- NOTE | 2019-09-04 05:23 | NUR ---
ASSUMED CARE AT 1930. PATIENT RESTING IN BED. ASSISTED WITH TURNS WHEN SHE ALLOWED. DRESSINGS CHANGED TO RIGHT HIP, LEFT ISCHIAL TUBEROSITY, RIGHT FOOT. PICTURES TAKEN. TAKES SOME SMALL PILLS WHOLE, OTHERS SHE CRUSHES OR OPENS UP CAPSULES AND TAKES THE POWDER DIRECTLY INTO HER MOUTH AND FOLLOWS IT WITH CREAM SODA. PEREZ DRAINING HEIDI URINE. COLOSTOMY DRAINING LIQUID STOOL. PEREZ DID NOT LEAK THIS SHIFT. HOURLY ROUNDS CONTINUE. BED ALARM ON. CALL LITE IN REACH.
[2019-09-04 07:08] VITALS: BP 113/58
[2019-09-04 12:12] VITALS: BP 113/58
[2019-09-04] MEDS ORDERED: AMOXICILLIN500 M1 PO (13:16)
[2019-09-04] MEDS ORDERED: BACTRIM DS TAB1 EACH PO (13:17)
--- NOTE | 2019-09-04 13:20 | NUR ---
WOUND CARE NOTE: REASSESSMENT OF PRESSURE ULCERS PATIENT ANTICIPATING DISCHARGE TODAY. FRUSTRATED BECAUSE HER WHEELCHAIR ISN'T RIGHT, HER BED AT HOME IS TOO HARD FOR HER, AND SHE IS FEARFUL BECAUSE SHE WON'T HAVE ENOUGH WOUND/OSTOMY SUPPLIES WHEN SHE GOES HOME. ALSO FRUSTRATED BECAUSE HER PEREZ IS LEAKING. DRESSINGS TO L IT AND RIGHT BUTTOCK CHANGED, PLEASE SEE WOUND INTERVENTIONS. GAVE PATIENT A FEW DRESSINGS FOR HER WOUNDS TO HAVE ON HAND IN CASE HER DRESSINGS FALL OFF OR HER PEREZ LEAKS ONTO THEM PER PATIENT REQUEST.
[2019-09-04] MEDS ORDERED: FLORANEX TABLE1 EACH PO (13:50)
--- NOTE | 2019-09-04 15:32 | NUR ---
ASSUMMED CARE OF PT AT 729, PT VERY ANXIOUS SHE IS BEING DISCHARGED TODAY, UROLOGIST HERE TO SEE PT AND EXPALINED TO HER THAT SUPRAPUBIC ATH WILL BE PLACED IN ABOUT 2 WEEKS AND UROLOGY OFFICE WILL CONTACT HER, PT WANTED THIS PLACED PRIOR TO DISCHARGE, PT ANXIOUS ABOUT DISCHARGE MEDS, WANTS A 30 DAY SUPPLE OF ALL MEDICATIONS, DISCUSSED WITH PHYSICIAN AND 30 DAY SUPPLY CALLED INTO [facility] FOR ALL HER ROUTINE MEDS EXCEPT HER PERCOCET AND XANAX. SCRIPTS GIVEN FOR NEW MEDS. PT VERY CONCERNED SHE WILL RUN OUT OF HER PERCOCET BEFORE SHE CAN SEE HER PCP, A SCRIPT FOR A 1 WEEK SUPPLY GIVEN TO PT, PT REQUESTING THAT NURSE GIVE HER SOME EXTRA TO TAKE HOME SHE CAN NOT GET SCRIPT FILLED UNTIL TOMMORROW, PT INFORMED THAT SHE WOULD HAVE TO GET SCRIPT FILLED AND NURSE COULD NOT PROVIDE EXTRA PILLS, WOUND CARE NURSE CHANGED HER DRESSINGS, DR CROWDER TALKED WITH HER AND WANTS HER TO FOLLOW UP IN [facility] ON WEDNESDAY, HOME HEALTH SET UP, OSTOMY SUPPLIES SENT WITH PT AND DRESSING SUPPLIES SENT WITH PT THAT WERE LEFT INPT ROOM, PT DID PARTICIPATE IN HER THERAPIES, PTS CLOTHES WASHED AND DRIED PRIOR TO DISCHARGE, DISCHARGE PACKET GIVEN TO PT, EDUCATED ON MEDICATIONS, FOLLOW UP APPTS, DIET,HOME HEALTH WILL BE DISCHARGED WITH A WHEELCHAIR VAN.
[2019-09-04 15:39] VITALS: BP 113/58
[2019-09-04 16:37] VITALS: BP 113/58
--- NOTE | 2019-09-04 16:39 | NUR ---
Pt to dc home with family today. SW spoke with pt several times throughout the day and arranged HH services through [facility]; their intake accepted referral. SW discussed pt to follow up regarding replacement of hospital bed with [facility] and further discussions regarding custom wc with [employer]. Pt going home with custom wc, [employer] to deliver arm rests to pt home when available. PAUL called [facility] and arranged for transportation home and requested A + transportation if available. Ticket number [id number]. [employer] phone # [phone].
[2019-09-04 20:30] VITALS: BP 138/82
--- NOTE | 2019-09-04 22:12 | NUR ---
ASSUMED CARES AT 1920. ALERT AND ORIENTED. PLEASANT. AWAITING TRANSPORT TO HOME. [facility] THAT [facility] ([facility] WILL BE TRANSPORTING PT TO HOME WITHIN THE HOUR. PT WAS INFORMED OF THESE CHANGES AND SHE ASKED FOR HER BEDTIME MEDS AND SO THESE WERE ALL GIVEN. AT 2099, THIS RN CALLED [facility] TO INQUIRE ON TRANSPORT. WAS TOLD THAT THEY WILL SEND A UNIT WITHIN 15-20 MIN. PAPERWORK COMPLETED AND PT LEFT VIA STRETCHER WITH HER PERSONAL W/C AND ALL BELONGINGS AT 2200.
[2019-09-13] MEDS ORDERED: OXYCONTIN15 MG PO (09:38)
[2019-09-13] MEDS ORDERED: VITAMIN C120 G1 PO (09:38)
== END 2019-09-04 22:00 | disposition home or self-care (01) | DRG 947 ==
LOC: M.REH 15:59
PROVIDERS: Family Medicine; Internal Medicine; ADMIT Physical Medicine & Rehabilitation
DX: R53.81 Other malaise (principal); A41.9 Sepsis, unspecified organism; N39.0 Urinary tract infection, site not specified; G82.20 Paraplegia, unspecified; L89.159 Pressure ulcer of sacral region, unspecified stage; E11.9 Type 2 diabetes mellitus without complications; N31.9 Neuromuscular dysfunction of bladder, unspecified; K21.9 Gastro-esophageal reflux disease without esophagitis; L89.229 Pressure ulcer of left hip, unspecified stage; L89.219 Pressure ulcer of right hip, unspecified stage; M19.90 Unspecified osteoarthritis, unspecified site; Z93.3 Colostomy status; Z88.1 Allergy status to other antibiotic agents; Z88.2 Allergy status to sulfonamides; Z88.6 Allergy status to analgesic agent; Z88.8 Allergy status to other drugs, medicaments and biological substances; Z90.49 Acquired absence of other specified parts of digestive tract; Z87.01 Personal history of pneumonia (recurrent); Z87.442 Personal history of urinary calculi

== ENCOUNTER → 2019-09-11 | Outpatient (CLI) | payer MEDICARE, MEDICAID ==
[~2019-09-11] MED LIST changes: +AMOXICILLIN500 M1 PO; +FLORANEX TABLE1 EACH PO; +OXYCONTIN15 MG PO; +VITAMIN C120 G1 PO
[2019-09-11 11:46] LABS: ABSOLUTE BASOPHILS 0.1 thou/uL (0.0-0.2); ABSOLUTE EOSINOPHILS 0.3 thou/uL (0.0-0.7); ABSOLUTE LYMPHOCYTES 2.2 thou/uL (0.8-5.3); ABSOLUTE MONOCYTES 0.4 thou/uL (0.0-1.2); ABSOLUTE NEUTROPHILS 5.7 thou/uL (1.6-8.1); EOSINOPHILS 2.9 %; HEMOGLOBIN 13.4 gm/dL (12.0-15.0); LYMPHOCYTES 25.6 %; MCHC 32.6 g/dL (28.0-37.0); MCV 79.7 fL (80.0-100.0); MONOCYTES 4.7 %; MPV 7.2 fl. (7.2-11.1); NUCLEATED RBCS 0 /100WBC; PLATELET COUNT* 380 thou/uL (150-400); POLYS 65.8 %; RBC 5.14 mil/uL (4.20-5.00); RDW-CV 15.6 % (10.5-14.5); WBC 8.6 thou/uL (4.0-11.0)
[2019-09-11 12:06] LABS: CALCIUM 9.7 mg/dL (8.5-10.1); CREATININE 0.5 mg/dL (0.6-1.3); POTASSIUM 3.7 mmol/L (3.5-5.1)
[2019-09-11 12:11] LABS: URINE BILIRUBIN NEGATIVE (Negative); URINE BLOOD 3+ (Negative); URINE CLARITY CLOUDY; URINE COLOR YELLOW; URINE GLUCOSE-RANDOM NEGATIVE (Negative); URINE KETONES NEGATIVE (Negative); URINE LEUKOCYTES 2+ (Negative); URINE NITRITE NEGATIVE (Negative); URINE PROTEIN 2+ (Negative); URINE SPECIFIC GRAVITY >= 1.030 (1.005-1.030); URINE UROBILINOGEN 0.2 E.U./dl (0.2-1.0)
[2019-09-11 12:29] LABS: CALCIUM OXALATE 0-3 Few /LPF (None Seen); CASTS None Seen /LPF (None Seen); SQUAMOUS 0-3 Few /LPF (0-3); URINE WBC >25 Many /HPF (0-5)
[2019-09-11 12:30] LABS: BACTERIA >30 Many /HPF (None Seen); URINE RBC >20 Many /HPF (0-2)
--- NOTE | 2019-09-11 15:18 | EKG ---
[place] [address] ELECTROCARDIOGRAM REPORT Name: BETHEL MAHONEY Room: [facility]#: [id number] Admission: 09/11/19 Attend Phys: Nadira Corey Discharge: Date of : 71 Report #: [id number] THIS REPORT FOR: //name// [facility] Test Date: 2019-09-11 Test Time: 12:33:12 Pat Name: BETHEL MARU Department: Room: Gender: F Traffic Signal Repairer: ADAM : 1975 Requested By: Nadira Corey Order Number: [id number] Sterling MD: Luis Miguel Ledesma Measurements Intervals [place] Rate: 102 P: 7 MI: 136 QRS: 7 QRSD: 78 T: 5 QT: 407 QTc: 531 Interpretive Statements Sinus tachycardia Probable anteroseptal infarct, old Prolonged QT interval Compared to ECG 08/11/2019 00:08:24 Prolonged QT interval now present rate has slowed Electronically Signed On 09-11-2019 15:18:15 BATTERY SERVICE TECHNICIAN by Luis Miguel Ledesma [email or web address] <ELECTRONICALLY SIGNED> By: Luis Miguel Ledesma MD, [facility] 09/11/19 1518 1233 1233 Luis Miguel Ledesma MD, [facility] /EPI
== END ==
LOC: M.LAB 04:31 → M.WC 04:31
PROVIDERS: Nurse Practitioner Adult Health
DX: R00.0 Tachycardia, unspecified (principal); N39.0 Urinary tract infection, site not specified; N31.9 Neuromuscular dysfunction of bladder, unspecified

== ENCOUNTER 2019-09-25 13:13 | Inpatient (IN) | payer MEDICARE, MEDICAID ==
[~2019-09-25] VITALS: Ht 157.5 cm; Wt 64.4 kg
[~2019-09-25 13:13] MED LIST changes: -OXYCONTIN15 MG PO; +ROXICODONE15 M1 PO
[2019-09-25 13:14] VITALS: BP 123/60
[2019-09-25] MEDS ORDERED: AUGMENTIN400 MG/53 PO (13:25)
[2019-09-25 13:45] LABS: ABSOLUTE BASOPHILS 0.1 thou/uL (0.0-0.2); ABSOLUTE EOSINOPHILS 0.2 thou/uL (0.0-0.7); ABSOLUTE LYMPHOCYTES 1.9 thou/uL (0.8-5.3); ABSOLUTE MONOCYTES 0.4 thou/uL (0.0-1.2); BASOPHILS 0.8 %; EOSINOPHILS 2.8 %; HEMATOCRIT 37.9 % (37.0-47.0); HEMOGLOBIN 12.6 gm/dL (12.0-15.0); LYMPHOCYTES 25.3 %; MCH 26.1 pg (26.0-34.0); MCHC 33.2 g/dL (28.0-37.0); MCV 78.7 fL (80.0-100.0); MONOCYTES 5.7 %; MPV 7.1 fl. (7.2-11.1); NUCLEATED RBCS 0 /100WBC; PLATELET COUNT* 289 thou/uL (150-400); POLYS 65.4 %; RBC 4.81 mil/uL (4.20-5.00); RDW-CV 16.5 % (10.5-14.5); WBC 7.7 thou/uL (4.0-11.0)
[2019-09-25 13:53] LABS: CALCIUM 8.7 mg/dL (8.5-10.1); CREATININE 0.4 mg/dL (0.6-1.3); POTASSIUM 3.8 mmol/L (3.5-5.1)
[2019-09-25 13:54] LABS: APTT 28.9 Seconds (25.0-31.3); PROTIME 9.8 Seconds (9.20-11.50)
[2019-09-25 13:58] LABS: URINE BILIRUBIN NEGATIVE (Negative); URINE BLOOD 2+ (Negative); URINE COLOR YELLOW; URINE GLUCOSE-RANDOM NEGATIVE (Negative); URINE KETONES NEGATIVE (Negative); URINE NITRITE-REFLEX NEGATIVE (Negative); URINE PROTEIN 1+ (Negative); URINE SPECIFIC GRAVITY 1.025 (1.005-1.030); URINE UROBILINOGEN 0.2 E.U./dl (0.2-1.0)
[2019-09-25 14:02] LABS: URINE CLARITY HAZY; URINE LEUKOCYTES-REFLEX 2+ (Negative)
[2019-09-25 14:04] LABS: ALBUMIN 3.5 g/dL (3.4-5.0); TOTAL BILIRUBIN 0.2 mg/dL (<0.1-1.0); TOTAL PROTEIN 7.2 g/dL (6.4-8.2)
[2019-09-25 14:07] LABS: CASTS None Seen /LPF (None Seen); CRYSTALS None Seen /LPF (None Seen); SQUAMOUS 0-3 Few /LPF (0-3); URINE RBC >20 Many /HPF (0-2); URINE WBC-REFLEX >25 Many /HPF (0-5)
[2019-09-25 14:08] LABS: YEAST-REFLEX Present (None Seen)
[2019-09-25 15:33] VITALS: BP 123/60
--- NOTE | 2019-09-25 15:56 | EKG ---
[place] [address] ELECTROCARDIOGRAM REPORT Name: BETHEL MAHONEY Room: [address] ADM IN M.R.#: [id number] Admission: 09/25/19 Attend Phys: Hilda Mcpherson Discharge: Date of : 71 Report #: [id number] THIS REPORT FOR: //name// [facility] ED Test Date: 2019-09-25 Test Time: 13:43:50 Pat Name: BETHEL MAHONEY Department: Room: [facility] Gender: F Real Estate Office Manager: : 1975 Requested By: Jesús Min Order Number: [id number] MD: Luis Miguel Ledesma Measurements Intervals [place] Rate: 93 P: -1 KS: 139 QRS: -3 QRSD: 87 T: 15 QT: 370 QTc: 461 Interpretive Statements Sinus rhythm Compared to ECG 09/11/2019 12:33:12 Sinus tachycardia no longer present Myocardial infarct finding no longer present Prolonged QT interval no longer present Electronically Signed On 09-25-2019 15:55:56 TRASH MAN by Luis Miguel Ledesma [email or web address] <ELECTRONICALLY SIGNED> By: Luis Miguel Ledesma MD, [facility] 09/25/19 1555 1343 1343 Luis Miguel Ledesma MD, [facility] /EPI
[2019-09-25 16:00] VITALS: BP 139/62
[2019-09-25 19:32] VITALS: BP 129/56
--- NOTE | 2019-09-25 19:57 | NUR ---
PATIENT AWAKE IN BED. ALL SAFETY MEASURES MAINTAINED. DR. JOLLY NOTIFIED OF PATIENT'S REQUESTS. NEW ORDERS RECEIVED AND VERIFIED WITH READ BACK. PATIENT DENIES FURTHER NEED AT THIS TIME.
[2019-09-26] VITALS: BP 112/47
[2019-09-26 03:21] VITALS: BP 133/74
--- NOTE | 2019-09-26 04:22 | NUR ---
ASSUMED CARE OF PT 09/25/19 AT APPROX 1930, PT A&OX4 THROUGHOUT SHIFT, VSS, PAIN MEDS GIVEN SCHEDULED, PT C/O HEADACHE - PHYSICIAN CONTACTED AND ORDER GIVEN FOR IBUPROPHEN 400MG, PT C/O ANXIETY - XANAX GIVEN ORDERED, ASSESSMENTS AND HOURLY ROUNDINGS COMPLETED, CONTACT ISOLATION PRECAUTIONS MAINTAINED, WILL CONTINUE TO MONITOR.
[2019-09-26 07:40] VITALS: BP 112/50
--- NOTE | 2019-09-26 10:20 | CON ---
[address] [address] CONSULTATION Name: BETHEL MAHONEY Room: [address] IN M.R.#: [id number] Admission: 09/25/19 Attend Phys: Hilda Mcpherson Discharge: Date of : 71 Report #: [id number] THIS REPORT FOR: //name// CC: Hilda Martins DATE OF SERVICE: 09/26/2019 INFECTIOUS DISEASE CONSULTATION ATTENDING PHYSICIAN: Dr. Landrum. REASON FOR EVALUATION: Facial cellulitis in particular left preseptal site, also complicated urinary tract infection. HISTORY OF PRESENT ILLNESS: Chart reviewed, patient examined. 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 She has had multiple complications related to its sequelae including bilateral chronic ischial wounds greater than a year, intermittently infected, at times has had chronic osteomyelitis, also recurrent urinary tract infections, has a longstanding indwelling Francois, pending plans for a suprapubic catheter, does have a diverting colostomy as well, who was admitted with complaints of left-sided facial pain and swelling. This was not accompanied by antecedent injury, progressed associated pain. There was some induration. Denies systemic illness in terms of fevers or chills. On evaluation, she was found to have marked pyuria as well. She was empirically started on cefepime and Levaquin. She is not overtly toxic at this point. ALLERGIES: LISTED SULFA, MORPHINE, CLINDAMYCIN, CIPROFLOXACIN, TRAMADOL, MINOCYCLINE, SULBACTAM. PAST MEDICAL HISTORY: As described above, paraplegia, spinal cord tumor, diabetes mellitus longstanding, neurogenic bladder, has a diverting colostomy, chronic ischial wounds, previous history of renal lithiasis requiring ureteral stenting. SOCIAL HISTORY: She is disabled. No ethanol. No illicit drug use. No smoking. FAMILY HISTORY: Noncontributory. REVIEW OF SYSTEMS: Denies any significant pulmonary-related complaints, nor GI complaints. Genitourinary and rectal deferred. PHYSICAL EXAMINATION: GENERAL: She is alert. She appears somewhat chronically ill, [place] [address] CONSULTATION Name: BETHEL MAHONEY Room: [address]#: [id number] Admission: 09/25/19 Attend Phys: Hilda Mcpherson Discharge: Date of : 71 Report #: [id number] VITAL SIGNS: Temperature 98.2, pulse 94, respirations 14, blood pressure 133/74. SKIN: Warm, dry. No rashes. HEENT: Does have inflammation noted in the maxillary site on the left. There is minimal induration. There is no fluctuance. I do not appreciate any puncture sites or areas of bullous formation. There is some tenderness in the cervical lymphatic chain. Does admit to some poor dentition as well. LUNGS: Diminished breath sounds. HEART: Regular. ABDOMEN: Soft, nontender. There is no organomegaly. GENITOURINARY: Deferred. RECTAL: Deferred. LABORATORY DATA: Blood cultures are sterile thus far. Chest x-ray showed no acute process. Urinalysis did show marked pyuria, greater than 25 white cells, 10-30 bacteria, yeast present. Electrolytes: Sodium 137, potassium 3.8, chloride 100, bicarbonate is 25, anion gap of 12, BUN and creatinine 7 and 0.4. Liver functions normal. Albumin of 3.5, total protein 7.2, lactic acid of 2.0 initially. ASSESSMENT AND PLAN: 1. Left facial skin and soft tissue infection with cellulitis, cannot exclude a dental source. We will check plain films of the left maxilla and mandible, evaluate. She notes no significant pain associated with her mouth. We will monitor expectantly. Encourage use of warm moist heat. 2. Complicated urinary tract infection. There is evidence of some yeast. We will broaden her antimicrobial coverage in the short term. At this point, she is somewhat tenuous. We will see how she does clinically in the next 24-48 hours. <ELECTRONICALLY SIGNED> By: Milton Gandhi MD 09/26/19 1020 0911 [id number] Gandhi MD /nt
--- NOTE | 2019-09-26 10:51 | NUR ---
Nutrition: RD familiar with pt. Paraplegia, chronic sacral ulcer. RX: MVI, Fe, vit C, vanc, L. acidophilus. BG 106, albumin 3.5. Admitted with cellulitis. Wt: 141#. CHO controlled diet. Seen for pressure ulcer. RD ordered Israel TID for wound healing. Increased nutrient needs R/T wound healing AEB chronic decub. Continue Israel, continue MVI/vit C/Fe, tight BG control. Mild nutritional risk.
[2019-09-26 14:43] VITALS: BP 112/50
--- NOTE | 2019-09-26 15:27 | NUR ---
Pt known to SW from previous admissions to inpt rehab unit and chart review. Wound nurse to meet with pt this afternoon. Pt dc'ed home with family at dc from inpt rehab. Pt hx with [facility] . Pt has hx of [facility]. Pt has custom wc from [facility]. Pt has hospital bed from [facility]. SW to remain available to assist with safe dc planning if needs arise.
[2019-09-26 15:45] VITALS: BP 122/56
--- NOTE | 2019-09-26 16:47 | NUR ---
WOUND CARE NOTE: CONSULT RECEIVED FOR CHRONIC DECUBITUS ULCERS. PATIENT WELL KNOWN TO ME FROM PREVIOUS HOSPITAL STAYS. PRESENTS WITH CHRONIC STAGE 4 PRESSURE ULCERS. RIGHT HIP: STAGE 4 PRESSURE ULCER MEASURING 0.3X0.5X1.6 WITH A TUNNEL AT 2 O'CLOCK 2.3 CM. JUDD-WOUND IS REDDENED, POSSIBLY FROM MOISTURE. CLEANSED WITH WOUND CLEANSER, PATTED DRY. PACKED WITH PURACOL AG AND COVERED WITH A BORDERED FOAM. LEFT ISCHIAL TUBEROSITY: STAGE 4 PRESSURE ULCER MEASURING 0.5X0.3X0.9 WITH UNDERMINING FROM 8-11 O'CLOCK 2.2CM. JUDD-WOUND IS REDDENED AND MACERATED. APPEARS THAT PATIENT MAY HAVE VAGINAL YEAST INFECTION. DRAINAGE NOTED FROM VAGINA AND LABIA INFLAMMED. BELIEVE WOUND MAY HAVE YEAST TOO. CLEANSED WITH WOUND CLEANSER, PATTED DRY. PACKED WITH PURACOL AG AND COVERED WITH A BORDERED FOAM.
--- NOTE | 2019-09-26 18:20 | NUR ---
PT A&OX4 VSS. PT RESTS IN BED WITH CALL LIGHT IN REACH. PT ABLE TO REPOSITION SELF NEEDED. PT ACCUCHECK, BUT INSULIN ONLY REQUIRED X1 THIS SHIFT. HOLD METFORMIN D/T CT WITH CONTRAST THIS AM. SWELLING AND REDNESS NOTED TO FACE R/T CELLULITIS. IV IN RAC, SALINE LOCKED. PT HAS CHRONIC PEREZ, POTENTIAL SUPRAPUBIC WAITING FOR UTI TO BHE RESOLVED/IMPROVED. PT HAS WOUNDS TO BILAT HIPS, DRESSING CHANGED BY WOUND NURSE THIS SHIFT. LOW AIR MATTRESS ORDERED. PT HAD CT W/ CONTRAST OF ORBIT WELL XRAY EXAM. PT REMAINS ON CANTACT PRECAUTIONS. IV ANTIBIOTICS CONTINUED. WILL CONTINUE TO MONITOR.
[2019-09-26 22:04] VITALS: BP 112/59
[2019-09-27] VITALS: BP 108/58
[2019-09-27 08:30] VITALS: BP 135/66
--- NOTE | 2019-09-27 16:00 | NUR ---
PER ORDER TO CHECK ON COST OF DAILY MACROBID SUSPENSION 50MG FOR UTI PROPHYLAXSIS, CALLED IN MED TO PT.'S PHARMACY [phone]. PHARMACIST SAID IT REQUIRED A PRIOR AUTH. PA REQUESTED THROUGH COVER MY MEDS. SINCE THIS IS NOT A NEED FOR EXPEDITED PA, WILL TAKE 1-3 DAYS FOR DECISION. CAN CALL [facility] FOR DECISION AT [phone] OR COVER MY MEDS [phone] OR CALL THE DRUG STORE AT ABOVE NUMBER TO SEE IF PA CAME THROUGH. PHARMACIST DID SAY THEY DID NOT KEEP THIS DRUG IN STOCK. WOULD NEED TO BE OBTAINED AT A LARGER PHARMACY, SUCH [facility], [facility].ONCE PA DECISION MADE.
[2019-09-27 16:21] VITALS: BP 138/75
--- NOTE | 2019-09-27 16:37 | NUR ---
PT A&Ox4. VITALS STABLE. IV PATENT, INFUSING. ON SPECIALTY BED. PAIN CONTROLLED WITH IBUPROFEN AND NORCO. DENIED N/V. UP WITH LIFT MAX ASSIST. CALL LIGHT WITHIN REACH. CALL PRECAUTIONS IN PLACE WILL CONTINUE TO MONITOR.
--- NOTE | 2019-09-27 17:26 | NUR ---
PAUL called [facility] to discuss possible transfer for oral surgery/evaluation/tx. PAUL spoke with Alivia who explained that if pt was in ER, could be ER to ER transfer but since pt is inpt, transfer has to go through utilization management first and then will be reviewed by doctors and that this might not be able to take place until Wednesday. PAUL faxed needed medical records for [facility] doctor's review. [facility] phone [phone]
[2019-09-28 04:38] LABS: HEMATOCRIT 31.7 % (37.0-47.0); MCH 25.8 pg (26.0-34.0); MCHC 32.5 g/dL (28.0-37.0); MCV 79.5 fL (80.0-100.0); MPV 7.3 fl. (7.2-11.1); RBC 3.98 mil/uL (4.20-5.00); RDW-CV 16.8 % (10.5-14.5); WBC 4.7 thou/uL (4.0-11.0)
[2019-09-28 05:02] LABS: CALCIUM 8.2 mg/dL (8.5-10.1); CREATININE 0.3 mg/dL (0.6-1.3); POTASSIUM 3.3 mmol/L (3.5-5.1)
[2019-09-28 05:07] LABS: HEMOGLOBIN 10.3 gm/dL (12.0-15.0)
--- NOTE | 2019-09-28 05:31 | NUR ---
PATIENT SLEPT WELL DURING THIS SHIFT. PT ABLE TO REPOSITION HERSELF WITH OCCASSIONAL MINIMAL HELP. PT WITH ANTIBIOTICS INFUSING PER DR ORDER. PT WITH HS BLOOD SUGAR OF 129; NO TX NEEDED. PT WITH PEREZ TO DEPENDENT DRAIN WITH YELLOW URINE. PT WITH OSTOMY BAG, DARK BROWN LIQUID STOOL. PT GIVEN PERCOCET FOR PAIN AND TOLERATES WELL. FREQUENTLY USED ITEMS AND CALL LIGHT WITHIN REACH. SIDERAILS UPX2; PT ON SPECIALTY MATTRESS. PT REMAINS IN ISOLATION FOR HX OF MRSA. WILL CONTINUE TO MONITOR.
[2019-09-28 08:30] VITALS: BP 117/48
[2019-09-28 16:00] VITALS: BP 145/63
--- NOTE | 2019-09-28 18:47 | NUR ---
PATIENT ALERT AND ORIENTED X 4. VITAL SIGNS STABLE ON ROOM AIR. IV PATENT AND SALINE LOCKED. PEREZ PATENT AND DRAINING. COLOSTOMY BAG CHANGED TODAY. DARK BROWN LIQUID STOOL OUTPUT. STOMA RED. PAIN BEING MANAGED WITH PO MEDICATION. DENIES NAUSEA AT THIS TIME. REPOSITIONED EVERY TWO HOURS. FALL PRECAUTIONS IN PLACE AND BED ALARM ON. HOURLY ROUNDS MAINTAINED THROUGHOUT THE SHIFT. CALL LIGHT WITIN REACH. NURSING WILL CONTINUE TO MONITOR.
[2019-09-28 20:20] VITALS: BP 110/55
[2019-09-29 04:01] LABS: HEMATOCRIT 36.4 % (37.0-47.0); HEMOGLOBIN 11.9 gm/dL (12.0-15.0); MCHC 32.6 g/dL (28.0-37.0); MCV 79.8 fL (80.0-100.0); RBC 4.56 mil/uL (4.20-5.00); RDW-CV 16.9 % (10.5-14.5); WBC 6.7 thou/uL (4.0-11.0)
[2019-09-29 04:37] LABS: POTASSIUM 3.7 mmol/L (3.5-5.1)
[2019-09-29 04:38] LABS: CREATININE 0.3 mg/dL (0.6-1.3)
--- NOTE | 2019-09-29 04:38 | NUR ---
PT A&O X4, VSS ON RA. MEDS GIVEN ORDERED. PAIN CONTROLLED WITH PERCOCET. IBUPROFEN GIVEN PER PT REQUEST FOR HEADACHE. PEREZ CATH, OSTOMY BAG IN PLACE. CALL LIGHT WITHIN REACH. WILL CONTINUE TO MONITOR.
[2019-09-29 04:39] LABS: CALCIUM 8.4 mg/dL (8.5-10.1); MAGNESIUM 1.9 mg/dL (1.8-2.4)
[2019-09-29 07:30] VITALS: BP 109/46
--- NOTE | 2019-09-29 16:51 | NUR ---
PT REMAINED ALERT AND ORIENTED. PT RESTING IN BED. PAIN MEDS GIVEN ORDERED. FALL RISK PRECAUTIONS IN PLACE. PT TURNED SELF. ISOLATION PRECAUTIONS IN PLACE. HOURLY ROUNDING COMPLETED. WILL CONTINUE TO MONITOR.
[2019-09-29 17:14] VITALS: BP 154/76
[2019-09-29 21:50] VITALS: BP 145/56
--- NOTE | 2019-09-30 05:23 | NUR ---
PATIENT HAS SLEPT WELL THROUGHOUT THE NIGHT. VSS ON RA. MEDICATIONS GIVEN ORDERED. ASSESSMENT CHARTED. PEREZ TO DEPENDENT DRAINAGE WITH YELLOW URINE OUTPUT. PATIENT REMAINS IN CONTACT ISOLATION. IV IN RIGHT AC-SL. PATIENT TURNED EVERY 2HRS AND PRN. DRESSINGS TO RIGHT AND RIGHT HIP IS C/D/I. PATIENT INSTRUCTED TO USE CALL LIGHT WHEN NEEDING ASSISTANCE. HOURLY ROUNDS MADE. WILL CONTINUE WITH PLAN OF CARE AND NURSING TO MONITOR.
[2019-09-30 10:00] VITALS: BP 108/63
[2019-09-30 16:30] VITALS: BP 103/68
--- NOTE | 2019-09-30 19:00 | NUR ---
PATIENT PLEASANT AND COOPERATIVE THRU SHIFT. RESTING W/ EYES CLOSED PERIODICALLY. PATIENT STATES THAT SHE FEELS SHE NEEDS TO REST TODAY. EATING WELL. COLOSTOMY SITE NOTED WNL. PEREZ CATH PATENT W/ YELLOW URINE PRESENT. IV SITE WNL. CURRENTLY RESTING TO RT SIDE. CALL LIGHT IN REACH. CALM. HRLY ROUNDS DONE. ~TJRN
[2019-09-30 20:15] VITALS: BP 116/58
[2019-10-01 08:10] VITALS: BP 114/57
[2019-10-01 16:08] VITALS: BP 120/62
--- NOTE | 2019-10-01 18:42 | NUR ---
PATIENT PLEASANT AND COOPERATIVE W/ ASSESS AND CARES THIS SHIFT. HIP WOUND DRSG CHANGES DONE, PHOTOS TAKEN. PEREZ CATH PATENT, YELLOW URINE W/ SEDIMENT NOTED IN BAG. COLOSTOMY NOTED WNL, PATIENT STATES CHANGING APPLIANCE HERSELF "A COUPLE OF DAYS AGO", DECLINED NURSING TO CHANGE THIS SHIFT. IV SITE NOTED WNL. PATIENT STATES REPOSITIONING SELF Q2HRS W/O DIFF. SPECIALTY MATTRESS FUNCT APPROP. CURRENTLY RESTING TO RT SIDE. TV ON. CALL LIGHT IN REACH. PATIENT INSTRUCTED TO CALL W/ NEEDS. HRLY ROUNDS DONE. ~ TJRN
[2019-10-01 21:30] VITALS: BP 110/54
[2019-10-02 08:00] VITALS: BP 123/71
[2019-10-02 10:23] VITALS: BP 112/50
--- NOTE | 2019-10-02 15:37 | NUR ---
No longer needing transfer according to Dr Avitia, pt could follow up with oral surgery on an OP basis. When ready to dc, pt to dc home with family and HH services to resume through [facility].
[2019-10-02 16:00] VITALS: BP 108/50
--- NOTE | 2019-10-02 19:06 | NUR ---
ASSUMED CARE OF PATIENT AT APPROX 0730. ALERT AND ORIENTED X4. ASSESSMENT COMPLETED AND CHARTED. VSS ON ROOM AIR. PAIN MANAGED WITH ORAL OXY. ACCUCHECKS AND INSULIN ADMINISTERED ORDERED. PATIENT TURNS SELF IN THE BED. PILLOWS USED TO OFFLOAD BONY PROMINENCES. DRESSINGS CHAMGED BY WOUND CARE NURSE TODAY. HOURLY ROUNDS COMPLETED. CALL LIGHT WITHIN REACH. WILL CONTINUE WITH PLAN OF CARE.
[2019-10-02 20:45] VITALS: BP 110/59
--- NOTE | 2019-10-03 04:36 | NUR ---
VSS ON RA. MEDS GIVEN ORDERED. PERCOCET GIVEN PER PT REQUEST. PEREZ, COLOSTOMY BAG IN PLACE. PT SLEEPING THROUGH THE NIGHT. ISOLATION MAINTAINED. HOURLY ROUNDINGS, TURNS COMPLETED. WILL CONTINUE TO MONITOR.
[2019-10-03 07:20] VITALS: BP 102/54
[2019-10-03 09:46] VITALS: BP 112/50
[2019-10-03] MEDS ORDERED: BACTRIM DS TAB1 EACH PO (10:29)
[2019-10-03] MEDS ORDERED: AUGMENTIN 875-1 EACH PO (10:29)
[2019-10-03] MEDS ORDERED: DIFLUCAN200 MG PO (10:29)
[2019-10-03 11:22] VITALS: BP 112/50
--- NOTE | 2019-10-03 16:45 | NUR ---
TOLD PT.OF DISCHARGE THIS AM ABOUT 1100. SHE SAID SAID I COULD STAY UNITL TOMORROW BECAUSE MY FAMILY WILL NOT BE HOME TO ACCEPT ME INSIDE. TOLD HER I WOULD CHECK WITH AND MAKE HER FOLLOW UP APPTS.AND TALK TO HER LATER THIS AFTERNOON. ASKED HER IF IT WAS LATER IN THE AFTERNOON WHEN WE DISCHARGED HER IF THAT WOULD WORK WITH HER FAMILY. SHE SAID POSSIBLY. WROTE DISCHARGE SUMMARY FOR TODAY'S DATE. SHE TOLD ONE OF THE OTHER CM THAT SHE WANTED TO DISCHARGE PT.TODAY. CM MADE FOLLOW UP APPT.S IN [facility],AND ORAL SURGEON AT [facility]. FAXED REFERRAL ORDER TO JULI AT [facility]. APPTS.PUT ON DC INSTRUCTIONS. PT.NOW ASKING FOR 30 DAY REFILL ON HER PRESCRIPTIONS. NO REFILLS LEFT PER THE DRUG STORE IN [place]. CM SPOKE WITH . SHE SAID SHE DID WANT PT.TO DISCHARGE TODAY AND SHE WOULD NEED TO F/U WITH HER PCP TO GET HER MEDICATIONS RENEWED. INFORMED PT.AT THIS TIME OF ALL OF THE ABOVE. SHE CALLED HER MOM ON CELL. MOTHER WAS BELLIGERENT ON SPEAKER PHONE TO CM THAT NO ONE WOULD BE HOME TO LET PT.IN AND THEY WOULD BE GONE LATE INTO THE EVENING. PT.'S BROTHER IN BACKROUND YELLING AND CURSING-'IF YOU M----- F----- DISCHARGE HER TODAY IM GONNA COME AND BEAT YOUR ASS.' TOLD HIM I WOULD NOT ALLOW HIM TO SPEAK TO ME THAT WAY. HE SAID THE SAME PHRASE SEVERAL TIMES AGAIN. TOLD MOTHER THAT WE WOULD NOT DISCHARGE PT.TODAY BUT SHE WOULD BE DISCHARGED TOMORROW. PT.AWARE AND SAID SHE WANTED TO SPEAK WITH TOMORROW. NURSING INFORMED.
--- NOTE | 2019-10-03 17:38 | NUR ---
pt remained alert and oriented. pt does not have a ride home or access inside their home today but will tomorrow. no iv present. fall risk precautions in place. hourly rounding completed. will continue to monitor.
--- NOTE | 2019-10-03 18:07 | NUR ---
NEW PEREZ PLACED TODAY, DOSCONTINUED OLD PEREZ PER VERBAL ORDER DR. MANJARREZ.
[2019-10-03 21:00] VITALS: BP 116/55
--- NOTE | 2019-10-04 05:03 | NUR ---
PATIENT HAS REMAINED ALERT AND ORIENTED X 4 THROUGHOUT THE SHIFT AND RESTING QUIETLY ON HOURLY ROUNDS. REQUESTED PAIN MEDICATION X 2. TURNED Q3H. (PATIENT REFUSED Q2H TURNS) REMAINS ON SPECIALTY BED. DRESSINGS TO BILAT HIPS/BUTTOCK CLEAN AND DRY. INTACT COLOSTOMY APPLIANCE WITH BROWN STOOL. PEREZ PATENT TO DEPENDENT DRAINAGE. VITAL SIGNS STABLE. CONTINUE TO MONITOR.
[2019-10-04] MEDS ORDERED: SINGULAIR 10 MG10 M1 PO (09:44)
[2019-10-04] MEDS ORDERED: SLOW FE142 MG PO (09:44)
[2019-10-04] MEDS ORDERED: METFORMIN HCL500 M3 PO (09:44)
[2019-10-04] MEDS ORDERED: XANAX 0.5 MG0.5 MG PO (09:44)
[2019-10-04] MEDS ORDERED: PERCOCET 7.5-31 EAC1 PO (09:44)
[2019-10-04] MEDS ORDERED: FLORANEX TABLE1 EACH PO (09:44)
[2019-10-04] MEDS ORDERED: DULOXETINE HCL60 MG PO (09:44)
[2019-10-04] MEDS ORDERED: SUPER THERAVIT1 EACH PO (09:44)
[2019-10-04] MEDS ORDERED: OMEPRAZOLE40 MG PO (09:44)
[2019-10-04] MEDS ORDERED: VITAMIN C120 G1 PO (09:44)
[2019-10-04 09:50] VITALS: BP 103/56
--- NOTE | 2019-10-04 12:00 | NUR ---
SPOKE WITH PT. ASKED HER IF HER FAMILY WOULD BE HOME TODAY TO ACCEPT HER. SHE SAID YES. CM CALLED [place] [employer] TO ARRANGE STRETCHER VAN. PT.DOES NOT HAVE HER WC HERE AT HOSPITAL. INFORMATION TAKEN BY JES[facility]. TRIP #[id number]. 3 HR WINDOW FOR CHAIRMAN OF THE BOARD IS BETWEEN [phone]. PT.INFORMED. SARAN CALLED [facility]. INFORMED HER PT.WAS DISCHARGING TODAY. NO CHANGE IN ORDERS OR MEDS. SHE HAS ORDERS FROM YESTERDAY. [facility] HERE TO TRANSPORT. THEY SAID [facility] FOR [facility]SP[facility]. FILLED OUT MEDICAL NECESSITY FORM FOR THEM. WROTE ON IT THAT STRETCHER VAN WAS ORDERED.
[2019-10-04 12:22] VITALS: BP 112/50
[2019-10-04 12:40] VITALS: BP 112/50
--- NOTE | 2019-10-04 16:10 | NUR ---
PATIENT DISCHARGED TO HOME W/ HOME HEALTH SERVICES. PATIENT ALERT AND ORIENTED THRU SHIFT. RESTING IN THE MORNING W/ EYES CLOSED, PATIENT AWAKENS EASILY TO VERBAL/TOUCH STIM. BEDREST, STATES TURNING HERSELF Q2HRS. DISCHARGE INSTRUCTIONS REVIEWED W/ PATIENT. PATIENT STATES VERBALLY OF UNDERSTANDING. COPY OF INSTRUCTIONS AND ORIG SCRIPTS GIVEN TO PATIENT. BELONGINGS GATHERED, LEAVING ROOM W/ EMS PERSONNEL. EMS PERSONNEL IN W/ CART FOR TRANSFER OF PATIENT TO HOME. PEREZ CATH PATENT, COLOSTOMY WNL. NO OTHER NEEDS VOICED AT THIS TIME. ~ANGELICARN
== END 2019-10-04 16:10 | disposition home health service (06) | DRG 602 ==
LOC: M.ERS 13:13 → M.ORTHSURG 14:18 → M.TBA-ER 14:18 → M.ORTHSURG 15:31
PROVIDERS: Emergency Medicine Emergency Medical Services; Internal Medicine; ADMIT Family Medicine
DX: L03.213 Periorbital cellulitis (principal); L89.154 Pressure ulcer of sacral region, stage 4; G82.20 Paraplegia, unspecified; N39.0 Urinary tract infection, site not specified; Z16.12 Extended spectrum beta lactamase (ESBL) resistance; E44.1 Mild protein-calorie malnutrition; L03.211 Cellulitis of face; E11.9 Type 2 diabetes mellitus without complications; T36.95XA Adverse effect of unspecified systemic antibiotic, initial encounter; N31.9 Neuromuscular dysfunction of bladder, unspecified; J32.0 Chronic maxillary sinusitis; K02.9 Dental caries, unspecified; Z87.81 Personal history of (healed) traumatic fracture; Z87.442 Personal history of urinary calculi; Z93.3 Colostomy status; Z86.14 Personal history of Methicillin resistant Staphylococcus aureus infection; Z88.6 Allergy status to analgesic agent; Z88.1 Allergy status to other antibiotic agents; Z88.8 Allergy status to other drugs, medicaments and biological substances; Y92.89 Other specified places as the place of occurrence of the external cause; Z68.26 Body mass index [BMI] 26.0-26.9, adult; Z79.899 Other long term (current) drug therapy; Z28.21 Immunization not carried out because of patient refusal

== ENCOUNTER → 2019-10-30 | Outpatient (CLI) | payer MEDICARE, MEDICAID ==
[~2019-10-30] MED LIST changes: +AUGMENTIN400 MG/53 PO
--- NOTE | 2019-11-02 12:19 | CON ---
[address] [address] CONSULTATION Name: MARUBETHEL Echevarria [id number] Admission: 10/30/19 Attend Phys: Antonieta Zeng MD Discharge: Date of : 71 Report #: [id number] THIS REPORT FOR: //name// CC: Antonieta Stevens DATE OF SERVICE: 10/30/2019 INFECTIOUS DISEASE CONSULTATION ATTENDING PHYSICIAN: Dr. Antonieta Zeng. REASON FOR EVALUATION: Bilateral ischial wounds, previous history of chronic osteomyelitis. HISTORY OF PRESENT ILLNESS: The patient returns today in followup. She has had an extended course dating greater than a year. She has bilateral ischial wounds. There has been clear-cut chronic osteomyelitis. She has had multiple debridements, recently hospitalized, was felt to have sepsis and perhaps urinary tract source. It is notable she is tentatively scheduled to have a suprapubic catheter placed. She had a previous diverting colostomy. On evaluation, the wounds actually have remarkably improved. There are decreased dimensions overall. Per Dr. Zeng, there is no probing to bone at this point. Surface inflammation noted. She notes she has been eating reasonably well. Denies any significant systemic illness. She does have elevated temperatures from time to time and she is suspicious she may have a urinary tract infection, although she has got a longstanding indwelling Francois and she only has colonization. Bilateral ischial wounds. We will not add additional therapy. She is on trimethoprim/sulfamethoxazole for suspected urinary tract infection. ____ do any cultures. We will continue wound care per Dr. Zeng, offload the area and optimize her nutritional status. See her in 1 month. <ELECTRONICALLY SIGNED> By: Milton Gandhi MD 11/02/19 1219 [id number] Gandhi MD /nt
== END ==
LOC: M.WC 04:48
DX: E11.622 Type 2 diabetes mellitus with other skin ulcer (principal); L89.324 Pressure ulcer of left buttock, stage 4; L89.213 Pressure ulcer of right hip, stage 3; L89.223 Pressure ulcer of left hip, stage 3; L98.492 Non-pressure chronic ulcer of skin of other sites with fat layer exposed; L98.411 Non-pressure chronic ulcer of buttock limited to breakdown of skin; I89.0 Lymphedema, not elsewhere classified; E11.52 Type 2 diabetes mellitus with diabetic peripheral angiopathy with gangrene; I96 Gangrene, not elsewhere classified; E11.69 Type 2 diabetes mellitus with other specified complication; M86.8X8 Other osteomyelitis, other site; G82.20 Paraplegia, unspecified; M81.0 Age-related osteoporosis without current pathological fracture; Z87.891 Personal history of nicotine dependence

== ENCOUNTER → 2019-12-11 | Outpatient (CLI) | payer MEDICARE, MEDICAID | LOC: M.WC 08:54 | DX: E11.622 Type 2 diabetes mellitus with other skin ulcer (principal); L89.894 Pressure ulcer of other site, stage 4; L97.111 Non-pressure chronic ulcer of right thigh limited to breakdown of skin; L97.121 Non-pressure chronic ulcer of left thigh limited to breakdown of skin; L89.324 Pressure ulcer of left buttock, stage 4; L98.411 Non-pressure chronic ulcer of buttock limited to breakdown of skin; L89.213 Pressure ulcer of right hip, stage 3; L98.491 Non-pressure chronic ulcer of skin of other sites limited to breakdown of skin; I89.0 Lymphedema, not elsewhere classified; E11.52 Type 2 diabetes mellitus with diabetic peripheral angiopathy with gangrene; I96 Gangrene, not elsewhere classified; E11.69 Type 2 diabetes mellitus with other specified complication; M86.8X8 Other osteomyelitis, other site; G82.20 Paraplegia, unspecified; M81.0 Age-related osteoporosis without current pathological fracture; Z87.891 Personal history of nicotine dependence ==

== ENCOUNTER → 2020-03-20 | Outpatient (CLI) | payer MEDICARE, MEDICAID | LOC: M.WC 01:41 | DX: E11.622 Type 2 diabetes mellitus with other skin ulcer (principal); L89.213 Pressure ulcer of right hip, stage 3; L98.491 Non-pressure chronic ulcer of skin of other sites limited to breakdown of skin; L89.324 Pressure ulcer of left buttock, stage 4; L98.411 Non-pressure chronic ulcer of buttock limited to breakdown of skin; E11.52 Type 2 diabetes mellitus with diabetic peripheral angiopathy with gangrene; E11.69 Type 2 diabetes mellitus with other specified complication; M86.8X8 Other osteomyelitis, other site; E66.9 Obesity, unspecified; I89.0 Lymphedema, not elsewhere classified; G82.20 Paraplegia, unspecified; K21.9 Gastro-esophageal reflux disease without esophagitis; M81.0 Age-related osteoporosis without current pathological fracture; F41.9 Anxiety disorder, unspecified; F32.9 Major depressive disorder, single episode, unspecified; Z79.4 Long term (current) use of insulin; Z87.891 Personal history of nicotine dependence; Z68.26 Body mass index [BMI] 26.0-26.9, adult ==